=== PATIENT | male | born 1950 | race African-American/Black ===

== ENCOUNTER 2018-11-08 08:09 | Emergency (ER) | payer OTHER, SELFPAY ==
--- NOTE | 2018-11-08 09:03 | RAD REPORT ---
EXAM DESCRIPTION: CT - CTHCSPWOC - 11/08/2018 8:30 am CLINICAL HISTORY: Fall, head and neck injury COMPARISON: CT head November 2014 TECHNIQUE: Axial 5 mm thick images of the head were obtained. Axial 2 mm thick images of the cervic al spine were obtained with sagittal and coronal reconstruction images generated and reviewed. All CT scans are performed using dose optimization technique as appropriate and may include automated exposure control or mA/KV adjustment according to patient size. FINDINGS: No intracranial hemorrhage, mass, edema or acute intracranial finding. No suspicion for acute infarct ion. No extra-axial fluid collections. Mastoid air cells and paranasal sinuses are clear. No globe or orbit abnormality seen. No skull fracture is identified. Patient has a small scalp hematoma in the s uperolateral right frontal soft tissues. Underlying bone is intact. Relative density along the falx a nd tentorium is believed to be mineralization. Appearance matches the 2014 study. Atrophy changes are mild. Ventricles are in proportion to the volume loss. Cervical bodies are normal in height. No subluxation abnormality. There is reversal of the usual cerv ical lordosis that is probably a positioning artifact. Disc space narrowing is present throughout the cervical spine more pronounced at C5-6 and C7-T1. No fracture or acute bony abnormality. Bony forami nal encroachment present at C7-T1. No paraspinal mass or hematoma. Patient has prominent, symmetric sternocleidomastoid muscles. IMPRESSION: No hemorrhage, edema or acute intracranial finding. Intracranial findings are similar to the November 2014 study. Cervical spine degenerative changes are present as detailed. No fracture or acute cervical finding. Small scalp hematoma superolateral right frontal bone region. Underlying bone is intact.
--- NOTE | 2018-11-08 09:13 | ER ---
Nurse's Notes [facility] Name: Brendan Steinberg Age: 68 yrs Sex: Male : 1950 Arrival Date: 11/08/2018 Time: 08:12 Bed 20 Private MD: Diagnosis: Fall due to bumping against object;Headache;Sprain of ankle-left Presentation: 11/08 08:13 Presenting complaint: EMS states: Tripped while ambulating to the bathroom in the dark, hb hit head on radiator. + LOC. Now c/o pain in top of head and left ankle. Care prior to arrival: None. Mechanism of Injury: Fall from standing position. Trauma event details: Injury occurred in the [facility], Injury occurred: at home. Injury occurred: November 08, 2018 Injury occurred at: 07:30. 08:13 Acuity: ROSALIE 2 08:13 Method Of Arrival: EMS: [facility] 08:15 Transition of care: patient was not received from another setting of care. Onset of hb symptoms was November 08, 2018. Risk Assessment: Do you want to hurt yourself or someone else? Patient reports no desire to harm self or others. Initial Sepsis Screen: Does the patient meet any 2 criteria? No. Patient's initial sepsis screen is negative. Does the patient have a suspected source of infection? No. Patient's initial sepsis screen is negative. Trauma Activation: Alert Physician: ED Physician; Name: ; Notified At: ; Arrived At: Physician: General Surgeon; Name: ; Notified At: ; Arrived At: Physician: Radiology; Name: ; Notified At: ; Arrived At: Physician: Respiratory; Name: ; Notified At: ; Arrived At: Physician: Lab; Name: ; Notified At: ; Arrived At: Historical: - Allergies: 08:19 Codeine; hb - Home Meds: 08:19 Lisinopril Oral [Active]; hb - PMHx: 08:19 Hypertension; hb - PSHx: 08:19 hemorrhoidectomy; hb - Immunization history:: Adult Immunizations up to date. - Immunization history: Last tetanus immunization: unknown. - Social history:: Smoking status: Patient/guardian denies using tobacco. - Ebola Screening: : No symptoms or risks identified at this time. - Family history:: not pertinent. Screenin:15 Abuse screen: Denies threats or abuse. Denies injuries from another. Tuberculosis hb screening: No symptoms or risk factors identified. 08:19 Nutritional screening: No deficits noted. Fall Risk Total Mcnamara Fall Scale indicates hb Low Risk Score (25-44 pts). Fall prevention measures have been instituted. Side Rails Up X 2 Frequent Obs/Assesments occuring As available Patient and Family Educated on Fall Prevention Program and strategies. Primary Survey: 08:15 A: Airway: patent, No supplemental oxygen in use on arrival. Oral cavity: clear, hb Trachea midline. Breathing/Chest: Respiratory pattern: regular, Respiratory effort: spontaneous, unlabored, Breath sounds: clear, bilaterally. Chest inspection: symmetrical rise and fall of the chest. Circulation: Pulses: palpable . Skin color: pink, Skin temperature: warm, dry. Disability Alert. 09:00 Reassessment Airway Airway Patent Breathing/Chest Respiratory pattern Regular hb Respiratory effort Spontaneous Unlabored Chest inspection Symmetrical Circulation Temperature Warm Dry Disability Alert. Secondary Survey: 08:15 HEENT: Head Other mild swelling noted to top of head. Gastrointestinal: No deficits hb noted. : No deficits noted. No signs and/or symptoms were reported regarding the genitourinary system. Musculoskeletal: Reports pain in left ankle. Assessment: 08:17 General: Appears in no apparent distress. Behavior is calm, cooperative. Pain: Pain hb currently is 10 out of 10 on a pain scale. Neuro: Level of Consciousness is awake, alert, obeys commands, Oriented to person, place, time, situation, Pupils are PERRLA. Cardiovascular: Heart tones S1 S2 present Capillary refill < 3 seconds Patient's skin is warm and dry. Respiratory: Airway is patent Trachea midline Respiratory effort is even, unlabored, Respiratory pattern is regular, symmetrical, Breath sounds are clear bilaterally. GI: No signs and/or symptoms were reported involving the gastrointestinal system. : No signs and/or symptoms were reported regarding the genitourinary system. EENT: No signs and/or symptoms were reported regarding the EENT system. Derm: Skin is intact, is healthy with good turgor, Skin is pink, warm \T\ dry. Musculoskeletal: Reports pain in top of head and left ankle. Mild swelling noted to top of head. 09:00 Reassessment: Patient appears in no apparent distress at this time. Patient and/or hb family updated on plan of care and expected duration. Pain level reassessed. Patient is alert, oriented x 3, equal unlabored respirations, skin warm/dry/pink. 09:09 Reassessment: Pt c/o headache and left ankle pain 10/10, requesting pain medication. hb Dr. García notified, tramadol administered as ordered. VSS. NAD. Vital Signs: 08:15 BP 138 / 85; Pulse 62; Resp 16; Temp 98.1; Pulse Ox 97% on R/A; Pain 10/10; hb 09:00 BP 136 / 86; Pulse 66; Resp 15; Pulse Ox 100% on R/A; Pain 10/10; hb Rajesh Coma Score: 08:15 Eye Response: spontaneous(4). Verbal Response: oriented(5). Motor Response: obeys hb commands(6). Total: 15. Trauma Score (Adult): 08:15 Eye Response: spontaneous(1); Verbal Response: oriented(1); Motor Response: obeys hb commands(2); Systolic BP: > 89 mm Hg(4); Respiratory Rate: 10 to 29 per min(4); Rajesh Score: 15; Trauma Score: 12 09:00 Eye Response: spontaneous(1); Verbal Response: oriented(1); Motor Response: obeys hb commands(2); Systolic BP: > 89 mm Hg(4); Respiratory Rate: 10 to 29 per min(4); [place] Score: 15; Trauma Score: 12 ED Course: 08:12 Patient arrived in ED. hb 08:15 Triage completed. hb 08:16 Jhonny García MD is Attending Physician. miriam 08:17 Arm band placed on. hb 08:19 Patient has correct armband on for positive identification. Placed in gown. Bed in low hb position. Call light in reach. Side rails up X2. 08:20 Patient maintains SpO2 saturation greater than 95% on room air. Thermoregulation: warm hb blanket given to patient. 08:29 CT completed. Patient tolerated procedure well. Patient moved to CT via stretcher. sj Patient moved back from CT. 08:30 Head C Spine MPR Wo Con CT In Process Unspecified. EDMS 08:42 Sweta Veliz, RN is Primary Nurse. hb 09:00 X-ray completed. Portable x-ray completed in exam room. Patient tolerated procedure mh1 well. 09:10 Ankle Left 3 View XRAY In Process Unspecified. EDMS 09:12 Bar Lewis MD is Referral Physician. [facility] 09:28 No provider procedures requiring assistance completed. Patient did not have IV access ca1 during this emergency room visit. Administered Medications: 09:07 Drug: traMADol 100 mg Route: PO; ca1 09:30 Follow up: Response: Medication administered at discharge. hb Intake: 09:00 PO: 0ml; Total: 0ml. hb Output: 09:00 Urine: 0ml; Total: 0ml. hb Outcome: 09:12 Discharge ordered by . miriam 09:28 Discharged to home via wheelchair. ca1 09:28 Condition: stable 09:28 Discharge instructions given to patient, Instructed on discharge instructions, follow up and referral plans. medication usage, Demonstrated understanding of instructions, follow-up care, medications, Prescriptions given X 1. 09:38 Patient's length of stay was not longer than 2 hours. hb 09:39 Patient left the ED. hb Signatures: Dispatcher [employer] EDMS Jhonny García MD MD cha Harvey, Martha [facility] Iris Valentine Heather, JUANY RN hb Acob, Isabel, RN RN ca1 Corrections: (The following items were deleted from the chart) 09:10 09:00 BP 136 / 86; Pulse 66bpm; Resp 15bpm; Pulse Ox 100% RA; Pain 8/10; hb hb
--- NOTE | 2018-11-08 09:13 | EDPHYS ---
Physician Documentation [facility] Name: Brendan Steinberg Age: 68 yrs Sex: Male : 1950 Arrival Date: 11/08/2018 Time: 08:12 Bed 20 Private MD: ED Physician Jhonny García HPI: 11/08 08:44 This 68 yrs old Black Male presents to ER via EMS with complaints of Fall Injury. miriam 08:44 Details of fall: The patient fell from an upright position. Onset: The symptoms/episode miriam began/occurred last night. Associated injuries: The patient sustained injury to the head, neck injury, left lateral ankle, left medial ankle and anterior aspect of left ankle, decreased range of motion, painful injury, swelling. Severity of symptoms: At their worst the symptoms were mild, in the emergency department the symptoms are unchanged. The patient has not experienced similar symptoms in the past. Historical: - Allergies: 08:19 Codeine; hb - Home Meds: 08:19 Lisinopril Oral [Active]; hb - PMHx: 08:19 Hypertension; hb - PSHx: 08:19 hemorrhoidectomy; hb - Immunization history:: Adult Immunizations up to date. - Immunization history: Last tetanus immunization: unknown. - Social history:: Smoking status: Patient/guardian denies using tobacco. - Ebola Screening: : No symptoms or risks identified at this time. - Family history:: not pertinent. ROS: 08:44 Constitutional: Negative for fever, chills, and weight loss, Eyes: Negative for injury, miriam pain, redness, and discharge, ENT: Negative for injury, pain, and discharge, Neck: Negative for injury, pain, and swelling, Cardiovascular: Negative for chest pain, palpitations, and edema, Respiratory: Negative for shortness of breath, cough, wheezing, and pleuritic chest pain, Abdomen/GI: Negative for abdominal pain, nausea, vomiting, diarrhea, and constipation, Back: Negative for injury and pain, : Negative for injury, bleeding, discharge, and swelling, Skin: Negative for injury, rash, and discoloration, Neuro: Negative for headache, weakness, numbness, tingling, and seizure, Psych: Negative for depression, anxiety, suicide ideation, homicidal ideation, and hallucinations, Allergy/Immunology: Negative for hives, rash, and allergies, Endocrine: Negative for neck swelling, polydipsia, polyuria, polyphagia, and marked weight changes, Hematologic/Lymphatic: Negative for swollen nodes, abnormal bleeding, and unusual bruising. 08:44 MS/extremity: Positive for swelling, tenderness, of the left lateral ankle, left medial ankle and anterior aspect of left ankle. Exam: 08:44 Constitutional: This is a well developed, well nourished patient who is awake, alert, miriam and in no acute distress. Head/Face: Normocephalic, atraumatic. Eyes: Pupils equal round and reactive to light, extra-ocular motions intact. Lids and lashes normal. Conjunctiva and sclera are non-icteric and not injected. Cornea within normal limits. Periorbital areas with no swelling, redness, or edema. ENT: Nares patent. No nasal discharge, no septal abnormalities noted. Tympanic membranes are normal and external auditory canals are clear. Oropharynx with no redness, swelling, or masses, exudates, or evidence of obstruction, uvula midline. Mucous membranes moist. Neck: Trachea midline, no thyromegaly or masses palpated, and no cervical lymphadenopathy. Supple, full range of motion without nuchal rigidity, or vertebral point tenderness. No Meningismus. Chest/axilla: Normal chest wall appearance and motion. Nontender with no deformity. No lesions are appreciated. Cardiovascular: Regular rate and rhythm with a normal S1 and S2. No gallops, murmurs, or rubs. Normal PMI, no JVD. No pulse deficits. Respiratory: Lungs have equal breath sounds bilaterally, clear to auscultation and percussion. No rales, rhonchi or wheezes noted. No increased work of breathing, no retractions or nasal flaring. Abdomen/GI: Soft, non-tender, with normal bowel sounds. No distension or tympany. No guarding or rebound. No evidence of tenderness throughout. Back: No spinal tenderness. No costovertebral tenderness. Full range of motion. Male : Normal genitalia with no discharge or lesions. Skin: Warm, dry with normal turgor. Normal color with no rashes, no lesions, and no evidence of cellulitis. Neuro: Awake and alert, GCS 15, oriented to person, place, time, and situation. Cranial nerves II-XII grossly intact. Motor strength 5/5 in all extremities. Sensory grossly intact. Cerebellar exam normal. Normal gait. Psych: Awake, alert, with orientation to person, place and time. Behavior, mood, and affect are within normal limits. 08:44 Musculoskeletal/extremity: Circulation is intact in all extremities. Sensation intact. Compartment Syndrome exam of affected extremity: is normal. DVT Exam: negative Homans' sign noted on exam, no appreciated bluish discoloration, no erythema, no increased warmth, pain, swelling, tenderness. Vital Signs: 08:15 BP 138 / 85; Pulse 62; Resp 16; Temp 98.1; Pulse Ox 97% on R/A; Pain 10/10; hb 09:00 BP 136 / 86; Pulse 66; Resp 15; Pulse Ox 100% on R/A; Pain 10/10; hb Rajesh Coma Score: 08:15 Eye Response: spontaneous(4). Verbal Response: oriented(5). Motor Response: obeys hb commands(6). Total: 15. Trauma Score (Adult): 08:15 Eye Response: spontaneous(1); Verbal Response: oriented(1); Motor Response: obeys hb commands(2); Systolic BP: > 89 mm Hg(4); Respiratory Rate: 10 to 29 per min(4); Rajesh Score: 15; Trauma Score: 12 09:00 Eye Response: spontaneous(1); Verbal Response: oriented(1); Motor Response: obeys hb commands(2); Systolic BP: > 89 mm Hg(4); Respiratory Rate: 10 to 29 per min(4); [place] Score: 15; Trauma Score: 12 MDM: 08:16 Patient medically screened. [facility] 11/08 08:15 Order name: Head C Spine MPR Wo Con CT; Complete Time: 09:07 bd 11/08 08:40 Order name: Ankle Left 3 View XRAY hb Administered Medications: 09:07 Drug: traMADol 100 mg Route: PO; ca1 09:30 Follow up: Response: Medication administered at discharge. Disposition: 11/08/18 09:12 Discharged to Home. Impression: Fall due to bumping against object, Headache, Sprain of ankle - left. - Condition is Stable. - Discharge Instructions: Ankle Sprain, Head Injury, Adult, Fall Prevention in the Home, Ankle Sprain, [id number], Fall Prevention in the Home, Imrc-[id number]-Usnn, Head Injury, Adult, [id number]-xg-Ceok. - Prescriptions for Tramadol 50 mg Oral Tablet - take 1 tablet by ORAL route every 8 hours as needed; 24 tablet. - Medication Reconciliation Form, Thank You Letter, Antibiotic Education, Prescription Opioid Use form. - Follow up: Private Physician; When: 2 - 3 days; Reason: Recheck today's complaints, Continuance of care, Re-evaluation by your physician. Follow up: Dr. Bar Lewis; When: 2 - 3 days; Reason: Recheck today's complaints, Re-evaluation by your physician. - Problem is new. - Symptoms have improved. Signatures: Dispatcher [employer] EDMS Jhonny García MD MD cha Baxter, Heather, RN RN Isabel Bee RN RN [facility] Corrections: (The following items were deleted from the chart) 09:38 09:12 11/08/2018 09:12 Discharged to Home. Impression: Fall due to bumping against hb object; Headache; Sprain of ankle - left. Condition is Stable. Discharge Instructions: Ankle Sprain, Head Injury, Adult, Fall Prevention in the Home, Ankle Sprain, [id number], Fall Prevention in the Home, Ntuy-cm-Htuz, Head Injury, Adult, Ihnm-[id number]-[id number]. Prescriptions for Tramadol 50 mg Oral Tablet - take 1 tablet by ORAL route every 8 hours as needed; 24 tablet. and Forms are Medication Reconciliation Form, Thank You Letter, Antibiotic Education, Prescription Opioid Use. Follow up: Private Physician; When: 2 - 3 days; Reason: Recheck today's complaints, Continuance of care, Re-evaluation by your physician. Follow up: Dr. Bar Lewis; When: 2 - 3 days; Reason: Recheck today's complaints, Re-evaluation by your physician. Problem is new. Symptoms have improved. [facility] 09:39 09:38 11/08/2018 09:12 Discharged to Home. Impression: Fall due to bumping against hb object; Headache; Sprain of ankle - left. Condition is Stable. Discharge Instructions: Ankle Sprain, Head Injury, Adult, Fall Prevention in the Home, Ankle Sprain, Eyeb-[id number]-[id number], Fall Prevention in the Home, [id number]-[id number]-[id number], Head Injury, Adult, Pwiv-pu-Wlve. Prescriptions for Tramadol 50 mg Oral Tablet - take 1 tablet by ORAL route every 8 hours as needed; 24 tablet. and Forms are Medication Reconciliation Form, Thank You Letter, Antibiotic Education, Prescription Opioid Use. Follow up: Private Physician; When: 2 - 3 days; Reason: Recheck today's complaints, Continuance of care, Re-evaluation by your physician. Follow up: Dr. Bar Lewis; When: 2 - 3 days; Reason: Recheck today's complaints, Re-evaluation by your physician. Problem is new. Symptoms have improved. hb
[2018-11-08] MEDS ORDERED: TRAMADOL HCL 50 MG TAB ONE (09:16)
--- NOTE | 2018-11-08 09:32 | RAD REPORT ---
EXAM DESCRIPTION: RAD - Ankle Left 3 View - 11/08/2018 9:09 am CLINICAL HISTORY: Trip and fall, ankle pain COMPARISON: None. FINDINGS: No fracture, dislocation or periosteal reaction. No joint effusion seen. Mild joint space narrowing at the ankle joint. There is minimal marginal spurring. No erosive component. Arterial calc ifications are present. Patient has a small plantar spur. Lateral soft tissues are mildly prominent. IMPRESSION: Ankle joint degenerative changes are present along with a small plantar spur. No fracture or acute bone finding. Mild soft tissue swelling.
[2018-11-08 09:51] VITALS: TEMP 98.1
[2018-11-08 09:53] VITALS: BP 136/86; O2SAT 100
== END 2018-11-08 09:39 | disposition home or self-care (01) ==
LOC: ER 08:09
DX: S93.402A Sprain of unspecified ligament of left ankle, initial encounter (principal); R51 Headache; I10 Essential (primary) hypertension; W19.XXXA Unspecified fall, initial encounter; Y93.9 Activity, unspecified; Y92.9 Unspecified place or not applicable; Z88.5 Allergy status to narcotic agent
CPT/HCPCS: 70450; 72125; 99285

== ENCOUNTER 2021-02-20 18:44 | Inpatient (IN) | payer OTHER ==
[2021-02-20 20:34] VITALS: BMI 35.0
[2021-02-20] MEDS ORDERED: ACETAMINOPHEN 500 MG TAB PO PRN (21:27)
--- NOTE | 2021-02-20 21:31 | P.HP ---
Certification for Inpatient Patient admitted to: Inpatient With expected LOS: >2 Midnights Patient will require the following post-hospital care: None Practitioner: I am a practitioner with admitting privileges, knowledge of patient current condition, hospital course, and medical plan of care. Services: Services provided to patient in accordance with Admission requirements found in Title 42 Section 412.3 of the Code of Federal Regulations Patient History Date of Service: 02/20/21 Primary Care Provider: Dr. Tam Reason for admission: REBECCA, diarrhea History of Present Illness: Mr. Steinberg is a 70 yo male with HTN and h/o prostate cancer s/p radiation in April 2020 here today with nausea, vomiting, abdominal pain, and diarrhea since Sunday. He describes sharp 10/10 RLQ abdominal pain that feels like a knot. He reports poor appetite, night sweats, weakness, polyuria. He denies chills, chest pain, palpitations, edema, SOB, coughing, wheezing, hemoptysis, hematochezia, dysuria, hematuria. He says he just finished a 15 day course of ampicillin for tooth pain. At [place], CT scan and CXR were wnl. Alb 3.3. Amylase 257. TP 9. Glu 120. BUN 29. Cr 2.1. K 3.4. D dimer 1650. All other labs wnl. Allergies No Known Drug Allergies Allergy (Verified 02/20/21 21:43) Unknown Home medications list reviewed: Yes Home Medications: Unobtainable 02/20/21 - Past Medical/Surgical History Diabetic: No -: HTN -: prostate cancer s/p radiation 04/2020 Past Surgical History: Patient denies surgical history - Social History Smoking Status: Light Tobacco smoker (1-9 cigarettes/day) Counseled patient to stop smoking for: less than 10 minutes Smoking therapy provided: Yes Patient receptive to therapy: Yes Alcohol use: No CD- Drugs: No Caffeine use: Yes Place of Residence: Home Review of Systems General: Sweats, Malaise, As per HPI Eyes: Unremarkable ENT: Unremarkable Respiratory: Unremarkable Cardiovascular: Unremarkable Gastrointestinal: Nausea, Vomiting, Abdominal Pain, Diarrhea, No Distention, As per HPI Genitourinary: Frequency, As per HPI Musculoskeletal: Unremarkable Integumentary: Unremarkable Neurological: Unremarkable Lymphatics: Unremarkable Physical Examination - Vital Signs Temperature: 97.8 F Blood Pressure: 192/96 Pulse: 78 Respirations: 20 Pulse Ox (%): 93 - Physical Exam General: Alert, In no apparent distress, Oriented x3, Cooperative HEENT: Atraumatic, Normocephalic, PERRLA, Mucous membr. moist/pink, EOMI, Sclerae nonicteric Neck: Supple, 2+ carotid pulse no bruit, JVD not distended, No Thyromegaly, No LAD Respiratory: Clear to auscultation bilaterally, Normal air movement Cardiovascular: No edema, Normal pulses, Regular rate/rhythm, Normal S1 S2, No gallops, No rubs, No murmurs Capillary refill: <2 Seconds Gastrointestinal: Normal bowel sounds, Soft and benign, Non-distended, No ascites, No masses, No rebound, No guarding, Other (tenderness to palpation in RLQ), Tenderness Musculoskeletal: No clubbing, No swelling, No contractures, No erythema, No tenderness, No warmth Integumentary: No rashes, No breakdown, No significant lesion, No tenderness/swelling, No erythema, No warmth, No cyanosis Neurological: Normal speech, Normal strength at 5/5 x4 extr, Normal tone, S ensation intact, Cranial nerves 3-12 intact, Normal affect Lymphatics: No axilla or inguinal lymphadenopathy Assessment and Plan - Plan Assessment Hypertension History of prostate cancer s/p radiation in April N/V/D, abdominal pain REBECCA Assessment Hypertension - BP elevated on presentation, restart home BP medications, IV hydralazine 10mg Q6hr PRN - morphine 2mg IV q6hr for pain control History of prostate cancer s/p radiation in April - stable, continue to monitor - Ddimer elevated to 1650 at [place], patient reports some leg swelling, will obtain venous doppler U/S to rule out clots. heparin for DVT ppx. N/V/D, abdominal pain - CT scan shows no acute abnormalties in the abdomen or pelvis. Normal appendix. No obstructive ureteral calculi and no hydronephrosis seen. Pt reports recently completing course of ampicillin. Will obtain stool cultures, O&P, and c diff. Zofran for nausea and vomiting. advance diet as tolerated. REBECCA - Cr 2.1, BUN 29, K 3.4. Received fluids at [place]. will continue with hydration and potassium replacement. recheck BMP in the morning. on telemetry. Discharge Plan: Home Plan to discharge in: 48 Hours - Advance Directives Does patient have a Living Will: No Does patient have a Durable POA for Healthcare: No - Code Status/Comfort Care Code Status Assessed: Yes (full code) Critical Care: No Time Spent Managing Pts Care (In Minutes): 70
[2021-02-20] MEDS: ONDANSETRON 4 MG/2 ML VIAL IV PRN (21:54)
[2021-02-20] MEDS: MORPHINE 2 MG/ML SYR IV PRN (21:54)
[2021-02-20] MEDS ORDERED: NS KCL 20MEQ 20 MEQ/1,000 ML BAG IV SCH (22:00)
[2021-02-20] MEDS: NS KCL 20MEQ 20 MEQ/1,000 ML BAG IV SCH (22:00)
[2021-02-20 22:44] LABS: Thyroid Stimulating Hormone 1.82 uIU/mL (0.360-3.740)
[2021-02-21] MEDS: HEPARIN 5000 UNIT/ML 1 ML VIAL SQ SCH ×3 (00:59→17:30)
[2021-02-21 01:26] LABS: Urine Appearance CLEAR; Urine Bilirubin NEGATIVE (NEG); Urine Blood 2+ (Negative); Urine Color YELLOW; Urine Glucose NEGATIVE (Negative); Urine Protein 3+ (NEG); Urine Specific Gravity 1.025 (1.005-1.030); Urine Urobilinogen 0.2 mg/dL (0.2-1.0)
[2021-02-21 02:22] LABS: Urine Bacteria <20 /HPF (NONE SEEN); Urine RBC <5 /HPF (NONE SEEN)
[2021-02-21] MEDS ORDERED: MELATONIN 5 MG TABLET PO PRN (04:21)
[2021-02-21] MEDS: MORPHINE 2 MG/ML SYR IV PRN ×2 (04:44→09:48)
[2021-02-21] MEDS: ONDANSETRON 4 MG/2 ML VIAL IV PRN (04:44)
[2021-02-21] MEDS ORDERED: VANCOMYCIN ORAL SOLN 250 MG/5 ML OSYR PO SCH (06:00)
[2021-02-21 06:04] LABS: Absolute Lymphocytes (CBC) 2.2 K/uL (0.7-4.9); Basophils % 0.5 % (0-1.3); Hematocrit 33.2 % (39.6-49.0); Lymphocytes % 29.3 % (15.3-44.8); MPV 10.6 fL (7.6-11.3); RBC Red Blood Cell Count 3.35 M/uL (4.33-5.43)
[2021-02-21 06:39] LABS: Albumin 2.3 g/dL (3.4-5.0); Bilirubin Total 0.6 mg/dL (0.2-1.0); Magnesium 2.1 mg/dL (1.8-2.4); Phosphorus 3.6 mg/dL (2.5-4.9); Potassium 3.1 mmol/L (3.5-5.1); Protein, Total 7.8 g/dL (6.4-8.2)
--- NOTE | 2021-02-21 08:14 | RAD REPORT ---
EXAM DESCRIPTION: US - Extrem Venous W Compress Rojelio - 02/20/2021 10:28 pm CLINICAL HISTORY: leg swelling, both legs Preliminaries findings were provided at the time of the study COMPARISON: None. TECHNIQUE: Real-time sonographic evaluation of the bilateral lower extremity common femoral, superfi cial femoral, popliteal and posterior tibial veins was performed. FINDINGS: Normal compressibility, flow augmentation, phasic flow and spontaneous flow are identified in the left and right lower extremity common femoral, superficial femoral, popliteal and posterior t ibial veins. No intraluminal filling defects seen. IMPRESSION: No DVT in either lower extremity.
[2021-02-21] MEDS ORDERED: POTASSIUM 25 MEQ EFFERV TAB PO ONE (09:00)
[2021-02-21] MEDS: NS KCL 20MEQ 20 MEQ/1,000 ML BAG IV SCH ×2 (09:41→20:44)
[2021-02-21] MEDS ORDERED: SODIUM CHLORIDE 0.9% 10ML INJ IV PRN (11:51)
[2021-02-21] MEDS ORDERED: TRAMADOL HCL 50 MG TAB PO PRN (11:52)
--- NOTE | 2021-02-21 11:58 | P.PN ---
Subjective Date of Service: 02/21/21 Primary Care Provider: Dr. Tam Chief Complaint: REBECCA, diarrhea Subjective: Improving (Patient reports improvement. No diarrhea or bowel movement this morning. Some nausea. Patient admits to using THC. He smokes about 3 cigarettes/day.) Physical Examination - Vital Signs Temperature: 98.3 F Blood Pressure: 185/91 Pulse: 78 Respirations: 16 Pulse Ox (%): 92 - Studies Laboratory Data (last 24 hrs) 02/21/21 05:00: Sodium 139, Potassium 3.1 L, BUN 29 H, Creatinine 1.88 H, Glucose 80, Phosphorus 3.6, Magnesium 2.1, Total Bilirubin 0.6, AST 25, ALT 22, Alkaline Phosphatase 66, Triglycerides 144, Cholesterol 183, HDL Cholesterol 36 L, Cholesterol/HDL Ratio 5.08 02/21/21 05:00: WBC 7.40, Hgb 11.1 L, Hct 33.2 L, Plt Count 154 Assessment & Plan Discharge Plan: Home Plan to discharge in: 24 Hours Physician Review Additional Text: Physical exam: Patient alert, cooperative. No significant distress noted. Heart: Regular rate and rhythm Lungs: Clear to auscultation Abdomen: Soft nondistended hyperdynamic sounds noted. No significant tenderness noted. Minimal epigastric pain Extremities: Good range of motion to the upper lower extremities. No focal deficits noted. No edema. Impression: Nausea, vomiting, diarrhea and abdominal pain suspect colitis with recent antibiotic use Acute renal insufficiency likely dehydration with hypokalemia GERD Hypertension THC use Plan: Nausea, vomiting, diarrhea and abdominal pain suspect colitis with recent antibiotic use: Patient improved. No nausea or vomiting noted. Still some mild epigastric pain. No diarrhea noted. Reports no bowel movement since yesterday. CT scan unremarkable. Will check KUB. Patient with recent antibiotic use for dental pain. Suspect C. difficile colitis. Encourage ambulation. Encourage oral intake. He did not eat this morning. Continue IV fluids. We will continue to reassess. If improved will consider discharge later today if not tomorrow. Acute renal insufficiency likely dehydration with hypokalemia: Continue IV fluid hydration. Potassium supplementation in place. Protocol for replacement in place. GERD: We will start Protonix. Hypertension: Need to obtain and restart home medication. We will start carvedilol for now THC use: This may be contributing to his nausea and vomiting. Cessation education provided. Time Spent Managing Pts Care (In Minutes): 55
[2021-02-21] MEDS: LACTOBACILLUS/ACIDOPHILUS TAB PO SCH ×2 (14:04→20:42)
[2021-02-21] MEDS: METOPROLOL TAR 50 MG TAB PO SCH ×2 (14:05→20:42)
[2021-02-21] MEDS: HYDRALAZINE HCL 20 MG/ML VIAL IV PRN (14:05)
[2021-02-21] MEDS: PANTOPRAZOLE 40 MG INJ IVP SCH (14:05)
--- NOTE | 2021-02-21 14:39 | RAD REPORT ---
EXAM DESCRIPTION: RAD - Abdomen 1 View (KUB) - 02/21/2021 2:32 pm CLINICAL HISTORY: suspect Colitis Pain COMPARISON: ABDOMEN 1 VIEW KUB dated 08/11/2013; ABDOMEN 1 VIEW KUB dated 01/24/2013 FINDINGS: The bowel gas pattern is non-obstructive. No evidence of free air or pneumatosis. No suspi cious calcifications. No significant bony findings. IMPRESSION: Negative examination.
[2021-02-21] MEDS ORDERED: POTASSIUM CL SA 10 MEQ TAB PO ONE (16:12)
[2021-02-21] MEDS: HYDROCODONE/APAP 7.5/325 MG TAB PO PRN (17:27)
[2021-02-21] MEDS ORDERED: carvediloL 3.125 MG TAB PO SCH (18:00)
[2021-02-21] MEDS ORDERED: AMLODIPINE 5 MG TAB PO ONE (21:05)
--- NOTE | 2021-02-21 22:13 | CON ---
Date of Consultation: 02/21/2021 Chief Complaint: Acute on chronic kidney injury, prerenal azotemia, volume depletion. History Of Present Illness: The patient is a 70-year-old man with history of hypertension, history o f prostate cancer, status post radiation in April 2020. The patient was admitted to the hospital for hypovolemia, nausea, vomiting. He was complaining of abdominal pain, developed diarrhea on Sunday, a nd was complaining of progressively worse diarrhea and abdominal pain associated with nausea. The pa tient describes pain as sharp pain, 10/10, involving the right lower quadrant of the abdomen and was tight and steady without palpation. The patient had poor appetite, night sweat, weakness. He was co mplaining of polyuria. He denies chills, chest pain, palpitation, edema, wheezing, cough, or hemopty sis. He recently was treated with ampicillin for tooth pain and came to emergency room, had a CT sca n and chest x-ray done, which were within normal limits without any acute changes. Amylase was 257, albumin 3.3, creatinine 2.1, potassium 3.4. D-dimers were up to 1650. Review of Systems: Constitutional: He was complaining of generalized weakness. Eyes: Denies vision changes. Ears, Nose, Mouth, and Throat: Denies sore throat or earache. Respiratory: Denies wheezing, cough, or hemoptysis. Cardiovascular: Denies palpitation or syncope. GI: He was complaining of nausea and abdominal pain involving right lower quadrant, diarrhea, and de creased appetite. All other systems reviewed and all are negative. Past Medical History: Hypertension, prostate cancer, status post radiation in April 2020. Past Surgical History: The patient denies any previous surgery. Social History: Tobacco smoking, 1 to 9 cigarettes per day. Alcohol, denies. Denies IV drugs. Family History: No kidney disease in the family. Physical Examination: Vital Signs: Blood pressure is 180/96, heart rate is 70, respiratory rate 20, SpO2 93%, temperature 97.8. General: The patient is alert and oriented x3. Eyes: Anicteric sclerae. EOMI. Ears, Nose, Mouth, and Throat: Oral mucosa moist. No pallor. Neck: Supple. No bruits. Lungs: No wheezing. No rhonchi. Heart: S1, S2. No pericardial friction rub. Abdomen: Soft, benign, nontender. No rebound. No guarding. There is mild tenderness over right lo wer quadrant. Bowel sounds present. Neurologic: Moving extremities. Cranial nerves intact. Skin: Warm and dry. No skin rashes. Impression And Plan: 1.Acute on chronic kidney injury with prerenal azotemia. Continue IV fluids. The patient has histo ry of prostate cancer, although he denies lower urinary tract symptoms. Plan is to check renal ultra sound to screen for obstructive uropathy. 2.Hypertension. Blood pressure is uncontrolled. The patient was started on hydralazine IV. Advanc e p.o. medications. Continue low-sodium diet. 3.Prostate cancer, status post radiation. The patient was found to have elevated D-dimers. The pat ient will be ruled out for lower extremity deep vein thrombosis. 4.Nausea and vomiting. Continue antiemetics. The patient is on Zofran. 5.Chronic kidney disease. Plan is to screen for proteinuria and check urinalysis for any evidence o f active urinary sediment. EB/MODL Voice ID: [id number] Report ID: [id number]
[2021-02-22] MEDS: HEPARIN 5000 UNIT/ML 1 ML VIAL SQ SCH ×3 (00:31→16:26)
[2021-02-22] MEDS: HYDROCODONE/APAP 7.5/325 MG TAB PO PRN ×2 (00:31→08:41)
[2021-02-22] MEDS: HYDRALAZINE HCL 20 MG/ML VIAL IV PRN (00:32)
[2021-02-22 04:29] LABS: Magnesium 1.9 mg/dL (1.8-2.4); Potassium 4.1 mmol/L (3.5-5.1)
[2021-02-22] MEDS: NS KCL 20MEQ 20 MEQ/1,000 ML BAG IV SCH (07:22)
[2021-02-22] MEDS: PANTOPRAZOLE 40 MG INJ IVP SCH (08:39)
[2021-02-22] MEDS: LACTOBACILLUS/ACIDOPHILUS TAB PO SCH ×3 (08:40→20:10)
[2021-02-22] MEDS: METOPROLOL TAR 50 MG TAB PO SCH ×2 (08:40→20:10)
[2021-02-22] MEDS ORDERED: AMLODIPINE 2.5 MG TAB PO SCH (09:00)
[2021-02-22 09:24] VITALS: O2SAT 95
--- NOTE | 2021-02-22 09:51 | P.DS ---
Admission Date: 02/22/21 Discharge Date: 02/22/21 Primary Care Provider: Dr. Tam Disposition: ROUTINE DISCHARGE Discharge Condition: GOOD Reason for Admission: REBECCA, diarrhea Consultations: Nephrology-Dr. Mcnamara Procedures: COVID: Negative Renal US: Venous Doppler: COMPARISON: None. TECHNIQUE: Real-time sonographic evaluation of the bilateral lower extremity common femoral, superficial femoral, popliteal and posterior tibial veins was performed. FINDINGS: Normal compressibility, flow augmentation, phasic flow and spontaneous flow are identified in the left and right lower extremity common femoral, superficial femoral, popliteal and posterior tibial veins. No intraluminal filling defects seen. IMPRESSION: No DVT in either lower extremity. KUB: FINDINGS: The bowel gas pattern is non-obstructive. No evidence of free air or pneumatosis. No suspicious calcifications. No significant bony findings. IMPRESSION: Negative examination. Medical Problem List: Nausea, vomiting, diarrhea and abdominal pain suspect colitis with recent antibiotic use Acute renal insufficiency likely dehydration with hypokalemia GERD Hypertension THC use Brief History of Present Illness: 70-year-old -[place] male with history of hypertension, prostate cancer with prior radiation. Patient presented with nausea, vomiting and diarrhea. Patient also reported epigastric pain. Patient was seen at [place] [facility]. CT scan done was unremarkable. Patient was sent to our facility to continue further work-up. Patient recently finished course of 15-day ampicillin for tooth ache. Patient appeared dehydrated. Hospital Course: Patient was a direct transfer from [place] [facility] due to nausea, vomiting, diarrhea and abdominal pain. CT scan unremarkable. KUB unremarkable. Patient had mid epigastric abdominal pain. Colitis versus gastritis was suspected. Patient had been recently placed on antibiotic therapy for tooth ache. Plan: Nausea, vomiting, diarrhea and abdominal pain suspect colitis with recent antibiotic use: Patient improved. No nausea or vomiting noted. Still some mild epigastric pain. No diarrhea noted. Reports no bowel movement since yesterday. CT scan unremarkable. Will check KUB. Patient with recent antibiotic use for dental pain. Suspect C. difficile colitis. Encourage ambulation. Encourage oral intake. He did not eat this morning. Continue IV fluids. We will continue to reassess. If improved will consider discharge later today if not tomorrow. Acute renal insufficiency likely dehydration with hypokalemia: Continue IV fluid hydration. Potassium supplementation in place. Protocol for replacement in place. GERD: We will start Protonix. Hypertension: Need to obtain and restart home medication. We will start carvedilol for now THC use: This may be contributing to his nausea and vomiting. Cessation education provided. Time Spent Managing Pts Care (In Minutes): 55 Vital Signs/Physical Exam: Temp Pulse Resp BP Pulse Ox 98.6 F 71 17 181/101 H 95 02/22/21 08:00 02/22/21 08:40 02/22/21 08:00 02/22/21 08:40 02/22/21 08:00 Laboratory Data at Discharge: WBC 7.40 K/uL (4.3-10.9) 02/21/21 05:00 Hgb 11.1 g/dL (13.6-17.9) L 02/21/21 05:00 Hct 33.2 % (39.6-49.0) L 02/21/21 05:00 Plt Count 154 K/uL (152-406) 02/21/21 05:00 Sodium 140 mmol/L (136-145) 02/22/21 03:44 Potassium 4.1 mmol/L (3.5-5.1) 02/22/21 03:44 BUN 27 mg/dL (7-18) H 02/22/21 03:44 Creatinine 1.75 mg/dL (0.55-1.3) H 02/22/21 03:44 Glucose 86 mg/dL (74-106) 02/22/21 03:44 Phosphorus 3.6 mg/dL (2.5-4.9) 02/21/21 05:00 Magnesium 1.9 mg/dL (1.8-2.4) 02/22/21 03:44 Total Bilirubin 0.6 mg/dL (0.2-1.0) 02/21/21 05:00 AST 25 U/L (15-37) 02/21/21 05:00 ALT 22 U/L (12-78) 02/21/21 05:00 Alkaline Phosphatase 66 U/L (45-117) 02/21/21 05:00 Triglycerides 144 mg/dL (<150) 02/21/21 05:00 Cholesterol 183 mg/dL (<200) 02/21/21 05:00 HDL Cholesterol 36 mg/dL (40-60) L 02/21/21 05:00 Cholesterol/HDL Ratio 5.08 02/21/21 05:00 Home Medications: Acetaminophen with Codeine [Acetaminophen-Cod #4 Tablet] 1 tab PO BID PRN 02/21/21 Lisinopril/Hydrochlorothiazide [Lisinopril-Hctz 20-12.5 mg Tab] 2 each PO DAILY 02/21/21 Metoprolol Tartrate [Lopressor] 100 mg PO BID 02/21/21
--- NOTE | 2021-02-22 09:55 | RAD REPORT ---
EXAM DESCRIPTION: US - Renal Ultrasound-Complete - 02/22/2021 9:19 am CLINICAL HISTORY: glo Flank pain COMPARISON: ABDOMINAL EXAM LIMITED dated 10/25/2007 FINDINGS: Both kidneys are mildly echogenic. The right kidney measures 10.6 x 6.9 x 5.5 cm. No hydronephrosis, focal mass or perinephric fluid. The left kidney measures 11.1 x 6.3 x 4.5 cm. No hydronephrosis, focal mass or perinephric fluid. 12 mm cyst is present cortex left kidney, benign appearance. The urinary bladder is incompletely distended without gross abnormality seen. IMPRESSION: Bilateral echogenic kidneys are present compatible with underlying medical renal disease .
--- NOTE | 2021-02-22 10:35 | P.PN ---
Subjective Date of Service: 02/22/21 Primary Care Provider: Dr. Tam Chief Complaint: REBECCA, diarrhea Subjective: Other (Patient not able to tolerate diet this morning. Still with nausea and vomiting. Some epigastric pain noted.) Physical Examination - Vital Signs Temperature: 98.6 F Blood Pressure: 181/101 Pulse: 71 Respirations: 17 Pulse Ox (%): 95 - Studies Laboratory Data (last 24 hrs) 02/22/21 03:44: Sodium 140, Potassium 4.1, BUN 27 H, Creatinine 1.75 H, Glucose 86, Magnesium 1.9 02/21/21 15:17: Potassium 3.8 Microbiology Data (last 24 hrs): 02/21/21 16:35 Stool Occult Blood - Final Assessment & Plan Discharge Plan: Home Plan to discharge in: 24 Hours Physician Review Additional Text: Physical exam: Patient not able to tolerate diet. Nausea and vomiting noted. Patient alert, cooperative. No significant distress noted. Heart: Regular rate and rhythm Lungs: Clear to auscultation Abdomen: Soft nondistended some epigastric tenderness noted. Extremities: Good range of motion to the upper lower extremities. No focal deficits noted. No edema. Impression: Nausea, vomiting, diarrhea and epigastric abdominal pain suspect colitis with recent antibiotic use Acute renal insufficiency likely dehydration with hypokalemia with underlying chronic renal disease stage III GERD Hypertension THC use Plan: Nausea, vomiting, diarrhea and abdominal pain suspect colitis with recent antibiotic use: Patient with nausea and vomiting this morning. Not able to tolerate diet. Still with epigastric pain. CT scan reviewed from [place] [facility] unremarkable. KUB unremarkable. We will keep the patient n.p.o. Will consult GI. Anticipate need for possible EGD. Will discuss with GI. Continue IV fluids. Continue IV Protonix. Await recommendations from GI. Acute renal insufficiency likely dehydration with hypokalemia with underlying chronic renal disease stage III: Renal ultrasound shows chronic renal disease. Continue IV fluid hydration. Potassium supplementation in place. Protocol for replacement in place. Spoke with nephrology. Overall stable. GERD: Continue IV Protonix. Hypertension: Restart metoprolol. Norvasc added. Continue to hold HARI inhibitor. THC use: This may be contributing to his nausea and vomiting. Cessation education provided. Time Spent Managing Pts Care (In Minutes): 55
[2021-02-22] MEDS ORDERED: MAGNESIUM SULFATE 1 gm IVPB 1 GM/100 ML BAG IV ONE (11:38)
[2021-02-22] MEDS ORDERED: CLONIDINE 0.1 MG/PATCH TD SCH (12:00)
[2021-02-22 12:22] LABS: C.diff Antigen/Toxin Ag neg : Tox neg (NEG : NEG)
--- NOTE | 2021-02-22 13:40 | PN ---
Date of Progress Note: 02/22/2021 Subjective: The patient was admitted with gastroenteritis symptoms, found to have elevation in BUN and creatinine. The patient was started on hydration. Kidney function is slightly better. The patient still has nausea and occasional vomiting. No fever or chills. Physical Examination: Vital Signs: When I saw the patient; blood pressure 181/100, pulse of 77, afebrile. Chest: Clear to auscultation. Heart: S1, S2. Regular. Abdomen: Soft, tenderness on the right upper quadrant. No guarding or rebound. Extremity: Trace edema. Neuro: Alert. No focality. Laboratory Data: WBC 7.4, H and H 11.1/33.2, platelets 154. Sodium 140, potassium 4.1, bicarb 28, BUN 27, creatinine 1.7, GFR of 47 trending up, calcium 7.8, magnesium 1.9. Serum protein electrophoresis is still pending. TSH 1.8. Renal ultrasound, 10.6/11.6, echogenic. Reviewing the record for the patient, creatinine back in 2014 1.4 with GFR of 58. Assessment And Plan: 1. Acute kidney injury secondary to prerenal and chronic kidney disease stage 3, +3 protein. I am going to go ahead and send for PTH to confirm the chronicity of the disease with the presence of the proteinuria. We will check PC ratio to evaluate and we will follow up protein electrophoresis. 2. Hypertension, not controlled with the presence of acute kidney injury. I will keep holding HARI inhibitor and hydrochlorothiazide for the time being. I am going to go ahead and increase amlodipine to 10 mg. Agree with metoprolol. Given the patient's nausea and vomiting, I am going to place the patient on clonidine patch. 3. Dehydration. We will continue IV hydration. 4. Hypokalemia, status post supplement, resolved. 5. Hypomagnesemia. We will replace. 6. Gastroenteritis with right upper quadrant pain. Follow up with the primary. Plan for ultrasound. time spent discussing with the patient, examine the patient face to face placing order , discuss with the staff and other specialty including hospitalist 45 min. NARAYAN Voice ID: [id number] Report ID: [id number] JAQUELIN
--- NOTE | 2021-02-22 15:48 | RAD REPORT ---
EXAM DESCRIPTION: US - Liver Only - 02/22/2021 3:34 pm CLINICAL HISTORY: Right upper quadrant pain COMPARISON: None FINDINGS: The liver has a normal echotexture. Hepatopetal flow. A lesion is not visualized. The patient was not NPO which limits evaluation of gallbladder. A gallstone is not seen. Gallbladder wall is not thickened. The biliary tree is normal caliber. The spleen measures 9 centimeters. IMPRESSION: Grossly normal exam
--- NOTE | 2021-02-22 17:09 | P.DS ---
Admission Date: 02/22/21 Discharge Date: 02/22/21 Primary Care Provider: Dr. Tam Disposition: ROUTINE DISCHARGE Discharge Condition: GOOD Reason for Admission: REBECCA, diarrhea Consultations: Nephrology-Dr. Balderas GI-Dr. Gutiérrez Procedures: COVID: Negative Venous doppler: FINDINGS: Normal compressibility, flow augmentation, phasic flow and spontaneous flow are identified in the left and right lower extremity common femoral, superficial femoral, popliteal and posterior tibial veins. No intraluminal filling defects seen. IMPRESSION: No DVT in either lower extremity. KUB: FINDINGS: The bowel gas pattern is non-obstructive. No evidence of free air or pneumatosis. No suspicious calcifications. No significant bony findings. IMPRESSION: Negative examination. Renal US: COMPARISON: ABDOMINAL EXAM LIMITED dated 10/25/2007 FINDINGS: Both kidneys are mildly echogenic. The right kidney measures 10.6 x 6.9 x 5.5 cm. No hydronephrosis, focal mass or perinephric fluid. The left kidney measures 11.1 x 6.3 x 4.5 cm. No hydronephrosis, focal mass or perinephric fluid. 12 mm cyst is present cortex left kidney, benign appearance. The urinary bladder is incompletely distended without gross abnormality seen. IMPRESSION: Bilateral echogenic kidneys are present compatible with underlying medical renal disease. CT scan: No acute changes. ABUS: COMPARISON: None FINDINGS: The liver has a normal echotexture. Hepatopetal flow. A lesion is not visualized. The patient was not NPO which limits evaluation of gallbladder. A gallstone is not seen. Gallbladder wall is not thickened. The biliary tree is normal caliber. The spleen measures 9 centimeters. IMPRESSION: Grossly normal exam Impression: Nausea, vomiting, diarrhea and epigastric abdominal pain gastritis Acute renal insufficiency likely dehydration with hypokalemia with underlying chronic renal disease stage III GERD Hypertension THC use Brief History of Present Illness: 70-year-old -[place] male with history of hypertension, prostate cancer with prior radiation therapy. Patient presented as a direct admit from [facility] due to increased nausea, vomiting and abdominal pain. Patient also had reported some diarrhea. Patient had CT scan and chest x-ray at the facility. These were unremarkable. Patient found to have acute renal failure. Patient was transferred for further work-up. Hospital Course: Patient presented with nausea, vomiting, diarrhea and abdominal pain. Pain was mainly to the epigastric region. Patient had recent antibiotic use due to a tooth ache. Work-up included abdominal ultrasound which was unremarkable for cholecystitis. CT scan done at [facility] was unremarkable for any acute findings. Patient was started on IV Protonix. Gastritis was suspected. His condition improved. C. difficile culture negative. GI was consulted to further evaluate. GI had planned for EGD but due to scheduling problems this was not able to be done. Patient was advanced with his diet. He was able to tolerate a clear liquid diet without any problem. GI plans for patient to be discharged home on a clear to full liquid diet. GI plans for outpatient EGD on to further evaluate. GI suspects this may be gastritis related. His THC use may also be a component to this problem. Cessation education provided. At discharge patient will go home on Protonix 40 mg daily. Patient had acute renal insufficiency related to dehydration with hypokalemia noted. Patient was given IV fluids with potassium repletion. Patient has done well. Renal ultrasound shows chronic renal disease. Stage III noted. Nephrology was consulted. Nephrology has sent lab for further evaluation of the chronicity of his renal disease. Recommend no further use of nonsteroidal anti- inflammatories. Recommend follow-up with nephrology in 1 week to further monitor and follow-up on lab. Patient with hypertension. This was uncontrolled. Patient had been on lisinopril hydrochlorothiazide. Due to his renal disease this was discontinued. Medication was adjusted. Patient takes metoprolol. Norvasc and clonidine patch were added. At discharge patient will continue with metoprolol 100 mg 1 pill twice daily, Norvasc 10 mg daily and clonidine patch 0.1 mg to be changed every week. Recommend to maintain blood pressure less than 130/80. Further adjustment in medication may be required. This can be done with the help his PCP or nephrology. Vital Signs/Physical Exam: Temp Pulse Resp BP Pulse Ox 98.2 F 67 17 163/124 H 94 02/22/21 12:00 02/22/21 12:00 02/22/21 12:00 02/22/21 12:00 02/22/21 12:00 General: Alert, In no apparent distress, Oriented x3, Cooperative HEENT: Atraumatic Neck: Supple Respiratory: Clear to auscultation bilaterally, Normal air movement Cardiovascular: Normal pulses, Regular rate/rhythm Gastrointestinal: Normal bowel sounds, Soft and benign, Non-distended, No ascites, No tenderness, No masses, No rebound, No guarding Integumentary: No tenderness/swelling, No erythema, No warmth, No cyanosis Neurological: Normal speech, Normal strength at 5/5 x4 extr, Normal tone, Normal affect Laboratory Data at Discharge: WBC 7.40 K/uL (4.3-10.9) 02/21/21 05:00 Hgb 11.1 g/dL (13.6-17.9) L 02/21/21 05:00 Hct 33.2 % (39.6-49.0) L 02/21/21 05:00 Plt Count 154 K/uL (152-406) 02/21/21 05:00 Sodium 140 mmol/L (136-145) 02/22/21 03:44 Potassium 4.1 mmol/L (3.5-5.1) 02/22/21 03:44 BUN 27 mg/dL (7-18) H 02/22/21 03:44 Creatinine 1.75 mg/dL (0.55-1.3) H 02/22/21 03:44 Glucose 86 mg/dL (74-106) 02/22/21 03:44 Phosphorus 3.6 mg/dL (2.5-4.9) 02/21/21 05:00 Magnesium 1.9 mg/dL (1.8-2.4) 02/22/21 03:44 Total Bilirubin 0.6 mg/dL (0.2-1.0) 02/21/21 05:00 AST 25 U/L (15-37) 02/21/21 05:00 ALT 22 U/L (12-78) 02/21/21 05:00 Alkaline Phosphatase 66 U/L (45-117) 02/21/21 05:00 Triglycerides 144 mg/dL (<150) 02/21/21 05:00 Cholesterol 183 mg/dL (<200) 02/21/21 05:00 HDL Cholesterol 36 mg/dL (40-60) L 02/21/21 05:00 Cholesterol/HDL Ratio 5.08 02/21/21 05:00 Home Medications: Metoprolol Tartrate [Lopressor] 100 mg PO BID 02/21/21 Amlodipine [Norvasc*] 10 mg PO DAILY #30 tab 02/22/21 Clonidine Patch [Catapres-Tts 1*] 0.1 mg TD EVERY 7TH DAY #4 patch 02/22/21 Pantoprazole [Protonix Tab] 40 mg PO DAILY #30 tab 02/22/21 New Medications: Clonidine Patch [Catapres-Tts 1*] 0.1 mg TD EVERY 7TH DAY #4 patch Amlodipine [Norvasc*] 10 mg PO DAILY #30 tab Pantoprazole [Protonix Tab] 40 mg PO DAILY #30 tab Physician Discharge Instructions: Patient presented with nausea, vomiting, diarrhea and abdominal pain. Pain was mainly to the epigastric region. Patient had recent antibiotic use due to a tooth ache. Work-up included abdominal ultrasound which was unremarkable for cholecystitis. CT scan done at [facility] was unremarkable for any acute findings. Patient was started on IV Protonix. Gastritis was suspected. His condition improved. GI was consulted to further evaluate. GI had planned for EGD but due to scheduling problems this was not able to be done. Patient was advanced with his diet. He was able to tolerate a clear liquid diet without any problem. GI plans for patient to be discharged home on a clear to full liquid diet. GI plans for outpatient EGD on to further evaluate. GI suspects this may be gastritis related. His THC use may also be a component to this problem. Cessation education provided. At discharge patient will go home on Protonix 40 mg daily. Patient had acute renal insufficiency related to dehydration with hypokalemia noted. Patient was given IV fluids with potassium repletion. Patient has done well. Renal ultrasound shows chronic renal disease. Stage III noted. Nephrology was consulted. Nephrology has sent lab for further evaluation of the chronicity of his renal disease. Recommend no further use of nonsteroidal anti- inflammatories. Recommend follow-up with nephrology in 1 week to further monitor and follow-up on lab. Patient with hypertension. This was uncontrolled. Patient had been on lisinopril hydrochlorothiazide. Due to his renal disease this was discontinued. Medication was adjusted. Patient takes metoprolol. Norvasc and clonidine patch were added. At discharge patient will continue with metoprolol 100 mg 1 pill twice daily, Norvasc 10 mg daily and clonidine patch 0.1 mg to be changed every week. Recommend to maintain blood pressure less than 130/80. Further adjustment in medication may be required. This can be done with the help his PCP or nephrology. Diet: full Activity: Ad nicole Time spent managing pt's care (in minutes): 55
[2021-02-22 20:36] VITALS: BP 188/91; TEMP 98.6
[2021-02-23] MEDS ORDERED: AMLODIPINE 10 MG TAB PO SCH (09:00)
[2021-02-23] MEDS ORDERED: AMLODIPINE 2.5 MG TAB PO SCH (09:00)
[2021-02-25 06:23] LABS: Albumin, (SPE) 2.6 g/dL (3.8-4.8); Alpha-1-Globulins 0.3 g/dL (0.2-0.3); Alpha-2-Globulins 0.8 g/dL (0.5-0.9); Gamma Globulins 2.2 g/dL (0.8-1.7); INTERPRETATION REPORT
== END 2021-02-22 21:00 | disposition home or self-care (01) | DRG 392 ==
LOC: 2ND 18:44 → INTOOBSV 21:05 → OBSVTOIN 21:05
PROVIDERS: ADMIT Internal Medicine; ATTEND Family Medicine
DX: K29.70 Gastritis, unspecified, without bleeding (principal); N17.9 Acute kidney failure, unspecified; F17.210 Nicotine dependence, cigarettes, uncomplicated; E87.6 Hypokalemia; K21.9 Gastro-esophageal reflux disease without esophagitis; E86.0 Dehydration; I12.9 Hypertensive chronic kidney disease with stage 1 through stage 4 chronic kidney disease, or unspecified chronic kidney disease; N18.30 Chronic kidney disease, stage 3 unspecified; E83.42 Hypomagnesemia; Z79.899 Other long term (current) drug therapy; Z85.46 Personal history of malignant neoplasm of prostate; Z92.3 Personal history of irradiation
CPT/HCPCS: 36415; 74018; 76705; 76770; 80048; 80053; 80061; 81001; 82274; 82550; 83036; 83735; 84100; 84132; 84165; 84439; 84443; 85025; 87045; 87046; 87086; 87088; 87177; 87209; 87324; 87449; 93970; 94760; C9113; G0378; G0379; J0360; J1644; J2270; J2405; J3475; J3480

== ENCOUNTER 2021-04-20 23:28 | Inpatient (IN) | payer OTHER ==
[2021-04-21 00:57] VITALS: BMI 34.6
[2021-04-21] MEDS ORDERED: DICYCLOMINE HCL 10 MG CAP PO PRN (01:20)
[2021-04-21] MEDS ORDERED: SODIUM CHLORIDE 0.9% 10ML INJ IV PRN (01:20)
--- NOTE | 2021-04-21 01:32 | P.HP ---
Certification for Inpatient Patient admitted to: Observation With expected LOS: <2 Midnights Patient will require the following post-hospital care: None Practitioner: I am a practitioner with admitting privileges, knowledge of patient current condition, hospital course, and medical plan of care. Services: Services provided to patient in accordance with Admission requirements found in Title 42 Section 412.3 of the Code of Federal Regulations Patient History Date of Service: 04/21/21 Reason for admission: Acute kidney injury, abdominal pain, vomiting History of Present Illness: 70-year-old male with history of prostate cancer, CKD presented to the emergency department for abdominal pain, vomiting. Patient was evaluated at stand-alone emergency department, labs were significant for white blood cell count 7.1, hemoglobin 10.8 hematocrit 31.1 creatinine 2.5 BUN 27 potassium 4.[address] abdomen pelvis demonstrates no acute findings patient persisted with abdominal pain and vomiting throughout workup and therefore ED provider at stand-alone center wish to transfer patient for further evaluation and management. Allergies No Known Drug Allergies Allergy (Verified 04/21/21 00:26) Unknown Home Medications: Lisinopril/Hydrochlorothiazide [Lisinopril-Hctz 20-12.5 mg Tab] 2 tab PO DAILY 04/21/21 Metoprolol Tartrate 100 mg PO BID 04/21/21 Tadalafil [Cialis] 1 tab PO DAILY 04/21/21 - Past Medical/Surgical History Has patient received pneumonia vaccine in the past: Yes Diabetic: No -: HTN -: prostate cancer s/p radiation 04/2020 -: Hemorrhoids -: CKD -: Hemorrhoidectomy Psychosocial/ Personal History: Patient is retired, lives alone - Family History Sister -: Diabetes Mother -: Heart disease, Lung disease, Stroke - Social History Smoking Status: Former smoker Alcohol use: No CD- Drugs: No Caffeine use: No Place of Residence: Home Review of Systems 10-point ROS is otherwise unremarkable Gastrointestinal: Nausea, Vomiting, Abdominal Pain, Diarrhea, No Distention Genitourinary: Frequency Physical Examination - Vital Signs Temperature: 98.3 F Blood Pressure: 140/70 Pulse: 72 Respirations: 18 Pulse Ox (%): 99 - Physical Exam General: Alert, In no apparent distress, Oriented x3 HEENT: Atraumatic, PERRLA, Mucous membr. moist/pink, EOMI, Sclerae nonicteric Neck: Supple, 2+ carotid pulse no bruit, No LAD, Without JVD or thyroid abnormality Respiratory: Clear to auscultation bilaterally, Normal air movement Cardiovascular: Regular rate/rhythm, Normal S1 S2 Gastrointestinal: Normal bowel sounds, No tenderness Musculoskeletal: No tenderness Integumentary: No rashes Neurological: Normal gait, Normal speech, Normal strength at 5/5 x4 extr, Normal tone, Normal affect Lymphatics: No axilla or inguinal lymphadenopathy Assessment and Plan - Plan Assessment Abdominal pain, vomiting, diarrhea-suspect gastroenteritis REBECCA superimposed on CKD 3 Hypertension Plan Abdominal pain, vomiting, diarrhea-suspect gastroenteritis: NPO besides ice chips and sips of water, advanced as tolerated. Begin PPI therapy with Protonix. P.r.n. anti emetics and pain medications. Stool cultures, O&P, C. diff. Daily labs. DVT prophylaxis heparin 5000 units subcutaneous twice daily. Patient without any significant abdominal tenderness at this time. REBECCA superimposed on CKD 3: Continue with IV fluids, obtain CPK, uric acid. Nephrology consulted for additional assistance. Hypertension: Obtain and verify home medications, continue as appropriate. Discharge Plan: Home Plan to discharge in: 24 Hours - Advance Directives Does patient have a Living Will: No Does patient have a Durable POA for Healthcare: No - Code Status/Comfort Care Code Status Assessed: Yes (Full code) Critical Care: No Time Spent Managing Pts Care (In Minutes): 55
[2021-04-21] MEDS: ONDANSETRON 4 MG/2 ML VIAL IV PRN ×4 (01:51→20:07)
[2021-04-21] MEDS: FENTANYL CITR 100 MCG/2 ML IV PRN ×4 (01:53→20:08)
[2021-04-21] MEDS: NA CHLORIDE 0.9% 1,000 ML IV SCH ×3 (01:55→22:21)
[2021-04-21 03:12] LABS: Urine Appearance CLEAR (Clear); Urine Bilirubin NEGATIVE (Negative); Urine Blood 1+ (Negative); Urine Color YELLOW (Yellow); Urine Glucose NEGATIVE (Negative); Urine Protein 3+ (Negative); Urine Specific Gravity 1.015 (1.005-1.030); Urine Urobilinogen 0.2 mg/dL (0.2-1.0); Urine pH 5.5 (5.0-7.0)
[2021-04-21 03:16] LABS: Urine Microscopic Reflex ORDER UMIC
[2021-04-21 03:38] LABS: Urine Bacteria <20 /HPF (NONE SEEN); Urine RBC <5 /HPF (NONE SEEN); Urine Urothelial Cells <5 /HPF (NONE SEEN)
[2021-04-21 03:53] LABS: Absolute Lymphocytes (CBC) 1.8 K/uL (0.7-4.9); Basophils % 0.4 % (0-1.3); Hematocrit 27.2 % (39.6-49.0); Lymphocytes % 27.2 % (15.3-44.8); MPV 9.4 fL (7.6-11.3); RBC Red Blood Cell Count 2.81 M/uL (4.33-5.43)
[2021-04-21 04:10] LABS: Albumin 2.9 g/dL (3.4-5.0); Bilirubin Total 0.4 mg/dL (0.2-1.0); Magnesium 2.1 mg/dL (1.8-2.4); Potassium 3.9 mmol/L (3.5-5.1); Thyroid Stimulating Hormone 1.42 uIU/mL (0.360-3.740); Uric Acid 8.5 mg/dL (3.5-7.2)
[2021-04-21] MEDS: PANTOPRAZOLE 40 MG INJ IVP SCH (07:59)
[2021-04-21] MEDS: HEPARIN 5000 UNIT/ML 1 ML VIAL SQ SCH ×2 (07:59→20:07)
--- NOTE | 2021-04-21 15:26 | CON ---
Date of Consultation: 04/21/2021 Reason For Consultation: Elevated BUN and creatinine, electrolyte imbalance, dehydration. History Of Present Illness: This is a pleasant 70-year-old gentleman with significant past medical history of prostate cancer, chronic kidney disease, baseline creatinine 1.7, GFR of 47 as of January 2021, hyperlipidemia, overweight. The patient came to the hospital with abdominal pain, nausea, and vomiting. No diarrhea. No fever. No chills. Found to have elevation in creatinine of 2.5. For that reason, we have been consulted. The patient denied taking any nonsteroidal. No IV contrast. No fever or chills. Past Medical History: Includes; 1. Hypertension. 2. Hyperlipidemia. 3. Chronic kidney disease, stage 3 secondary to hypertension and nephrosclerosis. 4. 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 Recommended IPAP. Allergies: NO KNOWN DRUGS ALLERGY. Family History: Positive for hypertension. Home Medications: Include lisinopril, hydrochlorothiazide, metoprolol, Cialis. Social History: Ex-smoker. Denied alcohol. Denied drugs abuse. Review of Systems: Head and Neck: No red eye. No ear pain. GI: No nausea. No vomiting. : No polyuria. No dysuria. No hematuria. Wafer Fab Technician: Not applicable. Respiratory: No shortness of breath. Cardiovascular: No chest pain. Endocrine: No polydipsia. Skin: No rash. Neuro: Generalized weakness. Musculoskeletal: Low back pain. Physical Examination: General: When I saw the patient, the patient lying in bed, still weak. Vital Signs: Blood pressure 139/67, pulse of 72, afebrile. Chest: Clear to auscultation. Heart: S1, S2. Regular. Abdomen: Soft. Mild tenderness. No guarding or rebound. Extremities: No edema. Neuro: Alert. No focality. Laboratory Data: WBC 6.5, H and H 9.4/27.2. Sodium 143, potassium 3.9, bicarb 24, BUN 28, creatinine 2.2, GFR of 35, uric acid of 8.5, calcium 8.5. TSH 1.4. Urinalysis negative for infection, +3 protein. Assessment And Plan: 1. Acute kidney injury, mostly secondary to prerenal, dehydration, superimposed with hydrochlorothiazide and HARI inhibitor. Looked to me still on the dry side. I am going to go ahead and bolus the patient with 1 L of normal saline and continue on the hydration. We will send for PTH and vitamin D given the previous lab of nephrotic-range proteinuria. We will quantify the proteinuria and I am going to go ahead and send for IPAP to evaluate given the history of positive the SPEP before. 2. Hypertension with the presence of acute kidney injury. Hold any HARI inhibitor or hydrochlorothiazide for the time being and we will monitor the patient. 3. Nephrotic-range proteinuria. We will quantify it. We will send for IPAP. 4. Gastroenteritis as by primary. time spend discussing with patient exam the patient face to face , reviewing the data, placing order , discussing with other steam clean machine operator including nursing staff , discussing with hospitalist and other home energy consultant 65 min NARAYAN Voice ID: [id number] Report ID: [id number] MTDD
--- NOTE | 2021-04-21 15:55 | RAD REPORT ---
EXAM DESCRIPTION: US - Renal Ultrasound-Complete - 04/21/2021 3:16 pm CLINICAL HISTORY: REBECCA COMPARISON: Renal Ultrasound-Complete dated 02/22/2021 FINDINGS: The right kidney measures grossly 12 x 7 cm. The left kidney measures grossly 11 x 6 cm. No size change suspected when allowing for differences in image selection and measuring technique. Co rtical thickness is normal. Echogenicity is increased in both kidneys typical for medical renal disea se. No hydronephrosis or suspicious renal mass. Small 14 mm cyst is present lateral mid left kidney. This is not significantly different from comparison. Slight size differential is probably due to imag e selection and measuring technique. No bladder wall thickening or mass. No intraluminal stone or mass. IMPRESSION: Medical renal disease is present similar to the February 12 examination. No hydronephrosis, suspicious mass or other significant change from January imaging.
--- NOTE | 2021-04-21 16:11 | P.PN ---
Date of Service: 04/21/21 Patient reports no significant change in nausea and abdominal pain. The 2nd episode in last 6-8 weeks, was hospitalized for several days previously. Was supposed to follow up with GI, however loss to followup. Does report at least 1 day of black stool earlier this week. He does have some anemia Epigastric tenderness on exam as well as RUQ and RLQ CT negative concern for gastritis / gastric ulcer with upper GI bleed GI consulted NPO for now
[2021-04-21] MEDS: SUCRALFATE 1 GM TABLET PO SCH ×2 (17:30→20:07)
[2021-04-22] MEDS: FENTANYL CITR 100 MCG/2 ML IV PRN ×2 (01:12→06:56)
[2021-04-22 05:56] LABS: Absolute Lymphocytes (CBC) 2.1 K/uL (0.7-4.9); Basophils % 0.7 % (0-1.3); Hematocrit 29.8 % (39.6-49.0); Lymphocytes % 40.3 % (15.3-44.8); MPV 9.9 fL (7.6-11.3); RBC Red Blood Cell Count 3.05 M/uL (4.33-5.43)
--- NOTE | 2021-04-22 07:08 | P.PN ---
Subjective Date of Service: 04/22/21 Chief Complaint: Acute kidney injury, abdominal pain, vomiting Subjective: No new changes Physical Examination - Vital Signs Temperature: 98.2 F Blood Pressure: 167/73 Pulse: 77 Respirations: 18 Pulse Ox (%): 93 - Physical Exam General: In no apparent distress HEENT: Atraumatic, Normocephalic Neck: Supple Respiratory: Clear to auscultation bilaterally Cardiovascular: No rubs, No murmurs Gastrointestinal: Soft and benign Musculoskeletal: Swelling - Studies Laboratory Data (last 24 hrs) 04/22/21 05:14: WBC 5.30 D, Hgb 9.9 L, Hct 29.8 L, Plt Count 196 Assessment And Plan - Plan 1. Acute kidney injury, mostly secondary to prerenal, dehydration, superimposed with hydrochlorothiazide and HARI inhibitor. Improved to 1.8 today w/ IV fluids. Hx of prostate cancer, chronic kidney disease, baseline creatinine 1.7, GFR of 47 as of January 2021. +Proteinuria. +SPEP previously. F/u serum GRIFFIN, K:L SFLC, & random UPCR. 2. Hypertension. BP above goal. Resume lisinopril 20 mg po daily. Cont metoprolol 100 mg po bid. Switch lisinopril to lisinopril/HCTZ home dose upon hosp dc. Low Na diet residential. Do NOT to restrict po fluid intake as he is not hyponatremic. 3. Nephrotic-range proteinuria. F/u proteinuria workup as above 4. Abdominal pain. Concern for gastritis / gastric ulcer with upper GI bleed. For EGD today.
[2021-04-22 07:25] LABS: Albumin 2.7 g/dL (3.4-5.0); Bilirubin Total 0.5 mg/dL (0.2-1.0); Ferritin 30.1 ng/mL (26-388); Folic Acid, (Folate) 16.4 ng/mL (3.1-17.5); Phosphorus 3.3 mg/dL (2.5-4.9); Potassium 3.7 mmol/L (3.5-5.1); Protein, Total 8.5 g/dL (6.4-8.2)
[2021-04-22] MEDS: SUCRALFATE 1 GM TABLET PO SCH ×3 (07:30→17:51)
[2021-04-22] MEDS: NA CHLORIDE 0.9% 1,000 ML IV SCH (08:49)
[2021-04-22] MEDS: HEPARIN 5000 UNIT/ML 1 ML VIAL SQ SCH (08:50)
[2021-04-22] MEDS: PANTOPRAZOLE 40 MG INJ IVP SCH (08:52)
[2021-04-22] MEDS ORDERED: METOPROLOL TAR 50 MG TAB PO SCH (09:00)
[2021-04-22] MEDS ORDERED: lisinopriL 20 MG TAB PO SCH (09:00)
[2021-04-22] MEDS ORDERED: Ringers Lactate 1,000 ML IV ONE (13:30)
[2021-04-22] MEDS ORDERED: propofoL 200 MG/20 ML VIAL IV ONE (14:19)
[2021-04-22] MEDS ORDERED: LIDOCAINE 1% MPF 5 ML VIAL ONE (14:19)
[2021-04-22] MEDS ORDERED: SUCCINYLCHOLINE 20 MG/ML (10 ML) IV ONE (14:23)
[2021-04-22 14:49] VITALS: TEMP 97.5
[2021-04-22 14:53] VITALS: O2SAT 99
--- NOTE | 2021-04-22 14:53 | ENDO RPT ---
[address], [address] EGD PROCEDURE REPORT EXAM DATE: 04/22/2021 PATIENT NAME: Brendan Steinberg MR#: [id number] BIRTHDATE: 1950 ATTENDING: John Rehman Dr STATUS: inpatient - 7 GARBAGE STOKER: Lexi Martin RN and Joceline Reno CST INDICATIONS: The patient is a 70 yr old Male here for an EGD due to mid epigastric abdominal pain, right upper quadrant abdominal pain, nausea and vomiting, and chronic unexplained diarrhea PROCEDURE PERFORMED: EGD with biopsy MEDICATIONS: Per Anesthesia. TOPICAL ANESTHETIC: none CONSENT: The patient understands the risks and benefits of the procedure and understands that these risks include, but are not limited to: sedation, allergic reaction, infection, perforation and/or bleeding. Alternative means of evaluation and treatment include, among others: physical exam, x-rays, and/or surgical intervention. The patient elects to proceed with this endoscopic procedure. DESCRIPTION OF PROCEDURE: During intra-op preparation period all mechanical medical equipment was checked for proper function. Hand hygiene and appropriate measures for infection prevention was taken. Procedure, possible complications, and alternatives including but not limited to the possibility of bleeding, perforation, tear, infection, sepsis, need for surgery, need for blood transfusion, and anesthesia related complications were explained to the patient. After the risks, benefits and alternatives of the procedure were thoroughly explained, Informed consent was verified, confirmed and timeout was successfully executed by the treatment team. The patient was placed in the left lateral position. The patient was anesthetized with topical anesthesia. Through the anesthetized oropharyngeal area, the scope was passed without any difficulty. The [id number] ([id number]) endoscope was introduced through the mouth and advanced to the third portion of the duodenum. Retroflexed views revealed a small hiatal hernia. The gastroscope was then slowly withdrawn and removed. LA Class A esophagitis was found in the lower esophagus. A small hiatal hernia was found Mild gastritis was found in the antrum. Multiple biopsies were obtained and sent to pathology. Duodenitis was found in the bulb and descending duodenum. Small bowel biopsies obtained. ADVERSE EVENTS: There were no complications. IMPRESSIONS: 1. LA Class A esophagitis in the lower esophagus 2. Small hiatal hernia 3. Mild gastritis in the antrum, s/p biopsies 4. Duodenitis in the bulb and descending duodenum 5. Small bowel biopsies obtained RECOMMENDATIONS: 1. await biopsy results 2. acid suppression therapy REPEAT EXAM: John Rehman Dr eSigned: John Rehman Dr 04/22/2021 2:52 PM cc: CPT CODES: ICD9 CODES: PATIENT NAME: Brendan SteinbergStephanie MR#: [id number]
[2021-04-22] MEDS ORDERED: HYDRALAZINE HCL 20 MG/ML VIAL IV PRN (15:19)
[2021-04-22 18:22] VITALS: BP 162/82
--- NOTE | 2021-04-22 21:38 | P.DS ---
Admission Date: 04/21/21 Discharge Date: 04/22/21 Disposition: ROUTINE DISCHARGE Discharge Condition: GOOD Reason for Admission: Acute kidney injury, abdominal pain, vomiting Consultations: Nephrology - Dr. Balderas/Samy GI - Dr. Rehman Procedures: Renal U/S (04/21): The right kidney measures grossly 12 x 7 cm. The left kidney measures grossly 11 x 6 cm. No size change suspected when allowing for differ ences in image selection and measuring technique. Cortical thickness is normal. Echogenicity is increased in both kidneys typical for medical renal disease. No hydronephrosis or suspicious renal mass. Small 14 mm cyst is present lateral mid left kidney. This is not significantly different from comparison. Slight size differential is probably due to image selection and measuring technique. Medical renal disease is present similar to the February 12 examination. No hydronephrosis, suspicious mass or other significant change from January imaging. EGD (04/22): by Dr. Rehman [place] class A esophagitis in lower esophagus Small hiatal hernia mild gastritis in antrum, s/o biopsies Duodenitis in bulb and descending duodenum Problem List esophagitis, gastritis, duodenitis REBECCA superimposed on CKD 3 Hypertension Brief History of Present Illness: 70-year-old male with history of prostate cancer, CKD presented to the emergency department for abdominal pain, vomiting. Patient was evaluated at stand-alone emergency department, labs were significant for white blood cell count 7.1, hemoglobin 10.8 hematocrit 31.1 creatinine 2.5 BUN 27 potassium 4.[address] abdomen pelvis demonstrates no acute findings patient persisted with abdominal pain and vomiting throughout workup and therefore ED provider at stand-alone center wish to transfer patient for further evaluation and management. Hospital Course: Treated with bowel rest, IVF, and protonix. Had gradual improvement of symptoms. Given this was 2nd episode in last few months and moderate tenderness in epigastrium, GI was consulted. EGD revealed esophagitis, gastritis, duodenitis. Patient has resolution of his RLQ pain as well. He remained afebrile throughout his hospitalization. Discharged with antacid medication and carafate. Vital Signs/Physical Exam: Temp Pulse Resp BP Pulse Ox 97.5 F 64 18 162/82 H 96 04/22/21 16:00 04/22/21 16:00 04/22/21 16:00 04/22/21 16:00 04/22/21 16:00 General: Alert, In no apparent distress HEENT: Atraumatic, PERRLA, EOMI Neck: Supple Respiratory: Clear to auscultation bilaterally, Normal air movement Cardiovascular: No edema, Regular rate/rhythm, Normal S1 S2 Gastrointestinal: Normal bowel sounds, Non-distended, No ascites, Tenderness (mild, epigastrium) Musculoskeletal: No erythema Integumentary: No rashes Neurological: Normal speech, Normal tone, Normal affect Laboratory Data at Discharge: WBC 5.30 K/uL (4.3-10.9) D 04/22/21 05:14 Hgb 9.9 g/dL (13.6-17.9) L 04/22/21 05:14 Hct 29.8 % (39.6-49.0) L 04/22/21 05:14 Plt Count 196 K/uL (152-406) 04/22/21 05:14 Sodium 141 mmol/L (136-145) 04/22/21 05:14 Potassium 3.7 mmol/L (3.5-5.1) 04/22/21 05:14 BUN 18 mg/dL (7-18) 04/22/21 05:14 Creatinine 1.80 mg/dL (0.55-1.3) H 04/22/21 05:14 Glucose 84 mg/dL (74-106) 04/22/21 05:14 Uric Acid 8.5 mg/dL (3.5-7.2) H 04/21/21 02:54 Phosphorus 3.3 mg/dL (2.5-4.9) 04/22/21 05:14 Magnesium 2.0 mg/dL (1.8-2.4) 04/22/21 05:14 Total Bilirubin 0.5 mg/dL (0.2-1.0) 04/22/21 05:14 AST 15 U/L (15-37) 04/22/21 05:14 ALT 17 U/L (12-78) 04/22/21 05:14 Alkaline Phosphatase 64 U/L (45-117) 04/22/21 05:14 Triglycerides 133 mg/dL (<150) 04/22/21 05:14 Cholesterol 159 mg/dL (<200) 04/22/21 05:14 HDL Cholesterol 33 mg/dL (40-60) L 04/22/21 05:14 Cholesterol/HDL Ratio 4.82 04/22/21 05:14 Lipase 256 U/L (73-393) 04/22/21 05:14 Home Medications: Lisinopril/Hydrochlorothiazide [Lisinopril-Hctz 20-12.5 mg Tab] 2 tab PO DAILY 04/21/21 Metoprolol Tartrate 100 mg PO BID 04/21/21 Tadalafil [Cialis] 1 tab PO DAILY 04/21/21 Sucralfate [Carafate*] 1 gm PO ACHS PRN 30 Days #90 tab 04/22/21 New Medications: Sucralfate [Carafate*] 1 gm PO ACHS PRN 30 Days #90 tab PRN Reason: Abdominal Pain Physician Discharge Instructions: PROBLEM: Acute kidney injury, Abdominal pain GOAL: Clear understanding of disease process INSTRUCTIONS: Diet: GI soft Activity: As tolerated You were found to have esophagitis and gastritis. Please take OTC nexium or prilosec as advised by Dr. Remhan. You are also sent a prescription for carafate - pill for stomach pain that you can take prior to eating. Your CT scan was normal - no evidence of intestinal infection, no appendicitis. Your pain resolved without requiring antibiotics, and you remained afebrile. Follow up with your PCP in 3-5 days. Follow up with Dr. Rehman in ~1 month or as needed. Diet: GI soft Activity: Ad nicole Followup: John Rehman MD [ASSOCIATE-ACTIVE - CAN ADMIT] - Time spent managing pt's care (in minutes): 40
[2021-04-26 12:01] LABS: Vitamin D 1,25-Dihydroxy Total 33 pg/mL (18-72); Vitamin D,1,25-OH2, D2 <8 pg/mL
== END 2021-04-22 18:55 | disposition home or self-care (01) | DRG 392 ==
LOC: 2ND 04-21 00:13 → OBSVTOIN 04-21 13:36
PROVIDERS: ADMIT Hospitalist; ATTEND Hospitalist
PROC: 0DB78ZX Excision of Stomach, Pylorus, Via Natural or Artificial Opening Endoscopic, Diagnostic (ICD-10-PCS; principal; 2021-04-22 13:30)
DX: K20.90 Esophagitis, unspecified without bleeding (principal); N17.9 Acute kidney failure, unspecified; K29.80 Duodenitis without bleeding; K29.70 Gastritis, unspecified, without bleeding; I12.9 Hypertensive chronic kidney disease with stage 1 through stage 4 chronic kidney disease, or unspecified chronic kidney disease; N18.30 Chronic kidney disease, stage 3 unspecified; E78.5 Hyperlipidemia, unspecified; E86.0 Dehydration; K44.9 Diaphragmatic hernia without obstruction or gangrene; D64.9 Anemia, unspecified; Z85.46 Personal history of malignant neoplasm of prostate; Z79.899 Other long term (current) drug therapy; Z60.2 Problems related to living alone; Z20.822 Contact with and (suspected) exposure to COVID-19
CPT/HCPCS: 36415; 76770; 80053; 80061; 81003; 81015; 82550; 82607; 82652; 82728; 82746; 83540; 83690; 83735; 83970; 84100; 84439; 84443; 84466; 84550; 85025; 85044; 86334; 88305; 88312; C9113; J0330; J0360; J1644; J2405; J2704; J3010; J7030; J7120; U0003

== ENCOUNTER 2021-12-07 14:53 | Inpatient (IN) | payer OTHER ==
--- OUTSIDE RECORDS SUMMARY | 2021-12-07 14:56 | XMS REPORT | Continuity of Care Document ---
:1950 Author Organization [facility] t Address [address] [place] [address] Care Team Providers Name Role Phone Mary Kate CONTI Primary Care Physician Unavailable Marj JACKSON Attending Clinician Unavailable Marj JACKSON Attending Clinician Unavailable 1, Sleep Lab Bed Attending Clinician Unavailable Marj Jackson MD Attending Clinician Doctor Unassigned, Name Attending Clinician Unavailable Only, Test Attending Clinician Unavailable Kyleigh WICK Attending Clinician Payers Payer Name Policy Type Policy Number Effective Date Expiration Date S ira [facility] [id number] 2020 00:00:00 [facility] [id number] 2017 00:00:00 Problems Condition Condition Condition Status Onset Resolution Last Treating Co mments Source Name Details Category Date Date Treatment Clinician Date No known No known Disease Unive rs active active ity of problems problems [facility] Allergies, Adverse Reactions, Alerts Allergy Allergy Status Severity Reaction(s) Onset Inactive Treating Comm ents Source Name Type Date Date Clinician NO KNOWN Drug Active Univers ALLERGIE Class ity of S [facility] Social History Social Habit Start Date Stop Date Quantity Comments Source Exposure to Not sure [facility] SARS-CoV-2 (event) Medica l Branch Sex Assigned At [birth year] [facility] 00:00:00 00:00:00 [facility] Smoking Status Start Date Stop Date Source Unknown if ever smoked [facility] Medications Ordered Filled Start Stop Current Ordering Indication Dosage Frequency Signature Comments Components Source Medication Medication Date Date Medication? Clinician (SIG) Name Name lisinopriL- 2020- Yes 1{tbl} Take 1 Un ladarius hydrochloro 8-10 tablet by ity of thiazide 00:00: mouth [place] 20-12.5 mg 00 daily. Medical per tablet Branch metoprolol Yes TAKE 1/2 Uni vers tartrate 8-10 TABLET BY ity of 100 mg 00:00: MOUTH [place] tablet 00 TWICE A Medical DAY Branch lisinopriL- Yes 1{tbl} Take 1 Un ladarius hydrochloro 8-10 tablet by ity of thiazide 00:00: mouth [place] 20-12.5 mg 00 daily. Medical per tablet Branch metoprolol Yes TAKE 1/2 Uni vers tartrate 8-10 TABLET BY ity of 100 mg 00:00: MOUTH [place] tablet 00 TWICE A Medical DAY Branch lisinopriL- Yes 1{tbl} Take 1 Un ladarius hydrochloro 8-10 tablet by ity of thiazide 00:00: mouth [place] 20-12.5 mg 00 daily. Medical per tablet Branch metoprolol Yes TAKE 1/2 Uni vers tartrate 8-10 TABLET BY ity of 100 mg 00:00: MOUTH [place] tablet 00 TWICE A Medical DAY Branch lisinopriL- Yes 1{tbl} Take 1 Un ladarius hydrochloro 8-10 tablet by ity of thiazide 00:00: mouth [place] 20-12.5 mg 00 daily. Medical per tablet Branch metoprolol Yes TAKE 1/2 Uni vers tartrate 8-10 TABLET BY ity of 100 mg 00:00: MOUTH [place] tablet 00 TWICE A Medical DAY Branch lisinopriL- Yes 1{tbl} Take 1 Un ladarius hydrochloro 8-10 tablet by ity of thiazide 00:00: mouth [place] 20-12.5 mg 00 daily. Medical per tablet Branch metoprolol Yes TAKE 1/2 Uni vers tartrate 8-10 TABLET BY ity of 100 mg 00:00: MOUTH [place] tablet 00 TWICE A Medical DAY Branch gabapentin Yes TAKE 1 Unive rs 300 mg 7-26 CAPSULE BY ity of capsule 00:00: MOUTH 3 [place] 00 TIMES Medical DAILY Branch QUEtiapine Yes 200mg Take 200 Un ladarius 100 mg 7-26 mg by ity of tablet 00:00: mouth at [place] 00 bedtime. Medical Branch gabapentin 2021-0 Yes TAKE 1 Unive rs 300 mg 7-26 CAPSULE BY ity of capsule 00:00: MOUTH 3 [place] TIMES Medical DAILY Branch QUEtiapine 2020-0 Yes 200mg Take 200 Un ladarius 100 mg 7-26 mg by ity of tablet 00:00: mouth at [place] [address] bedtime. Medical Branch gabapentin 2020-0 Yes TAKE 1 Unive rs 300 mg 7-26 CAPSULE BY ity of capsule 00:00: MOUTH 3 [place] TIMES Medical DAILY Branch QUEtiapine 2020-0 Yes 200mg Take 200 Un ladarius 100 mg 7-26 mg by ity of tablet 00:00: mouth at [place] [address] bedtime. Medical Branch gabapentin 2020-0 Yes TAKE 1 Unive rs 300 mg 7-26 CAPSULE BY ity of capsule 00:00: MOUTH 3 [place] TIMES Medical DAILY Branch QUEtiapine 2020-0 Yes 200mg Take 200 Un ladarius 100 mg 7-26 mg by ity of tablet 00:00: mouth at [place] [address] bedtime. Medical Branch gabapentin 2020-0 Yes TAKE 1 Unive rs 300 mg 7-26 CAPSULE BY ity of capsule 00:00: MOUTH 3 [place] Medical DAILY Branch QUEtiapine 2020-0 Yes 200mg Take 200 Un ladarius 100 mg 7-26 mg by ity of tablet 00:00: mouth at [place] [address] bedtime. Medical Branch tadalafiL 5 2020-0 Yes 5mg Take 5 mg U nivers mg tablet 7-20 by mouth ity of 00:00: daily. Medical Branch tadalafiL 5 2020-0 Yes 5mg Take 5 mg U nivers mg tablet 7-20 by mouth ity of 00:00: daily. Medical Branch tadalafiL 5 2020-0 Yes 5mg Take 5 mg U nivers mg tablet 7-20 by mouth ity of 00:00: daily. Medical Branch tadalafiL 5 2020-0 Yes 5mg Take 5 mg U nivers mg tablet 7-20 by mouth ity of 00:00: daily. Medical Branch tadalafiL 5 2020-0 Yes 5mg Take 5 mg U nivers mg tablet 7-20 by mouth ity of 00:00: daily. Medical Branch acetaminoph 2020-0 Yes 1{tbl} Take 1 Un ladarius en-codeine 6-11 tablet by ity of 300-60 mg 00:00: mouth 2 [place] tablet 00 (two) Medical times Branch daily as needed. acetaminoph 2020-0 Yes 1{tbl} Take 1 Un ladarius en-codeine 6-11 tablet by ity of 300-60 mg 00:00: mouth 2 [place] tablet 00 (two) Medical times Branch daily as needed. acetaminoph 2020-0 Yes 1{tbl} Take 1 Un ladarius en-codeine 6-11 tablet by ity of 300-60 mg 00:00: mouth 2 [place] tablet 00 (two) Medical times Branch daily as needed. acetaminoph 2020-0 Yes 1{tbl} Take 1 Un ladarius en-codeine 6-11 tablet by ity of 300-60 mg 00:00: mouth 2 [place] tablet 00 (two) Medical times Branch daily as needed. acetaminoph 2020-0 Yes 1{tbl} Take 1 Un ladarius en-codeine 6-11 tablet by ity of 300-60 mg 00:00: mouth 2 [place] tablet 00 (two) Medical times Branch daily as needed. sucralfate Yes TAKE 1 Unive rs 1 gram 5-28 TABLET BY ity of tablet 00:00: MOUTH [place] 00 BEFORE Medical MEALS AND Branch AT BEDTIME NEEDED FOR ABDOMINAL PAIN sucralfate 0 Yes TAKE 1 Unive rs 1 gram 5-28 TABLET BY ity of tablet 00:00: MOUTH [place] 00 BEFORE Medical MEALS AND Branch AT BEDTIME NEEDED FOR ABDOMINAL PAIN sucralfate Yes TAKE 1 Unive rs 1 gram 5-28 TABLET BY ity of tablet 00:00: MOUTH [place] 00 BEFORE Medical MEALS AND Branch AT BEDTIME NEEDED FOR ABDOMINAL PAIN sucralfate Yes TAKE 1 Unive rs 1 gram 5-28 TABLET BY ity of tablet 00:00: MOUTH [place] 00 BEFORE Medical MEALS AND Branch AT BEDTIME NEEDED FOR ABDOMINAL PAIN sucralfate 0 Yes TAKE 1 Unive rs 1 gram 5-28 TABLET BY ity of tablet 00:00: MOUTH [place] 00 BEFORE Medical MEALS AND Branch AT BEDTIME NEEDED FOR ABDOMINAL PAIN Procedures Procedure Date / Time Performed Performing Clinician [facility] e SLEEP STUDY DATA 2021-09-05 05:01:00 Doctor Unassigned, No [facility] of [place] REPORT Name Medical Branch COVID-19 (ID NOW RAPID 2021-08-05 19:05:00 [facility] Medical Branch ASSIGNMENT OF BENEFITS 2021-08-05 18:57:19 Doctor Unassigned, No [facility] Name Medical Branch Encounters Start End Encounter Admission Attending Care Care Encounter Source Date/Time Date/Time Type Type Clinicians Facility Department ID 2021-11-30 2021-11-30 Outpatient R JAZZ JACKSON [facility] [id number] Univers 13:20:00 13:20:00 [id number] 2021-11-30 2021-11-30 Outpatient R JAZZ JACKSON [facility] [id number] Univers 13:20:00 13:20:00 [facility] 2021-10-12 2021-10-12 Outpatient R JAZZ JACKSON [facility] [id number] Univers 13:20:00 13:20:00 [id number] [facility] 2021-10-12 2021-10-12 Outpatient R JAZZ JACKSON [facility] [id number] Univers 13:20:00 13:20:00 JAZZ JACKSON [facility] 2021-09-05 2021-09-05 Outpatient R [facility] [id number] Univers 19:30:00 19:30:00 [id number] [facility] 2021-09-05 2021-09-05 Outpatient R JAZZ JACKSON [facility] [id number] Univers 19:30:00 19:30:00 JAZZ JACKSON [facility] 2021-09-05 2021-09-05 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 2.840.114 [id number] Univers 14:11:15 16:41:15 Visit Jazz Jackson [id number]. 10 [facility] [id number] [facility] [phone] [address] 2021-09-05 2021-09-05 Orders Doctor KEMAL 1.2.840.114 [id number] Univers 00:00:00 00:00:00 Only Unassigned, VIRA [id number] [facility] [id number] [place] [id number] [facility] 009 Branch 2021-09-02 2021-09-02 Laboratory Only, Adc Test [facility] 1.2.840. 114 [id number] Univers 10:46:06 11:01:06 Only Jayme Arizmendi [id number] ity of [place] [id number] [place] [phone] [facility] [address] [place] 2021-09-02 2021-09-02 Outpatient R [facility] [id number] Univers 11:00:00 11:00:00 [id number] ity [facility] 2021-09-02 2021-09-02 Outpatient R [facility] [id number] Univers 11:00:00 11:00:00 ity of [facility] 2021-08-08 2021-08-08 Outpatient R JAZZ JACKSON [facility] [id number] Univers 19:30:00 19:30:00 JAZZ JACKSON ity [facility] 2021-08-08 2021-08-08 Outpatient R [facility] [id number] Univers 19:30:00 19:30:00 [id number] ity of [facility] 2021-08-05 2021-08-05 Laboratory Only, Adc Test [facility] 1.2.840. 114 [id number] Univers 13:57:41 14:12:41 Only Jazz Jackson 350.1.13. 10 ity of [place] [id number] [facility] [id number] [address] 2021-08-05 2021-08-05 Outpatient R [facility] [id number] Univers 13:15:00 13:15:00 ity of [facility] 2021-08-05 2021-08-05 Outpatient R [facility] [id number] Univers 10:15:00 10:15:00 [facility] 2021-08-05 2021-08-05 Outpatient R [facility] [id number] Univers 10:15:00 10:15:00 [id number] [facility] 2021-08-05 2021-08-05 Orders Doctor KEMAL 1.2.840.114 [id number] Univers 00:00:00 00:00:00 Only Unassigned, VIRA [id number] it[address] [place] [facility] [id number] [place] [id number] [address] 2021-07-13 2021-07-13 Outpatient R JAZZ JACKSON [facility] [id number] Univers 11:40:00 11:40:00 [facility] Results Test Description Test Time Test Comments Results Result Comments Source COVID-19 (ID NOW RAPID TESTING) 2021-08-05 20:02:26 Test Item Value Reference Range Interpretation Comme nts SARS-CoV-2 Rapid ID NOW (test code Not Detected Not Detected = 98647-2) LULÚ (test code = LULÚ) ID NOW COVID-19 Assay is an isothermal nucleic acid amplification test intended for the qualitative detection of nucleic acid from SARS-CoV-2 viral RNA in nasopharyngeal (VIDEO MANAGER) specimens. It is used under Emergency Use Authorization (EUA) by FDA. The limit of detection (LOD) of the assay is 125 Genome Equivalents/mL. A positive result is indicative of the presence of SARS-CoV-2 RNA. ?Clinical correlation with patient history and other diagnostic information is necessary to determine patient infection status. A negative (Not Detected) result does not preclude SARS-CoV-2 infection. In patients with a high suspicion of SARS-CoV-2 infection, negative results should be treated as presumptive negative and a new specimen should be tested with alternative nucleic acid amplification molecular test. Invalid: Please collect a new specimen for repeat patient testing if clinically indicated. Lab Interpretation (test code = Normal 18464-9) [facility]
[2021-12-07] MEDS ORDERED: FENTANYL CITR 100 MCG/2 ML ONE (15:08)
[2021-12-07] MEDS ORDERED: ONDANSETRON 4 MG/2 ML VIAL ONE ×2 (15:09→19:23)
[2021-12-07] MEDS ORDERED: HYDRALAZINE HCL 20 MG/ML VIAL ONE (15:09)
[2021-12-07 15:31] LABS: Hematocrit 30.4 % (39.6-49.0); Lymphocytes % 14.7 % (15.3-44.8); MPV 9.5 fL (7.6-11.3)
[2021-12-07 15:32] LABS: Protime INR 1.12
--- NOTE | 2021-12-07 15:35 | RAD REPORT ---
EXAM DESCRIPTION: RAD - Chest Single View - 12/07/2021 3:24 pm CLINICAL HISTORY: CHEST PAIN COMPARISON: <Comparisons> FINDINGS: Lines: None. Lungs: No evidence of edema or pneumonia. Pleural: No significant pleural effusions or pneumothorax. Cardiac: Cardiomegaly. Bones: No acute fractures. Other: Atherosclerosis. IMPRESSION: No acute cardiopulmonary disease.
[2021-12-07 15:55] LABS: ALT/SGPT 18 U/L (12-78); AST/SGOT 17 U/L (15-37); Albumin 2.2 g/dL (3.4-5.0); Alkaline Phosphatase 85 U/L (45-117); BUN Blood Urea Nitrogen 30 mg/dL (7-18); Bicarbonate 24 mmol/L (21-32); Bilirubin Direct < 0.1 mg/dL (0-0.2); Bilirubin Total 0.2 mg/dL (0.2-1.0); Glucose Level 174 mg/dL (74-106); Lipase 192 U/L (73-393); Magnesium 1.9 mg/dL (1.8-2.4); NT PRO-BNP 1563 pg/mL (<125); Potassium 3.3 mmol/L (3.5-5.1); Protein, Total 8.6 g/dL (6.4-8.2); Sodium Level 142 mmol/L (136-145)
--- NOTE | 2021-12-07 16:36 | RAD REPORT ---
EXAM DESCRIPTION: CTChest Abd Pelvis Wo Con - 12/07/2021 4:26 pm CLINICAL HISTORY: Chest pain;Pain COMPARISON: No comparisons TECHNIQUE: CT of the chest, abdomen, and pelvis was performed. All CT scans are performed using dose optimization technique as appropriate and may include automated exposure control or mA/KV adjustment according to patient size. FINDINGS: Thorax: Chest Wall: No abnormal mass Lungs: No acute abnormality. Pleura: No effusions or pneumothorax. Morena/Mediastinum: No lymphadenopathy. Aorta/Pulmonary Arteries: Unremarkable Heart: Normal size. Abdomen/Pelvis: Liver: No acute abnormality or suspicious lesions. Biliary: No biliary ductal dilatation. Stomach: No significant focal abnormality. Duodenum: No significant focal abnormality. Pancreas: No significant abnormality. Spleen: No significant abnormality. Adrenal: No suspicious lesions. Kidney/ureter: No hydronephrosis. No renal calculi. Retroperitoneum: No retroperitoneal adenopathy. Vascular: No aneurysm. Atherosclerosis. Bowel: No significant focal abnormality. Peritoneum: No ascites or free air. Small fat containing left inguinal hernia. Bladder: Grossly unremarkable. Reproductive: No adnexal masses. High-riding right testicle. Bones: No acute fracture. Other: n/a IMPRESSION: No acute findings within the chest, abdomen, or pelvis.
[2021-12-07] MEDS ORDERED: MEPERIDINE HCL 25 MG/ML SYR ONE (17:14)
--- NOTE | 2021-12-07 17:40 | ER ---
Nurse's Notes [facility] Name: Brendan Steinberg Age: 71 yrs Sex: Male : 1950 Arrival Date: 12/07/2021 Time: 14:56 Bed 7 Private MD: Diagnosis: Chest pain, unspecified;Hypertensive urgency Presentation: 12/07 14:57 Chief complaint: Patient states: N/V with R sided CP and abd pain for 1 day. No known ll1 fever. Coronavirus screen: Vaccine status: Patient reports receiving the 2nd dose of the covid vaccine. Client denies travel out of the [place] in the last 14 days. At this time, the client does not indicate any symptoms associated with coronavirus-19. Ebola Screen: Patient denies travel to an Ebola-affected area in the 21 days before illness onset. Initial Sepsis Screen: Does the patient meet any 2 criteria? No. Patient's initial sepsis screen is negative. Risk Assessment: Do you want to hurt yourself or someone else? Patient reports no desire to harm self or others. Onset of symptoms was December 07, 2021. 14:57 Method Of Arrival: EMS ll1 14:57 Acuity: ROSALIE 3 ll1 14:57 Chief complaint: EMS states: nitro .4 SL en route, aspirin 324 mg PO en route. BP ll1 270/110 initially. 172/73 upon arrival to ED. 20:16 Initial Sepsis Screen: Does the patient have a suspected source of infection? No. sm5 Patient's initial sepsis screen is negative. Triage Assessment: 14:58 General: Appears uncomfortable, Behavior is calm, cooperative, appropriate for age. ll1 Pain: Complains of pain in R chest. Neuro: No deficits noted. Cardiovascular: Heart tones S1 S2 Capillary refill < 3 seconds Clubbing of nail beds is absent Patient's skin is warm and dry. Rhythm is regular. Respiratory: No deficits noted. GI: Abdomen is flat, Bowel sounds present X 4 quads. Abd is soft Abdomen is tender to palpation in right upper quadrant and right lower quadrant. Historical: - Allergies: 14:56 Codeine; ll1 - PMHx: 14:56 Hypertension; ll1 - Immunization history:: Client reports receiving the 2nd dose of the Covid vaccine. - Social history:: Smoking status: Patient reports the use of cigarette tobacco products, smokes one-half pack cigarettes per day. Screenin:28 Abuse screen: Denies threats or abuse. Nutritional screening: No deficits noted. ll1 Tuberculosis screening: No symptoms or risk factors identified. Fall Risk IV access (20 points). Total Mcnamara Fall Scale indicates No Risk (0-24 pts). Assessment: 15:44 Reassessment: No changes from previously documented assessment. Patient and/or family ll1 updated on plan of care and expected duration. Pain level reassessed. Patient is alert, oriented x 3, equal unlabored respirations, skin warm/dry/pink. Patient states symptoms have not improved. 16:45 Reassessment: No changes from previously documented assessment. Patient and/or family ll1 updated on plan of care and expected duration. Pain level reassessed. Patient is alert, oriented x 3, equal unlabored respirations, skin warm/dry/pink. 17:36 Reassessment: Patient appears in no apparent distress at this time. No changes from ll3 previously documented assessment. Patient and/or family updated on plan of care and expected duration. Pain level reassessed. Patient is alert, oriented x 3, equal unlabored respirations, skin warm/dry/pink. Vital Signs: 14:57 BP 202 / 86; Pulse 58; Resp 18; Temp 97.6; Pulse Ox 100% ; Weight 90.72 kg; Height 5 ll1 ft. 6 in. (167.64 cm); Pain 10/10; 15:26 BP 152 / 75; Pulse 66; Resp 17; Pulse Ox 100% on R/A; ll1 16:00 BP 166 / 81; Pulse 60; Resp 11; Pulse Ox 99% on R/A; ll3 17:02 BP 188 / 77; Pulse 66; Resp 15; Pulse Ox 100% ; ll1 20:07 BP 169 / 58; Pulse 80; Resp 18; Pulse Ox 96% ; st1 14:57 Body Mass Index 32.28 (90.72 kg, 167.64 cm) ll1 ED Course: 14:56 Patient arrived in ED. ll1 14:56 Arm band placed on. ll1 14:58 David Trinh PA is PHCP. jr8 14:58 Baudilio Matt MD is Attending Physician. jr8 14:58 Triage completed. ll1 15:24 XRAY Chest (1 view) In Process Unspecified. EDMS 15:28 Patient has correct armband on for positive identification. Bed in low position. Call ll1 light in reach. Side rails up X 1. 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 Pulse ox on. NIBP on. 15:29 Inserted saline lock: 20 gauge in left antecubital area, using aseptic technique. Blood ll1 collected. 15:54 Emmett Alexandre RN is Primary Nurse. ll3 16:25 CT Chest Abdomen Pelvis W/O Contrast In Process Unspecified. EDMS 17:38 US Abdomen Limited In Process Unspecified. EDMS 17:39 Anna Santana MD is Hospitalizing Provider. jr8 20:16 No provider procedures requiring assistance completed. Patient admitted, IV remains in [address] Administered Medications: 15:13 Drug: hydrALAZINE 10 mg Route: IVP; Site: left antecubital; jr8 15:50 Follow up: Response: No adverse reaction ll1 15:15 Drug: Zofran (Ondansetron) 4 mg Route: IVP; Site: left antecubital; jr8 15:50 Follow up: Response: No adverse reaction ll1 15:18 Drug: fentaNYL (PF) 50 mcg Route: IVP; Site: left antecubital; jr8 15:50 Follow up: Response: No adverse reaction; Pain is unchanged, physician notified ll1 15:50 Drug: fentaNYL (PF) 50 mcg Route: IVP; Site: left antecubital; ll1 17:20 Follow up: Response: No adverse reaction; No change in condition ll3 17:19 Drug: Demerol (meperidine) 25 mg Route: IVP; Site: left antecubital; ll3 18:03 Not Given (324 mg given in routee): Aspirin Chewable Tablet 324 mg PO once; 81 mg ll3 tablets x 4 18:07 Drug: Nitroglycerin 0.4 mg Route: Sublingual; ll3 19:22 Drug: Zofran (Ondansetron) 4 mg Route: IVP; Site: left antecubital; bp Outcome: 17:39 Decision to Hospitalize by Provider. jr8 20:09 Admitted to Med/surg accompanied by nurse, via stretcher, room 202, with chart, Report st1 called to JUANY Mcwilliams 20:09 Condition: stable 20:17 Patient left the ED. sm5 Signatures: Dispatcher [employer] EDMS David Trinh PA PA jrGreg Ortiz RN RN bp Bo Russell RN RN ll1 Emmett Alexandre RN RN ll3 Alethea Llanes RN RN 5 Marie Morales RN RN st1 Corrections: (The following items were deleted from the chart) 20:10 20:08 Admitted to Med/surg st1 st1
--- NOTE | 2021-12-07 17:40 | EDPHYS ---
Physician Documentation [facility] Name: Brendan Steinberg Age: 71 yrs Sex: Male : 1950 Arrival Date: 12/07/2021 Time: 14:56 Bed 7 Private MD: ED Physician Baudilio Matt HPI: 12/07 16:02 This 71 yrs old Black Male presents to ER via EMS with complaints of Abd Pain > 50 y/o, jr8 Nausea/Vomiting. 16:02 This is a 71-year-old male patient that presented to the emergency room via EMS after jr8 calling them for complaints of upper abdominal pain and right-sided chest pain with nausea and vomiting. Patient per EMS was hypertensive 270/120 on scene with being cool, pale, diaphoretic. Patient was given nitroglycerin for blood pressure but still continues to have pain upon arrival. Patient denies having the symptoms in the past. Patient stated that he has been compliant with his blood pressure medications. Denies fevers or other symptoms at this time.. Historical: - Allergies: 14:56 Codeine; ll1 - PMHx: 14:56 Hypertension; ll1 - Immunization history:: Client reports receiving the 2nd dose of the Covid vaccine. - Social history:: Smoking status: Patient reports the use of cigarette tobacco products, smokes one-half pack cigarettes per day. ROS: 16:02 Eyes: Negative for injury, pain, redness, and discharge, ENT: Negative for injury, jr8 pain, and discharge, Neck: Negative for injury, pain, and swelling, Respiratory: Negative for shortness of breath, cough, wheezing, and pleuritic chest pain, Back: Negative for injury and pain, MS/Extremity: Negative for injury and deformity, Skin: Negative for injury, rash, and discoloration, Neuro: Negative for headache, weakness, numbness, tingling, and seizure. 16:02 Cardiovascular: Positive for chest pain, Negative for edema, orthopnea, palpitations, paroxysmal nocturnal dyspnea. 16:02 Abdomen/GI: Positive for abdominal pain, nausea and vomiting, Negative for diarrhea. Exam: 16:02 ENT: Nares patent. No nasal discharge, no septal abnormalities noted. Tympanic jr8 membranes are normal and external auditory canals are clear. Oropharynx with no redness, swelling, or masses, exudates, or evidence of obstruction, uvula midline. Mucous membranes moist. Neck: Trachea midline, no thyromegaly or masses palpated, and no cervical lymphadenopathy. Supple, full range of motion without nuchal rigidity, or vertebral point tenderness. No Meningismus. 16:02 Respiratory: Lungs have equal breath sounds bilaterally, clear to auscultation and percussion. No rales, rhonchi or wheezes noted. No increased work of breathing, no retractions or nasal flaring. 16:02 Skin: Cool and moist with normal turgor. Normal color with no rashes, no lesions, and no evidence of cellulitis. MS/ Extremity: Pulses equal, no cyanosis. Neurovascular intact. Full, normal range of motion. Neuro: Awake and alert, GCS 15, oriented to person, place, time, and situation. Cranial nerves II-XII grossly intact. Motor strength 5/5 in all extremities. Sensory grossly intact. 16:02 Constitutional: The patient appears alert, awake, in obvious pain, uncomfortable. 16:02 Cardiovascular: Rate: bradycardic, Rhythm: regular, Pulses: Pulses are 1+ in right radial artery and left radial artery. Pulses are 2+ in right femoral artery and left femoral artery. Heart sounds: normal, normal S1and S2, no S3 or S4, no murmur, no rub, no gallop, Edema: is not appreciated, JVD: is not appreciated. 16:02 Abdomen/GI: Inspection: obese Bowel sounds: active, all quadrants, Palpation: soft, in all quadrants, moderate abdominal tenderness, in the right upper quadrant, mass, is not appreciated, rebound tenderness, is not appreciated, voluntary guarding, is not appreciated, involuntary guarding, is not appreciated, no appreciated organomegaly, Indicators: McBurney's point is not tender, Lopez's sign is negative, Liver: tenderness, is not appreciated. Vital Signs: 14:57 BP 202 / 86; Pulse 58; Resp 18; Temp 97.6; Pulse Ox 100% ; Weight 90.72 kg; Height 5 ll1 ft. 6 in. (167.64 cm); Pain 10/10; 15:26 BP 152 / 75; Pulse 66; Resp 17; Pulse Ox 100% on R/A; ll1 16:00 BP 166 / 81; Pulse 60; Resp 11; Pulse Ox 99% on R/A; ll3 17:02 BP 188 / 77; Pulse 66; Resp 15; Pulse Ox 100% ; ll1 20:07 BP 169 / 58; Pulse 80; Resp 18; Pulse Ox 96% ; st1 14:57 Body Mass Index 32.28 (90.72 kg, 167.64 cm) ll1 MDM: 14:58 Patient medically screened. [facility] 17:35 Data reviewed: vital signs, nurses notes, lab test result(s), EKG, radiologic studies, [facility] CT scan, plain films. Data interpreted: Pulse oximetry: on room air is 100 %. Interpretation: normal. Counseling: I had a detailed discussion with the patient and/or guardian regarding: the historical points, exam findings, and any diagnostic results supporting the discharge/admit diagnosis, lab results, radiology results, the need for further work-up and treatment in the hospital. Response to treatment: the patient's symptoms have mildly improved after treatment. 12/07 14:58 Order name: Basic Metabolic Panel; Complete Time: 15:57 [facility] 12/07 14:58 Order name: CBC with Diff; Complete Time: 15:35 [facility] 12/07 14:58 Order name: LFT's; Complete Time: 15:57 [facility] 12/07 14:58 Order name: Magnesium; Complete Time: 15:57 [facility] 12/07 14:58 Order name: NT PRO-BNP; Complete Time: 15:57 [facility] 12/07 14:58 Order name: PT-INR; Complete Time: 15:35 [facility] 12/07 14:58 Order name: Troponin HS; Complete Time: 15:57 [facility] 12/07 14:58 Order name: XRAY Chest (1 view); Complete Time: 15:36 [facility] 12/07 14:58 Order name: Lipase; Complete Time: 15:57 [facility] 12/07 17:01 Order name: COVID-19 SARS RT PCR (Document "Date of Onset" if Symptomatic) [facility] 12/07 17:35 Order name: ABO/RH no charge; Complete Time: 17:36 [facility] 12/07 18:32 Order name: Type and Screen Tube method [facility] 12/07 14:58 Order name: EKG; Complete Time: 14:59 [facility] 12/07 14:58 Order name: Cardiac monitoring; Complete Time: 15:00 [facility] 12/07 14:58 Order name: EKG - Nurse/Tech; Complete Time: 15:44 12/07 14:58 Order name: IV Saline Lock; Complete Time: 15:00 12/07 14:58 Order name: Labs collected and sent; Complete Time: 15:00 12/07 14:58 Order name: O2 Per Protocol; Complete Time: 15:00 12/07 16:00 Order name: CT Chest Abdomen Pelvis W/O Contrast; Complete Time: 16:59 12/07 17:00 Order name: US Abdomen Limited; Complete Time: 17:57 12/07 14:58 Order name: O2 Sat Monitoring; Complete Time: 15:00 12/07 17:28 Order name: Labs - recollect needed: recollect type and screen, samantha pt; Complete bd Time: 18:03 Administered Medications: 15:13 Drug: hydrALAZINE 10 mg Route: IVP; Site: left antecubital; [facility] 15:50 Follow up: Response: No adverse reaction ll1 15:15 Drug: Zofran (Ondansetron) 4 mg Route: IVP; Site: left antecubital; [facility] 15:50 Follow up: Response: No adverse reaction ll1 15:18 Drug: fentaNYL (PF) 50 mcg Route: IVP; Site: left antecubital; [facility] 15:50 Follow up: Response: No adverse reaction; Pain is unchanged, physician notified ll1 15:50 Drug: fentaNYL (PF) 50 mcg Route: IVP; Site: left antecubital; ll1 17:20 Follow up: Response: No adverse reaction; No change in condition ll3 17:19 Drug: Demerol (meperidine) 25 mg Route: IVP; Site: left antecubital; ll3 18:03 Not Given (324 mg given in routee): Aspirin Chewable Tablet 324 mg PO once; 81 mg ll3 tablets x 4 18:07 Drug: Nitroglycerin 0.4 mg Route: Sublingual; ll3 19:22 Drug: Zofran (Ondansetron) 4 mg Route: IVP; Site: left antecubital; bp Disposition Summary: 12/07/21 17:39 Hospitalization Ordered Hospitalization Status: Observation 8 Provider: Anna Santana jr Location: Telemetry/MedSurg (observation) jr8 Condition: Stable jr8 Problem: new jr8 Symptoms: have improved jr8 Bed/Room Type: Standard jr8 Room Assignment: 202(12/07/21 19:19) eb1 Diagnosis - Chest pain, unspecified jr8 - Hypertensive urgency jr8 Forms: - Medication Reconciliation Form jr8 - SBAR form jr8 Signatures: Dispatcher [employer] EDMS Raquel Fong Roman, MD MD rn David Trinh PA PA jr8 Greg Boudreaux, RN RN Merissa Santana RN RN eb1 Bo Russell RN RN ll1 Emmett Alexandre RN RN ll3 Alethea Llanes, RN RN sm5 Corrections: (The following items were deleted from the chart) 17:36 14:59 TYPE AND SCREEN+BB.LAB.BRZ ordered. EDMS EDMS 17:36 16:44 Antibody Identification ordered. EDMS EDMS 17:36 16:59 TYPE AND SCREEN+BB.LAB.BRZ reviewed. jr8 EDMS 19:19 17:39 jr8 eb1
--- NOTE | 2021-12-07 17:54 | RAD REPORT ---
EXAM DESCRIPTION: US - Abdomen Exam Limited - 12/07/2021 5:38 pm CLINICAL HISTORY: ro g/b;Abd pain COMPARISON: Renal Ultrasound-Complete dated 04/21/2021 FINDINGS: The gallbladder demonstrates no gallstones. No pericholecystic fluid or gallbladder wall t hickening. The common bile duct is normal measuring 5 mm. The liver demonstrates no findings of intrahepatic biliary dilatation. IMPRESSION: Negative for cholelithiasis or acute cholecystitis.
[2021-12-07] MEDS ORDERED: NITROGLYCERIN 0.4 MG/TAB SL ONE (18:07)
--- NOTE | 2021-12-07 20:02 | P.HP ---
Certification for Inpatient Patient admitted to: Observation With expected LOS: <2 Midnights Patient will require the following post-hospital care: None Practitioner: I am a practitioner with admitting privileges, knowledge of patient current condition, hospital course, and medical plan of care. Services: Services provided to patient in accordance with Admission requirements found in Title 42 Section 412.3 of the Code of Federal Regulations Patient History Date of Service: 12/07/21 Reason for admission: intractable nausea and vomiting History of Present Illness: Mr. Steinberg is a 71 yo M with HTN and CKD who presents with nausea, vomiting, and abdominal pain beginning this morning. He says he vomited 4-5x prior to arrival. Upon arrival, EMS says his BP was 270/120 and he was cool, pale, and diaphoretic. They have him aspirin and nitroglyceirn. He says he had no relief of pain. Upon arrival to the ED, he receive demorol and fentanyl. He says pain improved mildly, but he is still vomiting. He reports pain in his left chest and abdomen. He reports chills. K 3.3 BUN 30 Cr 2.73 GFR 28 Glu 174 BNP [address]. CXR and CT Chest Abdomen Pelvis are without acute findings. Abdominal US without acute findings. Allergies No Known Drug Allergies Allergy (Verified 04/21/21 00:26) Unknown Home Medications: Lisinopril/Hydrochlorothiazide [Lisinopril-Hctz 20-12.5 mg Tab] 2 tab PO DAILY 04/21/21 Metoprolol Tartrate 100 mg PO BID 04/21/21 Tadalafil [Cialis] 1 tab PO DAILY 04/21/21 Sucralfate [Carafate*] 1 gm PO ACHS PRN 30 Days #90 tab 04/22/21 - Past Medical/Surgical History Diabetic: No -: HTN -: prostate cancer s/p radiation 04/2020 -: Hemorrhoids -: CKD -: Hemorrhoidectomy Psychosocial/ Personal History: Patient is retired, lives alone - Family History Sister -: Diabetes Mother -: Heart disease, Lung disease, Stroke - Social History Smoking Status: Current every day smoker Alcohol use: No CD- Drugs: No Caffeine use: Yes Place of Residence: Home Review of Systems 10-point ROS is otherwise unremarkable General: Chills Gastrointestinal: Nausea, Vomiting, Abdominal Pain Physical Examination - Physical Exam General: Alert, In no apparent distress HEENT: Atraumatic, PERRLA, Mucous membr. moist/pink, EOMI, Sclerae nonicteric Neck: Supple, 2+ carotid pulse no bruit, No LAD, Without JVD or thyroid abnormality Respiratory: Clear to auscultation bilaterally, Normal air movement Cardiovascular: Regular rate/rhythm, Normal S1 S2 Gastrointestinal: Normal bowel sounds, Soft and benign, No ascites, No rebound, No guarding, Tenderness Musculoskeletal: No tenderness Integumentary: No rashes Neurological: Normal speech, Normal strength at 5/5 x4 extr, Normal tone, Normal affect Lymphatics: No axilla or inguinal lymphadenopathy - Studies Laboratory Data (last 24 hrs) 12/07/21 15:00: PT 12.9 H, INR 1.12 12/07/21 15:00: WBC 6.90, Hgb 10.3 L, Hct 30.4 L, Plt Count 177 12/07/21 15:00: Sodium 142, Potassium 3.3 L, BUN 30 H, Creatinine 2.73 H, Glucose 174 H, Magnesium 1.9, Total Bilirubin 0.2, AST 17, ALT 18, Alkaline Phosphatase 85, Lipase 192 Assessment and Plan - Problems (Diagnosis) (1) HTN (hypertension) Current Visit: Yes Status: Chronic Qualifiers: Hypertension type: primary hypertension Qualified Code(s): I10 - Essential (primary) hypertension (2) CKD (chronic kidney disease) Current Visit: Yes Status: Chronic Qualifiers: Chronic kidney disease stage: stage 4 (severe) Qualified Code(s): N18.4 - Chronic kidney disease, stage 4 (severe) (3) Abdominal pain Current Visit: Yes Status: Acute Qualifiers: Abdominal location: left lower quadrant Qualified Code(s): R10.32 - Left lower quadrant pain (4) Intractable nausea and vomiting Current Visit: Yes Status: Acute (5) Chest pain Current Visit: Yes Status: Acute Qualifiers: Chest pain type: unspecified Qualified Code(s): R07.9 - Chest pain, unspecified - Plan NPO, advance diet as tolerated IV protonix BID, antiemtics PRN, pain management as needed gentle IV fluid hydration, nephrology consulted, CPK, uric acid pending potassium replacement rtend troponins, repeat EKG hydralazine PRN for BP spikes, reconcile and continue home medications daily ASA, atorvastatin, PRN nitroglycerin lipid, thyroid levels pending; anemia workup A1c pending UA, UDS pending DVT ppx Discharge Plan: Home Plan to discharge in: 24 Hours - Advance Directives Does patient have a Living Will: No Does patient have a Durable POA for Healthcare: No - Code Status/Comfort Care Code Status Assessed: Yes (full code ) Critical Care: No Time Spent Managing Pts Care (In Minutes): 70
[2021-12-07] MEDS ORDERED: SODIUM CHLORIDE 0.9% 10ML INJ IV PRN (20:28)
[2021-12-07] MEDS ORDERED: ACETAMINOPHEN 500 MG TAB PO PRN (20:28)
[2021-12-07] MEDS ORDERED: NITROGLYCERIN 0.4 MG/TAB SL PRN (20:28)
[2021-12-07] MEDS ORDERED: MORPHINE 2 MG/ML SYR IV PRN (20:28)
[2021-12-07] MEDS ORDERED: INSULIN -REGULAR HUMAN 50 UNIT/0.5 ML ML SQ SCH (21:00)
[2021-12-07] MEDS: ONDANSETRON 4 MG/2 ML VIAL IV PRN (21:35)
[2021-12-07] MEDS: ATORVASTATIN 40 MG TAB PO SCH (21:40)
[2021-12-07] MEDS: METOPROLOL TAR 50 MG TAB PO SCH (21:40)
[2021-12-07] MEDS: PANTOPRAZOLE 40 MG INJ IVP SCH (21:40)
[2021-12-07] MEDS: SUCRALFATE 1 GM TABLET PO SCH (21:40)
[2021-12-07] MEDS: NA CHLORIDE 0.9% 1,000 ML IV SCH (22:00)
[2021-12-07 22:02] LABS: Troponin High Sensitivity 18.3 pg/mL (<58.9); Uric Acid 7.1 mg/dL (3.5-7.2)
[2021-12-07 22:16] VITALS: BMI 34.2
[2021-12-08] MEDS: HYDROMORPHONE HCL 0.5 MG/0.5 ML INJ IV PRN ×5 (00:14→20:35)
[2021-12-08 00:24] LABS: Urine Appearance CLEAR (Clear); Urine Bilirubin NEGATIVE (Negative); Urine Blood 1+ (Negative); Urine Color YELLOW (Yellow); Urine Glucose TRACE (Negative); Urine Protein 3+ (Negative); Urine Urobilinogen 0.2 mg/dL (0.2-1.0)
[2021-12-08 00:26] LABS: Barbiturates NEGATIVE (NEGATIVE); Benzodiazepines NEGATIVE (NEGATIVE); Cocaine NEGATIVE (NEGATIVE); METHAMPHETAM NEGATIVE (NEGATIVE); Methadone NEGATIVE (NEGATIVE); Opiates NEGATIVE (NEGATIVE); Phencyclidine NEGATIVE (NEGATIVE); THC Cannibis POSITIVE (NEGATIVE)
[2021-12-08 00:26] LABS: Urine Microscopic Reflex ORDER UMIC
[2021-12-08 01:09] LABS: Urine Bacteria <20 /HPF (NONE SEEN); Urine RBC <5 /HPF (NONE SEEN); Urine Urothelial Cells <5 /HPF (NONE SEEN)
[2021-12-08] MEDS: HYDRALAZINE HCL 20 MG/ML VIAL IV PRN ×2 (01:14→05:19)
[2021-12-08 07:53] LABS: Absolute Lymphocytes (CBC) 1.3 K/uL (0.7-4.9); Hematocrit 29.8 % (39.6-49.0); MPV 9.9 fL (7.6-11.3); RBC Red Blood Cell Count 2.96 M/uL (4.33-5.43)
[2021-12-08] MEDS: METOPROLOL TAR 50 MG TAB PO SCH ×2 (08:01→20:33)
[2021-12-08] MEDS: SUCRALFATE 1 GM TABLET PO SCH ×4 (08:01→20:34)
[2021-12-08] MEDS: ASPIRIN EC 81 MG TAB PO SCH (08:01)
[2021-12-08] MEDS: NA CHLORIDE 0.9% 1,000 ML IV SCH ×3 (08:01→23:08)
[2021-12-08] MEDS: PANTOPRAZOLE 40 MG INJ IVP SCH ×2 (08:02→20:33)
[2021-12-08] MEDS: ONDANSETRON 4 MG/2 ML VIAL IV PRN ×3 (08:09→20:33)
[2021-12-08 08:14] LABS: Uric Acid 7.4 mg/dL (3.5-7.2)
[2021-12-08 08:16] LABS: CKMB Creatine Kinase MB < 1.0 ng/mL (1.0-3.6)
[2021-12-08 08:21] LABS: Albumin 2.2 g/dL (3.4-5.0); Bilirubin Total 0.3 mg/dL (0.2-1.0); Magnesium 1.8 mg/dL (1.8-2.4); Phosphorus 3.4 mg/dL (2.5-4.9); Potassium 3.4 mmol/L (3.5-5.1); Protein, Total 8.4 g/dL (6.4-8.2); Thyroid Stimulating Hormone 0.965 uIU/mL (0.360-3.740)
[2021-12-08 09:54] LABS: UR PROTEIN 1494.6 mg/dL (<11.9); Urine Protein/Creatinine Ratio 10.45 ratio (<0.15)
[2021-12-08] MEDS ORDERED: POTASSIUM 25 MEQ EFFERV TAB PO ONE (13:03)
--- NOTE | 2021-12-08 13:26 | P.PN ---
Subjective Date of Service: 12/08/21 Chief Complaint: intractable nausea and vomiting Patient states he is feeling much better today. No more nausea or vomiting. He is tolerating liquid diet. He denies diarrhea today. Physical Examination - Vital Signs Temperature: 98.1 F Blood Pressure: 171/78 Pulse: 89 Respirations: 18 Pulse Ox (%): 96 - Physical Exam General: Alert, In no apparent distress, Oriented x3 HEENT: Mucous membr. moist/pink Neck: JVD not distended Respiratory: Clear to auscultation bilaterally, Normal air movement Cardiovascular: No edema, Regular rate/rhythm, Normal S1 S2 Gastrointestinal: Normal bowel sounds, Soft and benign, Non-distended, No tenderness Musculoskeletal: No swelling Integumentary: No rashes, No erythema, No cyanosis Neurological: Normal strength at 5/5 x4 extr - Studies Laboratory Data (last 24 hrs) 12/07/21 15:00: PT 12.9 H, INR 1.12 12/07/21 15:00: WBC 6.90, Hgb 10.3 L, Hct 30.4 L, Plt Count 177 12/07/21 15:00: Sodium 142, Potassium 3.3 L, BUN 30 H, Creatinine 2.73 H, Glucose 174 H, Magnesium 1.9, Total Bilirubin 0.2, AST 17, ALT 18, Alkaline Phosphatase 85, Lipase 192 Assessment And Plan - Current Problems (Diagnosis) (1) Abdominal pain Current Visit: Yes Status: Acute Qualifiers: Abdominal location: left lower quadrant Qualified Code(s): R10.32 - Left lower quadrant pain (2) Intractable nausea and vomiting Current Visit: Yes Status: Acute (3) Acute worsening of stage 3 chronic kidney disease Current Visit: Yes Status: Acute (4) HTN (hypertension) Current Visit: Yes Status: Chronic Qualifiers: Hypertension type: primary hypertension Qualified Code(s): I10 - Essential (primary) hypertension - Plan I suspect acute gastroenteritis versus peptic ulcer disease. Continue supportive measures with IV fluid, antiemetics and pain management as needed. Start antibiotics if patient's symptoms persist. Nephrology input appreciated. Noted patient had high total protein to albumin gradient. Patient may need screening for multiple myeloma. Nephrology is following Monitor renal function for improvement with IV hydration. Continue clear liquid diet. Continue metoprolol. Nephrology added amlodipine for better blood pressure control. Possible discharge in a.m. if patient continues to improve clinically.
--- NOTE | 2021-12-08 14:13 | CON ---
Date of Consultation: 12/08/2021 Additional Consulting Physician: Piotr Garcia. Reason For Consultation: Elevated BUN and creatinine, fluid management. 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 Dorothea mack was in his regular state of health. Patient came to the hospital complaining of nausea and vomi ting, found to have elevation in BUN and creatinine with elevation in blood pressure. For that reaso n, we have been consulted. Creatinine 2.7, GFR 28. Patient's baseline creatinine is 1.6 with GFR of 47 as of January 2021. Patient's CT abdomen did not show any obstruction. Patient denied taking any nonsteroidal or IV contrast. Patient apparently was on HARI inhibitor and hydrochlorothiazide. I perez bt patient did not receive any contrast for the CT. Patient was started on IV hydration, kidney func tion stayed the same. Past Medical History: Include: 1.Hypertension. 2.Hyperlipidemia. 3.Chronic kidney disease, normal-sized kidney. Nephrotic range of proteinuria with M-spike. Allergies: NO KNOWN DRUG ALLERGY. Home Medications: Include: 1.Lisinopril/hydrochlorothiazide. 2.Metoprolol. 3.Cialis. 4.Carafate. Past Surgical History: Includes hemorrhoidectomy. Family History: Positive for hypertension, CAD. Social History: Active smoker. Denied alcohol. Denied drug abuse. Review of Systems: Head and Neck: No red eye. No ear pain. GI: Has nausea, vomiting. Has abdominal pain and diarrhea. : No polyuria, no dysuria, no hematuria. MEDICAL CLAIMS ASSISTANT: Not applicable. Respiratory: No shortness of breath. Cardiovascular: No orthopnea. No leg swelling. Endocrine: No polydipsia. Skin: No rash. Neuro: Has headache. Musculoskeletal: Generalized fatigue. Physical Examination: General/Vital Signs: When I saw the patient, patient was lying in bed, comfortable. Blood pressure of 171/78, pulse of 89, afebrile. Chest: Clear to auscultation. Heart: S1, S2. Regular. Abdomen: Soft, nontender. Extremities: No edema. Neuro: Alert and oriented x3. No focal. Laboratory Data: Sodium 142, potassium 3.4, bicarb 24, BUN 29, creatinine 2.7. GFR 28. Calcium 8.4 . Uric acid 7.4. Albumin 2.2. WBC 9.3, H and H 10/29.8, platelet 167. Urinalysis, PC ratio of 10 g, negative for infection. Specific gravity 1.020. Reviewing the data for the patient back in March 27, creatinine 1.8. GFR of 48. Assessment And Plan: 1.Acute kidney injury, nephrotic range proteinuria, obstructive uropathy has been ruled out secondar y to prerenal, superimposed with hydrochlorothiazide and HARI inhibitor. Looks to me still on the dry side. I am going to go ahead and continue aggressive hydration for the patient, and we will monitor the patient closely. Continue normal statin currently. I am going to increase the IV fluid to 100 per hour, and we will continue to monitor. 2.Discontinue hydrochlorothiazide, discontinue lisinopril. 3.Nephrotic range of proteinuria with M-spike on the previous admission. I am going to go ahead and send for urine protein electrophoresis and iPEP and we will follow up. Hold any HARI inhibitor and h ydrochlorothiazide for the time being. Reviewing the record for the patient, patient had iPEP before with monoclonal on the IgG. Patient is going to need Hematology evaluation. 4.Hypokalemia. We will supplement. We will check for magnesium level and TSH. 5.Hypertension with the presence of acute kidney injury. Discontinue hydrochlorothiazide, discontin ue lisinopril. I am going to go ahead and start the patient on calcium channel evelyn, and we will follow up the patient. 6.Gastroenteritis as by Primary. LOULOU/PORTIA Voice ID: [id number] Report ID: [id number]
[2021-12-08] MEDS: ATORVASTATIN 40 MG TAB PO SCH (20:34)
[2021-12-09] MEDS: HYDRALAZINE HCL 20 MG/ML VIAL IV PRN (00:11)
[2021-12-09] MEDS: HYDROMORPHONE HCL 0.5 MG/0.5 ML INJ IV PRN ×2 (01:27→07:37)
--- NOTE | 2021-12-09 06:29 | P.PN ---
Subjective Date of Service: 12/09/21 Chief Complaint: intractable nausea and vomiting Subjective: Other (C/o mild nausea.) Physical Examination - Vital Signs Temperature: 97.7 F Blood Pressure: 159/73 Pulse: 85 Respirations: 18 Pulse Ox (%): 95 - Physical Exam General: In no apparent distress HEENT: Atraumatic, Normocephalic Neck: Supple Respiratory: Other (symmetric chest expansion) Cardiovascular: No rubs, No murmurs Gastrointestinal: Soft and benign Musculoskeletal: No clubbing Integumentary: No warmth Neurological: Normal speech, Normal tone Urinary: Other (no bladder distention) External genitalia: Deferred Rectal: Deferred - Studies Laboratory Data (last 24 hrs) 12/08/21 15:55: Phosphorus 2.9 12/08/21 07:21: Uric Acid 7.4 H 12/08/21 07:21: Sodium 142, Potassium 3.4 L, BUN 29 H, Creatinine 2.72 H, Glucose 98, Phosphorus 3.4, Magnesium 1.8, Total Bilirubin 0.3, AST 15, ALT 18, Alkaline Phosphatase 80, Triglycerides 90, Cholesterol 170, HDL Cholesterol 44, Cholesterol/HDL Ratio 3.86 12/08/21 07:21: WBC 9.30 D, Hgb 10.0 L, Hct 29.8 L, Plt Count 167 Assessment And Plan - Plan 1. Acute kidney injury, nephrotic range proteinuria, obstructive uropathy has been ruled out secondary to prerenal, superimposed with hydrochlorothiazide and HARI inhibitor. Improving. SCr improved to 2.6 today. Hold HCTZ. Hold Lisinopril. [place] po fluid intake. 2. Nephrotic range of proteinuria with M-spike on the previous admission. I am going to go ahead and send for urine protein electrophoresis and iPEP and we will follow up. Hold any HARI inhibitor and hydrochlorothiazide for the time being. Reviewing the record for the patient, patient had iPEP before with monoclonal on the IgG. Hematology evaluation as outpt. 3. Hypokalemia. Monitor/replete prn. 4. Hypertension. Cont Metoprolol and Amlodipine. 5. Gastroenteritis. Symptomatic therapy. Advised on adeq po hydration. 6. Dispo. F/u in renal clinic in 2-3 wks via the V.A.
[2021-12-09 07:17] LABS: Absolute Lymphocytes (CBC) 1.9 K/uL (0.7-4.9); Hematocrit 28.9 % (39.6-49.0); Lymphocytes % 25.8 % (15.3-44.8); MPV 9.8 fL (7.6-11.3); RBC Red Blood Cell Count 2.86 M/uL (4.33-5.43)
[2021-12-09 07:29] LABS: Albumin 1.8 g/dL (3.4-5.0); Magnesium 2.5 mg/dL (1.8-2.4); Potassium 3.3 mmol/L (3.5-5.1)
[2021-12-09] MEDS: SUCRALFATE 1 GM TABLET PO SCH ×2 (07:36→11:43)
[2021-12-09] MEDS: METOPROLOL TAR 50 MG TAB PO SCH (07:36)
[2021-12-09] MEDS: PANTOPRAZOLE 40 MG INJ IVP SCH (07:36)
[2021-12-09] MEDS: ASPIRIN EC 81 MG TAB PO SCH (07:36)
[2021-12-09] MEDS: NA CHLORIDE 0.9% 1,000 ML IV SCH (07:46)
[2021-12-09] MEDS ORDERED: AMLODIPINE 10 MG TAB PO SCH (09:00)
[2021-12-09] MEDS ORDERED: POTASSIUM CL SA 10 MEQ TAB PO ONE (09:48)
[2021-12-09] MEDS: ONDANSETRON 4 MG/2 ML VIAL IV PRN (10:04)
--- NOTE | 2021-12-09 10:43 | P.DS ---
Admission Date: 12/08/21 Discharge Date: 12/09/21 Disposition: ROUTINE DISCHARGE Discharge Condition: FAIR Reason for Admission: intractable nausea and vomiting - Problems (1) Abdominal pain Current Visit: Yes Status: Acute Qualifiers: Abdominal location: left lower quadrant Qualified Code(s): R10.32 - Left lower quadrant pain (2) Intractable nausea and vomiting Current Visit: Yes Status: Acute (3) Acute worsening of stage 3 chronic kidney disease Current Visit: Yes Status: Acute (4) HTN (hypertension) Current Visit: Yes Status: Chronic Qualifiers: Hypertension type: primary hypertension Qualified Code(s): I10 - Essential (primary) hypertension Brief History of Present Illness: Mr. Steinberg is a 71 yo M with HTN and CKD who presented with nausea, vomiting, and abdominal pain. He reported vomited 4-5x prior to arrival. Upon arrival, EMS says his BP was 270/120 and he was cool, pale, and diaphoretic. They gave him aspirin and nitroglyceirn. He says he had no relief of pain. Upon arrival to the ED, he receive demorol and fentanyl. He says pain improved mildly. K 3.3 BUN 30 Cr 2.73 GFR 28 Glu 174 BNP [address]. CXR and CT Chest Abdomen Pelvis are without acute findings. Abdominal US without acute findings. Patient hospitalized for further management. Hospital Course: Patient admitted to the medical floor and started on IV Protonix and sucralfate for possible gastritis. He was also hydrated with IV fluid. Nephrology saw patient for renal impairment. Serum creatinine improved only slightly with IV hydration. I believe patient's baseline creatinine is around 2.5. He is being screened for multiple myeloma. Patient's symptoms improved during the hospital stay. He has tolerated diet, no more vomiting and is deemed stable for discharge. Vital Signs/Physical Exam: Temp Pulse Resp BP Pulse Ox 98.2 F 110 H 18 169/81 H 98 12/09/21 08:00 12/09/21 08:00 12/09/21 08:00 12/09/21 08:00 12/09/21 08:00 General: Alert, In no apparent distress, Oriented x3 HEENT: Mucous membr. moist/pink Neck: JVD not distended Respiratory: Clear to auscultation bilaterally, Normal air movement Cardiovascular: No edema, Regular rate/rhythm, Normal S1 S2 Gastrointestinal: Normal bowel sounds, Soft and benign, Non-distended, No tenderness Musculoskeletal: No swelling Integumentary: No rashes Neurological: Normal strength at 5/5 x4 extr Laboratory Data at Discharge: WBC 7.50 K/uL (4.3-10.9) D 12/09/21 06:53 Hgb 9.4 g/dL (13.6-17.9) L 12/09/21 06:53 Hct 28.9 % (39.6-49.0) L 12/09/21 06:53 Plt Count 147 K/uL (152-406) L 12/09/21 06:53 PT 12.9 SECONDS (9.5-12.5) H 12/07/21 15:00 INR 1.12 12/07/21 15:00 Sodium 140 mmol/L (136-145) 12/09/21 06:53 Potassium 3.3 mmol/L (3.5-5.1) L 12/09/21 06:53 BUN 30 mg/dL (7-18) H 12/09/21 06:53 Creatinine 2.57 mg/dL (0.55-1.3) H 12/09/21 06:53 Glucose 87 mg/dL (74-106) 12/09/21 06:53 Uric Acid 7.4 mg/dL (3.5-7.2) H 12/08/21 07:21 Phosphorus 3.0 mg/dL (2.5-4.9) 12/09/21 06:53 Magnesium 2.5 mg/dL (1.8-2.4) H D 12/09/21 06:53 Total Bilirubin 0.3 mg/dL (0.2-1.0) 12/08/21 07:21 AST 15 U/L (15-37) 12/08/21 07:21 ALT 18 U/L (12-78) 12/08/21 07:21 Alkaline Phosphatase 80 U/L (45-117) 12/08/21 07:21 Triglycerides 90 mg/dL (<150) 12/08/21 07:21 Cholesterol 170 mg/dL (<200) 12/08/21 07:21 HDL Cholesterol 44 mg/dL (40-60) 12/08/21 07:21 Cholesterol/HDL Ratio 3.86 12/08/21 07:21 Lipase 192 U/L (73-393) 12/07/21 15:00 Home Medications: Amlodipine [Norvasc*] 10 mg PO DAILY #30 tab 12/09/21 Aspirin [Aspirin EC 81 MG] 81 mg PO DAILY #30 tablet. 12/09/21 Atorvastatin Calcium [Lipitor] 40 mg PO BEDTIME #30 tab 12/09/21 Hydrocodone 5/APAP 325 [Salol 5/325] 1 tab PO Q6H PRN #20 tab 12/09/21 Metoprolol Tartrate [Lopressor*] 100 mg PO BID #60 tab 12/09/21 Pantoprazole [Protonix Tab] 40 mg PO BID #60 tab 12/09/21 New Medications: Aspirin [Aspirin EC 81 MG] 81 mg PO DAILY #30 tablet. Atorvastatin Calcium [Lipitor] 40 mg PO BEDTIME #30 tab Metoprolol Tartrate [Lopressor*] 100 mg PO BID #60 tab Hydrocodone 5/APAP 325 [Salol 5/325] 1 tab PO Q6H PRN #20 tab PRN Reason: Pain Amlodipine [Norvasc*] 10 mg PO DAILY #30 tab Pantoprazole [Protonix Tab] 40 mg PO BID #60 tab Diet: AHA Activity: Ad nicole Followup: Hilda Tam DO, DO [ACTIVE - CAN ADMIT] - 1-2 Weeks (PCP- call to schedule an appointment ) Time spent managing pt's care (in minutes): 33
[2021-12-09] MEDS ORDERED: ONDANSETRON 4 MG (ODT) TAB PO STA (12:15)
[2021-12-09 13:28] VITALS: O2SAT 98
[2021-12-09 22:17] VITALS: BP 159/73; TEMP 97.7
== END 2021-12-09 14:00 | disposition home or self-care (01) | DRG 392 ==
LOC: ER 14:53 → ERHOLD 19:37 → 2ND 19:51 → OBSVTOIN 12-08 17:27
PROVIDERS: ADMIT Internal Medicine; ATTEND Internal Medicine
DX: K29.70 Gastritis, unspecified, without bleeding (principal); N17.9 Acute kidney failure, unspecified; I16.0 Hypertensive urgency; I12.9 Hypertensive chronic kidney disease with stage 1 through stage 4 chronic kidney disease, or unspecified chronic kidney disease; N18.30 Chronic kidney disease, stage 3 unspecified; E78.5 Hyperlipidemia, unspecified; E87.6 Hypokalemia; K52.9 Noninfective gastroenteritis and colitis, unspecified; F17.210 Nicotine dependence, cigarettes, uncomplicated; R07.9 Chest pain, unspecified; Z88.5 Allergy status to narcotic agent; Z85.46 Personal history of malignant neoplasm of prostate; Z79.899 Other long term (current) drug therapy; Z60.2 Problems related to living alone; Z20.822 Contact with and (suspected) exposure to COVID-19; Z79.82 Long term (current) use of aspirin
CPT/HCPCS: 36415; 71045; 71250; 74176; 76705; 80048; 80053; 80061; 80069; 80076; 80307; 81003; 81015; 82550; 82553; 82570; 82607; 82747; 82947; 83036; 83690; 83735; 83880; 83970; 84100; 84156; 84439; 84443; 84484; 84550; 85025; 85610; 86334; 86850; 86900; 86901; 93005; 96374; 96375; 99285; C9113; G0378; J0360; J1170; J2175; J2270; J2405; J3010; J7030; U0003

== ENCOUNTER 2022-04-18 04:26 | Inpatient (IN) | payer OTHER ==
--- OUTSIDE RECORDS SUMMARY | 2022-04-18 04:35 | XMS REPORT | Continuity of Care Document ---
:1950 Author Organization [facility] t Address [address] [place] [address] Care Team Providers Name Role Phone Mary Kate CONTI Primary Care Physician Unavailable Marj JACKSON Attending Clinician Unavailable Marj JACKSON Attending Clinician Unavailable 1, Sleep Lab Bed Attending Clinician Unavailable Marj Jackson MD Attending Clinician Doctor Unassigned, Name Attending Clinician Unavailable Only, Test Attending Clinician Unavailable Kyleigh WICK Attending Clinician Payers Payer Name Policy Type Policy Number Effective Date Expiration Date S ira [facility] [id number] 2020 00:00:00 [facility] [id number] 2017 00:00:00 Problems Condition Condition Condition Status Onset Resolution Last Treating Co mments Source Name Details Category Date Date Treatment Clinician Date No known No known Disease Unive rs active active ity of problems problems [facility] Allergies, Adverse Reactions, Alerts Allergy Allergy Status Severity Reaction(s) Onset Inactive Treating Comm ents Source Name Type Date Date Clinician NO KNOWN Drug Active Univers ALLERGIE Class ity of S [facility] Social History Social Habit Start Date Stop Date Quantity Comments Source Exposure to Not sure [facility] SARS-CoV-2 (event) Medica l Branch Sex Assigned At [birth year] [facility] 00:00:00 00:00:00 [facility] Smoking Status Start Date Stop Date Source Unknown if ever smoked [facility] Medications Ordered Filled Start Stop Current Ordering Indication Dosage Frequency Signature Comments Components Source Medication Medication Date Date Medication? Clinician (SIG) Name Name lisinopriL- Yes 1{tbl} Take 1 Un ladarius [...] at [place] 00 bedtime. Medical Branch gabapentin 2020-0 Yes TAKE 1 Unive rs 300 mg 7-26 CAPSULE BY ity of capsule 00:00: MOUTH 3 TIMES Medical DAILY Branch QUEtiapine 2020-0 Yes 200mg Take 200 Un ladarius 100 mg 7-26 mg by ity of tablet 00:00: mouth at [place] [address] bedtime. Medical Branch gabapentin 2020-0 Yes TAKE 1 Unive rs 300 mg 7-26 CAPSULE BY ity of capsule 00:00: MOUTH 3 [place] TIMES Medical DAILY Branch QUEtiapine 2020-0 Yes 200mg Take 200 Un ladarius 100 mg 7-26 mg by ity of tablet 00:00: mouth at [place] [address] bedtime. Medical Branch gabapentin 2020-0 Yes TAKE 1 Unive rs 300 mg 7-26 CAPSULE BY ity of capsule 00:00: MOUTH 3 [place] TIMES Medical DAILY Branch QUEtiapine 2020-0 Yes 200mg Take 200 Un ladarius 100 mg 7-26 mg by ity of tablet 00:00: mouth at [place] [address] bedtime. Medical Branch gabapentin 2020-0 Yes TAKE 1 Unive rs 300 mg 7-26 CAPSULE BY ity of capsule 00:00: MOUTH 3 [place] Medical DAILY Branch QUEtiapine 2020-0 Yes 200mg Take 200 Un ladarius 100 mg 7-26 mg by ity of tablet 00:00: mouth at [place] [address] bedtime. Medical Branch tadalafiL 5 2020-0 Yes [...] Procedure Date / Time Performed Performing Clinician [facility] e SLEEP STUDY DATA 2021-09-05 05:01:00 Doctor Unassigned, No [facility] [place] REPORT Name Medical Branch COVID-19 (ID NOW RAPID 2021-08-05 19:05:00 [facility] Branch ASSIGNMENT OF BENEFITS 2021-08-05 18:57:19 Doctor Unassigned, No [facility] Name Medical Branch Encounters Start End Encounter Admission Attending Care Care Encounter Source Date/Time Date/Time Type Type Clinicians Facility Department ID 2021-11-30 2021-11-30 Outpatient R JAZZ JACKSON [facility] [id number] Univers 13:20:00 13:20:00 [id number] 2021-11-30 2021-11-30 Outpatient R JAZZ JACKSON [facility] [id number] Univers 13:20:00 13:20:[facility] 2021-10-12 2021-10-12 Outpatient R JAZZ JACKSON [facility] [id number] Univers 13:20:00 13:20:00 [id number] 2021-10-12 2021-10-12 Outpatient R JAZZ JACKSON [facility] [id number] Univers 13:20:00 13:20:00 [facility] 2021-09-05 2021-09-05 Outpatient R [facility] [id number] Univers 19:30:00 19:30:00 [id number] [facility] 2021-09-05 2021-09-05 Outpatient R JAZZ JACKSON [facility] [id number] Univers 19:30:00 19:30:00 JAZZ JACKSON [facility] 2021-09-05 2021-09-05 System Specialist 1, [employer] Sleep Lab Bed [facility] 1. [id number] [id number] Univers 14:11:15 16:41:15 Visit [facility]. [facility] [id number] [facility] [phone] [facility] 193 Branch 2021-09-05 2021-09-05 Orders Doctor KEMAL 1.2.840.114 [id number] Univers 00:00:00 00:00:00 Only UnassignedVIRA [id number] ity of [facility] [id number] [place] [phone] [facility] 009 Branch 2021-09-02 2021-09-02 Laboratory Only, Adc Test [facility] 1.2.840. 114 [id number] Univers 10:46:06 11:01:06 Only Jayme Arizmendi [id number] ity of [place] [id number] [facility] [id number] [facility] [address] [place] 2021-09-02 2021-09-02 Outpatient R [facility] [id number] Univers 11:00:00 11:00:00 [id number] ity [facility] 2021-09-02 2021-09-02 Outpatient R [facility] [id number] Univers 11:00:00 11:00:00 ity of [facility] 2021-08-08 2021-08-08 Outpatient R JAZZ JACKSON [facility] [id number] Univers 19:30:00 19:30:00 JAZZ JACKSON ity [facility] 2021-08-08 2021-08-08 Outpatient R [facility] [id number] Univers 19:30:00 19:30:00 [id number] ity [facility] 2021-08-05 2021-08-05 Laboratory Only, Adc Test [facility] 1.2.840. 114 [id number] Univers 13:57:41 14:12:41 Only Jazz Jackson 350.1.13. 10 ity of [place] 4.2.7.2.686 [facility] [phone] [facility] [address] [place] 2021-08-05 2021-08-05 Outpatient R [facility] [id number] Univers 13:15:00 13:15:00 ity [facility] 2021-08-05 2021-08-05 Outpatient R [facility] [id number] Univers 10:15:00 [facility]:15:[facility] 2021-08-05 2021-08-05 Outpatient R [facility] [id number] Univers 10:15:00 10:15:00 [id number] [facility] 2021-08-05 2021-08-05 Orders Doctor KEMAL 1.2.840.114 [id number] Univers 00:00:00 00:00:00 Only Unassigned, VIRA [id number] ity of [place] [facility] [id number] [place] as [id number] [address] 2021-07-13 2021-07-13 Outpatient R JAZZ JACKSON [facility] [id number] [facility] 11:40:00 11:40:00 SHANE [facility]Bl[facility] Results Test Description Test Time Test Comments Results Result Comments Source COVID-19 (ID NOW RAPID TESTING) 2021-08-05 20:02:26 Test Item Value Reference Range Interpretation Comme nts SARS-CoV-2 Rapid ID NOW (test code Not Detected Not Detected = 25989-9) LULÚ (test code = LULÚ) ID NOW COVID-19 Assay is an isothermal nucleic acid amplification test intended for the qualitative detection of nucleic acid from SARS-CoV-2 viral RNA in nasopharyngeal (DIESEL LOCOMOTIVE ENGINEER) specimens. It is used under Emergency Use [...] indicated. Lab Interpretation (test code = Normal 69313-3) [facility]
[2022-04-18] MEDS ORDERED: ONDANSETRON 4 MG/2 ML VIAL ONE ×3 (05:25→07:49)
[2022-04-18] MEDS ORDERED: ONDANSETRON 4 MG (ODT) TAB ONE (05:27)
[2022-04-18 05:55] LABS: Absolute Lymphocytes (CBC) 0.9 K/uL (0.7-4.9); Hematocrit 34.3 % (39.6-49.0); Lymphocytes % 5.8 % (15.3-44.8); MPV 10.1 fL (7.6-11.3); RBC Red Blood Cell Count 3.53 M/uL (4.33-5.43)
[2022-04-18 06:10] LABS: Albumin 2.6 g/dL (3.4-5.0); Bilirubin Total 0.6 mg/dL (0.2-1.0); Potassium 3.7 mmol/L (3.5-5.1); Protein, Total 8.9 g/dL (6.4-8.2)
[2022-04-18 06:11] LABS: Troponin High Sensitivity 70.8 pg/mL (<58.9)
[2022-04-18] MEDS ORDERED: MORPHINE 4 MG/ML SYR ONE ×2 (06:34→07:48)
[2022-04-18] MEDS ORDERED: ASPIRIN 81 MG CHEWABLE TABLET ONE (06:45)
[2022-04-18 06:59] LABS: Blood Morphology Comment NOT SEEN (NOT SEEN); Platelet Estimate ADEQ
--- NOTE | 2022-04-18 07:45 | EDPHYS ---
Physician Documentation [facility] Name: Brendan Steinberg Age: 71 yrs Sex: Male : 1950 Arrival Date: 04/18/2022 Time: 04:27 Bed 17 Private MD: ED Physician Shahab Ortega HPI: 04/19 07:40 This 71 yrs old Black Male presents to ER via EMS with complaints of Shortness Of kdr Breath. 07:40 The patient has shortness of breath at rest, with light activity. Onset: The kdr symptoms/episode began/occurred gradually, 2 day(s) ago. Duration: The symptoms are continuous, and are steadily getting worse. The patient's shortness of breath is aggravated by coughing, exertion. Associated signs and symptoms: The patient has no apparent associated signs or symptoms. Severity of symptoms: At their worst the symptoms were mild in the emergency department the symptoms are unchanged. The patient has experienced a previous episode. The patient has not recently seen a physician. EMS was called for the patient due to worsening shortness of breath over the last 2 days. Patient also complains of sore throat but denies fever also complains of tremors. Historical: - Allergies: 04/18 04:31 Codeine; lp1 - Home Meds: 04:31 Metoprolol Tartrate Oral [Active]; Lisinopril Oral [Active]; Zolpidem Tartrate Oral lp1 [Active]; - PMHx: 04:31 Hypertension; lp1 - PSHx: 04:31 None; lp1 - Immunization history:: Adult Immunizations up to date, Client reports receiving the 2nd dose of the Covid vaccine. - Social history:: Smoking status: Patient reports the use of cigarette tobacco products, denies chronic smoking, but will smoke occasionally. ROS: 04/19 07:41 Constitutional: Negative for fever, chills, and weight loss, Eyes: Negative for injury, kdr pain, redness, and discharge, ENT: Negative for injury, pain, and discharge, Neck: Negative for injury, pain, and swelling, Cardiovascular: Negative for chest pain, palpitations, and edema, Abdomen/GI: Negative for abdominal pain, nausea, vomiting, diarrhea, and constipation, Back: Negative for injury and pain, : Negative for injury, bleeding, discharge, and swelling, MS/Extremity: Negative for injury and deformity, Skin: Negative for injury, rash, and discoloration, Neuro: Negative for headache, weakness, numbness, tingling, and seizure activity. Psych: Negative for depression, anxiety, suicide ideation, homicidal ideation, and hallucinations, Allergy/Immunology: Negative for hives, rash, and allergies, Endocrine: Negative for neck swelling, polydipsia, polyuria, polyphagia, and marked weight changes, Hematologic/Lymphatic: Negative for swollen nodes, abnormal bleeding, and unusual bruising. Respiratory: Positive for cough, with no reported sputum, shortness of breath, at rest. Vital Signs: 04/18 04:33 BP 166 / 98; Pulse 78; Resp 20; Temp 99.5(O); Pulse Ox 95% on R/A; Weight 95.25 kg; lp1 Height 5 ft. 7 in. (170.18 cm); Pain 10/10; 07:12 BP 154 / 92; Pulse 76; Pulse Ox 97% on R/A; ap3 04:33 Body Mass Index 32.89 (95.25 kg, 170.18 cm) lp1 MDM: 07:44 Patient medically screened. [facility] 04/18 04:47 Order name: Basic Metabolic Panel [facility] 04/18 04:47 Order name: CBC with Diff; Complete Time: 07:09 [facility] 04/18 04:47 Order name: Troponin HS; Complete Time: 06:36 [facility] 04/18 04:47 Order name: CMP; Complete Time: 06:36 [facility] 04/18 04:47 Order name: Lactate; Complete Time: 06:36 [facility] 04/18 05:54 Order name: Glucose, Ancillary Testing; Complete Time: 06:36 [facility] 04/18 06:33 Order name: COVID-19 SARS RT PCR (Document "Date of Onset" if Symptomatic); Complete [facility] Time: 20:04/18 06:33 Order name: Flu; Complete Time: 20:03 [facility] 04/18 06:33 Order name: Strep; Complete Time: 20:03 [facility] 04/18 06:59 Order name: Manual Differential; Complete Time: 07:09 [facility] 04/18 08:01 Order name: Throat Culture [facility] 04/18 09:46 Order name: Magnesium; Complete Time: 20:03 [facility] 04/18 09:46 Order name: Thyroid Stimulating Hormone; Complete Time: 20:03 [facility] 04/18 09:46 Order name: UR CREAT [facility] 04/18 04:47 Order name: XRAY Chest (1 view) [facility] 04/18 09:46 Order name: UR SODIUM [facility] 04/18 09:46 Order name: CBC with Automated Diff [facility] 04/18 09:46 Order name: CBC with Automated Diff [facility] 04/18 09:46 Order name: Comprehensive Metabolic Panel [facility] 04/18 09:46 Order name: Comprehensive Metabolic Panel [facility] 04/18 09:46 Order name: Lipid Profile [facility] 04/18 09:46 Order name: Lipid Profile [facility] 04/18 09:48 Order name: Thorax Wo Con; Complete Time: 20:03 [facility] 04/18 14:28 Order name: Troponin High Sensitivity; Complete Time: 20:03 [facility] 04/18 14:45 Order name: CT; Complete Time: 20:03 [facility] 04/18 04:47 Order name: EKG; Complete Time: 04:48 kdr 04/18 04:47 Order name: Cardiac monitoring; Complete Time: 05:15 kdr 04/18 04:47 Order name: EKG - Nurse/Tech; Complete Time: 05:16 kdr 04/18 04:47 Order name: IV Saline Lock; Complete Time: 05:37 kdr 04/18 04:47 Order name: Labs collected and sent; Complete Time: 05:38 kdr 04/18 04:47 Order name: O2 Per Protocol; Complete Time: 05:16 kdr 04/18 04:47 Order name: O2 Sat Monitoring; Complete Time: 05:16 kdr 04/18 04:47 Order name: Accucheck; Complete Time: 05:50 kdr 04/18 04:47 Order name: IV Saline Lock - Large Bore; Complete Time: 05:38 kdr 04/18 09:46 Order name: CONS Physician Consult [facility] 04/18 09:46 Order name: 60g Consistent Carbohydrate (ADA 1800/2000) EDMS Administered Medications: 05:22 Drug: Ondansetron 4 mg Route: PO; sm5 05:24 CANCELLED (Duplicate Order): Zofran (Ondansetron) 4 mg PO once lg3 06:52 Drug: Aspirin Chewable Tablet 324 mg Route: PO; sm5 07:53 Drug: morphine 4 mg Route: IVP; Site: right wrist; ap3 07:54 Drug: Zofran (Ondansetron) 4 mg Route: IVP; Site: right wrist; ap3 Disposition Summary: 04/18/22 07:44 Hospitalization Ordered Hospitalization Status: Observation kdr Provider: Elpidio Miller Location: Telemetry/MedSurg (observation) kdr Condition: Fair kdr Problem: new kdr Symptoms: have improved kdr Bed/Room Type: Standard kdr Room Assignment: 220(04/18/22 15:55) dw Diagnosis - Chest pain, unspecified kdr - Shortness of breath kdr - Weakness kdr - Acute bronchitis, unspecified kdr Forms: - Medication Reconciliation Form kdr - SBAR form kdr Signatures: Dispatcher [employer] EDIqra Glass RN RN dw Shahab Ortega MD MD kdr Teresa Buckley RN RN lp1 Martina Persaud RN RN ap3 Alethea Llanes RN RN sm5 Cassandra Chavarria RN lg3 Corrections: (The following items were deleted from the chart) 05:24 05:23 Zofran (Ondansetron) 4 mg PO once ordered. kdr lg3 15:55 07:44 kdr dw
--- NOTE | 2022-04-18 07:45 | ER ---
Nurse's Notes [facility] Name: Brendan Steinberg Age: 71 yrs Sex: Male : 1950 Arrival Date: 04/18/2022 Time: 04:27 Bed 17 Private MD: Diagnosis: Chest pain, unspecified;Shortness of breath;Weakness;Acute bronchitis, unspecified Presentation: 04/18 04:28 Chief complaint: EMS states: Called for patient with shortness of breath and chest lp1 pain, productive cough since 2 days ago, worsening with severe sore throat; Denies fever; Patient reports "I'm having tremors that I don't normally have". Coronavirus screen: cough unrelated to allergies, shortness of breath. Ebola Screen: No symptoms or risks identified at this time. Risk Assessment: Do you want to hurt yourself or someone else? Patient reports no desire to harm self or others. Onset of symptoms was April 18, 2022. 04:28 Method Of Arrival: EMS: [facility] lp1 04:33 Initial Sepsis Screen: Does the patient meet any 2 criteria? No. Patient's initial lp1 sepsis screen is negative. Does the patient have a suspected source of infection? No. Patient's initial sepsis screen is negative. 04:33 Acuity: ROSALIE 3 lp1 Triage Assessment: 04:36 General: Appears uncomfortable, Behavior is calm, cooperative. Respiratory: Sputum is lp1 thin, clear. 12:25 Pain: Complains of pain in throat Pain does not radiate. ap3 Historical: - Allergies: 04:31 Codeine; lp1 - Home Meds: 04:31 Metoprolol Tartrate Oral [Active]; Lisinopril Oral [Active]; Zolpidem Tartrate Oral lp1 [Active]; - PMHx: 04:31 Hypertension; lp1 - PSHx: 04:31 None; lp1 - Immunization history:: Adult Immunizations up to date, Client reports receiving the 2nd dose of the Covid vaccine. - Social history:: Smoking status: Patient reports the use of cigarette tobacco products, denies chronic smoking, but will smoke occasionally. Screenin:16 Abuse screen: Denies threats or abuse. Denies injuries from another. Nutritional sm5 screening: No deficits noted. Tuberculosis screening: No symptoms or risk factors identified. Fall Risk None identified. Vital Signs: 04:33 BP 166 / 98; Pulse 78; Resp 20; Temp 99.5(O); Pulse Ox 95% on R/A; Weight 95.25 kg; lp1 Height 5 ft. 7 in. (170.18 cm); Pain 10/10; 07:12 BP 154 / 92; Pulse 76; Pulse Ox 97% on R/A; ap3 04:33 Body Mass Index 32.89 (95.25 kg, 170.18 cm) lp1 ED Course: 04:27 Patient arrived in ED. bp1 04:28 Arm band placed on right wrist. lp1 04:36 Triage completed. lp1 04:44 Alethea Llanes, JUANY is Primary Nurse. sm5 04:46 Shahab Ortega MD is Attending Physician. kdr 05:16 Patient has correct armband on for positive identification. Placed in gown. Bed in low sm5 position. Call light in reach. Side rails up X2. Client placed on continuous cardiac and pulse oximetry monitoring. NIBP monitoring applied. 05:20 XRAY Chest (1 view) In Process Unspecified. EDMS 05:37 CMP Sent. lg3 05:37 Lactate Sent. lg3 05:37 Basic Metabolic Panel Sent. lg3 05:38 CBC with Diff Sent. lg3 05:38 Troponin HS Sent. lg3 05:50 CMP Sent. sm5 05:50 Lactate Sent. sm5 05:50 CBC with Diff Sent. sm5 06:11 Notified ED physician of a critical lab result(s). troponin of 70.8 Dr Ortega notified.bb 06:52 COVID-19 SARS RT PCR (Document "Date of Onset" if Symptomatic) Sent. sm5 06:52 Strep Sent. sm5 06:52 Flu Sent. sm5 07:13 Report received from JUANY Claire and JUANY Trujillo. ap3 07:43 Elpidio Miller MD is Hospitalizing Provider. kdr 07:53 Inserted saline lock: 22 gauge in right wrist, using aseptic technique. ap3 07:57 Primary Nurse role handed off by Alethea Llanes, JUANY bd 10:05 Thorax Wo Con In Process Unspecified. EDMS 12:25 No provider procedures requiring assistance completed. Patient admitted, IV remains in ap3 place. Administered Medications: 05:22 Drug: Ondansetron 4 mg Route: PO; sm5 05:24 CANCELLED (Duplicate Order): Zofran (Ondansetron) 4 mg PO once lg3 06:52 Drug: Aspirin Chewable Tablet 324 mg Route: PO; sm5 07:53 Drug: morphine 4 mg Route: IVP; Site: right wrist; ap3 07:54 Drug: Zofran (Ondansetron) 4 mg Route: IVP; Site: right wrist; ap3 Medication: 12:25 VIS not applicable for this client. ap3 Outcome: 07:44 Decision to Hospitalize by Provider. kdr 12:25 Admitted to ER Hold. Please see [facility] for further documentation. ap3 12:25 Condition: good 12:25 Discharge instructions given to patient, Instructed on the need for admit. 16:54 Patient left the ED. ap3 Signatures: Dispatcher [employer] EDMS Raquel Fong Kevin, MD MD kdr Ballard, Brenda, RN RN bb Teresa Buckley RN RN lp1 Martina Persaud RN RN ap3 Cassandra Chavarria RN RN lg3 Rebeka Robb Sarah RN RN sm5 Corrections: (The following items were deleted from the chart) 04:36 04:28 Chief complaint: EMS states: Called for patient with shortness of breath and lp1 chest pain, productive cough since 2 days ago, worsening; Denies fever lp1 04:37 04:28 Chief complaint: EMS states: Called for patient with shortness of breath and lp1 chest pain, productive cough since 2 days ago, worsening with severe sore throat; Denies fever lp1
--- NOTE | 2022-04-18 09:08 | EKG ---
Test Date: 2022-04-18 Test Time: 05:08:51 Harness Worker: [place] MEASUREMENT RESULTS: Intervals: Rate: 70 UT: 176 QRSD: 78 QT: 418 QTc: 451 [place]: P: 38 UT: 176 QRS: -9 T: 5 INTERPRETIVE STATEMENTS: Normal sinus rhythm Voltage criteria for left ventricular hypertrophy Abnormal ECG Compared to ECG 12/08/2021 13:53:15 Left ventricular hypertrophy now present First degree AV block no longer present T-wave abnormality no longer present Electronically Signed On 04-18-22 09:07:56 CDT by Ruben Mathew
[2022-04-18] MEDS ORDERED: ALBUTEROL 2.5 MG/3 ML NEB SOL NEB PRN (09:39)
[2022-04-18] MEDS ORDERED: MORPHINE 2 MG/ML SYR IV PRN (09:39)
[2022-04-18] MEDS ORDERED: ACETAMINOPHEN 500 MG TAB PO PRN (09:39)
[2022-04-18] MEDS ORDERED: LORazepam 2 MG/ML VIAL IV PRN (09:44)
[2022-04-18] MEDS: NA CHLORIDE 0.9% 1,000 ML IV SCH ×2 (10:00→19:55)
--- NOTE | 2022-04-18 10:36 | RAD REPORT ---
EXAM DESCRIPTION: CT - Thorax Wo Con - 04/18/2022 10:03 am CLINICAL HISTORY: COUGH R/P PNA COMPARISON: Chest Abd Pelvis Wo Con dated 12/07/2021; Pelvis Wo Cont dated 02/10/2020; Head C Spine Mp r Wo Con dated 11/08/2018 FINDINGS: Chest Wall: No suspicious thyroid nodules or pathologic lymphadenopathy. Gynecomastia. Lungs: No acute abnormality. Pleura: No significant effusions or pneumothorax. Prominent extrapleural flat at the lung bases. Mediastinum/johnna: No pathologic lymphadenopathy. Small hiatal hernia. Pulmonary arteries/Aorta: Limited evaluation without contrast. No aortic aneurysm. Heart: No significant pericardial effusion. Cardiomegaly. Upper abdomen: No acute abnormality. Bones: No acute abnormality. Sclerotic focus in the left clavicle is unchanged since 11/08/2018. All CT scans are performed using dose optimization technique as appropriate and may include automated exposure control or mA/KV adjustment according to patient size. IMPRESSION: No acute findings within the chest. No evidence of pneumonia.
[2022-04-18] MEDS: INSULIN -REGULAR HUMAN 50 UNIT/0.5 ML ML SQ SCH ×3 (10:38→21:00)
--- NOTE | 2022-04-18 12:31 | P.HP ---
Certification for Inpatient Patient admitted to: Inpatient With expected LOS: >2 Midnights Patient will require the following post-hospital care: None Practitioner: I am a practitioner with admitting privileges, knowledge of patient current condition, hospital course, and medical plan of care. Services: Services provided to patient in accordance with Admission requirements found in Title 42 Section 412.3 of the Code of Federal Regulations Patient History Date of Service: 04/18/22 Reason for admission: Right-sided chest pain, weakness History of Present Illness: 71-year-old male with past medical history of hypertension chronic tobacco use presented because of right-sided chest pain radiating to the right shoulder and back associated with mild exertional dyspnea since the last 2 days. Onset of symptoms was preceding upper respiratory tract infection with sore throat. Patient still feels a sore throat is still intermittent. He developed new onset shakiness but denies any chills or fever. He feels the shakiness is affecting his throat. He admits to cough but states he is unable to bring phlegm as he feels it is stuck in his throat. He denies any headache or dizziness. On presentation in the ED chest x-ray was clear with no acute infiltrate or pleural effusion. There was mild elevation of troponin at 71. He denies any past histo ry of coronary artery disease or left-sided chest pain. He was noted with marked elevated creatinine of 4.7. EKG shows no significant ST segment changes. Patient expressed anxiety over his recurrent tremors and shakiness. He denies any prior history of CVA. He has been admitted for generalized symptoms and acute kidney failure Allergies No Known Drug Allergies Allergy (Verified 04/21/21 00:26) Unknown Home Medications: Amlodipine [Norvasc*] 10 mg PO DAILY #30 tab 12/09/21 Aspirin [Aspirin EC 81 MG] 81 mg PO DAILY #30 tablet. 12/09/21 Atorvastatin Calcium [Lipitor] 40 mg PO BEDTIME #30 tab 12/09/21 Hydrocodone 5/APAP 325 [[place] 5/325] 1 tab PO Q6H PRN #20 tab 12/09/21 Metoprolol Tartrate [Lopressor*] 100 mg PO BID #60 tab 12/09/21 Pantoprazole [Protonix Tab] 40 mg PO BID #60 tab 12/09/21 - Past Medical/Surgical History Has patient received pneumonia vaccine in the past: No Diabetic: No -: HTN -: prostate cancer s/p radiation 04/2020 -: Hemorrhoids -: CKD -: Hemorrhoidectomy Psychosocial/ Personal History: Patient is retired, lives alone - Family History Sister -: Diabetes Mother -: Heart disease, Lung disease, Stroke - Social History Smoking Status: Light Tobacco smoker (1-9 cigarettes/day) Counseled patient to stop smoking for: more than 10 minutes Smoking therapy provided: Yes Patient receptive to therapy: Yes Alcohol use: No CD- Drugs: No Caffeine use: Yes Place of Residence: Home Review of Systems 10-point ROS is otherwise unremarkable Physical Examination - Vital Signs Temperature: 98.7 F Blood Pressure: 118/57 Pulse: 83 Respirations: 17 Pulse Ox (%): 99 - Physical Exam General: Alert, In no apparent distress, Oriented x3 HEENT: Atraumatic, Normocephalic, PERRLA Neck: Supple, 2+ carotid pulse no bruit, JVD not distended Respiratory: Clear to auscultation bilaterally, Normal air movement Cardiovascular: No edema, Normal pulses, Regular rate/rhythm, Normal S1 S2 Gastrointestinal: Normal bowel sounds, Soft and benign, Non-distended, W/out splenomegaly, No tenderness Musculoskeletal: No clubbing, No swelling Neurological: Normal gait, Normal speech, Normal strength at 5/5 x4 extr, Normal tone, Normal reflexes 2+, Other (Irregular tremors and jerks ) - Studies Laboratory Data (last 24 hrs) 04/18/22 05:32: WBC 14.9 H, Hgb 11.6 L, Hct 34.3 L, Plt Count 188 04/18/22 05:32: Sodium 139, Potassium 3.7, BUN 37 H, Creatinine 4.72 H, Glucose 107 H, Total Bilirubin 0.6, AST 22, ALT 21, Alkaline Phosphatase 84 Microbiology Data (last 24 hrs): 04/18/22 06:48 Nasopharnyx Influenza Type A Antigen Screen - Final 04/18/22 06:48 Nasopharnyx Influenza Type B Antigen Screen - Final 04/18/22 06:48 Throat Group A Streptococcus Rapid Screen - Final Assessment and Plan - Advance Directives Does patient have a Living Will: No Does patient have a Durable POA for Healthcare: No Physician Review: Patient Assessed, Agree with Above Assessment and Plan Physician Review Additional Text: Chest x-ray shows no acute infiltrate CT chest shows no acute pneumonia Impression Acute kidney injuryunclear etiology may be due to toxic nephritis Hypertensioncontrolled Right-sided chest pain Mild troponin elevation History of tobacco use Recurrent tremorsnew onset History of borderline DMdiet controlled Plan Will obtain urine studies for fractional excretion of sodium Start gentle IV fluid normal saline Daily creatinine level Nephrology consult Strict glycemic control with Accu-Cheks given history of borderline DM Avoid hypoglycemia Trend troponin, if rising, will consult cardiology for cardiac cath Unclear reason for recurrent checks since no evidence of infection, will obtain head CT to rule out CVA Might need neurology consult if persistent although elevation in creatinine/azotemia may also be contributing to symptoms Subcutaneous Lovenox for DVT prophylaxis Advance directivefull code Smoking cessation advised, start nicotine patch
[2022-04-18] MEDS ORDERED: HYDROCODONE/APAP 5/325 MG TAB ONE (12:33)
[2022-04-18] MEDS ORDERED: BENZONATATE 100 MG CAP PO PRN (12:34)
[2022-04-18] MEDS ORDERED: ACETAMINOPHEN 500 MG TAB ONE (12:51)
[2022-04-18] MEDS ORDERED: LORazepam 2 MG/ML VIAL ONE (14:34)
[2022-04-18] MEDS ORDERED: LORAZEPAM 0.5 MG TABLET ONE (14:38)
[2022-04-18] MEDS ORDERED: MORPHINE 2 MG/ML SYR ONE (14:39)
[2022-04-18] MEDS: LORAZEPAM 0.5 MG TABLET PO PRN (14:43)
--- NOTE | 2022-04-18 14:45 | RAD REPORT ---
EXAM DESCRIPTION: CT - Head Brain Wo Cont - 04/18/2022 1:57 pm CLINICAL HISTORY: NEW ONSET TREMORS COMPARISON: HEAD BRAIN W O CONTRAST dated 12/07/2014 TECHNIQUE: Axial 5 mm thick images of the head were obtained without IV contrast. All CT scans are performed using dose optimization technique as appropriate and may include automated exposure control or mA/KV adjustment according to patient size. FINDINGS: No intracranial hemorrhage, mass, edema or shift of mid-line structures. No acute infarcti on changes seen. No cortical edema or sulcal effacement. Atrophy changes are minimal. Moderate chroni c ischemic changes are present. Ventricles are normal. Mastoid air cells and visualized portions of the paranasal sinuses are clear. No acute bony findings. IMPRESSION: No hemorrhage, mass or acute intracranial finding identifiable. Patient has only minimal atrophy with moderate chronic ischemic change.
--- NOTE | 2022-04-18 15:35 | P.CNS ---
Date of Consult: 04/18/22 Reason for Consult: REBECCA on CKD stage 3. Requesting Physician: Elpidio Miller Chief Complaint: Right-sided chest pain, weakness History of Present Illness: 71-year-old male with past medical history of hypertension chronic tobacco use presented because of right-sided chest pain radiating to the right shoulder and back associated with mild exertional dyspnea since the last 2 days. Onset of symptoms was preceding upper respiratory tract infection with sore throat. Patient still feels a sore throat is still intermittent. He developed new onset shakiness but denies any chills or fever. He feels the shakiness is affecting his throat. He admits to cough but states he is unable to bring phlegm as he feels it is stuck in his throat. He denies any headache or dizziness. On presentation in the ED chest x-ray was clear with no acute infiltrate or pleural effusion. There was mild elevation of troponin at 71. He denies any past history of coronary artery disease or left-sided chest pain. He was noted with marked elevated creatinine of 4.7. EKG shows no significant ST segment changes. Patient expressed anxiety over his recurrent tremors and shakiness. He denies any prior history of CVA. He has been admitted for generalized symptoms and acute kidney failure. His serum cr is elevated at 4.27 today. His prior latest cr was 2.7 in Nov 2021. No issues with n/v or diarrhea reported. Allergies codeine Allergy (Mild, Verified 04/18/22 12:42) Nausea/Vomiting Home Medications: Amlodipine [Norvasc*] 10 mg PO DAILY #30 tab 12/09/21 Aspirin [Aspirin EC 81 MG] 81 mg PO DAILY #30 tablet. 12/09/21 Atorvastatin Calcium [Lipitor] 40 mg PO BEDTIME #30 tab 12/09/21 Hydrocodone 5/APAP 325 [[place] 5/325] 1 tab PO Q6H PRN #20 tab 12/09/21 Metoprolol Tartrate [Lopressor*] 100 mg PO BID #60 tab 12/09/21 Pantoprazole [Protonix Tab] 40 mg PO BID #60 tab 12/09/21 - Past Medical/Surgical History Diabetic: No -: HTN -: prostate cancer s/p radiation 04/2020 -: Hemorrhoids -: CKD -: Hemorrhoidectomy Psychosocial/ Personal History: Patient is retired, lives alone - Family History Sister Medical History: Diabetes Mother Medical History: Heart disease, Lung disease, Stroke - Social History Smoking Status: Current every day smoker Alcohol use: No CD- Drugs: No Caffeine use: Yes Place of Residence: Home Review of Systems General: Unremarkable Eyes: Unremarkable ENT: Unremarkable Respiratory: Unremarkable Cardiovascular: Chest Pain Gastrointestinal: Unremarkable Genitourinary: Unremarkable Musculoskeletal: Unremarkable Integumentary: Unremarkable Neurological: Unremarkable Physical Examination Temp Pulse Resp BP Pulse Ox 98.7 F 83 17 118/57 L 98 04/18/22 12:34 04/18/22 12:34 04/18/22 12:34 04/18/22 12:34 04/18/22 14:43 General: Alert, Oriented x3 HEENT: Atraumatic, Normocephalic Neck: Supple Respiratory: Normal air movement Cardiovascular: Regular rate/rhythm, Normal S1 S2 Gastrointestinal: Soft and benign Musculoskeletal: No swelling Neurological: Normal speech, Normal strength at 5/5 x4 extr Laboratory Data (last 24 hrs) 04/18/22 05:32: WBC 14.9 H, Hgb 11.6 L, Hct 34.3 L, Plt Count 188 04/18/22 05:32: Sodium 139, Potassium 3.7, BUN 37 H, Creatinine 4.72 H, Glucose 107 H, Total Bilirubin 0.6, AST 22, ALT 21, Alkaline Phosphatase 84 Conclusions/Impression: REBECCA on CKD stage 3 Chest pain. HTN HLD CKD stage 3. Plan: He is presently having episode with acute kidney injury and severe clinically disease stage III deemed secondary to suspected volume related issue. Levels creatinine is 4.24 and is prior creatinine prior to this admission in November 2021 was 2.47. He has been started on IV hydration with isotonic fluid. Will monitor levels closely. Because of concerns for ACS is on telemetry. Aspirin and statin therapy started. Work-up will be completed as per primary team. For now we will have him on renal diet and dose medication for estimated glomerular filtration. Will review imaging and repeat renal ultrasound to evaluate for echogenicity and size of kidney as there may be significant concern for progression of chronic kidney disease at this point. His electrolytes are within acceptable limits and his acid-base status is also within acceptable limit. No urgent indication for renal replacement therapy discussion at this point.
--- NOTE | 2022-04-18 15:48 | RAD REPORT ---
EXAM DESCRIPTION: RAD - Chest Single View - 04/18/2022 5:19 am CLINICAL HISTORY: CHEST PAIN COMPARISON: None. TECHNIQUE: XR CHEST 1 VIEW 04/18/2022 4:47 AM CDT FINDINGS: Cardiac silhouette is normal in size. Lungs are clear without consolidation, atelectasis, mass or edema. There is no pleural effusion. There is no pneumothorax. There are no acute osseous fin dings. IMPRESSION: Clear lungs. Electronically signed by: Arnaldo Cuello MD 04/18/2022 6:43 AM CDT Due to temporary technical issues with the PACS/Fluency reporting system, reports are being signed by the in house radiologists without review as a courtesy to insure prompt reporting. The interpreting radiologist is fully responsible for the content of the report.
[2022-04-18] MEDS: HYDROMORPHONE HCL 0.5 MG/0.5 ML INJ IV PRN ×2 (17:03→21:53)
[2022-04-18] MEDS: HEPARIN 5000 UNIT/ML 1 ML VIAL SQ SCH (20:06)
[2022-04-18] MEDS: PANTOPRAZOLE 40MG TABLET PO SCH (20:11)
[2022-04-18] MEDS: METOPROLOL TAR 50 MG TAB PO SCH (20:11)
[2022-04-18] MEDS: ATORVASTATIN 40 MG TAB PO SCH (20:11)
[2022-04-18] MEDS: HYDROCODONE/APAP 5/325 MG TAB PO PRN (20:12)
[2022-04-18 22:37] LABS: Urine Appearance Clear (Clear); Urine Bilirubin Negative (Negative); Urine Blood 2+ (Negative); Urine Color Yellow (Yellow); Urine Glucose Negative (Negative); Urine Protein 3+ (Negative); Urine Urobilinogen 0.2 mg/dL (0.2-1.0)
[2022-04-18 22:40] LABS: Urine Microscopic Reflex ORDER UMIC
[2022-04-19 00:08] LABS: Urine Waxy Casts 0-5 /LPF (NONE SEEN)
[2022-04-19 00:09] LABS: Urine Urothelial Cells <5 /HPF (NONE SEEN)
[2022-04-19 00:10] LABS: Urine Bacteria 20-50 /HPF (NONE SEEN)
[2022-04-19] MEDS: HYDRALAZINE HCL 20 MG/ML VIAL IV PRN (01:21)
[2022-04-19] MEDS: HYDROMORPHONE HCL 0.5 MG/0.5 ML INJ IV PRN ×5 (01:26→21:22)
[2022-04-19] MEDS: NA CHLORIDE 0.9% 1,000 ML IV SCH (05:10)
[2022-04-19 05:46] LABS: Absolute Lymphocytes (CBC) 1.9 K/uL (0.7-4.9); Hematocrit 30.1 % (39.6-49.0); Lymphocytes % 17.4 % (15.3-44.8); MPV 10.3 fL (7.6-11.3); RBC Red Blood Cell Count 3.01 M/uL (4.33-5.43)
[2022-04-19 06:14] LABS: Albumin 1.9 g/dL (3.4-5.0); Bilirubin Total 0.4 mg/dL (0.2-1.0); Potassium 3.5 mmol/L (3.5-5.1); Protein, Total 7.3 g/dL (6.4-8.2)
[2022-04-19] MEDS: INSULIN -REGULAR HUMAN 50 UNIT/0.5 ML ML SQ SCH ×4 (07:30→21:00)
--- NOTE | 2022-04-19 07:54 | RAD REPORT ---
EXAM DESCRIPTION: RAD - Neck Soft Tissue - 04/18/2022 10:44 pm CLINICAL HISTORY: dysphagia COMPARISON: Head C Spine Mpr Wo Con dated 11/08/2018; Head Brain Wo Cont dated 04/18/2022 FINDINGS/IMPRESSION: No radiopaque foreign body. No prevertebral edema. Cervical spondylosis is note d.
[2022-04-19] MEDS: HEPARIN 5000 UNIT/ML 1 ML VIAL SQ SCH ×2 (09:16→21:23)
[2022-04-19] MEDS: ASPIRIN EC 81 MG TAB PO SCH (09:16)
[2022-04-19] MEDS: AMLODIPINE 10 MG TAB PO SCH (09:16)
[2022-04-19] MEDS: METOPROLOL TAR 50 MG TAB PO SCH ×2 (09:17→21:23)
[2022-04-19] MEDS: NICOTINE 21 MG/PAT TD SCH (09:17)
[2022-04-19] MEDS: PANTOPRAZOLE 40MG TABLET PO SCH ×2 (09:17→22:21)
--- NOTE | 2022-04-19 10:01 | P.PN ---
Subjective Date of Service: 04/19/22 Chief Complaint: Right-sided chest pain, weakness Subjective: No new changes Physical Examination - Vital Signs Temperature: 99.1 F Blood Pressure: 185/69 Pulse: 87 Respirations: 18 Pulse Ox (%): 94 - Physical Exam General: Alert, Oriented x3 HEENT: Atraumatic, Normocephalic Neck: Supple Respiratory: Normal air movement Cardiovascular: Normal pulses, Regular rate/rhythm Gastrointestinal: Soft and benign Musculoskeletal: No swelling Neurological: Normal speech, Normal strength at 5/5 x4 extr - Studies Microbiology Data (last 24 hrs): 04/18/22 06:48 Nasopharnyx Influenza Type A Antigen Screen - Final 04/18/22 06:48 Nasopharnyx Influenza Type B Antigen Screen - Final 04/18/22 06:48 Throat Group A Streptococcus Rapid Screen - Final Assessment And Plan - Plan REBECCA on CKD stage 3 Chest pain. HTN HLD CKD stage 3. Plan: His creatinine had worsened to 5.2 from 4.27 on admission yesterday to BUN is slightly increased from 37 to 50. Electrolytes are within acceptable range. Will consider renal replacement therapy discussion at this point. Will follow trend of kidney function. Will continue hydration for management of suspected REBECCA, top of CKD stage III. Physician Review: Patient Assessed, Agree with Above Assessment and Plan
--- NOTE | 2022-04-19 10:26 | P.PN ---
Subjective Date of Service: 04/19/22 Chief Complaint: Right-sided chest pain, weakness Subjective: No new changes, Worsening ( still worried about controlled contraction Denies worsening shortness of breath States he is voiding well) Physical Examination - Vital Signs Temperature: 99.1 F Blood Pressure: 185/69 Pulse: 87 Respirations: 18 Pulse Ox (%): 94 - Studies Microbiology Data (last 24 hrs): 04/18/22 06:48 Nasopharnyx Influenza Type A Antigen Screen - Final 04/18/22 06:48 Nasopharnyx Influenza Type B Antigen Screen - Final 04/18/22 06:48 Throat Group A Streptococcus Rapid Screen - Final Assessment And Plan Physician Review: Patient Assessed, Agree with Above Assessment and Plan Physician Review Additional Text: - Physical Exam General: Alert, In no apparent distress, Oriented x3 HEENT: Atraumatic, Normocephalic, PERRLA Neck: Supple, 2+ carotid pulse no bruit, JVD not distended Respiratory: Clear to auscultation bilaterally, Normal air movement Cardiovascular: No edema, Normal pulses, Regular rate/rhythm, Normal S1 S2 Gastrointestinal: Normal bowel sounds, Soft and benign, Non-distended, W/out splenomegaly, No tenderness Musculoskeletal: No clubbing, No swelling Neurological: Normal gait, Normal speech, Normal strength at 5/5 x4 extr, Normal tone, Normal reflexes 2+, , no elicited tremors or checks now Significant imaging studies Chest x-ray shows no acute infiltrate CT chest shows no acute pneumonia Impression Acute kidney injuryunclear etiology may be due to toxic nephritis Hypertensioncontrolled Right-sided chest pain Mild troponin elevation History of tobacco use Recurrent tremorsnew onset History of borderline DMdiet controlled Plan Fractional excretion of sodium less than 1% but still worsening creatinine despite IVF Follow pending serology Follow echo to rule out cardiorenal syndrome Troponin trending down nicely, no new EKG changes May need renal replacement therapy Obtain urine drug screen although unlikely going to give any additional information Head CT as well as CT of the chest shows no abnormality Blood cultureno growth to date Subcutaneous Lovenox for DVT prophylaxis Advance directivefull code Continue nicotine patch 04/19/22 10:24
[2022-04-19] MEDS ORDERED: POTASSIUM 25 MEQ EFFERV TAB PO ONE (13:34)
[2022-04-19] MEDS: FUROSEMIDE 40 MG/4 ML VIAL IV SCH ×2 (14:25→17:50)
--- NOTE | 2022-04-19 15:13 | RAD REPORT ---
EXAM DESCRIPTION: US - Renal Ultrasound-Complete - 04/19/2022 2:54 pm CLINICAL HISTORY: eval o progressive ckd. Flank pain COMPARISON: Abdomen Exam Limited dated 12/07/2021 FINDINGS: Both kidneys are highly echogenic compatible with underlying medical renal disease. The right kidney measures 10.8 x 6.8 x 5.6 cm. No hydronephrosis, focal mass or perinephric fluid. The left kidney measures 10.4 x 6.1 x 4.6 cm. No hydronephrosis, focal mass or perinephric fluid. 19 x 16 mm cortical cyst. The urinary bladder is incompletely distended without gross abnormality seen. IMPRESSION: Highly echogenic kidneys bilaterally compatible with medical renal disease.
[2022-04-19] MEDS: HYDROCODONE/APAP 5/325 MG TAB PO PRN (15:43)
[2022-04-19 18:58] LABS: Barbiturates NEGATIVE (NEGATIVE); Benzodiazepines NEGATIVE (NEGATIVE); Cocaine NEGATIVE (NEGATIVE); METHAMPHETAM NEGATIVE (NEGATIVE); Methadone NEGATIVE (NEGATIVE); Opiates NEGATIVE (NEGATIVE); Phencyclidine NEGATIVE (NEGATIVE); THC Cannibis POSITIVE (NEGATIVE)
[2022-04-19] MEDS ORDERED: ZOLPIDEM TARTRATE 5 MG TABLET PO PRN (19:24)
[2022-04-19] MEDS: ATORVASTATIN 40 MG TAB PO SCH (22:22)
[2022-04-19] MEDS: TRAZODONE 50 MG TABLET PO PRN (22:27)
[2022-04-20] MEDS: HYDRALAZINE HCL 20 MG/ML VIAL IV PRN (01:49)
[2022-04-20] MEDS: HYDROMORPHONE HCL 0.5 MG/0.5 ML INJ IV PRN ×4 (01:52→22:50)
--- NOTE | 2022-04-20 05:52 | CON ---
Date of Consultation: 04/19/2022 Reason For Consultation: Elevated troponin, renal failure. History Of Present Illness: Mr. Steinberg is a 71-year-old white male without any past cardiac history. He has a history of dyslipidemia, hypertension, gastroesophageal reflux disease, came in with renal failure, creatinine of 5.2, which is a new onset, but found to have a troponin of 70 that has already been decreasing to 61. He denied any cardiac symptoms. Denies any chest pain, shortness of breath, nausea, vomiting, diaphoresis, PND, orthopnea, palpitation, or syncope. Has had some pedal edema. The creatinine of 5.2, hemoglobin 9.9, he was a bit hypertensive at 161/77, with a 92% room air satur ation. Past Medical History: As stated above. Allergies: INCLUDE CODEINE. Review of Systems: Negative. Social History: Negative. Family History: Noncontributory. Medications: At home include aspirin, Lipitor, Norvasc, Protonix, and metoprolol. Physical Examination: Vital Signs: Blood pressure is 161/77. Vital signs are otherwise stable. He is afebrile, sinus rhy thm General: He is in no acute distress. HEENT: Negative. Neck: Supple. There is no bruit. Chest: Clear. Cardiac: Exam revealed a regular rhythm and rate with an S4 gallops. Abdomen: Benign. Extremities: Revealed trace edema. Diagnostic Data: As stated earlier EKG showed LVH. Impression And Plan: 1.New onset renal failure. 2.Elevated troponin secondary to renal failure and demand ischemia. 3.Hypertension poorly controlled. 4.Gastroesophageal reflux disease. 5.Dyslipidemia. 6.The patient is to have an echocardiogram done today. He needs to have Nephrology consultation. I will continue the following. echocardiogram showed continue present regimen. Otherwise, he will eventually need an outpatient stress test. KASIA/MODL Voice ID: [id number] Report ID: [id number]
[2022-04-20] MEDS: INSULIN -REGULAR HUMAN 50 UNIT/0.5 ML ML SQ SCH ×4 (07:30→21:00)
--- NOTE | 2022-04-20 08:37 | ECHO ---
HEIGHT: 5 ft 7 in WEIGHT: 209 lb 15.845 oz DATE OF STUDY: 04/19/[address]: Ruben Mathew MD 2-DIMENSIONAL: YES M.MODE: YES DOPPLER: YES COLOR FLOW: YES TDS: PORTABLE: YES DEFINITY: BUBBLE STUDY: DIAGNOSIS: TROPININ ELEVATED CARDIAC HISTORY: CATHERIZATION: NO SURGERY: NO PROSTHETIC VALVE: NO PACEMAKER: NO MEASUREMENTS (cm) DIASTOLIC (NORMALS) SYSTOLIC (NORMALS) IVSd 1.3 (0.6-1.2) LA Diam 3.6 (1.9-4.0) LVEF 61% LVIDd 4.8 (3.5-5.7) LVIDs 3.2 (2.0-3.5) %FS 33% LVPWd 1.3 (0.6-1.2) Ao Diam 3.6 (2.0-3.7) 2 DIMENSIONAL ASSESSMENT: RIGHT ATRIUM: NORMAL LEFT ATRIUM: NORMAL RIGHT VENTRICLE: NORMAL LEFT VENTRICLE: NORMAL TRICUSPID VALVE: NORMAL MITRAL VALVE: NORMAL PULMONIC VALVE: NORMAL AORTIC VALVE: NORMAL PERICARDIAL EFFUSION: NONE AORTIC ROOT: NORMAL LEFT VENTRICULAR WALL MOTION: NORMAL DOPPLER/COLOR FLOW: MILD TRICUSPID REGURGITATION COMMENTS: MILD TRICUSPID REGURGITATION. NORMAL RIGHT VENTRICULAR SYSTOLIC PRESSURE. NORMAL LEFT VENTRICULAR SIZE AND FUNCTION. NO WALL MOTION ABNORMALITY. NO EFFUSION. TECHNOLOGIST: ASHLEY FLORES
[2022-04-20] MEDS ORDERED: ALBUTEROL 2.5 MG/3 ML NEB SOL NEB PRN (09:00)
[2022-04-20] MEDS ORDERED: PNEUMOCOCCAL VACCINE 0.5 ML IMVAC ONE (09:00)
[2022-04-20] MEDS: FUROSEMIDE 40 MG/4 ML VIAL IV SCH (09:00)
[2022-04-20] MEDS: NICOTINE 21 MG/PAT TD SCH (09:21)
[2022-04-20] MEDS: ASPIRIN EC 81 MG TAB PO SCH (09:22)
[2022-04-20] MEDS: METOPROLOL TAR 50 MG TAB PO SCH ×2 (09:22→21:32)
[2022-04-20] MEDS: AMLODIPINE 10 MG TAB PO SCH (09:22)
[2022-04-20] MEDS: PANTOPRAZOLE 40MG TABLET PO SCH ×2 (09:23→21:33)
[2022-04-20] MEDS: HEPARIN 5000 UNIT/ML 1 ML VIAL SQ SCH ×2 (09:23→21:32)
[2022-04-20] MEDS: ONDANSETRON 4 MG/2 ML VIAL IV PRN ×2 (09:38→17:21)
[2022-04-20 10:00] LABS: Potassium 3.1 mmol/L (3.5-5.1)
[2022-04-20] MEDS ORDERED: NA CHLORIDE 0.9% 1,000 ML IV SCH (10:00)
--- NOTE | 2022-04-20 11:07 | P.PN ---
Subjective Date of Service: 04/20/22 Chief Complaint: Right-sided chest pain, weakness Subjective: No new changes Physical Examination - Vital Signs Temperature: 99.0 F Blood Pressure: 154/60 Pulse: 89 Respirations: 18 Pulse Ox (%): 97 - Physical Exam General: Alert, Oriented x3 HEENT: Atraumatic, Normocephalic Neck: Supple Respiratory: Normal air movement Cardiovascular: Regular rate/rhythm, Normal S1 S2 Gastrointestinal: Soft and benign Musculoskeletal: No swelling Neurological: Normal speech - Studies Microbiology Data (last 24 hrs): 04/18/22 06:48 Throat Culture & Sensitivity - Final NORMAL UPPER RESPIRATORY JOE GROWN. Assessment And Plan - Plan REBECCA on CKD stage 3 Chest pain. HTN HLD CKD stage 3. Plan: His creatinine is still elevated at 5.15 today. Urine output is adequate at 2.3 liters. BUN is still elevated at 50. Hypokalemia noted with potassium of 3.1. Will continue consider renal replacement therapy discussion at this point. Will follow trend of kidney function. Will continue hydration for management of suspected REBECCA, top of CKD stage III. Physician Review: Patient Assessed, Agree with Above Assessment and Plan
--- NOTE | 2022-04-20 14:01 | RAD REPORT ---
EXAM DESCRIPTION: RAD - Barium Swallow Modified - 04/20/2022 1:53 pm CLINICAL HISTORY: odynophagia FINDINGS: Laryngeal penetration cleared with thin barium, pill with thin by straw: not cleared with thin. Aspiration without cough with barium pill with thin by straw. Pharyngeal residue vallecular mild thin ,thin by straw, moderate with puree And with barium pill: pyriform mild with thin,moderate with barium pill with thin by straw. Pain at c5-c6 upon opening of UES,anterior pharyngeal wall protrusion at c6,modearate epiglottic defl ection,moderate dysmotility and retropuslsion superior to stomach after barium pill with thin by stra w cleared. fluoro time: 2:51 Twelve fluoroscopic spot series obtained
--- NOTE | 2022-04-20 14:19 | P.PN ---
Subjective Date of Service: 04/20/22 Chief Complaint: Right-sided chest pain, weakness Subjective: No new changes (Still complaining of odynophagia Also complaining of insomnia as well as generalized body pains Admits to nausea but states is more of spitting because of) Physical Examination - Vital Signs Temperature: 98.5 F Blood Pressure: 120/63 Pulse: 70 Respirations: 18 Pulse Ox (%): 96 - Studies Microbiology Data (last 24 hrs): 04/18/22 06:48 Throat Culture & Sensitivity - Final NORMAL UPPER RESPIRATORY JOE GROWN. Assessment And Plan Physician Review: Patient Assessed, Agree with Above Assessment and Plan Physician Review Additional Text: - Physical Exam General: Alert, In no apparent distress, Oriented x3 HEENT: Atraumatic, Normocephalic, PERRLA Neck: Supple, 2+ carotid pulse no bruit, JVD not distended Respiratory: Clear to auscultation bilaterally, Normal air movement Cardiovascular: No edema, Normal pulses, Regular rate/rhythm, Normal S1 S2 Gastrointestinal: Normal bowel sounds, Soft and benign, Non-distended, W/out splenomegaly, No tenderness Musculoskeletal: No clubbing, No swelling Neurological: Normal gait, Normal speech, Normal strength at 5/5 x4 extr, Normal tone, Normal reflexes 2+, , no elicited tremors or checks now Significant imaging studies Chest x-ray shows no acute infiltrate CT chest shows no acute pneumonia Echo shows normal EF with no valvular abnormality Impression Acute kidney injuryunclear etiology may be due to toxic nephritis Hypertensioncontrolled Right-sided chest pain Mild troponin elevation History of tobacco use Recurrent tremorsnew onset History of borderline DMdiet controlled Polysubstance abuse-tobacco use/urine drug screen positive for THC Plan Obtain barium swallow today giving reported difficulty with swallowing CT of the neck and chest negative for any intrathoracic mass May need GI evaluation for EGD Worsening creatinine to 5.2, will replace potassium today May need renal replacement therapy now Discussed with patient he is hesitant to initiate dialysis therapy Fractional excretion of sodium less than 1% Follow pending serology Mild troponin elevation resolved Head CT as well as CT of the chest shows no abnormality Blood cultureno growth to date Subcutaneous Lovenox for DVT prophylaxis Advance directivefull code Continue nicotine patch Addendumbarium swallow with moderate dysmotility. We will consult GI Time Spent Managing PTS Care (In Minutes): 35
[2022-04-20] MEDS: NS KCL 20MEQ 20 MEQ/1,000 ML BAG IV SCH (16:06)
[2022-04-20] MEDS: ATORVASTATIN 40 MG TAB PO SCH (21:32)
[2022-04-20] MEDS: LORAZEPAM 0.5 MG TABLET PO PRN (22:50)
[2022-04-20] MEDS: TRAZODONE 50 MG TABLET PO PRN (22:50)
[2022-04-21 05:57] VITALS: O2SAT 96
[2022-04-21] MEDS: HYDROMORPHONE HCL 0.5 MG/0.5 ML INJ IV PRN ×2 (06:12→15:39)
[2022-04-21 06:46] LABS: Bilirubin Total 0.3 mg/dL (0.2-1.0); Potassium 3.5 mmol/L (3.5-5.1); Protein, Total 6.9 g/dL (6.4-8.2)
[2022-04-21] MEDS: INSULIN -REGULAR HUMAN 50 UNIT/0.5 ML ML SQ SCH ×4 (07:30→21:00)
[2022-04-21] MEDS: PANTOPRAZOLE 40MG TABLET PO SCH ×2 (09:57→21:04)
[2022-04-21] MEDS: ASPIRIN EC 81 MG TAB PO SCH (09:57)
[2022-04-21] MEDS: HEPARIN 5000 UNIT/ML 1 ML VIAL SQ SCH ×2 (09:57→21:10)
[2022-04-21] MEDS: NICOTINE 21 MG/PAT TD SCH (09:57)
[2022-04-21] MEDS: METOPROLOL TAR 50 MG TAB PO SCH ×2 (09:57→21:03)
[2022-04-21] MEDS: ONDANSETRON 4 MG/2 ML VIAL IV PRN ×3 (09:57→23:53)
[2022-04-21] MEDS: AMLODIPINE 10 MG TAB PO SCH (09:57)
[2022-04-21] MEDS: HYDROCODONE/APAP 5/325 MG TAB PO PRN ×2 (09:58→21:03)
[2022-04-21 10:46] LABS: UR PROTEIN 796.9 mg/dL (<11.9); Urine Protein/Creatinine Ratio 5.86 ratio (<0.15)
[2022-04-21] MEDS: NS KCL 20MEQ 20 MEQ/1,000 ML BAG IV SCH (11:00)
[2022-04-21 13:33] VITALS: BMI 30.9
--- NOTE | 2022-04-21 14:36 | P.PN ---
Subjective Date of Service: 04/21/22 Chief Complaint: Right-sided chest pain, weakness Subjective: No new changes Seen today, complaining of vomiting with p.o. intake since yesterday Denies any shortness of breath States still odynophagia Physical Examination - Vital Signs Temperature: 98.4 F Blood Pressure: 138/63 Pulse: 72 Respirations: 20 Pulse Ox (%): 72 - Physical Exam General: Alert, In no apparent distress, Oriented x3 HEENT: Atraumatic, Normocephalic Neck: Supple, 2+ carotid pulse no bruit, JVD not distended Respiratory: Clear to auscultation bilaterally, Normal air movement Cardiovascular: Normal pulses, Regular rate/rhythm Gastrointestinal: Normal bowel sounds, Soft and benign, Non-distended Musculoskeletal: No clubbing, Swelling Neurological: Normal speech, Normal strength at 5/5 x4 extr, Normal tone - Studies Microbiology Data (last 24 hrs): 04/18/22 06:48 Throat Culture & Sensitivity - Final NORMAL UPPER RESPIRATORY JOE GROWN. Assessment And Plan Physician Review: Patient Assessed, Agree with Above Assessment and Plan Physician Review Additional Text: - Physical Exam General: Alert, In no apparent distress, Oriented x3 HEENT: Atraumatic, Normocephalic, PERRLA Neck: Supple, 2+ carotid pulse no bruit, JVD not distended Respiratory: Clear to auscultation bilaterally, Normal air movement Cardiovascular: No edema, Normal pulses, Regular rate/rhythm, Normal S1 S2 Gastrointestinal: Normal bowel sounds, Soft and benign, Non-distended, W/out splenomegaly, No tenderness Musculoskeletal: No clubbing, trace b/l pedal swelling Neurological: Normal gait, Normal speech, Normal strength at 5/5 x4 extr, Normal tone, Normal reflexes 2+, , no elicited tremors or checks now Significant imaging studies Chest x-ray shows no acute infiltrate CT chest shows no acute pneumonia Echo shows normal EF with no valvular abnormality Renal sonogram shows significant corticomedullary differentiation consistent with CKD Impression Acute kidney injuryunclear etiology may be due to toxic nephritis on 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 Patient resistant to dialysis Patient needs discussed with with patientat patient request. Needs encourage patient to initiate dialysis.Patient later agreeable General surgery consult for dialysis line placed Patient evaluated by general surgery but refusing dialysis catheter placement We will continue to await patient decision DC IV fluids since increasing fluid retention Follow-up pending proteinuria/serology Obtain hepatitis panel Esophageal dysmotility noted, no GI services available, may consider transfer Given baseline CKD although borderline progressive, may be beneficial to obtain renal biopsy on this patient prior to discharge Head CT as well as CT of the chest shows no abnormality Blood cultureno growth to date Subcutaneous Lovenox for DVT prophylaxis Advance directivefull code Continue nicotine patch
[2022-04-21] MEDS: TRAZODONE 50 MG TABLET PO PRN (21:03)
[2022-04-21] MEDS: LORAZEPAM 0.5 MG TABLET PO PRN (21:03)
[2022-04-21] MEDS: ATORVASTATIN 40 MG TAB PO SCH (21:10)
[2022-04-22 06:27] LABS: Absolute Lymphocytes (CBC) 1.5 K/uL (0.7-4.9); Hematocrit 28.3 % (39.6-49.0); Lymphocytes % 27.4 % (15.3-44.8); MPV 10.6 fL (7.6-11.3); RBC Red Blood Cell Count 2.82 M/uL (4.33-5.43)
[2022-04-22] MEDS: INSULIN -REGULAR HUMAN 50 UNIT/0.5 ML ML SQ SCH ×4 (07:30→20:01)
[2022-04-22 07:33] LABS: Albumin 1.9 g/dL (3.4-5.0); Bilirubin Total 0.2 mg/dL (0.2-1.0); Potassium 3.9 mmol/L (3.5-5.1); Protein, Total 6.7 g/dL (6.4-8.2)
[2022-04-22 08:54] VITALS: TEMP 98.8
[2022-04-22] MEDS: PANTOPRAZOLE 40MG TABLET PO SCH ×2 (09:22→20:02)
[2022-04-22] MEDS: AMLODIPINE 10 MG TAB PO SCH (09:22)
[2022-04-22] MEDS: ASPIRIN EC 81 MG TAB PO SCH (09:22)
[2022-04-22] MEDS: HEPARIN 5000 UNIT/ML 1 ML VIAL SQ SCH ×2 (09:22→20:02)
[2022-04-22] MEDS: METOPROLOL TAR 50 MG TAB PO SCH ×2 (09:22→20:02)
[2022-04-22] MEDS: NICOTINE 21 MG/PAT TD SCH (09:22)
[2022-04-22] MEDS: HYDROCODONE/APAP 5/325 MG TAB PO PRN ×2 (09:48→20:10)
[2022-04-22] MEDS: ONDANSETRON 4 MG/2 ML VIAL IV PRN (09:48)
--- NOTE | 2022-04-22 10:50 | P.OP ---
Preoperative diagnosis: Acute on Chronic Renal Failure - Dialysis Postoperative diagnosis: Acute on Chronic Renal Failure - Dialysis Primary procedure: Placement of LEFT femoral Hemodialysis catheter Secondary procedure: ultrasound and microintroducer used Anesthesia: 1% lidocaine Estimated blood loss: <5cc Specimen: none Findings: dark nonpulsatile blood returned Complications: None Implants: Mahauker straight HD catheter Transferred to: Other (bed) Condition: Good
--- NOTE | 2022-04-22 11:25 | OP ---
Date of Procedure: 04/22/2022 Surgeon: Ray Swartz MD, Preoperative Diagnosis: Acute on chronic renal failure/initiation of hemodialysis. Postoperative Diagnosis: Acute on chronic renal failure/initiation of hemodialysis. Procedure Performed: Placement of left femoral hemodialysis catheter using ultrasound guidance and m icrointroducer set. Anesthesia: 1% lidocaine utilized. Estimated Blood Loss: Less than 5 mL. Specimen: None. Findings: Dark nonpulsatile blood return. Complications: None. Implants: Victoriano straight hemodialysis catheter. Condition: The patient remained in bed in good condition throughout the procedure. Procedure In Detail: After informed consent was obtained, the patient was brought to the operating r oom, prepped and draped in the usual sterile fashion after adequate anesthesia achieved. An area of the left inguinal area was anesthetized with 1% lidocaine. I then used a microintroducer under ultra sound guidance to cannulate the left femoral vein on the first attempt without evidence of complicati on. Dark red nonpulsatile blood was returned. Microwire was advanced at this point. A small arnold i ncision was made overlying the introducer wire area. The introducer sheath was then placed. Microwi re was removed. Standard wire was then advanced easily. I then removed the introducer sheath comple tely using Seldinger technique and performed sequential dilatation, then advancing the straight Sumi real hemodialysis catheter to the left femoral vein without evidence of complication. Dark red non-pu lsatile blood returned. The wire was removed at this point, therefore all wires were removed at this point. I then flushed and withdrew dark red non-pulsatile blood quite easily and flushed the cathet er with sterile saline to be packed with heparinized super flush at the completion of the procedure. I then secured the catheter to the patient's skin using the attached 2-0 nylon suture and a sterile dressing placed over top. The patient tolerated the procedure without evidence of complication, bandar ined in the room in good condition throughout the procedure. All counts were correct at the end of t he case. TK/MODL Voice ID: [id number] Report ID: [id number]
--- NOTE | 2022-04-22 12:26 | P.PN ---
Subjective Date of Service: 04/22/22 Chief Complaint: Right-sided chest pain, weakness Seen today, -still vomiting Physical Examination - Vital Signs Temperature: 98.8 F Blood Pressure: 114/69 Pulse: 80 Respirations: 16 Pulse Ox (%): 98 Assessment And Plan Physician Review: Patient Assessed, Agree with Above Assessment and Plan Physician Review Additional Text: Physical Exam General: Alert, In no apparent distress, Oriented x3 HEENT: Atraumatic, Normocephalic, PERRLA Neck: Supple, 2+ carotid pulse no bruit, JVD not distended Respiratory: Clear to auscultation bilaterally, Normal air movement Cardiovascular: No edema, Normal pulses, Regular rate/rhythm, Normal S1 S2 Gastrointestinal: Normal bowel sounds, Soft and benign, Non-distended, no splenomegaly, No tenderness Musculoskeletal: No clubbing, no b/l pedal swelling Neurological: Normal gait, Normal speech, Normal strength at 5/5 x4 extr, Normal tone, Normal reflexes 2+, , no elicited tremors or checks now Significant imaging studies Chest x-ray shows no acute infiltrate CT chest shows no acute pneumonia Echo shows normal EF with no valvular abnormality Renal sonogram -no significant cortico-medullary differentiation consistent with CKD Random protein creatinine ratio5.8 g/g Fractional excretion of sodiumless than 1% Impression Acute kidney injurystill possible toxic nephropathy HTNcontrolled Right-sided chest painresolved Troponin elevationstable History of tobacco use Recurrent tremorsnew onset History of borderline DMdiet controlled Polysubstance abuse-tobacco use/urine drug screen positive for THC Odynophagias/p barium swallow with moderate dysmotility Plan Vomiting but tolerating p.o. Reluctant to initiate dialysis Need for dialysis again discussed in detail, agreeable to dialysis line place ment today A1c normal, alcohol Reason for proteinuria, will need renal biopsy Start albumin with diuresis today and follow Esophageal dysmotility noted, no GI services available, may consider transfer Head CT as well as CT of the chest shows no abnormality Blood cultureno growth to date Subcutaneous Lovenox for DVT prophylaxis Advance directivefull code Continue nicotine patch 04/22/22 12:09 Time Spent Managing PTS Care (In Minutes): 35
[2022-04-22] MEDS ORDERED: ALBUMIN HUMAN 25% 100 ML IV SCH (13:00)
[2022-04-22] MEDS: HYDROMORPHONE HCL 0.5 MG/0.5 ML INJ IV PRN (14:00)
[2022-04-22] MEDS ORDERED: FUROSEMIDE 20 MG/ 2ML VIAL IV SCH (17:00)
--- NOTE | 2022-04-22 17:41 | P.DS ---
Admission Date: 04/18/22 Discharge Date: 04/22/22 Disposition: TRANSFER TO [facility] Reason for Admission: Right-sided chest pain, weakness Brief History of Present Illness: 71-year-old male with past medical history of hypertension chronic tobacco use presented because of right-sided chest pain radiating to the right shoulder and back associated with mild exertional dyspnea since the last 2 days. Onset of symptoms was preceding upper respiratory tract infection with sore throat. Patient still feels a sore throat is still intermittent. He developed new onset shakiness but denies any chills or fever. He feels the shakiness is affecting his throat. He admits to cough but states he is unable to bring phlegm as he feels it is stuck in his throat. He denies any headache or dizziness. On presentation in the ED chest x-ray was clear with no acute infiltrate or pleural effusion. There was mild elevation of troponin at 71. He denies any past history of coronary artery disease or left-sided chest pain. He was noted with marked elevated creatinine of 4.7. EKG shows no significant ST segment changes. Patient expressed anxiety over his recurrent tremors and shakiness. He denies any prior history of CVA. He has been admitted for generalized symptoms and acute kidney failure Hospital Course: Patient admitted for nonspecific symptoms noted with worsening azotemia. Evaluated by nephrology. Creatinine continues to worsen as well as associated proteinuria. He was had dialysis catheter placed and initiated on dialysis schedule today. Patient also had complaint of odynophagia which continue to worsen. Bowel sounds are sluggish esophageal dysmotility. Given nonavailability of GI, he is being transferred to [facility] for GI evaluation for presumed esophageal spasm. Patient will definitely need renal biopsy as well as work-up of acute is on chronic azotemia Vital Signs/Physical Exam: Temp Pulse Resp BP Pulse Ox 98.8 F 80 16 114/69 98 04/22/22 12:26 04/22/22 12:26 04/22/22 14:30 04/22/22 12:26 04/22/22 14:30 General: In no apparent distress, Oriented x3 HEENT: Atraumatic, Normocephalic Neck: 2+ carotid pulse no bruit, JVD not distended Respiratory: Clear to auscultation bilaterally, Normal air movement Laboratory Data at Discharge: WBC 5.3 K/uL (4.3-10.9) D 04/22/22 05:47 Hgb 9.2 g/dL (13.6-17.9) L 04/22/22 05:47 Hct 28.3 % (39.6-49.0) L 04/22/22 05:47 Plt Count 144 K/uL (152-406) L 04/22/22 05:47 Sodium 140 mmol/L (136-145) 04/22/22 05:47 Potassium 3.9 mmol/L (3.5-5.1) 04/22/22 05:47 BUN 45 mg/dL (7-18) H 04/22/22 05:47 Creatinine 5.33 mg/dL (0.55-1.3) H* 04/22/22 05:47 Glucose 96 mg/dL (74-106) 04/22/22 05:47 Magnesium 1.9 mg/dL (1.8-2.4) D 04/18/22 12:48 Total Bilirubin 0.2 mg/dL (0.2-1.0) 04/22/22 05:47 AST 11 U/L (15-37) L 04/22/22 05:47 ALT 13 U/L (12-78) 04/22/22 05:47 Alkaline Phosphatase 56 U/L (45-117) 04/22/22 05:47 Triglycerides 127 mg/dL (<150) 04/19/22 05:18 Cholesterol 137 mg/dL (<200) 04/19/22 05:18 HDL Cholesterol 44 mg/dL (40-60) 04/19/22 05:18 Cholesterol/HDL Ratio 3.11 04/19/22 05:18 Home Medications: Amlodipine [Norvasc*] 10 mg PO DAILY #30 tab 12/09/21 Aspirin [Aspirin EC 81 MG] 81 mg PO DAILY #30 tablet. 12/09/21 Atorvastatin Calcium [Lipitor] 40 mg PO BEDTIME #30 tab 12/09/21 Hydrocodone 5/APAP 325 [[place] 5/325] 1 tab PO Q6H PRN #20 tab 12/09/21 Metoprolol Tartrate [Lopressor*] 100 mg PO BID #60 tab 12/09/21 Pantoprazole [Protonix Tab] 40 mg PO BID #60 tab 12/09/21 Followup: NONE,NONE [Primary Care Provider] -
[2022-04-22] MEDS: ATORVASTATIN 40 MG TAB PO SCH (20:02)
[2022-04-22 20:04] VITALS: BP 162/73
[2022-04-22] MEDS ORDERED: ONDANSETRON 4 MG (ODT) TAB ONE (20:54)
--- NOTE | 2022-04-23 14:29 | PN ---
Date of Progress Note: 04/20/2022 Mr. Steinberg came in with renal failure, new onset, elevated troponin. He remains hypertensive, blood p ressure is 184/86, room air saturation 98%. His creatinine is 5.2, hemoglobin 9.9. His BNP is 4415. Troponin was 52.7. His PTH was 500. He is presently on Norvasc, aspirin, Lipitor, Lasix, hydralaz ine, and metoprolol. Echocardiogram is normal without any wall motion abnormalities. Nephrology is following. His PTH needs to be addressed. He may have hypoparathyroidism. He needs to be hydrated. Renal ultrasound showed medical renal disease. No cardiac issues going on at this point, but I thi nk he needs to have an outpatient MPI appointment down the road. For now, we will follow the renal f unction. KASIA/PORTIA Voice ID: [id number] Report ID: [id number]
--- NOTE | 2022-04-24 22:26 | CON ---
Date of Consultation: 04/21/2022 Reason For Consultation: Need for hemodialysis access. Brief History Of Present Illness: The patient is a 71-year-old gentleman who presents with shortness of breath, to the ER, which began gradually 2 days prior to the admission. He came into the [facility], was treated, and noted to have longstanding history of acute renal injury. As such, Nephrology milo armando seen the patient and decided that he would be a good candidate for initiation of hemodialysis to he lp with his current acute on chronic kidney injury. Past Medical History: Significant for hypertension; CKD; hemorrhoids; prostate cancer, status post r adiation. Past Surgical History: Includes hemorrhoidectomy and prostate cancer radiation. No surgery for his prostate was performed. Allergies: TO CODEINE. Home Medications: Include Norvasc, aspirin, Lipitor, [place], Lopressor, Protonix. Family History: Significant for diabetes in his sister. His brother had heart disease, lung disease , and stroke. Social History: He is a current everyday smoker. Denies alcohol or recreational drug use. Review of Systems: 10-point review of systems other than HPI was benign. Physical Examination: Vital Signs: At the time of my examination, blood pressure 134/76, pulse 78, respiratory rate 18, t emperature 98.7, and SpO2 of 99% on room air. General: He is awake, alert, and oriented. Psychiatric: He is appropriate. Conversive. HEENT: Normocephalic. Sclerae anicteric. Mucous membranes moist. Oropharynx clear. Neck: Supple without JVD. Chest: Normal to expansion and excursion. Cardiovascular: Regular rate and rhythm. Pulmonary: Clear to auscultation bilaterally. Abdomen: Soft. Extremities: No obvious leg edema or cyanosis. Laboratory Data: Revealed a white blood count of 5.3, hemoglobin 9.2, hematocrit 28.3, and platelet count was 144. Sodium 140, potassium 3.9, chloride 108, carbon dioxide 27, BUN is was 0.2 . Assessment/plan: This is a 71-year-old male who comes in with signs and symptoms of acute on chronic renal insufficiency. I have explained the risks, benefits, and alternatives of placement of a tempo rary hemodialysis catheter. As the patient did not want to consider hemodialysis at this time, he __ discussion of a temporary hemodialysis catheter and would consider placement of a permanent hemodialysis catheter depending on how he responds to his treatment as he his happy family before proceeding with placement of any dialysis access. At this point, I have explained the risks, benefits, and alternatives of placement of a temporary and permanent hemodialysis catheter including , but not limited to, bleeding, infection, damage to surrounding tissue, need for further operations and procedures. The patient agreed to proceed as indicated. TEJ/PORTIA Voice ID: [id number] Report ID: [id number]
[2022-04-26 15:35] LABS: Albumin, (SPE) 2.4 g/dL (3.8-4.8); Alpha-1-Globulins 0.3 g/dL (0.2-0.3); Alpha-2-Globulins 0.9 g/dL (0.5-0.9); INTERPRETATION REPORT
== END 2022-04-22 20:57 | disposition short-term general hospital (02) | DRG 682 ==
LOC: ER 04:26 → ERHOLD 09:40 → 2ND 16:21
PROVIDERS: ADMIT Internal Medicine; ATTEND Internal Medicine
PROC: 06HY33Z Insertion of Infusion Device into Lower Vein, Percutaneous Approach (ICD-10-PCS; principal; 2022-04-22)
DX: I12.0 Hypertensive chronic kidney disease with stage 5 chronic kidney disease or end stage renal disease (principal); N18.6 End stage renal disease; N17.0 Acute kidney failure with tubular necrosis; K22.4 Dyskinesia of esophagus; R13.10 Dysphagia, unspecified; R07.9 Chest pain, unspecified; R77.8 Other specified abnormalities of plasma proteins; R25.1 Tremor, unspecified; R79.89 Other specified abnormal findings of blood chemistry; F19.10 Other psychoactive substance abuse, uncomplicated; R11.10 Vomiting, unspecified; E78.5 Hyperlipidemia, unspecified; E87.6 Hypokalemia; F17.210 Nicotine dependence, cigarettes, uncomplicated; Z85.46 Personal history of malignant neoplasm of prostate; Z20.822 Contact with and (suspected) exposure to COVID-19
CPT/HCPCS: 36415; 70360; 70450; 71045; 71250; 74230; 76770; 80048; 80053; 80061; 80307; 81003; 81015; 82570; 82947; 83036; 83605; 83735; 83880; 83970; 84156; 84165; 84300; 84443; 84484; 85025; 86160; 86704; 86706; 86803; 87040; 87070; 87081; 87086; 87088; 87340; 87804; 92610; 92611; 93005; 93306; 96374; 96375; 99285; J0360; J1170; J1644; J1940; J2270; J2405; J3480; J7030; P9047; U0003

== ENCOUNTER 2022-06-26 06:59 | Day surgery (SDC) | payer OTHER ==
[2022-06-26 07:29] LABS: Hematocrit 15.8 % (39.6-49.0)
[2022-06-26] MEDS ORDERED: NA CHLORIDE 0.9% 250 ML ONE ×2 (09:13→10:56)
[2022-06-26 09:48] VITALS: BMI 33.0
[2022-06-26 10:26] VITALS: O2SAT 100
[2022-06-26 15:13] VITALS: BP 184/78; TEMP 98.8
[2022-06-26 15:45] LABS: Hematocrit 21.7 % (39.6-49.0)
== END 2022-06-26 15:10 | disposition home or self-care (01) ==
LOC: DS 06:59
PROVIDERS: ATTEND Internal Medicine
DX: N18.9 Chronic kidney disease, unspecified (principal); D63.1 Anemia in chronic kidney disease
CPT/HCPCS: 36415; 86900; 86850; 86901; 85018 ×2; 85014 ×2; 36430; 96372; P9016 ×2; J7050 ×2

== ENCOUNTER 2022-06-30 16:39 | Emergency (ER) | payer OTHER ==
--- OUTSIDE RECORDS SUMMARY | 2022-06-30 16:45 | XMS REPORT | Continuity of Care Document ---
:1950 Author Organization [facility] t Address [address] [place] [address] Care Team Providers Name Role Phone ASTER FARMER Primary Care Physician Unavailable SHIREEN CURRY Attending Clinician Unavailable Shireen Curry MD Attending Clinician Zenaida Moreno RN Attending Clinician Unavailable CARLEEN THOMAS Attending Clinician Unavailable Wendy Evans DO Attending Clinician Carleen Thomas MD Attending Clinician FEDERICO CARBAJAL Attending Clinician Unavailable VINCENT YOU Attending Clinician Unavailable JYOTI JACKSON Attending Clinician Unavailable JYOTI JACKSON Attending Clinician Unavailable 1, [facility] Sleep Lab Bed Attending Clinician Unavailable Jyoti Jackson MD Attending Clinician Doctor Unassigned, [place] Attending Clinician Unavailable Only, [facility] Test Attending Clinician Unavailable Vincent Arizmendi MD Attending Clinician CARLEEN THOMAS Admitting Clinician Unavailable Carleen Thomas MD Admitting Clinician JH GUALLPA Admitting Clinician Unavailable Payers Payer Name Policy Type Policy Number Effective Date Expiration Date S [facility] [id number] 2017 00:00:00 [facility] [id number] 2014 00:00:00 [facility] CHOICE [id number] 2022 CARD AND PC3 00:00:[address] [facility] CCN [id number] 2017 00:00:00 Problems Condition Condition Condition Status Onset Resolution Last Treating Co mments Source Name Details Category Date Date Treatment Clinician Date Non-intrac Non-intrac Disease Active U nivers table table 6-23 ity of vomiting vomiting 00:00: [place] with with 00 Medical nausea, nausea, Branch unspecifie unspecifie d vomiting d vomiting type type Elevated Elevated Disease Active Unive rs troponin I troponin I 6-23 it y of level level 00:00: [place] [facility] Elevated Elevated Disease Active Unive rs brain brain 6-23 ity of natriureti natriureti [place] c peptide c peptide 00 Medi amber (BNP) (BNP) Branch level level Essential Essential Disease Active Uni vers hypertensi hypertensi 6-23 it y of on on 00:00: [place] [facility] Acute Acute Disease Active Univers renal renal 6- ity of failure failure 00:00: [place] superimpos superimpos 00 Me dical ed on ed on Branch 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 Dyslipidem Dyslipidem Disease Active U nivers ia ia 6- ity of 00:00: [place] [address] Medical Branch No known No known Disease Unive rs active active ity of problems problems [facility] Allergies, Adverse Reactions, Alerts Allergy Allergy Status Severity Reaction(s) Onset Inactive Treating Comm ents Source Name Type Date Date Clinician CODEINE Allergy Active Low N\\T\\V [facility] NO KNOWN Drug Active Univers ALLERGIE Class ity of S [facility] NO KNOWN Allergy Active [facility]SL ALLERGIE S Social History Social Habit Start Date Stop Date Quantity Comments Source History SDOH University o f Alcohol Frequency [place] M ed[facility] History SDOH University o f Alcohol Std [place] [facility] Drinks Branch History SDIL University o f Alcohol Binge [place] Medic al Branch History of Smokes tobacco University of tobacco use daily [facility] Exposure to 2022-05-16 2022-05-26 Not sure University of SARS-CoV-2 00:00:00 15:59:00 [facility] (event) Branch Tobacco use and 2022-05-18 2022-05-18 Smokeless tobacco Un iversity of exposure 00:00:00 00:00:00 non-user [facility] Alcohol intake 2022-05-18 2022-05-18 Current drinker Unive rsity of 00:00:00 00:00:00 of alcohol [facility] (finding) [place] Alcohol Comment 2022-05-18 2022-05-18 socially Universit y of 00:00:00 00:00:00 [facility] Branch Education 2022-05-18 2022-05-18 21 University of 00:00:00 00:00:00 [facility] Sex Ass[birth year] At [birth year] Universit y of 00:00:00 00:00:00 [facility] Smoking Status Start Date Stop Date Source Unknown [facility] Smokes tobacco daily 2022-05-18 00:00:00 Univers ity of [place] [facility] [place] Medications Ordered Filled Start Stop Current Ordering Indication Dosage Frequency Signature Comments Components Source Medication Medication Date Date Medication? Clinician (SIG) Name Name calcitrioL Yes .25ug Take 0.25 U nivers 0.25 mcg 6-25 mcg by ity of capsule 14:45: mouth [place] 18 daily. Medical Branch aspirin 81 Yes Take by Univ ers mg Cap 6-25 mouth. ity of 14:45: [place] 18 Medical Branch atorvastati Yes 40mg Take 40 mg Univers n 40 mg 6-25 by mouth ity of tablet 14:45: at [place] 18 bedtime. Medical Branch HYDROcodone Yes 1{tbl} Take 1 Un ladarius -acetaminop 6-25 tablet by ity of hen 5-325 14:45: mouth [place] mg tablet 18 every 6 Medical (six) Branch hours as needed. Pantoprazol Yes 40mg Take 40 mg Univers e 40 mg 6-25 by mouth ity of delayed-rel 14:45: daily. [place] ease 18 Medical suspension Branch calcitrioL Yes .25ug Take 0.25 U nivers 0.25 mcg 6-25 mcg by ity of capsule 14:45: mouth [place] 18 daily. Medical Branch aspirin 81 2022-0 Yes Take by Univ ers mg Cap 6-25 mouth. ity of 14:45: [place] [address] Medical Branch atorvastati Yes 40mg Take 40 mg Univers n 40 mg 6-25 by mouth ity of tablet 14:45: at [place] 18 bedtime. Medical Branch HYDROcodone Yes 1{tbl} Take 1 Un ladarius -acetaminop 6-25 tablet by ity of hen 5-325 14:45: mouth [place] mg tablet 18 every 6 Medical (six) Branch hours as needed. Pantoprazol Yes 40mg Take 40 mg Univers e 40 mg 6-25 by mouth ity of delayed-rel 14:45: daily. [place] ease 18 Medical suspension Branch calcitrioL Yes .25ug Take 0.25 U nivers 0.25 mcg 6-25 mcg by ity of capsule 14:45: mouth [place] 18 daily. Medical Branch aspirin 81 Yes Take by Univ ers mg Cap 6-25 mouth. ity of 14:45: [place] [address] Medical Branch atorvastati Yes 40mg Take 40 mg Univers n 40 mg 6-25 by mouth ity of tablet 14:45: at [place] [address] bedtime. Medical Branch HYDROcodone Yes 1{tbl} Take 1 Un ladarius -acetaminop 6-25 tablet by ity of hen 5-325 14:45: mouth [place] mg tablet 18 every 6 Medical (six) Branch hours as needed. Pantoprazol Yes 40mg Take 40 mg Univers e 40 mg 6-25 by mouth ity of delayed-rel 14:45: daily. [place] t[place] ease 18 Medical suspension Branch amLODIPine 2021- No 10mg Take 10 mg Univers 10 mg 6-25 06-25 by mouth ity of tablet 09:08: 00:00 daily. [place] 01 :00 Medical Branch gabapentin 2021- Yes [id number] 100mg Take 1 Univers 100 mg 6-25 07-26 capsule by ity of capsule 00:00: 04:59 mouth 3 [place] 00 :00 (three) Medical times Branch daily for 30 days. metoprolol 2021- Yes [id number] 50mg Take 1 Univers tartrate 50 6-25 07-26 tablet by it y of mg tablet 00:00: 04:59 mouth 2 [place] t[place] 00 :00 (two) Medical times Branch daily for 30 days. doxazosin 2 2021- Yes [id number] 2mg Take 1 Univers mg tablet 6-25 07-26 tablet by ity of 00:00: 04:59 mouth 2 00 :00 (two) Medical times Branch daily for 30 days. sucralfate 2021- Yes [id number] 1000mg Take 10 mL Univers 100 mg/mL 6- 07-26 by mouth ity o f suspension 00:00: 04:59 before [place] 00 :00 meals and Medical at bedtime Branch for 30 days. gabapentin 2021- Yes [id number] 100mg Take 1 Univers 100 mg 6-25 07-26 capsule by ity of capsule 00:00: 04:59 mouth 3 00 :00 (three) Medical times Branch daily for 30 days. metoprolol 2021- Yes [id number] 50mg Take 1 Univers tartrate 50 6-25 07-26 tablet by it y of mg tablet 00:00: 04:59 mouth 2 [place] 00 :[place] (two) Medical times Branch daily for 30 days. doxazosin 2 2021- Yes [id number] 2mg Take 1 Univers mg tablet 6-25 07-26 tablet by ity of 00:00: 04:59 mouth 2 00 :00 (two) Medical times Branch daily for 30 days. sucralfate 2021- Yes [id number] 1000mg Take 10 mL Univers 100 mg/mL 6- 07-26 by mouth ity o f suspension 00:00: 04:59 before [place] 00 :00 meals and Medical at bedtime Branch for 30 days. gabapentin 2021- Yes [id number] 100mg Take 1 Univers 100 mg 6-25 07-26 capsule by ity of capsule 00:00: 04:59 mouth 3 [place] :00 (three) Medical times Branch daily for 30 days. metoprolol 2021- Yes [id number] 50mg Take 1 Univers tartrate 50 6-25 07-26 tablet by it y of mg tablet 00:00: 04:59 mouth 2 [place] 00 :00 (two) Medical times Branch daily for 30 days. doxazosin 2 2021- Yes [id number] 2mg Take 1 Univers mg tablet 05-20 tablet by ity of 00:00: 04:59 mouth 2 [place] 00 :00 (two) Medical times [place] daily for 30 days. sucralfate 2021- Yes [id number] 1000mg Take 10 mL Univers 100 mg/mL 05-20 by mouth ity o f suspension 00:00: 04:59 before [place] 00 :00 meals and Medical at bedtime Branch for 30 days. lactulose 2021- No 30mL 30 mL, Unive rs (CEPHULAC) 05-19- Oral, ity of solution 30 16:15: 15:32 ONCE, 1 [place] mL 00 :00 dose, On [facility] 05/19/22 at 1115, Routine atorvastati Yes 40mg 40 mg, Univ ers n (LIPITOR) 05-19 Oral, QHS, it y of tablet 40 02:00: First dose [place] mg 00 on [facility] 05/18/22 at Branch 2100, Until Discontinu ed, Routine metoprolol Yes 50mg 50 mg, Unive rs tartrate 05-19 Oral, BID, ity o f (LOPRESSOR) 01:00: First dose [place] tablet 50 00 (after Medical mg last Branch modificati on) on [facility] 05/18/22 at 2000, Until Discontinu ed, Routine doxazosin Yes 2mg 2 mg, Univers (CARDURA) 05-18 Oral, BID, ity of tablet 2 mg 15:45: First dose [place] 00 on [facility] 05/18/22 at Branch 1045, Until Discontinu ed, Routine KCL 2021- No 40meq 40 mEq, Univers (KLOR-CON 05-18 Oral, ity of M20) tablet 14:15: 13:33 ONCE, 1 [place] 40 mEq 00 :00 dose, On [facility] 05/18/22 at 0915, Routine calcitrioL Yes .25ug 0.25 mcg, U nivers (ROCALTROL) 05-18 Oral, ity of capsule 14:00: DAILY, [place] 0.25 mcg 00 First dose Medic al on [facility] 05/18/22 at 0900, Until Discontinu ed, Routine gabapentin Yes 100mg 100 mg, Uni vers (NEURONTIN) 05-18 Oral, TID, it y of capsule 100 13:00: First dose [place] mg 00 on [facility] Medical 05/18/22 at Branch 0800, Until Discontinu ed, Routine magnesium 0 2021- No 400mg 400 mg, Uni vers oxide 05-18 Oral, BID, ity of (MAG-OX 13:00: 15:41 First dose [place] 400) tablet 00 :34 on [facility] Medica l 400 mg 05/18/22 at Branch 0800, Until Discontinu ed, Routine metoprolol 2021- No 50mg 50 mg, Univ ers tartrate 05-18 Oral, BID, ity of (LOPRESSOR) 13:00: 15:39 First dose [place] tablet 50 00 :27 on [facility] Medical mg 05/18/22 at Branch 0800, Until Discontinu ed, Routine metoclopram 2021- No 5mg 5 mg, Slow Univers bessy HCl 05-18 IV Push, ity of (REGLAN) 11:00: 02:03 Q8H, 3 [place] injection 5 00 :00 doses, Medica l mg First dose Branch (after last reorder) on [facility] 05/18/22 at 0600, Last dose on [facility] 05/18/22 at 2200, JOSE pantoprazol Yes 40mg 40 mg, Univ ers e 05-18 Slow IV ity of (PROTONIX) 10:00: Push, [place] injection 00 Q12HA3, Medical 40 mg First dose Branch (after last modificati on) on [facility] 05/18/22 at 0500, Until Discontinu ed sucralfate 0 Yes 1g 1,000 mg Uni vers (CARAFATE) 05-18 (1 g), ity of 100 mg/mL 09:30: Oral, [place] suspension 00 AC+HS, Medical 1,000 mg First dose Branc h on [facility] 05/18/22 at 0430, Until Discontinu ed, Routine HYDROcodone 0 Yes 1{tbl} 1 tablet, Univers -acetaminop 05-18 Oral, ity of hen (NORCO 09:23: Q8HPRN, [place] 5) 5-325 mg 02 Starting Medi amber tablet 1 on [place] Branch tablet 05/18/22 at 0423, Until Discontinu ed, Routine, Pain (scale 4-6) morpHINE (2 Yes 2mg 2 mg, Slow Univers mg/mL) 05-18 IV Push, ity of injection 2 09:22: Q4HPRN, [place] mg 49 Starting Medical on [place] Branch 05/18/22 at 0422, Until Discontinu ed, Routine, Pain (scale 7-10) aspirin 2021- No 81mg 81 mg, Univers chewable 05-18 Oral, QAM ity o f tablet 81 08:30: 14:54 WITH [place] mg 00 :09 BREAKFAST, Medical First dose Branch on [place] 05/18/22 at 0330, Until Discontinu ed, Routine metoclopram 2021- No 10mg 10 mg, Uni vers bessy HCl 05-18 Slow IV ity of (REGLAN) 06:45: 05:47 Push, [place] injection 00 :00 ONCE, 1 Medical 10 mg dose, On Branch [place] 05/18/22 at 0145, JOSE aspirin 2021- No 324mg 324 mg, Unive rs chewable 05-18 Oral, ity of tablet 324 06:30: 05:34 ONCE, 1 [place] mg 00 :00 dose, On Medical [facility] Branch 05/18/22 at 0130, Routine magnesium No 2g 2 g, IV Univ ers sulfate in 05-18 Piggyback, it y of water 2 05:30: 05:39 Administer [place] gram/50 mL 00 :00 over 60 Medica l (4 %) Minutes, Branch infusion 2 ONCE, 1 g dose, On [place] 05/18/22 at 0030, Routine dicyclomine 2021- No 20mg 20 mg, Uni vers (BENTYL) 05-18 Oral, ity of tablet 20 05:00: 04:50 ONCE, 1 [place] mg 00 :00 dose, On Medical [facility] Branch 05/18/22 at 0000, Routine ondansetron 2021- No 4mg 4 mg, Slow Univers (ZOFRAN 05-18 IV Push, ity of (PF)) 04:15: 03:21 ONCE, 1 [place] injection 4 00 :00 dose, On Medi amber mg Wed Branch 05/17/22 at 2315, JOSE NaCl 0.9% 2021- No 1000mL at 999 Uni vers (NS) bolus 05-18 mL/hr, ity of infusion 04:15: 05:39 1,000 mL, [place] 1,000 mL 00 :00 IV Medical Infusion, Branch ONCE, 1 dose, On 05/17/22 at 2315, JOSE lisinopriL- Yes 1{tbl} Take 1 Un ladarius [...] tablet 00 TWICE A Medical DAY Branch metoprolol 2021- No 100mg 100 mg 2 U nivers tartrate 8-10 -25 (two) ity of 100 mg 00:00: 00:00 times [place] tablet 00 :00 daily. Medical Branch lisinopriL- 2021- No 1{tbl} Take 1 U nivers hydrochloro 8-10 - tablet by it y of thiazide 00:00: 00:00 mouth [place] 20-12.5 mg 00 :00 daily. Medical per tablet Branch QUEtiapine Yes 200mg Take 200 Un ladarius 100 mg 7-26 mg by ity of tablet 00:00: mouth at [place] [address] bedtime. Medical Branch gabapentin Yes TAKE 1 Unive rs 300 mg 7-26 CAPSULE BY ity of capsule 00:00: MOUTH 3 [place] 00 TIMES Medical DAILY Branch QUEtiapine 0 Yes 200mg Take 200 Un ladarius 100 mg 7-26 mg by ity of tablet 00:00: mouth at [place] [address] bedtime. Medical Branch QUEtiapine Yes 200mg Take 200 Un [place] 100 mg 7-26 mg by ity of tablet 00:00: mouth at [place] [address] bedtime. Medical Branch QUEtiapine 0 Yes 200mg Take 200 Un lad[place] 100 mg 7-26 mg by ity of tablet 00:00: mouth at [place] [address] bedtime. Medical Branch gabapentin Yes TAKE 1 Unive rs 300 mg 7-26 CAPSULE BY ity of capsule 00:00: MOUTH 3 [place] 00 TIMES Medical DAILY Branch QUEtiapine 0 Yes 200mg Take 200 Un ladarius 100 mg 7-26 mg by ity of tablet 00:00: mouth at [place] [address] bedtime. Medical Branch gabapentin Yes TAKE 1 Unive rs 300 mg 7-26 CAPSULE BY ity of capsule 00:00: MOUTH 3 [place] 00 TIMES Medical DAILY Branch QUEtiapine 2021-0 Yes 200mg Take 200 Un ladarius 100 mg 7-26 mg by ity of tablet 00:00: mouth at [place] [address] bedtime. Medical Branch gabapentin 2020-0 Yes TAKE 1 Unive rs 300 mg 7-26 CAPSULE BY ity of capsule 00:00: MOUTH 3 [place] Medical DAILY Branch QUEtiapine 2020-0 Yes 200mg Take 200 Un ladarius 100 mg 7-26 mg by ity of tablet 00:00: mouth at [place] [address] bedtime. Medical Branch gabapentin 2020-0 Yes TAKE 1 Unive rs 300 mg 7-26 CAPSULE BY ity of capsule 00:00: MOUTH 3 [place] TIMES Medical DAILY Branch QUEtiapine 2020-0 Yes 200mg Take 200 Un ladarius 100 mg 7-26 mg by ity of tablet 00:00: mouth at [place] [address] bedtime. Medical Branch gabapentin 2020-0 2- No TAKE 1 Univ ers 300 mg 7-26 06-25 CAPSULE BY ity of capsule 00:00: 00:00 MOUTH 3 [place] 00 : Medical DAILY Branch tadalafiL 5 2020-0 Yes 5mg Take [...] 7-20 by mouth ity of 00:00: daily. [place] 00 Medical Branch acetaminoph 2020-0 Yes 1{tbl} Take [...] AT BEDTIME NEEDED FOR ABDOMINAL PAIN sucralfate 2021-0 Yes TAKE 1 Unive rs 1 gram [...] Branch AT BEDTIME NEEDED FOR ABDOMINAL PAIN Immunizations Ordered Filled Immunization Date Status Comments [facility] e Immunization Name Name SARS-COV-2 COVID-19 2022-02-13 Completed Unive rsity of PFIZER VACCINE 00:00:00 [facility] SARS-COV-2 COVID-19 2022-02-13 Completed Unive rsity of PFIZER VACCINE 00:00:00 [facility] SARS-COV-2 COVID-19 2022-02-13 Completed Unive rsity of PFIZER VACCINE 00:00:00 [facility] Influenza Virus 2021-10-16 Completed Universit y of Vaccine 00:00:00 [facility] Pneumococcal 2021-10-16 Completed University o f Polysaccharide, 00:00:00 [facility] PPSV23 (PNEUMOVAX) [place] Influenza Virus 2021-10-16 Completed Universit y of Vaccine 00:00:00 [facility] Pneumococcal 2021-10-16 Completed University o f Polysaccharide, 00:00:00 [facility] [place] [facility] ical PPSV23 (PNEUMOVAX) Branch Influenza Virus 2021-10-16 Completed Universit y of Vaccine 00:00:00 [facility] Pneumococcal 2021-10-16 Completed [place] o f Polysaccharide, 00:00:00 [facility] [place] [facility] ical PPSV23 (PNEUMOVAX) Branch SARS-COV-2 COVID-19 2021-05-01 Completed Unive rsity of PFIZER VACCINE 00:00:00 [facility] SARS-COV-2 COVID-19 2021-05-01 Completed Unive rsity of PFIZER VACCINE 00:00:00 [facility] SARS-COV-2 COVID-19 2021-05-01 Completed Unive rsity of PFIZER VACCINE 00:00:00 [facility] SARS-COV-2 COVID-19 2021-03-31 Completed Unive rsity of PFIZER VACCINE 00:00:00 [facility] SARS-COV-2 COVID-19 2021-03-31 Completed Unive rsity of PFIZER VACCINE 00:00:00 [facility] SARS-COV-2 COVID-19 2021-03-31 Completed Unive rsity of PFIZER VACCINE 00:00:00 [facility] Vital Signs Vital Name Observation Time Observation Value Comments Source Systolic blood 2022-05-20 16:25:00 108 mm[Hg] Univer sity of pressure [facility] Diastolic blood 2022-05-20 16:25:00 60 mm[Hg] Unive rsity of pressure [facility] Heart rate 2022-05-20 16:25:00 83 /min [facility] Body temperature 2022-05-20 16:25:00 36.5 [facility]oc [facility] Respiratory rate 2022-05-20 16:25:00 16 /min [facility] Oxygen saturation in 2022-05-20 16:25:00 93 /min [facility] Arterial blood by [facility] Pulse oximetry [place] Body weight 2022-05-20 09:42:00 90.493 kg [facility] BMI 2022-05-20 09:42:00 31.25 kg/m2 [facility] Body height 2022-05-18 07:56:00 170.2 cm [facility] HEIGHT 2022-04-22 22:22:00 170.2 cm WEIGHT 2022-04-22 22:22:00 87.363 kg HEIGHT 2022-04-22 22:22:00 170.2 cm WEIGHT 2022-04-22 22:22:00 87.363 kg Procedures Procedure Date / Time Performing Clinician Source Performed BASIC METABOLIC PANEL (NA, 2022-05-20 08:52:00 Felipa Saenz [facility] K, CL, CO2, GLUCOSE, BUN, Medica l Branch CREATININE, CA) US RETROPERITONEAL 2022-05-20 00:21:51 Dustin Camacho [facility] COMPLETE [facility] OCCULT (GUAIAC) BLOOD 2022-05-19 19:46:00 Carleen Thomas [facility] URINALYSIS 2022-05-19 09:15:00 Dustin Camacho [facility] PROTEIN CREAT RATIO URINE 2022-05-19 09:15:00 [facility]OS[facility] 2022-05-19 09:12:00 Dustin Camacho [facility] URIC ACID 2022-05-19 09:12:00 Dustin Camacho [facility] MAGNESIUM 2022-05-19 09:12:00 William [facility] TROPONIN I 2022-05-19 09:12:00 William [facility] COMP. METABOLIC PANEL 2022-05-19 09:12:00 Carleen Thomas [facility] ([id number]) [facility] N-TERMINAL PRO-BNP 2022-05-19 09:12:00 Carleen Thomas [facility] C4 COMPLEMENT 2022-05-19 09:11:00 Dustin Camacho [facility] CBC WITH DIFF 2022-05-19 09:11:00 William [facility] HEPATITIS B SURFACE 2022-05-19 09:11:00 Dustin Camacho [facility] ANTIBODY [facility] HEPATITIS B SURFACE 2022-05-19 09:11:00 Dustin Camacho [facility] ANTIGEN [facility] HCV ANTIBODY 2022-05-19 09:11:00 Dustin Camacho [facility] HBC ANTIBODY (IGM & IGG) 2022-05-19 09:11:00 Dustin Camacho [facility] TROPONIN I 2022-05-18 20:19:00 Carleen Thomas [facility] CT ABDOMEN PELVIS WO 2022-05-18 19:24:35 Felipa Saenz [facility] TRANSTHORACIC ECHO (TTE) 2022-05-18 19:15:00 Carleen Thomas [facility] UREA NITROGEN, URINE 2022-05-18 18:16:00 Carleen Thomas [facility] SODIUM, URINE RANDOM 2022-05-18 18:16:00 Carleen Thomas [facility] PROTEIN CREAT RATIO URINE 2022-05-18 18:16:00 Carleen Thomas [facility] CREATINE KINASE 2022-05-18 09:24:00 Carleen Thomas [facility] MAGNESIUM 2022-05-18 09:24:00 Cooper [facility] VITAMIN B12, LEVEL 2022-05-18 09:24:00 Carleen Thomas [facility] TROPONIN I 2022-05-18 09:24:00 Carleen Thomas [facility] BASIC METABOLIC PANEL (NA, 2022-05-18 09:24:00 Carleen Thomas [facility] K, CL, CO2, GLUCOSE, BUN, Medica l Branch CREATININE, CA) SEDIMENTATION RATE 2022-05-18 09:24:00 Carleen hTomas [facility] PROTHROMBIN TIME / INR 2022-05-18 09:24:00 Carleen Thomas [facility] VITAMIN D, 25-OH 2022-05-18 09:24:00 Carleen Thomas [facility] PROCALCITONIN 2022-05-18 09:24:00 Carleen Thomas [facility] AC VBG + LACTIC ACID 2022-05-18 09:23:00 Carleen Thomas [facility] XR CHEST 1 VW 2022-05-18 05:43:13 Wendy Evans [facility] URINALYSIS 2022-05-18 04:44:00 Wendy Evans [facility] HB ECG ROUTINE & RHYTHM 2022-05-18 04:26:55 Wendy Evans [facility] STRIP [facility] URIC ACID 2022-05-18 03:11:00 [facility] LIPASE 2022-05-18 03:11:00 Wendy Evans [facility] MAGNESIUM 2022-05-18 03:11:00 Wendy Evans [facility] FERRITIN SERUM 2022-05-18 03:11:00 [facility] TROPONIN I 2022-05-18 03:11:00 Wendy Evans [facility] FREE T4 2022-05-18 03:11:00 [facility] THYROID STIMULATING 2022-05-18 03:11:00 Carleen Thomas [facility] HORMONE [facility] Branch COMP. METABOLIC PANEL 2022-05-18 03:11:00 Wendy Evans [facility] ([id number]) [facility] LIPID PANEL ([id number])(TOTAL 2022-05-18 03:11:00 Carleen Thomas [facility] CHOLESTEROL, [facility] Branch TRIGLYCERIDES, HDL) IRON PANEL 2022-05-18 03:11:00 Carleen Thomas [facility] CBC WITH DIFF 2022-05-18 03:11:00 Wendy Evans [facility] GLYCOSYLATED HEMOGLOBIN 2022-05-18 03:11:00 Carleen Thomas [facility] (A1C) [facility] N-TERMINAL PRO-BNP 2022-05-18 03:11:00 [facility] FREE T3 2022-05-18 03:11:00 William Adnan [facility] NOTICE OF PRIVACY 2022-05-18 02:34:09 Doctor Unassigned, [facility] PRACTICES [place] [facility] CONSENT/REFUSAL FOR 2022-05-18 02:33:31 Doctor Sameerassdot, [facility] DIAGNOSIS AND TREATMENT [place] [facility] [place] SLEEP STUDY DATA REPORT 2021-09-05 05:01:00 Doctor Cici, [facility] [facility] COVID-19 (ID NOW RAPID 2021-08-05 19:05:00 Jyoti Jackson [facility] [facility] ASSIGNMENT OF BENEFITS 2021-08-05 18:57:19 [facility] [place] [facility] En[facility] Start End Encounter Admission Attending Care Care Encounter Source Date/Time Date/Time Type Type Clinicians Facility Department ID 2022-06-27 2022-06-27 Outpatient Jacki [facility]RY [facility] [id number] Univers 00:00:00 00:00:00 SENDMIGUEL [facility] 2022-06-08 2022-06-08 Outpatient Jacki CURRY [facility] [id number] Univers 00:00:00 00:00:00 SENDIL [facility] 2022-06-08 2022-06-08 Thomas Curry [facility] 1.2.840.114 [id number] Univers 00:00:00 00:00:00 Management Shireen SANCHEZ 350.1.13.10 [place] [id number] Mi dical NAL 059 Branch BUILDING 2022-05-22 2022-05-22 Transition CORBY Moreno 1.2.840.114 [id number] Univers 00:00:00 00:00:00 of Care Zenaida CHIN 350.1.13.10 [place] [id number] [facility] 403 Branch 2022-05-17 2022-05-20 Outpatient Luis [facility]OMAS [facility] [id number] Univers 21:41:00 14:00:00 CARLEEN [facility] 2022-05-17 2022-05-20 Emergency Wendy Evans [facility] 1.2.8 40.114 [id number] Univers 21:41:00 14:00:00 [facility] 4.2.7[facility]2.[facility] [id number] [place] [address] Branch 2022-04-22 2022-04-24 Inpatient UR CARBAJAL, SLSL [facility] [id number] SLSL 21:58:00 16:27:00 FEDERICO 2021-11-30 2021-11-30 Outpatient R JYOTI JACKSON [facility] [id number] Univers 13:20:00 13:20:00 [facility] [id number] [facility]-11-30 2021-11-30 Outpatient R JYOTI JACKSON [facility] [id number] Univers 13:20:00 13:20:00 JYOTI JACKSON [facility] 2021-10-12 2021-10-12 Outpatient R JYOTI JACKSON [facility] [id number] Univers 13:20:00 13:20:00 [facility]I [facility] [id number] [facility] 2021-10-12 2021-10-12 Outpatient R JYOTI JACKSON [facility] [id number] Univers 13:20:00 13:20:00 [facility] 2021-09-05 2021-09-05 Outpatient R [facility] [id number] Univers 19:30:00 19:30:00 [id number] [facility] 2021-09-05 2021-09-05 Outpatient R SHANE JACKSONFLBlake [facility] [id number] Univers 19:30:00 19:30:00 JYTOI JACKSON [facility] 2021-09-05 2021-09-05 Oven Worker 1, [facility] Sleep Lab Bed [facility] 1. 2.840.114 [id number] Univers 14:11:15 16:41:15 Visit Jyoti Jackson 350.1.13. 10 ity of [place] 4.2.7.2.686 [id number] [facility] 193 Branch 2021-09-05 2021-09-05 Orders Doctor KEMAL 1.2.840.114 [id number] Univers 00:00:00 00:00:00 Only Unassigned, VIRA 350.1.13.10 [facility] [place] 4.2.7.2.686 [place] [phone] [facility] 009 Branch 2021-09-02 2021-09-02 Laboratory Only, Adc Test [facility] 1.2.840. 114 [id number] Univers 10:46:06 11:01:06 Only Vincent Arizmendi 350.1.13.10 ity of [place] 4.2.7.2.[address] [facility] [id number] [facility] 353 Branch 2021-09-02 2021-09-02 Outpatient R [facility] [id number] Univers 11:00:00 11:00:00 [id number] ity of [facility] 2021-09-02 2021-09-02 Outpatient R [facility] [id number] Univers 11:00:00 11:00:00 ity of [facility] 2021-08-08 2021-08-08 Outpatient R JYOTI JACKSON [facility] [id number] Univers 19:30:00 19:30:00 JYOTI JACKSON ity of [facility] 2021-08-08 2021-08-08 Outpatient R [facility] [id number] Univers 19:30:00 19:30:00 [id number] ity of [facility] 2021-08-05 2021-08-05 Laboratory Only, Adc Test [facility] 1.2.840. 114 [id number] Univers 13:57:41 14:12:41 Only Jyoti Jackson 350.1.13. 10 ity of [place] 4.2.7.2.[address] [facility] [id number] [facility] 353 Branch 2021-08-05 2021-08-05 Outpatient R [facility] [id number] Univers 13:15:00 13:15:00 ity of [facility] 2021-08-05 2021-08-05 Outpatient R [facility] [id number] Univers 10:15:00 10:15:00 ity [facility] 2021-08-05 2021-08-05 Outpatient R [facility] [id number] Univers 10:15:00 10:15:00 [id number] ity [facility] 2021-08-05 2021-08-05 Orders Doctor KEMAL 1.2.840.114 [id number] Univers 00:00:00 00:00:00 Only Unassigned, VIRA 350.1.13.10 ity of [place] [facility] 4.2.7.2.686 [place] [id number] [address] 2021-07-13 2021-07-13 Outpatient R JYOTI JACKSON [facility] [id number] Univers 11:40:00 11:40:00 SHANE JACKSONFLBlake [facility] Results Test Description Test Time Test Comments Results Result Comments Source BASIC METABOLIC PANEL (NA, K, CL, CO2, GLUCOSE, BUN, 2022-04 10:47:39 CREATININE, CA) Test Item Value Reference Range Interpretation Comme nts NA (test code = 1958612462) 136 mmol/L 135-145 K (test code = 7940863621) 3.6 mmol/L 3.5-5.0 CL (test code = 7905108244) 103 mmol/L 98-108 CO2 TOTAL (test code = 1514415945) 28 mmol/L 23-31 AGAP (test code = 0297521808) 2-16 BUN (test code = 3264732933) 43 mg/dL 7-23 H GLUCOSE (test code = 4654921670) 99 mg/dL 70-110 CREATININE (test code = 4.28 mg/dL 0.60-1.25 H 4075268847) CALCIUM (test code = 5795725769) 7.2 mg/dL 8.6-10.6 L eGFR (test code = 3691756940) mL/min/1.73m2 LULÚ (test code = LULÚ) Association of Glomerular Filtration Rate (GFR) and Staging of Kidney Disease* + +-------- + ------+| GFR (mL/min/1.73 m2) ?| With Kidney Damage ?| ?Without Kidney Damage+ +-- + +| ?>90 ?| ?Stage one ?| ? Normal ?+ +------- + -------+| ?60-89 ?| ?Stage two ?| ? Decreased GFR ? + +-------- + ------+| ?30-59 ?| ?Stage three ?| ? Stage three ? + +-------- + ------+| ?15-29 ?| ?Stage four ? | ? Stage four ?+ +------- + -------+| ?<15 (or dialysis) ? ?| ?Stage five ? | ? Stage five ?+ +------- + -------+ *Each stage assumes the associated GFR level has been in effect for at least three months. ?Stages 1 to 5, with or without kidney disease, indicate chronic kidney disease. Notes: Determination of stages one and two (with eGFR >59mL/min/1.73 m2) requires estimation of kidney damage for at least three months as defined by structural or functional abnormalities of the kidney, manifested by either:Pathological abnormalities or Markers of kidney damage (including abnormalities in the composition of the blood or urine or abnormalities in imaging tests). Lab Interpretation (test code = Abnormal 92606-6) [facility] [id number] 19:49:00 Test Item Value Reference Range Interpretation Comments HCV Ab (test code = Positive 21224-0) HCV Semi-Quantitative (test code = 97414-9) APRI (test code = 6370612110) LULÚ (test code = Positive for HCV antibody. LULÚ) This specimen has been reflexed to qualitative PCR test and submitted to [facility] Laboratory. ?A report will be issued by that laboratory. ?If any questions, contact the Clinical Chemistry Director office administration at [phone].APRI score < 0.5: Suggestive of little to no fibrosisAPRI score > 1.5: Suggestive of moderate to severe fibrosisAPRI score > 2.0: Highly suggestive of cirrhosis. [facility] ANTIBODY (IGM & IGG)2022-05-19 18:22:56 Test Item Value Reference Range Interpretation Comments HBC (test code = 9013213473) Reactive HBC Semi-Quantitative (test code = 6780878707) [facility] [id number] 17:08:52 Test Item Value Reference Range Interpretation Comments C3 (test code = 9962411909) 102 mg/dL 86-184 Lab Interpretation (test code = Normal 60075-4) [facility] [id number] 17:08:52 Test Item Value Reference Range Interpretation Comments C4 (test code = 9306661436) 17 mg/dL 20-59 L Lab Interpretation (test code = Abnormal 34539-0) [facility] SURFACE [id number] 16:27:33 Test Item Value Reference Range Interpretation Comments HBsAB (test code = Negative 2009173119) HBsAb mIU/mL Semi-Quantitative (test code = 2081903548) LULÚ (test code = Interpretation: LULÚ) ?Hepatitis B Surface Antibody ? Negative - Patient is considered to be not immune to infection with HBV. ? ? Positive - Anti-HBs detected at greater than or equal to 12 mIU/mL. ?Patient is considered to be immune to infection with HBV. ? [facility] SUR[facility] [id number] 16:08:51 Test Item Value Reference Range Interpretation Comments HBsAg Semi-Quantitative (test code = Negative Negative 5195-3) [facility] DallasTROPONIN [id number] 12:12:33 Test Item Value Reference Interpretation Comments Range TROPONIN I (test 0.044 ng/mL See_Comment H [Automated code = 0429325916) message] The system which generated this result transmitted reference range : <=0.034. The reference range was not used to interpret this result as normal/abnormal . LULÚ (test code = Reference (Normal) LULÚ) Range (defined by the 99th percentile reference limit): <= 0.034 ng/mL Note: Cardiac troponin begins to rise 3-4 hours after the onset of ischemia. Repeat in 4-6 hours if the sample was drawn within 3-4 hours of the onset of the symptom and found normal. Diagnosis of myocardial injury is made with acute changes in cTn concentrations with at least one serial sample above the 99th percentile upper reference limit (URL), taken together with the patient's clinical presentation. Biotin has been reported to cause a negative bias, interpret results relative to patient's use of biotin. Lab Interpretation Abnormal (test code = 46273-8) [facility] DallasCOMP. METABOLIC PANEL (63379)2022-05-19 12:09:12 Test Item Value Reference Range Interpretation Comments NA (test code = 135 mmol/L 135-145 5179754650) K (test code = 3.8 mmol/L 3.5-5.0 6288748655) CL (test code = 101 mmol/L 98-108 4051033193) CO2 TOTAL (test code = 28 mmol/L 23-31 5949914280) AGAP (test code = 2-16 1884043752) BUN (test code = 41 mg/dL 7-23 H 4987686086) GLUCOSE (test code = 97 mg/dL 70-110 3115951076) CREATININE (test code = 4.30 mg/dL 0.60-1.25 H 6633109095) TOTAL BILI (test code = 0.6 mg/dL 0.1-1.9 8579434625) CALCIUM (test code = 7.6 mg/dL 8.6-10.6 L 0471119343) T PROTEIN (test code = 6.5 g/dL 6.3-8.2 2427280582) ALBUMIN (test code = 2.6 g/dL 3.5-5.0 L 3756681894) ALK PHOS (test code = 68 U/L 34-122 5428538651) ALTv (test code = 16 U/L 5-50 1742-6) AST(SGOT) (test code = 32 U/L 13-40 2202955243) eGFR (test code = mL/min/1.73m2 7876864473) LULÚ (test code = LULÚ) Association of Glomerular Filtration Rate (GFR) and Staging of Kidney Disease* + --+ --+ ------+| GFR (mL/min/1.73 m2) ?| With Kidney Damage ?| ?Without Kidney Damage+ --------+ --------+ +| ?>90 ?| ?Stage one ?| ? Normal ?+ ---+ ---+ -------+| ?60-89 ?| ?Stage two ?| ? Decreased GFR ? + --+ --+ ------+| ?30-59 ?| ?Stage three ?| ? Stage three ? + --+ --+ ------+| ?15-29 ?| ?Stage four ? | ? Stage four ?+ ---+ ---+ -------+| ?<15 (or dialysis) ? ?| ?Stage five ? | ? Stage five ?+ ---+ ---+ -------+ *Each stage assumes the associated GFR level has been in effect for at least three months. ?Stages 1 to 5, with or without kidney disease, indicate chronic kidney disease. Notes: Determination of stages one and two (with eGFR >59mL/min/1.73 m2) requires estimation of kidney damage for at least three months as defined by structural or functional abnormalities of the kidney, manifested by either:Pathological abnormalities or Markers of kidney damage (including abnormalities in the composition of the blood or urine or abnormalities in imaging tests). Lab Interpretation Abnormal (test code = 84136-9) [facility] DallasN-TERMINAL [id number] 12:09:12 Test Item Value Reference Range Interpretation Comments NT-proBNP (test code 6750 pg/mL See_Comment H [Autom ated = 2953861294) message] The system which generated this result transmitted reference range : <=125. The reference range was not used to interpret this result as normal/abnormal . LULÚ (test code = LULÚ) Biotin has been reported to cause a negative bias, interpret results relative to patient's use of biotin. Lab Interpretation Abnormal (test code = 06522-2) [facility]2022-06-24 12:09:12 Test Item Value Reference Range Interpretation Comments MAGNESIUM (test code = 6038208647) 2.1 mg/dL 1.7-2.4 Lab Interpretation (test code = Normal 31107-8) [facility]OS[facility]US2022-06-24 12:08:52 Test Item Value Reference Range Interpretation Comments PHOSPHORUS (test code = 6468170329) 3.9 mg/dL 2.5-5.0 Lab Interpretation (test code = Normal 24434-3) [facility] DallasURIC [id number] 12:08:51 Test Item Value Reference Range Interpretation Comments URIC ACID (test code = 8645598308) 7.4 mg/dL 3.6-8.0 Lab Interpretation (test code = Normal 07327-9) [facility] WITH [id number] 10:13:06 Test Item Value Reference Range Interpretation Comments WBC (test code = See_Comment [Automated 6690-2) message] The sy stem which generated this result transmitted reference range : 4.20 - 10.70 10*3/?L. The reference range was not used to interpret this result as normal/abnormal . RBC (test code = See_Comment L [Automated 789-8) message] The sy stem which generated this result transmitted reference range : 4.26 - 5.52 10*6/?L. The reference range was not used to interpret this result as normal/abnormal . HGB (test code = 8.9 g/dL 12.2-16.4 L 718-7) HCT (test code = 27.3 % 38.4-49.3 L 4544-3) MCV (test code = 99.3 fL 81.7-95.6 H 787-2) MCH (test code = 32.4 pg 26.1-32.7 785-6) MCHC (test code = 32.6 g/dL 31.2-35.0 786-4) RDW-SD (test code = 49.9 fL 38.5-51.6 09554-4) RDW-CV (test code = 13.8 % 12.1-15.4 788-0) PLT (test code = See_Comment [Automated 777-3) message] The sy stem which generated this result transmitted reference range : 150 - 328 10*3/ ?L. The reference r jose f was not used to interpret this result as normal/abnormal . MPV (test code = 12.3 fL 9.8-13.0 30532-1) NRBC/100 WBC (test See_Comment [Automat ed code = 2146973936) message] The system which generated this result transmitted reference range : 0.0 - 10.0 /100 WBCs. The refer ence range was not u sed to interpret th is result as normal/abnormal . NRBC x10^3 (test code <0.01 See_Comment [Auto mated = 4830650223) message] The s ystem which generated this result transmitted reference range : 10*3/?L. The reference range was not used to interpret this result as normal/abnormal . GRAN MAT (NEUT) % 47.4 % (test code = 770-8) IMM GRAN % (test code 0.20 % = 9485622419) LYMPH % (test code = 41.6 % 736-9) MONO % (test code = 10.0 % 5905-5) EOS % (test code = 0.3 % 713-8) BASO % (test code = 0.5 % 706-2) GRAN MAT x10^3(ANC) 2.94 10*3/uL 1.99-6.95 (test code = 9708286611) IMM GRAN x10^3 (test <0.03 0.00-0.06 code = 4332843172) LYMPH x10^3 (test code 2.58 10*3/uL 1.09-3.23 = 731-0) MONO x10^3 (test code 0.62 10*3/uL 0.36-1.02 = 742-7) EOS x10^3 (test code = <0.03 0.06-0.53 L 711-2) BASO x10^3 (test code 0.03 10*3/uL 0.01-0.09 = 704-7) Lab Interpretation Abnormal (test code = 95704-3) [facility] DallasVIT[facility] B12, [id number] 22:37:51 Test Item Value Reference Range Interpretation Comments VIT B12 (test code = 828 pg/mL 240-930 9299894870) LULÚ (test code = LULÚ) Biotin has been reported to cause a positive bias, interpret results relative to patient's use of biotin. Lab Interpretation (test Normal code = 94010-5) [facility] DallasTransthoracic echo (TTE)2022-05-18 22:07:44 Test Item Value Reference Range Interpretation Comments Height (test code = in 1238623813) Weight (test code = lbs 2886649889) Systolic BP (test code = mmHg 6043827885) Diastolic BP (test code = mmHg 8291707146) Heart Rate (test code = bpm 9502642830) BSA (test code = 2.00 m2 4018408624) LVIDD (test code = 4.90 cm 8560464738) IVS (test code = 1.46 cm 9983736049) Interventricular Septum 1.46 cm Diastolic Thickness by 2D (test code = 5649747) LVPWD (test code = 1.48 cm 3867405234) PW (test code = 1.48 cm 0.6-1.8 2323127865) EF(Teich) (test code = 51.00 % 0966503251) LVIDS (test code = 3.60 cm 1302583115) FS (test code = 26 % 0157483781) EF - 2D (test code = 51.00 % 96277156) LVOT diameter (test code 2.11 cm = 3362295920) ACS (test code = 2.11 cm 7854383194) Ao root annulus (test 4.0 cm code = 9906039012) Ao root diam (test code = 4.00 cm 5993370022) Aortic root (test code = 4.0 cm 8128105750) LA size (test code = 3.8 cm 2073508446) TR Peak Andrey (test code = 262.2 cm/s 9136496156) Triscuspid Valve mmHg Regurgitation Peak Gradient (test code = 5676649418) E wave decelartion time 0.23 s (test code = 2602858372) MV Peak E Andrey (test code 54.7 cm/s = 1707843167) MV Peak A Andrey (test code 80.8 cm/s = 7978128316) E/A ratio (test code = ratio 5015971908) MV Prop V (test code = 36.00 cm/s 5666084500) Tapse (test code = 2.00 cm 2832383456) LVOT stroke volume (test 84.00 cm3 code = 7447120224) LVOT peak andrey (test code 100.6 cm/s = 3652423347) LVOT mn grad (test code = mmHg 4062968843) AV LVOT peak gradient mmHg (test code = 4861808223) LVOT peak VTI (test code 24.0 cm = 8630375178) LV V1 mean (test code = 57.60 cm/s 1293818242) Aortic valve mean 90.5 cm/s velocity (test code = 7129679203) Ao peak andrey (test code = 151.5 cm/s 2757491519) Ao VTI (test code = 31.4 cm 0632324819) AV area by cont VTI (test 2.7 cm2 code = 2268483758) AV area peak andrey (test 2.3 cm2 code = 2510247225) Ao max PG (test code = 9.20 mm[Hg] 2742709874) AV peak gradient (test mmHg code = 6675363310) AV valve area (test code 2.70 cm2 = 8592434624) AV mean gradient (test mmHg code = 8491423923) Radiology Study observation (narrative) (test code = 96407-0) LULÚ (test code = LULÚ) ?Left?Ventricle: Left ventricle size is normal. Mildly increased wall thickness. Normal wall motion. Low normal systolic function with a visually estimated EF of 50 - 55%. There is impaired relaxation. ?Tricuspid?Valve: Insufficient regurgant jet to estimate RVSP. ?RA pressure is 0-5 mmHg. ?Left?Atrium: Left atrium is moderately dilated. [facility] DallasTROP[facility] [id number] 21:25:17 Test Item Value Reference Interpretation Comments Range TROPONIN I (test 0.049 ng/mL See_Comment H [Automated code = 8994634553) message] The system which generated this result transmitted reference range : <=0.034. The reference range was not used to interpret this result as normal/abnormal . LULÚ (test code = Reference (Normal) LULÚ) Range (defined by the 99th percentile reference limit): <= 0.034 ng/mL Note: Cardiac troponin begins to rise 3-4 hours after the onset of ischemia. Repeat in 4-6 hours if the sample was drawn within 3-4 hours of the onset of the symptom and found normal. Diagnosis of myocardial injury is made with acute changes in cTn concentrations with at least one serial sample above the 99th percentile upper reference limit (URL), taken together with the patient's clinical presentation. Biotin has been reported to cause a negative bias, interpret results relative to patient's use of biotin. Lab Interpretation Abnormal (test code = 85304-4) [facility], [id number] 18:08:45 Test Item Value Reference Range Interpretation Comments VIT D 25OH (test code = <13 25-80 L 59235-7) LULÚ (test code = LULÚ) Deficiency: <20 ng/mLInsufficiency: 20-24 ng/mLOptimal: 25-80 ng/mL Lab Interpretation (test Abnormal code = 29328-3) [facility] DallasPROCALCITONIN2022-06-23 16:34:18 Test Item Value Reference Range Interpretation Comments Procalcitonin (test 0.19 ng/mL <0.07 H code = 3790292658) LULÚ (test code = LULÚ) INTERPRETATION OF PROCALCITONIN RESULTS IN ADULTS >= 18 YEARS OF AGE Initiation and discontinuation of antibiotics on patients with suspected or confirmed Lower Respiratory Tract Infection in Adults >= 18 years of age. + +-------- --------+ + -----+|Procalcitonin |Interpretation ?|Antibiotic ? ? |Considerations ? |ng/mL ? | ?|recommendation | ? + +-------- --------+ + -----+| <0.1 ? | Bacterial ? ? ?| Strongly ? ? ?| ? | ?| infection very | discouraged ? | Overruling: ? | ?| unlikely ? ? ? | ? | ? Clinically unstable ? ? ? + +-------- --------+ + ? High risk for adverse ? ? | <0.25 ?| Bacterial ? ? ?| Discouraged ? | ? outcome ? | ?| infection ? ? ?| ? | ? SEE IMPORTANT NOTE ?| ?| unlikely ? ? ? | ? | ? + +-------- --------+ + -----+| >=0.25 ? ? ? | Bacterial ? ? ?| Encouraged ? ?| ? | ?| infection ? ? ?| ? | ? | ?| likely ? | ? | Consider treatment failure ?+ +------- ---------+ -+ if levels does not decrease | >0.5 ? | Bacterial ? ? ?| Strongly ? ? ?| appropriately ? | ?| infection very | encouraged ? ?| ? | ?| likely ? | ? | ? + +-------- --------+ + -----+ Discontinuation of antibiotics in high-acuity patients with suspected or confirmed sepsis in Adults >= 18 years of age. + +-------- --------+ + -----+|Procalcitonin |Interpretation ?|Antibiotic ? ? |Considerations ? |ng/mL ? | ?|recommendation | ? + +-------- --------+ + -----+| <0.25 ?| Bacterial ? ? ?| Strongly ? ? ?| ? | ?| infection very | discouraged ? | Overruling: ? | ?| unlikely ? ? ? | ? | ? Clinically unstable ? ? ? + +-------- --------+ + ? High risk for adverse ? ? | <0.5 or drop | Bacterial ? ? ?| Discouraged ? | ? outcome ? | >80% from ? ?| infection ? ? ?| ? | ? SEE IMPORTANT NOTE ?| highest PCT ?| unlikely ? ? ? | ? | ? | level ?| ?| ? | ? + +-------- --------+ + -----+| >=0.5 ?| Bacterial ? ? ?| Encouraged ? ?| ? | ?| infection ? ? ?| ? | ? | ?| likely ? | ? | Consider treatment failure ?+ +------- ---------+ -+ if levels does not decrease | >1.0 ? | Bacterial ? ? ?| Strongly ? ? ?| appropriately ? | ?| infection very | encouraged ? ?| ? | ?| likely ? | ? | ? + +-------- --------+ + -----+ Percentage of drop of Procalcitonin calculation for Discontinuation of antibiotics in high-acuity patients with suspected or confirmed sepsis in Adults >= 18 years of age. ? Procalcitonin highest{}-Procalcitonin current{}Delta Procalcitonin = x100% ? Procalcitonin current {} IMPORTANT NOTE: Procalcitonin may be elevated without bacterial infection by physiologic stress related to trauma, nielsen, chronic dialysis, metastatic cancer, surgery in the past seven days, malaria, some fungal infections, and some forms of vasculitis. The interpretation algorithm may not apply to patients with immunosuppression (equivalent of >10 mg of prednisone daily), HIV with CD4 cell count < 350 cells/mm3, active malignancy on systemic chemotherapy, solid organ transplant or hematopoietic stem cell transplantation, or hospital acquired pneumonia. Additionally, some clinical trials of procalcitonin have excluded patients with shock requiring vasopressor use, acute respiratory failure requiring mechanical ventilation, or those with known lung abscess/empyema. For further information please refer to:[email or web address] Lab Interpretation Abnormal (test code = 15421-4) [facility]2022-[facility]-23 14:28:03 Test Item Value Reference Range Interpretation Comments MAGNESIUM (test code = 0144034083) 2.1 mg/dL 1.7-2.4 Lab Interpretation (test code = Normal 85175-2) [facility] DallasTHYROID STIMULATING [id number] 11:24:55 Test Item Value Reference Range Interpretation Comments TSH (test code = See_Comment Biotin has been 8396332571) reported to cau se a negative bias, interpret resul ts relative to pat ient's use of biotin. [Automated mess age] The system ISpeak generated this result transmitted ref erence range: 0.45 - 4 .70 mIU/L. The refe rence range was not u sed to interpret this result as normal/abnor mal. Lab Interpretation (test Normal code = 79917-1) [facility] DallasFERRITIN [id number] 11:24:45 Test Item Value Reference Range Interpretation Comments FERRITIN (test code = 47.6 ng/mL 18.0-464.0 2856932587) LULÚ (test code = LULÚ) Biotin has been reported to cause a negative bias, interpret results relative to patient's use of biotin. Lab Interpretation (test Normal code = 41855-2) [facility] [id number] 11:24:35 Test Item Value Reference Range Interpretation Comments IRON (test code = 0831598494) 95 ug/dL 50-160 TIBC (test code = 1181023969) 182 ug/dL 250-410 L % FE SAT (test code = 5651151586) 52 % 20-50 H Lab Interpretation (test code = Abnormal 88611-4) [facility] DallasN-TERMINAL [id number] 11:24:25 Test Item Value Reference Range Interpretation Comments NT-proBNP (test code 94910 pg/mL See_Comment H [Autom ated = 6924024488) message] The system which generated this result transmitted reference range : <=125. The reference range was not used to interpret this result as normal/abnormal . LULÚ (test code = LULÚ) Biotin has been reported to cause a negative bias, interpret results relative to patient's use of biotin. Lab Interpretation Abnormal (test code = 14899-8) [facility] DallasURIC [id number] 11:24:10 Test Item Value Reference Range Interpretation Comments URIC ACID (test code = 5026992281) 6.7 mg/dL 3.6-8.0 Lab Interpretation (test code = Normal 98992-3) [facility] DallasTROPONIN [id number] 11:08:27 Test Item Value Reference Interpretation Comments Range TROPONIN I (test 0.071 ng/mL See_Comment H [Automated code = 9464858201) message] The system which generated this result transmitted reference range : <=0.034. The reference range was not used to interpret this result as normal/abnormal . LULÚ (test code = Reference (Normal) LULÚ) Range (defined by the 99th percentile reference limit): <= 0.034 ng/mL Note: Cardiac troponin begins to rise 3-4 hours after the onset of ischemia. Repeat in 4-6 hours if the sample was drawn within 3-4 hours of the onset of the symptom and found normal. Diagnosis of myocardial injury is made with acute changes in cTn concentrations with at least one serial sample above the 99th percentile upper reference limit (URL), taken together with the patient's clinical presentation. Biotin has been reported to cause a negative bias, interpret results relative to patient's use of biotin. Lab Interpretation Abnormal (test code = 77741-8) [facility] DallasFREE [id number] 11:05:11 Test Item Value Reference Range Interpretation Comments FREE T3 (test code = 0594900396) 2.48 pg/mL 2.77-5.27 L Lab Interpretation (test code = Abnormal 10445-2) [facility] [id number] 11:05:11 Test Item Value Reference Range Interpretation Comments FREE T4 (test code = See_Comment [Autom ated message] 9243855552) The system ISpeak generated this result transmitted ref erence range: 0.78 - 2 .20 ng/dL:. The ref erence range was not u sed to interpret this result as normal/abnor mal. Lab Interpretation (test Normal code = 61847-7) [facility] METABOLIC PANEL (NA, K, CL, CO2, GLUCOSE, BUN, CREATININE, CA)2022-05-18 10:47:04 Test Item Value Reference Range Interpretation Comments NA (test code = 136 mmol/L 135-145 4288294343) K (test code = 3.3 mmol/L 3.5-5.0 L 2480294422) CL (test code = 101 mmol/L 98-108 0610314256) CO2 TOTAL (test code = 28 mmol/L 23-31 0953975564) AGAP (test code = 2-16 7882632610) BUN (test code = 43 mg/dL 7-23 H 7670393879) GLUCOSE (test code = 101 mg/dL 70-110 1907860276) CREATININE (test code = 4.12 mg/dL 0.60-1.25 H 3768768808) CALCIUM (test code = 7.5 mg/dL 8.6-10.6 L 0890462435) eGFR (test code = mL/min/1.73m2 4005598001) LULÚ (test code = LULÚ) Association of Glomerular Filtration Rate (GFR) and Staging of Kidney Disease* + --+ --+ ------+| GFR (mL/min/1.73 m2) ?| With Kidney Damage ?| ?Without Kidney Damage+ --------+ --------+ +| ?>90 ?| ?Stage one ?| ? Normal ?+ ---+ ---+ -------+| ?60-89 ?| ?Stage two ?| ? Decreased GFR ? + --+ --+ ------+| ?30-59 ?| ?Stage three ?| ? Stage three ? + --+ --+ ------+| ?15-29 ?| ?Stage four ? | ? Stage four ?+ ---+ ---+ -------+| ?<15 (or dialysis) ? ?| ?Stage five ? | ? Stage five ?+ ---+ ---+ -------+ *Each stage assumes the associated GFR level has been in effect for at least three months. ?Stages 1 to 5, with or without kidney disease, indicate chronic kidney disease. Notes: Determination of stages one and two (with eGFR >59mL/min/1.73 m2) requires estimation of kidney damage for at least three months as defined by structural or functional abnormalities of the kidney, manifested by either:Pathological abnormalities or Markers of kidney damage (including abnormalities in the composition of the blood or urine or abnormalities in imaging tests). Lab Interpretation Abnormal (test code = 55230-1) [facility] DallasCREATINE [id number] 10:46:48 Test Item Value Reference Range Interpretation Comments CK (test code = 7992749851) 72 U/L 33-194 Lab Interpretation (test code = Normal 79976-4) [facility] DallasLIPID PANEL (47211)(TOTAL CHOLESTEROL, TRIGLYCERIDES, HDL)2022-05-18 10:43:26 Test Item Value Reference Range Interpretation Comments CHOL (test code = 189 mg/dL 120-200 6254436171) HDL (test code = 36 mg/dL >40 L 3336067569) HDLC RATIO (test code = See_Comment H [Au tomated message] 7637522363) The system ISpeak generated this result transmit nakul reference range : <=5.0. The refe rence range was not u sed to interpret th is result as normal/abnormal . TRIG (test code = 125 mg/dL 30-170 6070623939) LDL CHOL (test code = 128 mg/dL See_Comment [Auto mated message] 64765-6) The system ISpeak generated this result transmit nakul reference range : <=160. The refe rence range was not u sed to interpret th is result as normal/abnormal . VLDL (test code = 25 mg/dL 5-60 5874672340) Lab Interpretation (test Abnormal code = 85155-2) [facility] DallasSEDIMENTATION [id number] 10:21:37 Test Item Value Reference Range Interpretation Comments ESR (test code = See_Comment H [Automated message] 4776486255) The system whic h generated this result transmitted ref erence range: 0 - 10 m m/HR. The reference r jose f was not used to interpret this result as normal/abnor mal. Lab Interpretation (test Abnormal code = 19670-1) [facility] DallasProthrombin Time / [id number] 10:06:41 Test Item Value Reference Range Interpretation Comments PROTIME PATIENT (test See_Comment [Auto mated message] code = 5964-2) The system wh ich generated this result transmitted ref erence range: 12.0 - 1 4.7 Seconds. The re ference range was not u sed to interpret this result as normal/abnor mal. INR (test code = 6301-6) Nor mal INR <1.1; Warfarin Therap eutic range 2.0 to 3. 0 or 2.5 to 3.5, dep ending upon the indica tions. Lab Interpretation (test Normal code = 12451-9) [facility] DallasAC VBG + LACTIC [id number] 09:44:12 Test Item Value Reference Range Interpretation Comments PH (test code = 7.32-7.42 H 8085180166) PCO2 BROOKE (test code = See_Comment L [Auto mated 1469278904) message] The sy stem which generated this result transmitted reference range : 41 - 51 mmHg. The reference range was not used to interpret this result as normal/abnormal . PO2 BROOKE (test code = See_Comment HH [Autom ated 6817290177) message] The sy stem which generated this result transmitted reference range : 25 - 40 mmHg. The reference range was not used to interpret this result as normal/abnormal . HCO3 BROOKE (test code = See_Comment [Auto mated 3165624348) message] The sy stem which generated this result transmitted reference range : 24 - 28 mEq/L. The reference range was not used to interpret this result as normal/abnormal . AC VBE(BEAKER) (test mEq/L code = 7083368080) LACTIC ACID (test code 1.00 mmol/L 0.50-2.20 = 2064345074) Lab Interpretation Abnormal (test code = 71108-1) [facility] DallasGLYCOSYLATED HEMOGLOBIN (A1C)2022-05-18 09:25:50 Test Item Value Reference Range Interpretation Comments HGB A1C (test code = 5.2 % 4.0-5.7 4548-4) LULÚ (test code = LULÚ) Reference RangesNormal: <5.7%Prediabetes: 5.7 - 6.4%Diabetes: > 6.5% Lab Interpretation (test Normal code = 03382-4) [facility] DallasTROPONIN [id number] 04:08:02 Test Item Value Reference Interpretation Comments Range TROPONIN I (test 0.070 ng/mL See_Comment H [Automated code = 7707757144) message] The system which generated this result transmitted reference range : <=0.034. The reference range was not used to interpret this result as normal/abnormal . LULÚ (test code = Reference (Normal) LULÚ) Range (defined by the 99th percentile reference limit): <= 0.034 ng/mL Note: Cardiac troponin begins to rise 3-4 hours after the onset of ischemia. Repeat in 4-6 hours if the sample was drawn within 3-4 hours of the onset of the symptom and found normal. Diagnosis of myocardial injury is made with acute changes in cTn concentrations with at least one serial sample above the 99th percentile upper reference limit (URL), taken together with the patient's clinical presentation. Biotin has been reported to cause a negative bias, interpret results relative to patient's use of biotin. Lab Interpretation Abnormal (test code = 64807-6) [facility] DallasCOMP. METABOLIC PANEL (91386)2022-05-18 03:57:02 Test Item Value Reference Range Interpretation Comments NA (test code = 136 mmol/L 135-145 5843361673) K (test code = 3.8 mmol/L 3.5-5.0 5114017902) CL (test code = 99 mmol/L 98-108 6142840675) CO2 TOTAL (test code = 28 mmol/L 23-31 4953303452) AGAP (test code = 2-16 0933742285) BUN (test code = 47 mg/dL 7-23 H 6998182584) GLUCOSE (test code = 113 mg/dL 70-110 H 9658857963) CREATININE (test code = 4.12 mg/dL 0.60-1.25 H 3033693272) TOTAL BILI (test code = 0.8 mg/dL 0.1-1.4 9564548387) CALCIUM (test code = 7.8 mg/dL 8.6-10.6 L 8692541191) T PROTEIN (test code = 7.6 g/dL 6.3-8.2 0417179539) ALBUMIN (test code = 3.1 g/dL 3.5-5.0 L 7845587646) ALK PHOS (test code = 76 U/L 34-122 3582694571) ALTv (test code = 18 U/L 5-50 1742-6) AST(SGOT) (test code = 28 U/L 13-40 3611527458) eGFR (test code = mL/min/1.73m2 0234251430) LULÚ (test code = LULÚ) Association of Glomerular Filtration Rate (GFR) and Staging of Kidney Disease* + --+ --+ ------+| GFR (mL/min/1.73 m2) ?| With Kidney Damage ?| ?Without Kidney Damage+ --------+ --------+ +| ?>90 ?| ?Stage one ?| ? Normal ?+ ---+ ---+ -------+| ?60-89 ?| ?Stage two ?| ? Decreased GFR ? + --+ --+ ------+| ?30-59 ?| ?Stage three ?| ? Stage three ? + --+ --+ ------+| ?15-29 ?| ?Stage four ? | ? Stage four ?+ ---+ ---+ -------+| ?<15 (or dialysis) ? ?| ?Stage five ? | ? Stage five ?+ ---+ ---+ -------+ *Each stage assumes the associated GFR level has been in effect for at least three months. ?Stages 1 to 5, with or without kidney disease, indicate chronic kidney disease. Notes: Determination of stages one and two (with eGFR >59mL/min/1.73 m2) requires estimation of kidney damage for at least three months as defined by structural or functional abnormalities of the kidney, manifested by either:Pathological abnormalities or Markers of kidney damage (including abnormalities in the composition of the blood or urine or abnormalities in imaging tests). Lab Interpretation Abnormal (test code = 29225-2) [facility] DallasMAGNESIUM2022-06-23 03:57:02 Test Item Value Reference Range Interpretation Comments MAGNESIUM (test code = 9457113406) 1.6 mg/dL 1.7-2.4 L Lab Interpretation (test code = Abnormal 11296-0) [facility] DallasLIPASE2022-06-23 03:56:42 Test Item Value Reference Range Interpretation Comments LIPASE (test code = 0162039413) 139 U/L 0-220 Lab Interpretation (test code = Normal 83132-6) [facility] DallasCB WITH [id number] 03:38:37 Test Item Value Reference Range Interpretation Comments WBC (test code = See_Comment [Automated 6690-2) message] The sy stem which generated this result transmitted reference range : 4.20 - 10.70 10*3/?L. The reference range was not used to interpret this result as normal/abnormal . RBC (test code = See_Comment L [Automated 789-8) message] The sy stem which generated this result transmitted reference range : 4.26 - 5.52 10*6/?L. The reference range was not used to interpret this result as normal/abnormal . HGB (test code = 10.2 g/dL 12.2-16.4 L 718-7) HCT (test code = 30.2 % 38.4-49.3 L 4544-3) MCV (test code = 97.1 fL 81.7-95.6 H 787-2) MCH (test code = 32.8 pg 26.1-32.7 H 785-6) MCHC (test code = 33.8 g/dL 31.2-35.0 786-4) RDW-SD (test code = 50.5 fL 38.5-51.6 47871-0) RDW-CV (test code = 14.3 % 12.1-15.4 788-0) PLT (test code = See_Comment [Automated 777-3) message] The sy stem which generated this result transmitted reference range : 150 - 328 10*3/ ?L. The reference r jose f was not used to interpret this result as normal/abnormal . MPV (test code = 12.2 fL 9.8-13.0 98266-7) NRBC/100 WBC (test See_Comment [Automat ed code = 9167827017) message] The system which generated this result transmitted reference range : 0.0 - 10.0 /100 WBCs. The refer ence range was not u sed to interpret th is result as normal/abnormal . NRBC x10^3 (test code <0.01 See_Comment [Auto mated = 9916126959) message] The s ystem which generated this result transmitted reference range : 10*3/?L. The reference range was not used to interpret this result as normal/abnormal . GRAN MAT (NEUT) % 73.7 % (test code = 770-8) IMM GRAN % (test code 0.40 % = 7679684813) LYMPH % (test code = 16.0 % 736-9) MONO % (test code = 9.8 % 5905-5) EOS % (test code = 0.0 % 713-8) BASO % (test code = 0.1 % 706-2) GRAN MAT x10^3(ANC) 7.85 10*3/uL 1.99-6.95 H (test code = 1879987182) IMM GRAN x10^3 (test 0.04 10*3/uL 0.00-0.06 code = 9031039743) LYMPH x10^3 (test code 1.71 10*3/uL 1.09-3.23 = 731-0) MONO x10^3 (test code 1.05 10*3/uL 0.36-1.02 H = 742-7) EOS x10^3 (test code = <0.03 0.06-0.53 L 711-2) BASO x10^3 (test code <0.03 0.01-0.09 = 704-7) Lab Interpretation Abnormal (test code = 80907-9) [facility] [id number] 14:36:42Surgical Pathology Report Case: [id number] Authorizing Provider: Kiara Sterling MD Collected: 04/23/2022 08:33 AM Ordering Location: [address] Med/Surg Received: 04/25/2022 08:19 AM Pathologist: Eli Maria MD Specimens: A) - Stomach, Antrum, biopsy B) - Stomach, Body, biopsy C) - Distal Esophagus, biopsy This addendum is issued to report the result of immunohistochemical study for Helicobacter pylori on specimen A- NEGATIVE The interpretation of this case included the use of immunohistochemistry or special stains. HELICOBACTER PYLORIImmunohistochemistry technical testing was performed at [facility], Pathology Laboratory where it was developed and its performance characteristics were determined. It has not been cleared or approved by the U.S. Food and Drug Administration. The FDA has determined that such clearance or approval is not necessary. The test is used for clinical purposes. It should not be regarded as investigational or for research. This laboratory is certified under the Clinical Laboratory Improvement Amendments of 1988 (CLIA-88) as qualified to perform high complexity clinical laboratory testing. CPT CODE: 38196 Addendum electronically signed by Eli Maria MD on 04/28/2022 at 2:36 PMA. STOMACH, ANTRUM, ENDOSCOPIC BIOPSY: - MILD CHRONIC GASTRITIS WITH ACTIVITY - NO INTESTINAL METAPLASIA, DYSPLASIA OR MALIGNANCY NOTED - IMMUNO HISTOCHEMICAL STAIN FOR HELICOBACTER IS BEING DONE; RESULT WILL BE ISSUED IN ADDENDUM REPORTB. STOMACH, BODY, ENDOSCOPIC BIOPSY: - OXYNTIC MUCOSA WITH NO PATHOLOGIC ALTERATION - NO INTESTINAL METAPLASIA, DYSPLASIA OR MALIGNANCY NOTED C. DISTAL ESOPHAGUS, ENDOSCOPIC BIOPSY - NECRO-INFLAMMATORY DEBRIS WITH BACTERIAL COLONIES, CONSISTENT WITH ULCERATION - SQUAMOUS MUCOSA WITH REACTIVE CHANGES - VERY SMALL FRAGMENT OF SUPERFICIAL COLUMNAR MUCOSA SEEN - GMS STAIN IS NEGATIVE FOR FUNGAL ELEMENTS - NEGATIVE FOR DYSPLASIA OR MALIGNANCY Signing Pathologist Direct Phone Line: [phone] signed by Eli Maria MD on 04/28/2022 at 10:25 [id number] X 3; [id number] A. Stomach, Antrum.Received in formalin labeled with the patient's information and labeled "stomach, antrum" are two prescott-white pieces of tissue measuring 0.2 and 0.4 cm in maximum dimension, submitted entirely in cassette labeled A. B. Stomach, Body.Received in formalin labeled with the patient's information and labeled "stomach, body" are two prescott-white pieces of tissue each measuring 0.2 cm in maximum dimension, submitted entirely in cassette B. C. Distal Esophagus.Received in formalin labeled with the patient's information and labeled "distal esophagus" are multiple prescott-white fragments of tissue each measuring 0.1 cm, submitted entirely in cassette C1. BH/plPERFORMEDThe interpretation of this case included the use of immunohistochemistry or special stains.GMSControl Slides Examined: In-house known positive controls were evaluated along with the test tissue. These control slides run alongside of the patients sample show appropriate staining. Internal positive and negative controls when available are evaluated Immunohistochemistry technical testing was performed at [facility], Pathology Laboratory where it was developed and its performance characteristics were determined. It has not been cleared or approved by the U.S. Food and Drug Administration. The FDA has determined that such clearance or approval is not necessary. The test is used for clinical purposes. It should not be regarded as investigational or for research. This laboratory is certified under the Clinical Laboratory Improvement Amendments of 1988 (CLIA-88) as qualified to perform high complexity clinical laboratory testing.VITAMIN D, [id number] 14:26:40 Test Item Value Reference Range Interpretation Comments VITAMIN D 25-OH (BEAKER) (test 14.1 ng/mL 6.6-49.9 code = 2764) Effective 09/05/2017: Reference Range ChangeNew: 6.6-49.9 ng/mL Previous: 13.0- 47.8 ng/mLRecommendedVitamin D Target Range: 30.0-40.0 ng/mLOperator ID - RM [id number] 07:17:45 Test Item Value Reference Range Interpretation Comments FERRITIN (BEAKER) (test code = 54.20 ng/mL 22.00-322.00 361) Navigation Officer ID - LITOPTH, [id number] 07:02:32 Test Item Value Reference Range Interpretation Comments PARATHYROID HORMONE INTACT 298.3 pg/mL 15.0-90.0 H (BEAKER) (test code = 577) Navigation Officer ID - LITOHEPATIC FUNCTION [id number] 07:00:33 Test Item Value Reference Range Interpretation Comments TOTAL PROTEIN (BEAKER) (test code = 6.8 gm/dL 6.0-8.5 770) ALBUMIN (BEAKER) (test code = 1145) 2.6 g/dL 3.5-5.0 L BILIRUBIN TOTAL (BEAKER) (test code 0.4 mg/dL 0.1-1.2 = 377) BILIRUBIN DIRECT (BEAKER) (test 0.2 mg/dL 0.0-0.4 code = 706) ALKALINE PHOSPHATASE (BEAKER) (test 52 U/L 30-115 code = 346) AST (SGOT) (BEAKER) (test code = 11 U/L 5-40 353) ALT (SGPT) (BEAKER) (test code = 12 U/L 5-50 347) Navigation Officer ID - LITOOperator ID - LITOOperator ID - LITOOperator ID - LITOOperator ID - LITOOperator ID - LITOOperator ID - LITOBASIC METABOLIC [id number] 06:59:39 Test Item Value Reference Range Interpretation Comments SODIUM (BEAKER) 138 meq/L 135-148 (test code = 381) POTASSIUM (BEAKER) 4.0 meq/L 3.6-5.5 (test code = 379) CHLORIDE (BEAKER) 106 meq/L 98-106 (test code = 382) CO2 (BEAKER) (test 24 meq/L 20-29 code = 355) BLOOD UREA NITROGEN 36 mg/dL 10-26 H (BEAKER) (test code = 354) CREATININE (BEAKER) 4.93 mg/dL 0.50-1.20 H (test code = 358) GLUCOSE RANDOM 91 mg/dL 70-110 (BEAKER) (test code = 652) CALCIUM (BEAKER) 8.2 mg/dL 8.5-10.5 L (test code = 697) EGFR (BEAKER) (test 14 mL/min/1.73 ESTIMA NAKUL GFR IS code = 1092) sq m NOT ACCURATE CREATININE CLEARANCE IN PREDICTING GLOMERULAR FILTRATION RATE . ESTIMATED GFR I S NOT APPLICABLE FOR DIALYSIS PATIEN TS. Navigation Officer ID - LITOOperator ID - LITOOperator ID - LITOOperator ID - LITOOperator ID - LITOOperator ID - LITOOperator ID - LITOOperator ID - LITOOperator ID - LITOOperator ID - LITOIRON, TIBC, % SAT. (WITHOUT FERRITIN)2022-04-24 06:59:22 Test Item Value Reference Range Interpretation Comments IRON (BEAKER) (test code = 547) 58.0 ug/dL 45.0-170.0 TOTAL IRON BINDING CAPACITY 160 ug/dL 250-550 L (BEAKER) (test code = 769) IRON % SATURATION (2) (BEAKER) 36 % 20-55 (test code = 2590) Navigation Officer ID - LITOOperator ID - [id number] 06:56:14 Test Item Value Reference Range Interpretation Comments PHOSPHORUS (BEAKER) (test code = 3.3 mg/dL 2.5-4.5 604) Navigation Officer ID - LITOOperator ID - LITOOperator ID - LITOOperator ID - LITOCBC W/PLT COUNT & AUTO [id number] 06:46:06 Test Item Value Reference Range Interpretation Comments WHITE BLOOD CELL COUNT (BEAKER) 6.9 K/ L 4.0-10.0 (test code = 775) RED BLOOD CELL COUNT (BEAKER) 2.72 M/ L 4.20-5.80 L (test code = 761) HEMOGLOBIN (BEAKER) (test code = 9.0 GM/DL 13.0-16.8 L 410) HEMATOCRIT (BEAKER) (test code = 27.3 % 36.0-50.0 L 411) MEAN CORPUSCULAR VOLUME (BEAKER) 100.4 fL 82.0-99.0 H (test code = 753) MEAN CORPUSCULAR HEMOGLOBIN 33.1 pg 27.0-33.0 H (BEAKER) (test code = 751) MEAN CORPUSCULAR HEMOGLOBIN CONC 33.0 GM/DL 32.0-36.0 (BEAKER) (test code = 752) RED CELL DISTRIBUTION WIDTH 14.5 % 12.0-15.0 (BEAKER) (test code = 412) PLATELET COUNT (BEAKER) (test 160 K/CU MM 150-430 code = 756) MEAN PLATELET VOLUME (BEAKER) 12.5 fL 6.0-11.5 H (test code = 754) NUCLEATED RED BLOOD CELLS 0 /100 WBC 0-0 (BEAKER) (test code = 413) NEUTROPHILS RELATIVE PERCENT 67 % (BEAKER) (test code = 429) LYMPHOCYTES RELATIVE PERCENT 23 % (BEAKER) (test code = 430) MONOCYTES RELATIVE PERCENT 8 % (BEAKER) (test code = 431) EOSINOPHILS RELATIVE PERCENT 1 % (BEAKER) (test code = 432) BASOPHILS RELATIVE PERCENT 0 % (BEAKER) (test code = 437) NEUTROPHILS ABSOLUTE COUNT 4.57 K/ L 1.80-8.00 (BEAKER) (test code = 670) LYMPHOCYTES ABSOLUTE COUNT 1.60 K/ L 1.48-4.50 (BEAKER) (test code = 414) MONOCYTES ABSOLUTE COUNT (BEAKER) 0.57 K/ L 0.00-1.30 (test code = 415) EOSINOPHILS ABSOLUTE COUNT 0.07 K/ L 0.00-0.50 (BEAKER) (test code = 416) BASOPHILS ABSOLUTE COUNT (BEAKER) 0.03 K/ L 0.00-0.20 (test code = 417) IMMATURE GRANULOCYTES-RELATIVE 0 % 0-0 PERCENT (BEAKER) (test code = 2801) URINALYSIS [id number] 13:47:25 Test Item Value Reference Range Interpretation Comments RBC UA-MANUAL (BEAKER) (test <5 /HPF code = 1659) WBC UA-MANUAL (BEAKER) (test None Seen /HPF code = 1661) BACTERIA (BEAKER) (test code = None Seen 517) SQUAMOUS EPITHELIAL MANUAL <5 /HPF (BEAKER) (test code = 1663) URINALYSIS WITH MICROSCOPIC IF [id number] 13:43:44 Test Item Value Reference Range Interpretation Comments COLOR (BEAKER) (test code = 470) Yellow CLARITY (BEAKER) (test code = Clear 469) SPECIFIC GRAVITY UA (BEAKER) 1.020 1.001-1.035 (test code = 468) PH UA (BEAKER) (test code = 467) 7.5 5.0-8.0 PROTEIN UA (BEAKER) (test code = >=300 mg/dL Negative A 464) GLUCOSE UA (BEAKER) (test code = Negative Negative 365) KETONES UA (BEAKER) (test code = Negative Negative 371) BILIRUBIN UA (BEAKER) (test code Negative Negative = 462) BLOOD UA (BEAKER) (test code = Trace Negative A 461) NITRITE UA (BEAKER) (test code = Negative Negative 465) LEUKOCYTE ESTERASE UA (BEAKER) Negative Negative (test code = 466) UROBILINOGEN UA (BEAKER) (test 0.2 mg/dL 0.2-1.0 code = 463) SOURCE(BEAKER) (test code = 2795) CBC W/PLT COUNT & AUTO [id number] 02:41:13 Test Item Value Reference Range Interpretation Comments WHITE BLOOD CELL COUNT (BEAKER) 7.7 K/ L 4.0-10.0 (test code = 775) RED BLOOD CELL COUNT (BEAKER) 2.78 M/ L 4.20-5.80 L (test code = 761) HEMOGLOBIN (BEAKER) (test code = 9.3 GM/DL 13.0-16.8 L 410) HEMATOCRIT (BEAKER) (test code = 27.8 % 36.0-50.0 L 411) MEAN CORPUSCULAR VOLUME (BEAKER) 100.0 fL 82.0-99.0 H (test code = 753) MEAN CORPUSCULAR HEMOGLOBIN 33.5 pg 27.0-33.0 H (BEAKER) (test code = 751) MEAN CORPUSCULAR HEMOGLOBIN CONC 33.5 GM/DL 32.0-36.0 (BEAKER) (test code = 752) RED CELL DISTRIBUTION WIDTH 14.3 % 12.0-15.0 (BEAKER) (test code = 412) PLATELET COUNT (BEAKER) (test 163 K/CU MM 150-430 code = 756) MEAN PLATELET VOLUME (BEAKER) 13.0 fL 6.0-11.5 H (test code = 754) NUCLEATED RED BLOOD CELLS 0 /100 WBC 0-0 (BEAKER) (test code = 413) NEUTROPHILS RELATIVE PERCENT 66 % (BEAKER) (test code = 429) LYMPHOCYTES RELATIVE PERCENT 25 % (BEAKER) (test code = 430) MONOCYTES RELATIVE PERCENT 8 % (BEAKER) (test code = 431) EOSINOPHILS RELATIVE PERCENT 1 % (BEAKER) (test code = 432) BASOPHILS RELATIVE PERCENT 0 % (BEAKER) (test code = 437) NEUTROPHILS ABSOLUTE COUNT 5.06 K/ L 1.80-8.00 (BEAKER) (test code = 670) LYMPHOCYTES ABSOLUTE COUNT 1.92 K/ L 1.48-4.50 (BEAKER) (test code = 414) MONOCYTES ABSOLUTE COUNT (BEAKER) 0.60 K/ L 0.00-1.30 (test code = 415) EOSINOPHILS ABSOLUTE COUNT 0.08 K/ L 0.00-0.50 (BEAKER) (test code = 416) BASOPHILS ABSOLUTE COUNT (BEAKER) 0.03 K/ L 0.00-0.20 (test code = 417) IMMATURE GRANULOCYTES-RELATIVE 0 % 0-0 PERCENT (BEAKER) (test code = 2801) PROTHROMBIN TIME/[id number] 02:29:02 Test Item Value Reference Range Interpretation Comments PROTIME (BEAKER) 11.4 seconds 9.3-12.0 Final Infor mation (test code = 759) (Auto Outp ut) INR (BEAKER) (test 1.04 See_Comment Final Inf ormation code = 370) (Auto Output) [Automated mess age] The system ISpeak generated this result transmitted ref erence range: <=5.90. The reference range was not used to int erpret this result as normal/abnormal . RECOMMENDED COUMADIN/WARFARIN INR THERAPY RANGESSTANDARD DOSE: 2.0 - 3.0 Includes: PROPHYLAXIS for venous thrombosis, systemic embolization; TREATMENT for venous thrombosis and/or pulmonary embolus.HIGH RISK: Target INR is 2.5-3.5 for patients with mechanical heart valves.[id number] 02:05:45 Test Item Value Reference Range Interpretation Comments MAGNESIUM (BEAKER) (test code = 1.7 mg/dL 1.5-3.0 627) Navigation Officer ID - [id number] ID - [id number] ID - [id number] ID - [id number] FUNCTION [id number] 02:05:39 Test Item Value Reference Range Interpretation Comments TOTAL PROTEIN (BEAKER) (test code = 7.5 gm/dL 6.0-8.5 770) ALBUMIN (BEAKER) (test code = 1145) 2.9 g/dL 3.5-5.0 L BILIRUBIN TOTAL (BEAKER) (test code 0.4 mg/dL 0.1-1.2 = 377) BILIRUBIN DIRECT (BEAKER) (test 0.2 mg/dL 0.0-0.4 code = 706) ALKALINE PHOSPHATASE (BEAKER) (test 57 U/L 30-115 code = 346) AST (SGOT) (BEAKER) (test code = 16 U/L 5-40 353) ALT (SGPT) (BEAKER) (test code = 14 U/L 5-50 347) Navigation Officer ID - [id number] ID - [id number] ID - [id number] ID - [id number] ID - [id number] ID - [id number] ID - [id number] METABOLIC [id number] 02:05:19 Test Item Value Reference Range Interpretation Comments SODIUM (BEAKER) 139 meq/L 135-148 (test code = 381) POTASSIUM (BEAKER) 4.0 meq/L 3.6-5.5 (test code = 379) CHLORIDE (BEAKER) 105 meq/L 98-106 (test code = 382) CO2 (BEAKER) (test 23 meq/L - code = 355) BLOOD UREA NITROGEN 41 mg/dL 10-26 H (BEAKER) (test code = 354) CREATININE (BEAKER) 5.10 mg/dL 0.50-1.20 H (test code = 358) GLUCOSE RANDOM 106 mg/dL 70-110 (BEAKER) (test code = 652) CALCIUM (BEAKER) 8.3 mg/dL 8.5-10.5 L (test code = 697) EGFR (BEAKER) (test 14 mL/min/1.73 ESTIMA NAKUL GFR IS code = 1092) sq m NOT ACCURATE CREATININE CLEARANCE IN PREDICTING GLOMERULAR FILTRATION RATE . ESTIMATED GFR I S NOT APPLICABLE FOR DIALYSIS PATIEN TS. Navigation Officer ID - [id number] ID - [id number] ID - [id number] ID - [id number] ID - [id number] ID - [id number] ID - [id number] ID - [id number] ID - [id number] ID - [id number] 02:01:59 Test Item Value Reference Range Interpretation Comments PHOSPHORUS (BEAKER) (test code = 3.0 mg/dL 2.5-4.5 604) Navigation Officer ID - [id number] (ID NOW RAPID TESTING)2021-08-05 20:02:26 Test Item Value Reference Range Interpretation Comments SARS-CoV-2 Rapid ID NOW Not Detected Not Detected (test code = 45277-6) LULÚ (test code = LULÚ) ID NOW COVID-19 Assay is an isothermal nucleic acid amplification test intended for the qualitative detection of nucleic acid from SARS-CoV-2 viral RNA in nasopharyngeal (SUPERVISORY HISTORIAN) specimens. It is used under Emergency Use [...] patient testing if clinically indicated. Lab Interpretation Normal (test code = 59296-0) [facility]
[2022-06-30] MEDS ORDERED: ONDANSETRON 4 MG/2 ML VIAL ONE ×2 (18:32→22:25)
[2022-06-30] MEDS ORDERED: NA CHLORIDE 0.9% 1,000 ML ONE (18:32)
[2022-06-30] MEDS ORDERED: MORPHINE 4 MG/ML SYR ONE ×2 (18:32→22:25)
[2022-06-30 18:51] LABS: Lymphocytes % 10.1 % (15.3-44.8); MCV 91.4 fL (80-100); MPV 7.4 fL (7.6-11.3); RBC Red Blood Cell Count 3.06 M/uL (4.33-5.43)
[2022-06-30 19:40] LABS: Albumin 2.2 g/dL (3.4-5.0); Bilirubin Total 0.5 mg/dL (0.2-1.0); Potassium 3.9 mmol/L (3.5-5.1); Protein, Total 8.5 g/dL (6.4-8.2)
--- NOTE | 2022-06-30 20:37 | RAD REPORT ---
EXAM DESCRIPTION: CT - Abdomen Pelvis Wo Contrast - 06/30/2022 8:12 pm CLINICAL HISTORY: Abdominal pain COMPARISON: 2012 TECHNIQUE: Computed axial tomography of the abdomen and pelvis was obtained. IV and oral contrast we re not requested. All CT scans are performed using dose optimization technique as appropriate and may include automated exposure control or mA/KV adjustment according to patient size. FINDINGS: The evaluation of solid organs, vessels and bowel is limited secondary to the lack of con trast administration. The liver, spleen, pancreas, adrenals and right kidney appear grossly normal. Small left renal cyst i s suspected There is no evidence of diverticulitis. Small amount of ascites within the abdomen. Atherosclerotic disease. Small to moderate bilateral inguinal hernias contain fat IMPRESSION: Small amount of ascites Small to moderate bilateral inguinal hernias.
[2022-06-30] MEDS ORDERED: DICYCLOMINE HCL 20 MG/2 ML AMP IM ONE (21:38)
[2022-06-30 22:22] LABS: Urine Blood 2+ (Negative); Urine Glucose Trace (Negative); Urine Protein 3+ (Negative)
--- NOTE | 2022-06-30 23:08 | ER ---
Nurse's Notes [facility] Name: Brendan Steinberg Age: 71 yrs Sex: Male : 1950 Arrival Date: 06/30/2022 Time: 16:40 Bed 4 Private MD: Hilda Tam H Diagnosis: Abdominal pain, unspecified;Nausea with vomiting, unspecified Presentation: 06/30 16:57 Chief complaint: Patient states: he has been having abdominal pain and loss of appetite ap3 with nausea for approx 3 days now. patient states his blood pressure has also been high while he has been experiencing these symptoms. Coronavirus screen: At this time, the client does not indicate any symptoms associated with coronavirus-19. Ebola Screen: No symptoms or risks identified at this time. Initial Sepsis Screen: Does the patient meet any 2 criteria? No. Patient's initial sepsis screen is negative. Does the patient have a suspected source of infection? No. Patient's initial sepsis screen is negative. Risk Assessment: Do you want to hurt yourself or someone else? Patient reports no desire to harm self or others. Onset of symptoms was June 27, 2022. 16:57 Method Of Arrival: EMS: [facility] ap3 16:57 Acuity: ROSALIE 3 ap3 Triage Assessment: 17:02 General: Appears in no apparent distress. Behavior is calm, cooperative. Pain: ap3 Complains of pain in abdomen Pain began gradually, 2-3 days ago. Also complains of decreased appetite, nausea. Neuro: Level of Consciousness is awake, alert, obeys commands, Oriented to person, place, time, situation, Gait is steady, Speech is normal. Cardiovascular: Patient's skin is warm and dry. Respiratory: Airway is patent Respiratory effort is even, unlabored, Respiratory pattern is regular, symmetrical. GI: Reports lower abdominal pain, upper abdominal pain, anorexia, intolerance of fluids, intolerance of food, nausea, vomiting. Historical: - Allergies: 16:59 Codeine; ap3 - Home Meds: 16:59 Metoprolol Tartrate Oral [Active]; Zolpidem Tartrate Oral [Active]; amlodipine oral ap3 [Active]; calcitriol oral [Active]; Furosemide Oral [Active]; gabapentin oral [Active]; - PMHx: 16:59 Hypertension; insomnia; ap3 - Immunization history:: Client reports receiving the 2nd dose of the Covid vaccine. - Social history:: Smoking status: Patient reports the use of cigarette tobacco products, denies chronic smoking, but will smoke occasionally. Screenin:02 Abuse screen: Denies threats or abuse. Nutritional screening: Has had N/V for 3 or more ap3 days. 17:03 Tuberculosis screening: No symptoms or risk factors identified. ap3 18:17 Fall Risk No fall in past 12 months (0 pts). No secondary diagnosis (0 pts). IV access vg1 (20 points). Ambulatory Aid- None/Bed Rest/Nurse Assist (0 pts). Gait- Normal/Bed Rest/Wheelchair (0 pts) Mental Status- Oriented to own ability (0 pts). Total Mcnamara Fall Scale indicates No Risk (0-24 pts). Assessment: 18:17 General: Appears in no apparent distress. uncomfortable, Behavior is calm, cooperative. vg1 Pain: Complains of pain in right upper quadrant, left upper quadrant, right lower quadrant and left lower quadrant Pain currently is 10 out of 10 on a pain scale. Pain began 2-3 days ago. Neuro: Level of Consciousness is awake, alert, obeys commands, Oriented to person, place, time, situation. Cardiovascular: Patient's skin is warm and dry. Respiratory: Airway is patent Respiratory effort is even, unlabored. GI: Abdomen is round non-distended, Bowel sounds hypoactive in left upper quadrant and left lower quadrant Abdomen is tender to palpation X 4 quads. Reports intolerance of fluids, intolerance of food, nausea, vomiting. : No signs and/or symptoms were reported regarding the genitourinary system. EENT: No signs and/or symptoms were reported regarding the EENT system. Derm: Skin is pink, warm \\T\\ dry. Musculoskeletal: Circulation, motion, and sensation intact. 19:41 Reassessment: Patient appears in no apparent distress at this time. Pt states " The jb4 pain is still there but is not as bad. It is tolerable." Pt was resting in bed with eyes closed. Pt noted to desat to 86% on RA while laying flat. Pt sat up in bed and repositioned and O2 returned to 97% on RA. Provider notified. 19:49 Reassessment: Patient and/or family updated on plan of care and expected duration. Pain vc1 level reassessed. Patient is alert, oriented x 3, equal unlabored respirations, skin warm/dry/pink. 20:27 Reassessment: Patient and/or family updated on plan of care and expected duration. Pain vc1 level reassessed. Patient is alert, oriented x 3, equal unlabored respirations, skin warm/dry/pink. Pt asked for ice chips, instructed him the provider wants him to wait until after CT results to eat anything. Gave patient Lemon Swabsticks to wet his mouth. 21:15 Reassessment: Patient appears in no apparent distress at this time. Patient and/or jb4 family updated on plan of care and expected duration. Pain level reassessed. Patient is alert, oriented x 3, equal unlabored respirations, skin warm/dry/pink. Pt given ice water for po challenge. Pt reports pain has returned. Does not want to eat. Pt continues to desat when sleeping. Provider notified. 22:34 Reassessment: Patient appears in no apparent distress at this time. Patient and/or jb4 family updated on plan of care and expected duration. Pain level reassessed. Patient is alert, oriented x 3, equal unlabored respirations, skin warm/dry/pink. Pt heart rate back to Sinus rhythm per bedside monitor. ED provider notified. 23:34 Reassessment: Patient appears in no apparent distress at this time. Patient and/or jb4 family updated on plan of care and expected duration. Pain level reassessed. Patient is alert, oriented x 3, equal unlabored respirations, skin warm/dry/pink. Provider spoke with patient about results and disposition. Okayed pt to be discharged home. Vital Signs: 16:57 BP 159 / 87; Pulse 74; Resp 18; Temp 98.6; Pulse Ox 99% ; Weight 86.18 kg; Height 5 ft. ap3 7 in. (170.18 cm); 18:17 BP 192 / 95; Pulse 73; Resp 15; Pulse Ox 97% on R/A; vg1 19:50 BP 176 / 96; Pulse 78; Resp 12; Pulse Ox 96% on R/A; vc1 21:23 BP 189 / 87; Pulse 80; Resp 15; Pulse Ox 96% on R/A; jb4 22:14 BP 196 / 97; Pulse 130; Resp 18; Pulse Ox 96% on R/A; jb4 22:34 BP 190 / 92; Pulse 75; Resp 13 S; Pulse Ox 93% on R/A; jb4 23:34 BP 181 / 91; Pulse 74; Resp 14; Pulse Ox 96% on R/A; jb4 16:57 Body Mass Index 29.76 (86.18 kg, 170.18 cm) ap3 23:34 Provider aware of vitals jb4 ED Course: 16:40 Patient arrived in ED. am2 16:40 Hilda Tam DO is Private Physician. am2 16:59 Triage completed. ap3 17:02 Arm band placed on right wrist. ap3 17:07 Woody Green, CHASE is PHCP. pm1 17:07 Shahab Ortega MD is Attending Physician. pm1 18:17 Cielo Connell, JUANY is Primary Nurse. vg1 18:17 Patient has correct armband on for positive identification. Bed in low position. Call vg1 light in reach. Side rails up X2. Client placed on continuous cardiac and pulse oximetry monitoring. NIBP monitoring applied. 18:23 Inserted saline lock: 22 gauge in right antecubital area, using aseptic technique. tp1 Blood collected. 20:14 Abdomen In Process Unspecified. EDMS 20:31 No provider procedures requiring assistance completed. vc1 22:14 Notified Nurse Practitioner and/or Physician M1A1 Tank Crewman of vital signs. jb4 Administered Medications: 18:25 Drug: NS 0.9% 1000 ml Route: IV; Rate: 1 bolus; Site: right antecubital; vg1 18:26 Drug: Zofran (Ondansetron) 4 mg Route: IVP; Site: right antecubital; vg1 19:00 Follow up: Response: No adverse reaction; Marked relief of symptoms jb4 18:28 Drug: morphine 4 mg Route: IVP; Infused Over: 4 mins; Site: right antecubital; vg1 19:30 Follow up: Response: No adverse reaction; Marked relief of symptoms jb4 21:39 Drug: Bentyl (dicyclomine) 20 mg Route: IM; Site: left deltoid; jb4 22:15 Follow up: Response: No adverse reaction jb4 22:18 Drug: Zofran (Ondansetron) 4 mg Route: IVP; Site: right antecubital; jb4 23:36 Follow up: Response: No adverse reaction; No change in condition jb4 22:20 Drug: morphine 4 mg Route: IVP; Infused Over: 4 mins; Site: right antecubital; jb4 23:36 Follow up: Response: No adverse reaction; Marked relief of symptoms jb4 23:24 Drug: Pepcid (famotidine) 20 mg Route: IVP; Site: right antecubital; vc1 23:37 Follow up: Response: No adverse reaction jb4 Outcome: 23:08 Discharge ordered by MD. pm1 23:37 Patient left the ED. jb4 Signatures: Dispatcher [employer] EDMS Woody Green, WEIGHT CONTROL ENGINEER WEIGHT CONTROL ENGINEER pm1 Robert Mcdonald, RN RN jb4 Martina Donovan amMartina Munoz RN RN ap3 Cielo Connell RN RN vg1 Antonieta Farfan RN RN tp1 Kristen Butler RN RN vc1 Corrections: (The following items were deleted from the chart) 21:23 19:41 Reassessment: Patient appears in no apparent distress at this time. Pt states " jb4 The pain is still there but is not as bad. It is tolerable." Pt was resting in bed with eyes closed. Pt noted to desat to 86% on RA while laying flat. Pt sat up in bed and repositioned and O2 returned to 97% on RA jb4 23:36 23:34 BP 180 / 191; Pulse 74bpm; Resp 14bpm; Pulse Ox 96% RA; Provider aware of vitals; jb4 jb4
--- NOTE | 2022-06-30 23:08 | EDPHYS ---
Physician Documentation [facility] Name: Brendan Steinberg Age: 71 yrs Sex: Male : 1950 Arrival Date: 06/30/2022 Time: 16:40 Bed 4 Private MD: Hilda Tam H ED Physician Shahab Ortega HPI: 06/30 18:18 This 71 yrs old Black Male presents to ER via EMS with complaints of Abdominal Pain. pm1 18:18 The patient presents with abdominal pain that is diffuse. Onset: The symptoms/episode pm1 began/occurred 3 day(s) ago. The symptoms do not radiate. Associated signs and symptoms: Pertinent positives: nausea and vomiting, Pertinent negatives: chest pain, constipation, diarrhea, shortness of breath. The symptoms are described as crampy. Modifying factors: The symptoms are alleviated by nothing, the symptoms are aggravated by nothing. Severity of pain: in the emergency department the pain is actually worse. The patient has not experienced similar symptoms in the past. The patient has not recently seen a physician. Historical: - Allergies: 16:59 Codeine; ap3 - Home Meds: 16:59 Metoprolol Tartrate Oral [Active]; Zolpidem Tartrate Oral [Active]; amlodipine oral ap3 [Active]; calcitriol oral [Active]; Furosemide Oral [Active]; gabapentin oral [Active]; - PMHx: 16:59 Hypertension; insomnia; ap3 - Immunization history:: Client reports receiving the 2nd dose of the Covid vaccine. - Social history:: Smoking status: Patient reports the use of cigarette tobacco products, denies chronic smoking, but will smoke occasionally. ROS: 18:18 Constitutional: Negative for fever, chills, and weight loss, Cardiovascular: Negative pm1 for chest pain, palpitations, and edema, Respiratory: Negative for shortness of breath, cough, wheezing, and pleuritic chest pain. 18:18 Back: Negative for injury and pain, MS/Extremity: Negative for injury and deformity, Skin: Negative for injury, rash, and discoloration, Neuro: Negative for headache, weakness, numbness, tingling, and seizure. 18:18 Abdomen/GI: Positive for abdominal pain, nausea and vomiting, of the abdomen diffusely, Negative for diarrhea, constipation. 18:18 All other systems are negative. Exam: 18:18 Constitutional: This is a well developed, well nourished patient who is awake, alert, pm1 and in no acute distress. Head/Face: Normocephalic, atraumatic. 18:18 Back: No spinal tenderness. No costovertebral tenderness. Full range of motion. Skin: Warm, dry with normal turgor. Normal color with no rashes, no lesions, and no evidence of cellulitis. MS/ Extremity: Pulses equal, no cyanosis. Neurovascular intact. Full, normal range of motion. 18:18 Cardiovascular: Exam negative for acute changes, Rate: normal, Rhythm: regular, Pulses: no pulse deficits are appreciated. 18:18 Respiratory: Exam negative for acute changes, respiratory distress, shortness of breath. 18:18 Abdomen/GI: Inspection: obese Palpation: abdomen is soft and non-tender, in all quadrants. 18:18 Neuro: Exam negative for acute changes, Orientation: is normal, Motor: moves all fours. Vital Signs: 16:57 BP 159 / 87; Pulse 74; Resp 18; Temp 98.6; Pulse Ox 99% ; Weight 86.18 kg; Height 5 ft. ap3 7 in. (170.18 cm); 18:17 BP 192 / 95; Pulse 73; Resp 15; Pulse Ox 97% on R/A; vg1 19:50 BP 176 / 96; Pulse 78; Resp 12; Pulse Ox 96% on R/A; vc1 21:23 BP 189 / 87; Pulse 80; Resp 15; Pulse Ox 96% on R/A; jb4 22:14 BP 196 / 97; Pulse 130; Resp 18; Pulse Ox 96% on R/A; jb4 22:34 BP 190 / 92; Pulse 75; Resp 13 S; Pulse Ox 93% on R/A; jb4 23:34 BP 181 / 91; Pulse 74; Resp 14; Pulse Ox 96% on R/A; jb4 16:57 Body Mass Index 29.76 (86.18 kg, 170.18 cm) ap3 23:34 Provider aware of vitals jb4 MDM: 18:13 Patient medically screened. pm1 18:18 Data reviewed: vital signs. Data interpreted: Pulse oximetry: on room air is 99 %. pm1 Interpretation: normal. 23:07 Counseling: I had a detailed discussion with the patient and/or guardian regarding: the pm1 historical points, exam findings, and any diagnostic results supporting the discharge/admit diagnosis, lab results, radiology results, the need for outpatient follow up, to return to the emergency department if symptoms worsen or persist or if there are any questions or concerns that arise at home. 06/30 18:18 Order name: CBC with Diff; Complete Time: 19:03 pm1 06/30 18:18 Order name: CMP; Complete Time: 19:55 pm1 06/30 18:18 Order name: Lipase; Complete Time: 19:55 pm1 06/30 18:18 Order name: COVID-19 SARS RT PCR (Document "Date of Onset" if Symptomatic); Complete pm1 Time: 19:55 06/30 18:18 Order name: Flu; Complete Time: 19:55 pm1 06/30 22:23 Order name: Urine Dipstick-Ancillary; Complete Time: 22:31 EDMS 06/30 19:58 Order name: Abdomen ; Complete Time: 20:50 EDMS 06/30 18:18 Order name: IV Saline Lock; Complete Time: 18:42 pm1 06/30 18:18 Order name: Labs collected and sent; Complete Time: 18:42 pm1 06/30 18:18 Order name: Urine Dipstick-Ancillary (obtain specimen); Complete Time: 22:18 pm1 06/30 20:51 Order name: PO challenge; Complete Time: 21:12 pm1 Administered Medications: 18:25 Drug: NS 0.9% 1000 ml Route: IV; Rate: 1 bolus; Site: right antecubital; vg1 18:26 Drug: Zofran (Ondansetron) 4 mg Route: IVP; Site: right antecubital; vg1 19:00 Follow up: Response: No adverse reaction; Marked relief of symptoms jb4 18:28 Drug: morphine 4 mg Route: IVP; Infused Over: 4 mins; Site: right antecubital; vg1 19:30 Follow up: Response: No adverse reaction; Marked relief of symptoms jb4 21:39 Drug: Bentyl (dicyclomine) 20 mg Route: IM; Site: left deltoid; jb4 22:15 Follow up: Response: No adverse reaction jb4 22:18 Drug: Zofran (Ondansetron) 4 mg Route: IVP; Site: right antecubital; jb4 23:36 Follow up: Response: No adverse reaction; No change in condition jb4 22:20 Drug: morphine 4 mg Route: IVP; Infused Over: 4 mins; Site: right antecubital; jb4 23:36 Follow up: Response: No adverse reaction; Marked relief of symptoms jb4 23:24 Drug: Pepcid (famotidine) 20 mg Route: IVP; Site: right antecubital; vc1 23:37 Follow up: Response: No adverse reaction jb4 Disposition Summary: 06/30/22 23:08 Discharge Ordered Location: Home pm1 Problem: new pm1 Symptoms: have improved pm1 Condition: Stable pm1 Diagnosis - Abdominal pain, unspecified pm1 - Nausea with vomiting, unspecified pm1 Followup: pm1 - With: Emergency Department - When: As needed - Reason: Worsening of condition Followup: pm1 - With: Private Physician - When: 2 - 3 days - Reason: Recheck today's complaints, Continuance of care, Re-evaluation by your physician Discharge Instructions: - Discharge Summary Sheet pm1 - Abdominal Pain, Adult pm1 - Nausea and Vomiting, Adult pm1 Forms: - Medication Reconciliation Form pm1 - Thank You Letter pm1 - Antibiotic Education pm1 - Prescription Opioid Use pm1 Prescriptions: - ondansetron 4 mg Oral tablet,disintegrating - place 1 tablet by TRANSLINGUAL route every 8 hours As needed; 12 tablet; pm1 Refills: 0, Product Selection Permitted - dicyclomine 20 mg Oral Tablet - take 1 tablet by ORAL route every 6 hours As needed; 20 tablet; Refills: 0, pm1 Product Selection Permitted Signatures: Dispatcher [employer] EDMS Woody Green, CHASE FACTORY EXPERT pm1 Robert Mcdonald, RN RN jb4 Martina Persaud RN RN bart3 Cielo Connell, RN RN vg1 Kristen Butler RN RN vc1 Corrections: (The following items were deleted from the chart) 19:58 18:19 Abdomen Pelvis W Con+CT.RAD.BRZ ordered. [facility]CO EDMS
[2022-06-30] MEDS ORDERED: FAMOTIDINE 20 MG/2 ML VIAL IV ONE (23:29)
[2022-07-01 02:08] VITALS: TEMP 98.6
[2022-07-01 02:21] VITALS: BP 181/91; O2SAT 96
== END 2022-06-30 23:37 | disposition home or self-care (01) ==
LOC: ER 16:39
DX: R10.9 Unspecified abdominal pain (principal); R11.2 Nausea with vomiting, unspecified; I10 Essential (primary) hypertension; Z20.822 Contact with and (suspected) exposure to COVID-19; Z88.5 Allergy status to narcotic agent
CPT/HCPCS: 85025; 36415; 81003; 83690; 80053; 87804 ×2; 74176; 96375; 96372; 96374; 99284; U0003; J0500; J7030; J2405 ×2

== ENCOUNTER 2022-07-27 15:52 | Inpatient (IN) | payer OTHER ==
--- OUTSIDE RECORDS SUMMARY | 2022-07-27 15:59 | XMS REPORT | Continuity of Care Document ---
:1950 Author Organization [facility] t Address [address] [place] [address] Care Team Providers Name Role Phone ASTER FARMER Primary Care Physician Unavailable SHIREEN CURRY Attending Clinician Unavailable Shireen Curry MD Attending Clinician Zenaida Moreno RN Attending Clinician Unavailable CARLEEN THOMAS Attending Clinician Unavailable Wendy Evans DO Attending Clinician Carleen Thomas MD Attending Clinician VINCENT YOU Attending Clinician Unavailable Vincent You MD Attending Clinician [phone] Jh Garcia MD Attending Clinician Federico Echevarria MD Attending Clinician FEDERICO ECHEVARRIA Attending Clinician Unavailable Eliezer Mortensen MD Attending Clinician Eliezer Cuevas CRNA Attending Clinician [phone] Kiara Sterling MD Attending Clinician JYOTI JACKSON Attending Clinician Unavailable JYOTI JACKSON Attending Clinician Unavailable , [facility] Attending Clinician Unavailable Jyoti Jackson MD Attending Clinician Doctor Unassigned, [place] Attending Clinician Unavailable Only, Adc Test Attending Clinician Unavailable Vincent Arizmendi MD Attending Clinician CARLEEN THOMAS Admitting Clinician Unavailable Carleen Thomas MD Admitting Clinician JH GARCIA Admitting Clinician Unavailable Payers Payer Name Policy Type Policy Number Effective Date Expiration Date S ira BCBS TRADITIONAL [id number] 2017 00:00:00 [facility] [id number] 2014 00:00:00 [facility] [id number] 2022 CARD AND PC3 00:00:00 [facility] [id number] 2017 00:00:00 Problems Condition Condition Condition Status Onset Resolution Last Treating Co mments Source Name Details Category Date Date Treatment Clinician Date Non-intrac Non-intrac Disease Active U nivers table table 05-18 ity of vomiting vomiting 00:00: [place] with with 00 Medical nausea, nausea, Branch unspecifie unspecifie d vomiting d vomiting type type Elevated Elevated Disease Active Unive rs troponin I troponin I - it y of level level 00:00: [place] [facility] Elevated Elevated Disease Active Unive rs brain brain 6- ity of natriureti natriureti [place] c peptide c peptide 00 Medi amber (BNP) (BNP) Branch level level Essential Essential Disease Active Uni vers hypertensi hypertensi -23 it y of on on 00:00: [place] [facility] Branch Acute Acute Disease Active Univers renal renal 6-23 ity of failure failure 00:00: [place] superimpos superimpos 00 Me dical ed on ed on Branch 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 Dyslipidem Dyslipidem Disease Active U nivers ia ia - ity of 00:00: [place] [facility] Esophageal Esophageal Disease Active [facility] dysmotilit dysmotilit 04-22 Nerissa kes y y 00:00: [facility] 00 Center No known No known Disease Unive rs active active ity of problems problems [facility] Allergies, Adverse Reactions, Alerts Allergy Allergy Status Severity Reaction(s) Onset Inactive Treating Comm ents Source Name Type Date Date Clinician CODEINE Allergy Active Low N\\T\\V [facility] Codeine Drug Active Nausea And [facility] NO KNOWN Allergy Active [facility] ALLERGIE S NO KNOWN Drug Active Univers ALLERGIE Class ity of S [facility] Family History Family Member Diagnosis Comments Start Date Stop Date Source Natural brother Diabetes [facility] Nerissa kes [facility] Natural father Parkinsonism [facility] Natural mother [facility] Natural sister Diabetes [facility] Social History Social Habit Start Date Stop Date Quantity Comments Source History SDOH [facility] Alcohol Std Drinks Medica l Center History SDOH [facility] Alcohol Binge Medical Jorge ter History SDOH [facility] Alcohol Comment Medical C enter History of tobacco Smokes tobacco Un iversity of use daily [facility] Exposure to 2022-05-16 2022-05-26 Not sure University of SARS-CoV-2 (event) 00:00:00 15:59:00 [facility] Education 2022-05-18 2022-05-18 21 University of 00:00:00 00:00:00 [facility] Alcohol intake 2022-04-25 2022-04-[address] [facility] 00:00:00 00:00:00 non-drinker Medical Cente r (finding) History SDOH 2022-04-22 2022-04-[address] [facility] Alcohol Frequency 00:00:00 00:00:00 [facility] Tobacco Comment 2022-04-22 2022-04-[address] [facility] 00:00:00 00:00:00 patch on [facility] Cigarettes smoked 2022-04-22 2022-04-[address] [facility] current (pack per 00:00:00 00:00:00 Medical Center day) - Reported Cigarette 2022-04-22 2022-04-[address] [facility] pack-years 00:00:00 00:00:00 [facility] Tobacco use and 2022-04-22 2022-04-[address] [facility] exposure 00:00:00 00:00:00 [facility] Center Sex Ass[birth year] At [birth year] BRENT Freeman 00:00:00 00:00:00 Medical Center Smoking Status Start Date Stop Date Source Unknown if ever smoked Universit y [facility] [place] Smokes tobacco daily 2022-05-18 00:00:00 Univers ity [facility] Branch Medications Ordered Filled Start Stop Current Ordering Indication Dosage Frequency Signature Comments Components Source Medication Medication Date Date Medication? Clinician (SIG) Name Name calcitrioL Yes .25ug Take 0.25 U nivers 0.25 mcg 6-25 mcg by ity of capsule 14:45: mouth [place] 18 daily. Medical Branch aspirin 81 Yes Take by Univ ers mg Cap 6-25 mouth. ity of 14:45: [place] [address] Medical Branch atorvastati Yes 40mg Take 40 mg Univers n 40 mg 6-25 by mouth ity of tablet 14:45: at [place] 18 bedtime. Medical Branch HYDROcodone Yes 1{tbl} Take 1 Un ladarius -acetaminop 6-25 tablet by ity of hen 5-325 14:45: mouth [place] mg tablet 18 every 6 Medical (six) Branch hours as needed. Pantoprazol Yes 40mg Take 40 mg Univers e 40 mg 6-25 by mouth ity of delayed-rel 14:45: daily. [place] ease Medical suspension Branch calcitrioL Yes .25ug Take 0.25 U nivers 0.25 mcg 6-25 mcg by ity of capsule 14:45: mouth [place] 18 daily. Medical Branch aspirin 81 Yes Take by Univ ers mg Cap 6-25 mouth. ity of 14:45: [place] [address] Medical Branch atorvastati Yes 40mg Take 40 mg Univers n 40 mg 6-25 by mouth ity of tablet 14:45: at [place] 18 bedtime. Medical Branch HYDROcodone Yes 1{tbl} Take 1 Un ladarius -acetaminop 6-25 tablet by ity of hen 5-325 14:45: mouth [place] mg tablet 18 every 6 Medical (six) Branch hours as needed. Pantoprazol Yes 40mg Take 40 mg Univers e 40 mg 6-25 by mouth ity of delayed-rel 14:45: daily. [place] ease Medical suspension Branch calcitrioL Yes .25ug Take 0.25 U nivers 0.25 mcg 6-25 mcg by ity of capsule 14:45: mouth [place] 18 daily. Medical Branch aspirin 81 Yes Take by Univ ers mg Cap 6-25 mouth. ity of 14:45: [place] 18 Medical Branch atorvastati Yes 40mg Take 40 mg Univers n 40 mg 6-25 by mouth ity of tablet 14:45: at [place] 18 bedtime. Medical Branch HYDROcodone Yes 1{tbl} Take 1 Un ladarius -acetaminop 6-25 tablet by ity of hen 5-325 14:45: mouth [place] mg tablet 18 every 6 Medical (six) Branch hours as needed. Pantoprazol Yes 40mg Take 40 mg Univers e 40 mg 6-25 by mouth ity of delayed-rel 14:45: daily. [place] ease 18 Medical suspension Branch amLODIPine 2021- No 10mg Take 10 mg Univers 10 mg 6-25 06-25 by mouth ity of tablet 09:08: 00:00 daily. [place] 01 :00 Medical Branch gabapentin 2021- Yes [id number] 100mg Take 1 Univers 100 mg -19 06- capsule by ity of capsule 00:00: 04:59 mouth 3 [place] 00 :00 (three) Medical times Branch daily for 30 days. metoprolol 2021- Yes [id number] 50mg Take 1 Univers tartrate 50 6-19 06-26 tablet by it y of mg tablet 00:00: 04:59 [place] 00 :[place] (two) Medical times Branch daily for 30 days. doxazosin 2 2021- Yes [id number] 2mg Take 1 Univers mg tablet 6-19 06-26 tablet by ity of 00:00: 04:59 mouth 2 [place] 00 :00 (two) Medical times Branch daily for 30 days. sucralfate 2021- Yes [id number] 1000mg Take 10 mL Univers 100 mg/mL -19 06-26 by mouth ity o f suspension 00:00: 04:59 [place] 00 :00 meals and Medical at bedtime Branch for 30 days. gabapentin 2021- Yes [id number] 100mg Take 1 Univers 100 mg 6-25 07-26 capsule by ity of capsule 00:00: 04:59 mouth 3 [place] 00 :00 (three) Medical times Branch daily for 30 days. metoprolol 2021- Yes [id number] 50mg Take 1 Univers tartrate 50 6-25 07-26 tablet by it y of mg tablet 00:00: 04:59 mouth [place] 00 :[place] (two) Medical times Branch daily for 30 days. doxazosin 2 2021- Yes [id number] 2mg Take 1 Univers mg tablet 6-25 07-26 tablet by ity of 00:00: 04:59 mouth 2 [place] 00 :00 (two) Medical times Branch daily for 30 days. sucralfate 2021- Yes [id number] 1000mg Take 10 mL Univers 100 mg/mL 6-25 07-26 by mouth ity o f suspension 00:00: 04:59 [place] 00 :00 meals and Medical at bedtime Branch for 30 days. gabapentin 2021- Yes [id number] 100mg Take 1 Univers 100 mg 6-25 07-26 capsule by ity of capsule 00:00: 04:59 mouth 3 [place] 00 :00 (three) Medical times Branch daily for 30 days. metoprolol 2021- Yes [id number] 50mg Take 1 Univers tartrate 50 6-25 07-26 tablet by it y of mg tablet 00:00: 04:59 mouth 2 [place] 00 :00 (two) Medical times Branch daily for 30 days. doxazosin 2 2021- Yes [id number] 2mg Take 1 Univers mg tablet 6-25 07-26 tablet by ity of 00:00: 04:59 mouth 2 [place] 00 :00 (two) Medical times Branch daily for 30 days. sucralfate 2021- Yes [id number] 1000mg Take 10 mL Univers 100 mg/mL 6-25 07-26 by mouth ity o f suspension 00:00: 04:59 before [place] 00 :00 meals and Medical at bedtime Branch for 30 days. lactulose 2021- No 30mL 30 mL, Unive rs (CEPHULAC) 6-24 06-24 Oral, ity of solution 30 16:15: 15:32 ONCE, 1 [place] mL 00 :00 dose, On [facility] Branch 05/19/22 at 1115, Routine atorvastati 2021-0 Yes 40mg 40 mg, Univ ers n (LIPITOR) 624 Oral, QHS, it y of tablet 40 02:00: First dose [place] mg 00 on [facility] 05/18/22 at Branch 2100, Until Discontinu ed, Routine metoprolol 2021-0 Yes 50mg 50 mg, Unive rs tartrate 24 Oral, BID, ity o f (LOPRESSOR) 01:00: First dose [place] tablet 50 00 (after Medical mg last Branch modificati on) on [facility] 05/18/22 at 2000, Until Discontinu ed, Routine doxazosin 0 Yes 2mg 2 mg, Univers (CARDURA) 05-18 Oral, BID, ity of tablet 2 mg 15:45: First dose [place] 00 on [facility] 05/18/22 at Branch 1045, Until Discontinu ed, Routine KCL 2021-0 2021- No 40meq 40 mEq, Univers (KLOR-CON 05-18 Oral, ity of M20) tablet 14:15: 13:33 ONCE, 1 [place] 40 mEq 00 :00 dose, On [facility] 05/18/22 at 0915, Routine calcitrioL 0 Yes .25ug 0.25 mcg, U nivers (ROCALTROL) 05-18 Oral, ity of capsule 14:00: DAILY, [place] 0.25 mcg 00 First dose Medic al on [facility] 05/18/22 at 0900, Until Discontinu ed, Routine gabapentin 0 Yes 100mg 100 mg, Uni vers (NEURONTIN) 05-18 Oral, TID, it y of capsule 100 13:00: First dose [place] mg 00 on [facility] 05/18/22 at Branch 0800, Until Discontinu ed, Routine magnesium 2021-0 2021- No 400mg 400 mg, Uni vers oxide 05-18 Oral, BID, ity of (MAG-OX 13:00: 15:41 First dose [place] 400) tablet 00 :34 on [facility] Medica l 400 mg 05/18/22 at Branch 0800, Until Discontinu ed, Routine metoprolol 2021- No 50mg 50 mg, [facility] ers tartrate 05-18 Oral, BID, ity of (LOPRESSOR) 13:00: 15:39 First dose [place] tablet 50 00 :27 on [facility] mg 05/18/22 at Branch 0800, Until Discontinu ed, Routine metoclopram 2021- No 5mg 5 mg, Slow Univers bessy HCl 05-18 IV Push, ity of (REGLAN) 11:00: 02:03 Q8H, 3 [place] injection 5 00 :00 doses, Medica l mg First dose Branch (after last reorder) on [facility] 05/18/22 at 0600, Last dose on [facility] 05/18/22 at 2200, JOSE pantoprazol Yes 40mg 40 mg, [facility] ers e 05-18 Slow IV ity of (PROTONIX) 10:00: Push, [place] injection 00 Q12HA3, Medical 40 mg First dose Branch (after last modificati on) on [facility] 05/18/22 at 0500, Until Discontinu ed sucralfate Yes 1g 1,000 mg Uni vers (CARAFATE) 05-18 (1 g), ity of 100 mg/mL 09:30: Oral, [place] suspension 00 AC+HS, Medical 1,000 mg First dose Branc h on [facility] 05/18/22 at 0430, Until Discontinu ed, Routine HYDROcodone Yes 1{tbl} 1 tablet, Univers -acetaminop 05-18 Oral, ity of hen (NORCO 09:23: Q8HPRN, [place] 5) 5-325 mg 02 Starting Medi amber tablet 1 on [facility] Branch tablet 05/18/22 at 0423, Until Discontinu ed, Routine, Pain (scale 4-6) morpHINE (2 Yes 2mg 2 mg, Slow Univers mg/mL) 05-18 IV Push, ity of injection 2 09:22: Q4HPRN, [place] mg 49 Starting Medical on [facility] Branch 05/18/22 at 0422, Until Discontinu ed, [...] as mg 00 :00 dose, On Medical [place] Branch 05/18/22 at 0130, Routine magnesium 2021- No 2g 2 g, IV Univ ers [...] s mg 00 :00 dose, On Medical [place] Branch 05/18/22 at 0000, Routine ondansetron 2021- [...] Medical Infusion, Branch ONCE, 1 dose, On [facility] 05/17/22 at 2315, JOSE calcitrioL 2022- No .25ug QD Take [address] (ROCALTROL) 5-31 05-31 capsule Luke s 0.25 MCG 00:00: 23:59 (0.25 mcg Med ical capsule 00 :00 total) by Center mouth daily. amLODIPine Yes 10mg QD Take [address] (NORVASC) 5-30 by mouth [facility] 10 MG 16:56: daily. Medical tablet 32 Center aspirin 81 Yes 81mg QD Take [address] MG EC 5-30 by mouth [facility]ukes tablet 16:56: daily. Medical 32 Center atorvastati Yes 40mg QD Take [address] n (LIPITOR) 5-30 by mouth Luke s 40 MG 16:56: nightly. Medical tablet 32 Center HYDROcodone Yes 1{tbl} Take [address] -acetaminop 5-30 tablet by Margaret es hen (NORCO 16:56: mouth Medica l 5-325) 32 every 6 Center 5-325 mg (six) per tablet hours as needed for Pain. pantoprazol 2021- No 40mg Q.5D Take [address] e 5-30 05-30 by mouth 2 [facility] (PROTONIX) 14:06: 00:00 (two) Medic al 40 MG 26 :00 times Center tablet daily. lisinopriL 2021- No 20mg QD Take [address] (PRINIVIL,Z 5-30 05-30 by mouth Margaret es ESTRIL) 20 14:06: 00:00 daily. Medi amber MG tablet 26 :00 Center pantoprazol Yes 40mg Q.5D Take [address] e 5-30 tablet (40 [facility]ukes (PROTONIX) 00:00: mg total) Me dical 40 MG 00 by mouth 2 Center tablet (two) times daily. sucralfate 2021- No 1g Take [address] (CARAFATE) 5-30 06-29 mLs (1 g Luke s 100 mg/mL 00:00: 23:59 total) by Me dical suspension 00 :00 mouth Center every 6 (six) hours for 30 days. lisinopriL- Yes 1{tbl} Take 1 Un ladarius [...] 100 mg 2 U nivers tartrate 8-10 05-20 (two) ity of 100 mg 00:00: 00:00 times [place] tablet 00 :00 daily. Medical Branch lisinopriL- 2021- No 1{tbl} Take 1 U nivers hydrochloro 8-10 06-22 tablet by it y of thiazide 00:00: 00:00 mouth [place] 20-12.5 mg 00 :00 daily. Medical per tablet Branch QUEtiapine 2020-0 Yes 200mg Take 200 Un ladarius 100 mg 7-26 mg by ity of tablet 00:00: mouth at [place] [address] bedtime. Medical Branch gabapentin 2020-0 Yes TAKE 1 Unive rs 300 mg 7-26 CAPSULE BY ity of capsule 00:00: MOUTH 3 [place] 00 TIMES Medical DAILY Branch QUEtiapine 2020-0 Yes 200mg Take 200 Un ladarius 100 mg 7-26 mg by ity of tablet 00:00: mouth at [place] [address] bedtime. Medical Branch QUEtiapine 2020-0 Yes 200mg Take 200 Un ladaruis 100 mg 7-26 mg by ity of tablet 00:00: mouth at [place] [address] bedtime. Medical Branch QUEtiapine 2020-0 Yes 200mg Take 200 Un ladarius 100 mg 7-26 mg by ity of tablet 00:00: mouth at [place] [address] bedtime. Medical Branch gabapentin 2020-0 Yes TAKE 1 Unive rs 300 mg 7-26 CAPSULE BY ity of capsule 00:00: MOUTH 3 [place] TIMES Medical DAILY Branch QUEtiapine 2020-0 Yes 200mg Take 200 Un ladarius 100 mg 7-26 mg by ity of tablet 00:00: mouth at [place] [address] bedtime. Medical Branch gabapentin 2020-0 Yes TAKE 1 Unive rs 300 mg 7-26 CAPSULE BY ity of capsule 00:00: MOUTH 3 [place] TIMES Medical DAILY Branch QUEtiapine 2020-0 Yes 200mg Take 200 Un ladarius 100 mg 7-26 mg by ity of tablet 00:00: mouth at [place] [address] bedtime. Medical Branch gabapentin 1-0 Yes TAKE 1 Unive rs 300 mg 7-26 CAPSULE BY ity of capsule 00:00: MOUTH 3 [place] TIMES Medical DAILY Branch QUEtiapine 1-0 Yes 200mg Take 200 Un ladarius 100 mg 7-26 mg by ity of tablet 00:00: mouth at [place] [address] bedtime. Medical Branch gabapentin 2020-0 Yes TAKE 1 Unive rs 300 mg 7-26 CAPSULE BY ity of capsule 00:00: MOUTH 3 [place] 00 TIMES Medical DAILY Branch QUEtiapine 2021-0 Yes 200mg Take 200 Un ladarius 100 mg 7-26 mg by ity of tablet 00:00: mouth at [place] [address] bedtime. Medical Branch gabapentin 1-0 2022- No TAKE 1 Univ ers 300 mg 06-20 06-25 CAPSULE BY ity of capsule 00:00: 00:00 MOUTH 3 [place] 00 :00 TIMES Medical DAILY Branch tadalafiL 5 2020-0 Yes 5mg Take 5 mg U nivers mg tablet 7-20 by mouth ity of 00:00: daily. [place] Medical Branch tadalafiL 5 2020-0 Yes 5mg Take 5 mg U nivers mg tablet 7-20 by mouth ity of 00:00: daily. [place] Medical Branch tadalafiL 5 2020-0 Yes 5mg Take 5 mg U nivers mg tablet 7-20 by mouth ity of 00:00: daily. [place] Medical Branch tadalafiL 5 2020-0 Yes 5mg Take 5 mg U nivers mg tablet 7-20 by mouth ity of 00:00: daily. [place] Medical Branch tadalafiL 5 2020-0 Yes 5mg Take 5 mg U nivers mg tablet 7-20 by mouth ity of 00:00: daily. [place] Medical Branch tadalafiL 5 2020-0 Yes 5mg Take 5 mg U nivers mg tablet 7-20 by mouth ity of 00:00: daily. [place] Medical Branch tadalafiL 5 2020-0 Yes 5mg Take 5 mg U nivers mg tablet 7-20 by mouth ity of 00:00: daily. [place] Medical Branch tadalafiL 5 2020-0 Yes 5mg Take 5 mg U nivers mg tablet 7-20 by mouth ity of 00:00: daily. [place] Medical Branch acetaminoph 2020-0 Yes 1{tbl} Take [...] Medical times Branch daily as needed. acetaminoph 2021-0 Yes 1{tbl} Take 1 Un ladarius en-codeine 6-11 tablet by ity of 300-60 mg 00:00: mouth 2 [place] tablet 00 (two) Medical times Branch daily as needed. acetaminoph 2021-0 Yes 1{tbl} Take 1 Un ladarius en-codeine 6-11 tablet by ity of 300-60 mg 00:00: mouth 2 [place] tablet 00 (two) Medical times Branch daily as needed. acetaminoph 2021-0 Yes 1{tbl} Take 1 Un ladarius en-codeine 6-11 tablet by ity of 300-60 mg 00:00: mouth 2 [place] tablet 00 (two) Medical times Branch daily as needed. acetaminoph 2021-0 Yes 1{tbl} Take 1 Un ladarius en-codeine 6-11 tablet by ity of 300-60 mg 00:00: mouth 2 [place] tablet 00 (two) Medical times Branch daily as needed. acetaminoph 2021-0 Yes 1{tbl} Take 1 Un ladarius en-codeine 6-11 tablet by ity of 300-60 mg 00:00: mouth 2 [place] tablet 00 (two) Medical times Branch daily as needed. sucralfate 2020-0 Yes TAKE 1 Unive rs 1 gram 5-28 TABLET BY ity of tablet 00:00: MOUTH [place] 00 BEFORE Medical MEALS AND Branch AT BEDTIME NEEDED FOR ABDOMINAL PAIN sucralfate 2020-0 Yes TAKE 1 Unive rs 1 gram 5-28 TABLET BY ity of tablet 00:00: MOUTH [place] 00 BEFORE Medical MEALS AND Branch AT BEDTIME NEEDED FOR ABDOMINAL PAIN sucralfate 2020-0 Yes TAKE 1 Unive rs 1 gram 5-28 TABLET BY ity of tablet 00:00: MOUTH [place] 00 BEFORE Medical MEALS AND Branch AT BEDTIME NEEDED FOR ABDOMINAL PAIN sucralfate 2020-0 Yes TAKE 1 Unive rs 1 gram 5-28 TABLET BY ity of tablet 00:00: MOUTH [place] 00 BEFORE Medical MEALS AND Branch AT BEDTIME NEEDED FOR ABDOMINAL PAIN sucralfate 2020-0 Yes TAKE 1 Unive rs 1 gram [...] Branch AT BEDTIME NEEDED FOR ABDOMINAL PAIN metoprolol Yes .5{tbl} Q.5D Take 0.[address] tartrate 5-27 tablets by Archie (LOPRESSOR) 00:00: mouth 2 Med ical 100 MG 00 (two) Center tablet times daily. lisinopril- 2021- No 1{tbl} QD Take [address] hydroCHLORO 5-27 05-28 tablet by Nerissa caceres thiazide 00:00: 00:00 mouth Medical (PRINZIDE,Z 00 :00 daily. Center ESTORETIC) 20-12.5 mg per tablet Immunizations Ordered Filled Immunization Date Status Comments [facility] e Immunization Name Name SARS-COV-2 COVID-19 2022-02-13 Completed Unive rsity of PFIZER VACCINE 00:00:00 [facility] SARS-COV-2 COVID-19 2022-02-13 Completed Unive rsity of PFIZER VACCINE 00:00:00 [facility] SARS-COV-2 COVID-19 2022-02-13 Completed Unive rsity of PFIZER VACCINE 00:00:00 [facility] Influenza Virus 2021-10-16 Completed Universit y of Vaccine 00:00:00 [facility] Pneumococcal 2021-10-16 Completed University o f Polysaccharide, 00:00:00 [place] Med ical PPSV23 (PNEUMOVAX) [place] Influenza Virus 2021-10-16 Completed Universit y of Vaccine 00:00:00 [facility] Pneumococcal 2021-10-16 Completed University o f Polysaccharide, 00:00:00 [place] Med ical PPSV23 (PNEUMOVAX) [place] Influenza Virus 2021-10-16 Completed Universit y of Vaccine 00:00:00 [facility] Pneumococcal 2021-10-16 Completed University o f Polysaccharide, 00:00:00 [facility] ical PPSV23 (PNEUMOVAX) Branch SARS-COV-2 COVID-19 2021-05-01 Completed Unive rsity of PFIZER VACCINE 00:00:00 [facility] SARS-COV-2 COVID-19 2021-05-01 Completed Unive rsity of PFIZER VACCINE 00:00:00 [facility] SARS-COV-2 COVID-19 2021-05-01 Completed Unive rsity of PFIZER VACCINE 00:00:00 [facility] SARS-COV-2 COVID-19 2021-03-31 Completed Unive rsity of PFIZER VACCINE 00:00:00 [facility] SARS-COV-2 COVID-19 2021-03-31 Completed Unive rsity of PFIZER VACCINE 00:00:00 [facility] SARS-COV-2 COVID-19 2021-03-31 Completed Unive rsity of PFIZER VACCINE 00:00:00 [facility] Vital Signs Vital Name Observation Time Observation Value Comments Source Systolic blood 2022-05-20 16:25:00 108 mm[Hg] Univer sity of pressure [facility] Diastolic blood 2022-05-20 16:25:00 60 mm[Hg] Unive rsity of pressure [facility] Heart rate 2022-05-20 16:25:00 83 /min [facility] Body temperature 2022-05-20 16:25:00 36.5 [facility]oc [facility] 2022-05-20 16:25:00 16 /min [facility] Oxygen saturation in 2022-05-20 16:25:00 93 /min [facility] Arterial blood by [facility] Pulse oximetry [place] Body weight 2022-05-20 09:42:00 90.493 kg [facility] BMI 2022-05-20 09:42:00 31.25 kg/m2 [facility] Body height 2022-05-18 07:56:00 170.2 cm [facility] HEIGHT 2022-04-22 22:22:00 170.2 cm WEIGHT 2022-04-22 22:22:00 87.363 kg HEIGHT 2022-04-22 22:22:00 170.2 cm WEIGHT 2022-04-22 22:22:00 87.363 kg HEIGHT 2022-04-22 22:22:00 170.2 cm WEIGHT 2022-04-22 22:22:00 87.363 kg Systolic blood 2022-04-24 15:00:00 142 mm[Hg] [facility] Diastolic blood 2022-04-24 15:00:00 71 mm[Hg] [facility] Heart rate 2022-04-24 15:00:00 72 /min [facility] Respiratory rate 2022-04-24 15:00:00 18 /min [facility] Body temperature 2022-04-24 13:00:00 36.44 Ngoc [facility] Oxygen saturation in 2022-04-24 13:00:00 99 /min [facility] Arterial blood by Medical Ce nter Pulse oximetry Body height 2022-04-22 22:22:00 170.2 cm [facility] Body weight 2022-04-22 22:22:00 87.363 kg [facility] BMI 2022-04-22 22:22:00 30.17 kg/m2 [facility] Procedures Procedure Date / Time Performing Source Performed Clinician BASIC METABOLIC PANEL (NA, K, CL, 2022-05-20 [facility] CO2, GLUCOSE, BUN, CREATININE, CA) 08:52:00 [facility] US RETROPERITONEAL COMPLETE 2022-05-20 Dustin Camacho Uni versity of 00:21:51 [facility] OCCULT (GUAIAC) BLOOD 2022-05-19 Carleen Thomas [facility] 19:46:00 [facility] [facility] URINALYSIS 2022-05-19 Dustin Camacho [facility] 09:15:00 [facility] PROTEIN CREAT RATIO URINE RANDOM 2022-05-19 Dustin Camacho [facility] 09:15:00 [facility] PHOSPHORUS 2022-05-19 Dustin Camacho [facility] 09:12:00 [facility] URIC ACID 2022-05-19 Dustin Camacho [facility] 09:12:00 [facility] MAGNESIUM 2022-05-19 Carleen Thomas of 09:12:00 [facility] TROPONIN I 2022-05-19 Carleen Thomas of 09:12:00 [facility] COMP. METABOLIC PANEL (24421) 2022-05-19 Carleen Thomas Un iversity of 09:12:00 [facility] N-TERMINAL PRO-BNP 2022-05-19 Carleen Thomas of 09:12:00 [facility] C4 COMPLEMENT 2022-05-19 Dustin Camacho [facility] of 09:11:00 [facility] CBC WITH DIFF 2022-05-19 Carleen Thomas [place] of 09:11:00 [facility] HEPATITIS B SURFACE ANTIBODY 2022-05-19 Dustin Camacho Un iversity of 09:11:00 [facility] HEPATITIS B SURFACE ANTIGEN 2022-05-19 Dustin Camacho Uni versity of 09:11:00 [facility] HCV ANTIBODY 2022-05-19 Dustin Camacho [facility] of 09:11:00 [facility] HBC ANTIBODY (IGM & IGG) 2022-05-19 Dustin Camacho Univer sity of 09:11:00 [facility] TROPONIN I 2022-05-18 Carleen Thomas of 20:19:[address] [facility] [address] ABDOMEN PELVIS WO CONTRAST 2022-05-18 Felipa Saenz Un iversity of 19:24:35 Serena [facility] TRANSTHORACIC ECHO (TTE) COMPLETE 2022-05-18 Carleen Thomas of 19:15:00 [facility] UREA NITROGEN, URINE RANDOM 2022-05-18 Carleen Thomas [facility] ersity of 18:16:00 [facility] SODIUM, URINE RANDOM 2022-05-18 Carleen Thomas of 18:16:00 [facility] PROTEIN CREAT RATIO URINE RANDOM 2022-05-18 Carleen Thomas of 18:16:00 [facility] CREATINE KINASE 2022-05-18 Carleen Thomas [place] of 09:24:00 [facility] MAGNESIUM 2022-05-18 Cooper Montejo [place] of 09:24:00 [facility] VITAMIN B12, LEVEL 2022-05-18 [facility] [address] of 09:24:00 [facility] TROPONIN I 2022-05-18 [facility] [address] of 09:24:00 [facility] BASIC METABOLIC PANEL (NA, K, CL, 2022-05-18 [facility] [address] of CO2, GLUCOSE, BUN, CREATININE, CA) 09:24:00 [facility] SEDIMENTATION RATE 2022-05-18 [facility] of 09:24:00 [facility] PROTHROMBIN TIME / INR 2022-05-18 [facility]:24[facility]00 [facility] VITAMIN D, 25-OH 2022-05-18 [facility] [address] of 09:24:00 [facility] PROCALCITONIN 2022-05-18 [facility] of 09:24:00 [facility] AC VBG + LACTIC ACID 2022-05-18 [facility] [address] of 09:23:00 [facility] XR CHEST 1 VW 2022-05-18 Wedny Evans [place] of 05:43:13 J [facility] URINALYSIS 2022-05-18 [facility] [place] of 04:44:00 J [facility] HB ECG ROUTINE & RHYTHM STRIP 2022-05-18 Wendy Evans [facility]iversity of 04:26:55 J [facility] URIC ACID 2022-05-18 [facility] [address] of 03:11:00 [facility] LIPASE 2022-05-18 Wendy Evans [place] of 03:11:00 J [facility] MAGNESIUM 2022-05-18 [facility] [place] of 03:11:00 J [facility] FERRITIN SERUM 2022-05-18 [facility] [address] of 03:11:00 [facility] TROPONIN I 2022-05-18 [facility] [place] of 03:11:00 J [facility] FREE T4 2022-05-18 [facility] of 03:11:00 [facility] THYROID STIMULATING HORMONE 2022-05-18 [facility] ersity of 03:11:00 [facility] COMP. METABOLIC PANEL (92508) 2022-05-18 Wendy Eavns niversity of 03:11:00 J [facility] LIPID PANEL (18947)(TOTAL 2022-05-18 Carleen Thomas [facility]ity of CHOLESTEROL, TRIGLYCERIDES, HDL) 03:11:00 [facility] IRON PANEL 2022-05-18 [facility] 03:11:00 [facility] CBC WITH DIFF 2022-05-18 Wendy Evans [place] of 03:11:00 J [facility] GLYCOSYLATED HEMOGLOBIN (A1C) 2022-05-18 Carleen Thomas iversity of 03:11:00 [facility] N-TERMINAL PRO-BNP 2022-05-18 William [facility] of 03:11:00 [facility] FREE T3 2022-05-18 William [facility] of 03:11:00 [facility] NOTICE OF PRIVACY PRACTICES 2022-05-18 [facility] ersity of 02:34:09 Unassigned, No [facility] CONSENT/REFUSAL FOR DIAGNOSIS AND 2022-05-18 [facility] of TREATMENT 02:33:31 Unassigned, No [facility] BASIC METABOLIC PANEL (7) 2022-04-24 Asher Kiara [facility] 05:39:00 [facility] HEPATIC FUNCTION PANEL 2022-04-[address] [facility] 05:39:00 [facility] CBC W/PLT COUNT & AUTO 2022-04-[address] [facility] DIFFERENTIAL 05:39:00 [facility] PTH, INTACT 2022-04-24 Liseth, Ahmed [facility] 05:39:00 [facility] PHOSPHORUS 2022-04-24 Liseth, Ahmed [facility] 05:39:00 [facility] VITAMIN D, 25-HYDROXY 2022-04-24 Liseth[facility] 05:39:00 [facility] IRON, TIBC, % SAT. (WITHOUT 2022-04-24 Liseth, Ahmed [facility] FERRITIN) 05:39:00 [facility] FERRITIN 2022-04-24 Liseth, Ahmed [facility] 05:39:00 [facility] CBC W/PLT COUNT & AUTO 2022-04-[address] [facility] DIFFERENTIAL 05:39:00 [facility] URINALYSIS WITH MICROSCOPIC IF 2022-04-[address] [facility] INDICATED 13:23:00 [facility] URINALYSIS MICROSCOPIC 2022-04-[address] [facility] [facility] 13:23:00 [facility] TISSUE EXAM 2022-04-[address] [facility] 08:33:00 [facility] ESOPHAGOGASTRODUODENOSCOPY 2022-04-[address] [facility] 08:21:00 [facility] BASIC METABOLIC PANEL (7) 2022-04-23 [facility]ara Sterling [facility] 01:34:00 [facility] HEPATIC FUNCTION PANEL 2022-04-[address] [facility] 01:34:00 [facility] MAGNESIUM 2022-04-23 Jose, Jh [facility] 01:34:00 [facility] PHOSPHORUS 2022-04-23 Jose, Jh [facility] 01:34:00 [facility] PROTHROMBIN TIME/INR 2022-04-23 Jsoe[facility] Jh [facility] 01:34:00 [facility] CBC W/PLT COUNT & AUTO 2022-04-[address] [facility] DIFFERENTIAL 01:34:00 [facility] CBC W/PLT COUNT & AUTO 2022-04-23 Jose, Jh [facility] DIFFERENTIAL 01:34:00 [facility] SLEEP STUDY DATA REPORT 2021-[facility]-05 [facility]00 Unassigned, No [facility] COVID-19 (ID NOW RAPID TESTING) 2021-08-05 Violetta Jackson [place] of 19:05:00 T [facility] ASSIGNMENT OF BENEFITS 2021-08-05 Doctor [facility] y of 18:57:19 Unassigned, No [facility] Plan of Care Planned Activity Planned Date Details Comments Source Future Scheduled 2022-07-27 INFLUENZA VACCINE (#1) [facility] 00:00:00 [code = INFLUENZA Medical Ce nter VACCINE (#1)] Future Scheduled [address] [facility] 00:00:00 aneurysm screening Medical C enter (procedure) [code = 689089959] Future Scheduled 2000 SHINGLES VACCINES ([address] [facility] 00:00:00 2) [code = SHINGLES Medical Center VACCINES (1 of 2)] Future Scheduled 1969 DTAP/TDAP/TD VACCINES [facility] 00:00:00 (1 - Tdap) [code = Medical C enter DTAP/TDAP/TD VACCINES (1 - Tdap)] Future Scheduled 1968 HEPATITIS C SCREENING [facility] 00:00:00 [code = HEPATITIS C Medical Center SCREENING] Future Scheduled 1956 PNEUMOCOCCAL 65+ YRS ([address] [facility] 00:00:00 - PCV) [code = Medical Cente r PNEUMOCOCCAL 65+ YRS (1 - PCV)] Future Scheduled 1951-02-16 COVID-19 VACCINE (#1) [facility] 00:00:00 [code = COVID-[address] VACCINE (#1)] Future Scheduled 1950 CT Colonography (combo) [facility] 00:00:00 [code = CT Colonography [facility] (combo)] Future Scheduled 1950 Screening for malignant [facility] Test 00:00:00 neoplasm of colon Medical Ce nter (procedure) [code = 215010424] Future Scheduled 1950 Screening for malignant [facility] 00:00:00 neoplasm of colon Medical Ce nter (procedure) [code = 584302540] Future Scheduled 1950 Screening for malignant [facility] Test 00:00:00 neoplasm of colon Medical Ce nter (procedure) [code = 954610668] Future Scheduled 1950 Screening for malignant [facility] Test 00:00:00 neoplasm of colon Medical Ce nter (procedure) [code = 118934980] Future Scheduled 1950 Sigmoidoscopy [code = [facility] S[facility]oscopy] Medical Cente r Encounters Start End Encounter Admission Attending Care Care Encounter Source Date/Time Date/Time Type Type Clinicians Facility Department ID 2022-06-27 2022-06-27 Outpatient R ANTOINETTE [facility] [id number] Univers 00:00:00 00:00:[address] [facility] 2022-06-08 2022-06-08 Outpatient R CURRY [facility] [id number] Univers 00:00:00 00:00:[address] [facility] 2022-06-08 2022-06-08 Case Antoinette [facility] 1.2.840.114 [id number] Univers 00:00:00 00:00:00 Management Shireen SANCHEZ 350.1.13.10 ity of [facility] 4.2.7.2.[address] [facility] [id number] [facility] 059 [facility] 2022-05-22 2022-05-22 Transition CORBY Moreno 1.2.840.114 [id number] Univers 00:00:00 00:00:00 of Kuldeep CHIN 350.1.13.10 it y [place] [id number] [facility] [address] 2022-05-17 2022-05-20 Outpatient [facility] KANWAL [id number] Univers 21:41:00 14:00:00 [facility] 2022-05-17 2022-05-20 Emergency Wendy Evans [facility] 1.2.8 40.114 [id number] Univers 21:41:00 14:00:00 William Carleen SANCHEZ 350.1.13.10 ity of [place] [id number] [facility] 081 [address] 2022-04-22 2022-04-24 Hospital Vincent You [facility] [id number] 21:58:00 16:27:00 Encounter Jh Garcia Sophia Ky dical Borden 2022-04-22 2022-04-24 Inpatient UR ANYI ECHEVARRIA [facility] [id number] 21:58:00 16:27:00 FEDERICO 2022-04-23 2022-04-23 Anesthesia Eliezer Mortensen [facility] [id number] 08:21:00 08:40:00 [facility]-23 2022-04-23 Surgery Asher, [facility] [id number] [facility] [address] 08:00:00 08:30:00 [facility] 2021-11-30 2021-11-30 Outpatient R JYOTI JACKSON [facility] [id number] Univers 13:20:00 13:20:00 JYOTI JACKSON [id number] [id number] [facility] 2021-11-30 2021-11-30 Outpatient R SHANE JACKSONILBlaek [facility] [id number] Univers 13:20:00 13:20:00 JYOTI JACKSON [facility] 2021-10-12 2021-10-12 Outpatient R JYOTI JACKSON [facility] [id number] Univers 13:20:00 13:20:00 JYOTI JACKSON 211 [id number] [facility] 2021-10-12 2021-10-12 Outpatient R JYOTI JACKSON [facility] [id number] Univers 13:20:00 13:20:00 JYOTI JACKSON [facility] 2021-09-05 2021-09-05 Outpatient R [facility] [id number] Univers 19:30:00 19:30:00 [id number] [facility] 2021-09-05 2021-09-05 Outpatient R SHANE JACKSONILBlake [facility] [id number] Univers 19:30:00 19:30:00 JYOTI JACKSON [facility] 2021-09-05 2021-09-05 Photographic Equipment Inspector 1, [facility] 1. 2.840.114 [id number] Univers 14:11:15 16:41:15 Visit Jyoti Jackson 350.1.13. 10 [facility] 4.2.7.2.686 [facility] [id number] [address] 2021-09-05 2021-09-05 Orders Doctor KEMAL 1.2.840.114 [id number] Univers 00:00:00 00:00:00 Only Unassigned, VIRA 350.1.13.10 ity [facility] 4.2.7.2.686 [place] [id number] [facility] [address] 2021-09-02 2021-09-02 Laboratory Only, Adc Test [place] 1.2.840. 114 [id number] Univers 10:46:06 11:01:06 Only Vincent Arizmendi 350.1.13.10 ity [facility] 4.2.7.2.[place] [id number] [facility] [address] [place] 2021-09-02 2021-09-02 Outpatient R [facility] [id number] Univers 11:00:00 11:00:[id number] [facility] 2021-09-02 2021-09-02 Outpatient R [facility] [id number] Univers 11:00:00 11:00:[address] [facility] 2021-08-08 2021-08-08 Outpatient R JYOTI JACKSON [facility] [id number] Univers 19:30:00 19:30:[address] [facility] 2021-08-08 2021-08-08 Outpatient R [facility] [id number] Univers 19:30:00 19:30:[id number] [facility] 2021-08-05 2021-08-05 Laboratory Only, Adc Test [facility] 1.2.840. 114 [id number] Univers 13:57:41 14:12:41 Only Jyoti Jackson 350.1.13. 10 ity [facility] 4.2.7.2.686 [id number] [address] 2021-08-05 2021-08-05 Outpatient R [facility] [id number] Univers 13:15:00 13:15:00 ity of [facility] 2021-08-05 2021-08-05 Outpatient R [facility] [id number] Univers 10:15:00 10:15:00 ity of [facility] 2021-08-05 2021-08-05 Outpatient R [facility] [id number] Univers 10:15:00 10:15:00 [id number] ity of [facility] 2021-08-05 2021-08-05 Orders Doctor KEMAL 1.2.840.114 [id number] Univers 00:00:00 00:00:00 Only Unassigned, VIRA 350.1.13.10 ity of [place] [facility] 4.2.7.2.686 [place] as [id number] [address] 2021-07-13 2021-07-13 Outpatient R JYOTI JACKSON [facility] [id number] Univers 11:40:00 11:40:00 JYOTI JACKSON [facility] Results Test Description Test Time Test Comments Results Result Comments Source BASIC METABOLIC PANEL (NA, K, CL, CO2, GLUCOSE, BUN, 2022-04 10:47:39 CREATININE, CA) Test Item Value Reference Range Interpretation Comme nts NA (test code = 8548406545) 136 mmol/L 135-145 K (test code = 6187433672) 3.6 mmol/L 3.5-5.0 CL (test code = 3451235064) 103 mmol/L 98-108 CO2 TOTAL (test code = 2743160155) 28 mmol/L 23-31 AGAP (test code = 7512215786) 2-16 BUN (test code = 1008874349) 43 mg/dL 7-23 H GLUCOSE (test code = 2830637610) 99 mg/dL 70-110 CREATININE (test code = 4.28 mg/dL 0.60-1.25 H 7576592945) CALCIUM (test code = 0909838254) 7.2 mg/dL 8.6-10.6 L eGFR (test code = 2465556070) mL/min/1.73m2 LULÚ (test code = LULÚ) Association [...] tests). Lab Interpretation (test code = Abnormal 16435-0) [facility] [id number] 19:49:00 Test Item Value Reference Range Interpretation Comments HCV Ab (test code = Positive 19744-7) HCV Semi-Quantitative (test code = 38271-2) APRI (test code = 9264410766) LULÚ (test code = Positive for HCV antibody. LULÚ) This specimen has been reflexed to qualitative PCR test and submitted to [facility]. ?A report will be issued by that laboratory. ?If any questions, contact the Clinical Chemistry Director postal service sectional center manager at [phone].APRI score < 0.5: Suggestive of little to no fibrosisAPRI score > 1.5: Suggestive of moderate to severe fibrosisAPRI score > 2.0: Highly suggestive of cirrhosis. [facility] ANTIBODY (IGM & IGG)2022-05-19 18:22:56 Test Item Value Reference Range Interpretation Comments HBC (test code = 4189515086) Reactive HBC Semi-Quantitative (test code = 5608017401) [facility] [id number] 17:08:52 Test Item Value Reference Range Interpretation Comments C3 (test code = 3023284947) 102 mg/dL 86-184 Lab Interpretation (test code = Normal 08458-4) [facility] [id number] 17:08:52 Test Item Value Reference Range Interpretation Comments C4 (test code = 9008186984) 17 mg/dL 20-59 L Lab Interpretation (test code = Abnormal 04915-9) [facility]AT[facility] B SURFACE [id number] 16:27:33 Test Item Value Reference Range Interpretation Comments HBsAB (test code = Negative 5188884254) HBsAb mIU/mL Semi-Quantitative (test code = 5800994230) LULÚ (test code = Interpretation: LULÚ) ?Hepatitis B Surface Antibody ? Negative - Patient is considered to be not immune to infection with HBV. ? ? Positive - Anti-HBs detected at greater than or equal to 12 mIU/mL. ?Patient is considered to be immune to infection with HBV. ? [facility] SURFACE [id number] 16:08:51 Test Item Value Reference Range Interpretation Comments HBsAg Semi-Quantitative (test code = Negative Negative 5195-3) [facility]TROP[facility]IN [id number] 12:12:33 Test Item Value Reference Interpretation Comments Range TROPONIN I (test 0.044 ng/mL See_Comment H [Automated code = 8865866811) message] The system which generated this result transmitted reference range : <=0.034. The reference range was not used to interpret this result as normal/abnormal . LUÚL (test code = Reference (Normal) LULÚ) Range [...] biotin. Lab Interpretation Abnormal (test code = 90458-6) [facility] METABOLIC PANEL (09543)2022-05-19 12:09:12 Test Item Value Reference Range Interpretation Comments NA (test code = 135 mmol/L 135-145 8358291643) K (test code = 3.8 mmol/L 3.5-5.0 4894423822) CL (test code = 101 mmol/L 98-108 5250296987) CO2 TOTAL (test code = 28 mmol/L 23-31 3512876491) AGAP (test code = 2-16 0864506661) BUN (test code = 41 mg/dL 7-23 H 6746853987) GLUCOSE (test code = 97 mg/dL 70-110 4193288525) CREATININE (test code = 4.30 mg/dL 0.60-1.25 H 7889334293) TOTAL BILI (test code = 0.6 mg/dL 0.1-1.2 2448402010) CALCIUM (test code = 7.6 mg/dL 8.6-10.6 L 2756327658) T PROTEIN (test code = 6.5 g/dL 6.3-8.2 8160762127) ALBUMIN (test code = 2.6 g/dL 3.5-5.0 L 1795487845) ALK PHOS (test code = 68 U/L 34-122 3805453240) ALTv (test code = 16 U/L 5-50 1742-6) AST(SGOT) (test code = 32 U/L 13-40 7671333964) eGFR (test code = mL/min/1.73m2 1900270504) LULÚ (test code = LULÚ) Association of [...] tests). Lab Interpretation Abnormal (test code = 02049-6) [facility]N-TERMINAL [id number] 12:09:12 Test Item Value Reference Range Interpretation Comments NT-proBNP (test code 6750 pg/mL See_Comment H [Autom ated = 5303619794) message] The system which generated this result transmitted reference range : <=125. The reference range was not used to interpret this result as normal/abnormal . LULÚ (test code = LULÚ) Biotin has been reported to cause a negative bias, interpret results relative to patient's use of biotin. Lab Interpretation Abnormal (test code = 75681-9) [facility]2022-06-24 12:09:12 Test Item Value Reference Range Interpretation Comments MAGNESIUM (test code = 2905425794) 2.1 mg/dL 1.7-2.4 Lab Interpretation (test code = Normal 57172-2) [facility]PHOSPHORUS2022-06-24 12:08:52 Test Item Value Reference Range Interpretation Comments PHOSPHORUS (test code = 8367365030) 3.9 mg/dL 2.5-5.0 Lab Interpretation (test code = Normal 73901-3) [facility] CampusURIC [id number] 12:08:51 Test Item Value Reference Range Interpretation Comments URIC ACID (test code = 2173620770) 7.4 mg/dL 3.6-8.0 Lab Interpretation (test code = Normal 15069-6) [facility]CBC WITH [id number] 10:13:06 Test Item Value Reference Range Interpretation [...] RDW-SD (test code = 49.9 fL 38.5-51.6 16619-6) RDW-CV (test code = 13.8 % 12.1-15.4 788-0) PLT (test code = See_Comment [Automated 777-3) message] The sy stem which generated this result transmitted reference range : 150 - 328 10*3/ ?L. The reference r jose f was not used to interpret this result as normal/abnormal . MPV (test code = 12.3 fL 9.8-13.0 06310-4) NRBC/100 WBC (test See_Comment [Automat ed code = 9849161607) message] The system which generated this result transmitted reference range : 0.0 - 10.0 /100 WBCs. The refer ence range was not u sed to interpret th is result as normal/abnormal . NRBC x10^3 (test code <0.01 See_Comment [Auto mated = 9150127238) message] The s ystem which generated this result transmitted reference range : 10*3/?L. The reference range was not used to interpret this result as normal/abnormal . GRAN MAT (NEUT) % 47.4 % (test code = 770-8) IMM GRAN % (test code 0.20 % = 3142808284) LYMPH % (test code = 41.6 % 736-9) MONO % (test code = 10.0 % 5905-5) EOS % (test code = 0.3 % 713-8) BASO % (test code = 0.5 % 706-2) GRAN MAT x10^3(ANC) 2.94 10*3/uL 1.99-6.95 (test code = 4046999567) IMM GRAN x10^3 (test <0.03 0.00-0.06 code = 9969681228) LYMPH x10^3 (test code 2.58 10*3/uL 1.09-3.23 = 731-0) MONO x10^3 (test code 0.62 10*3/uL 0.36-1.02 = 742-7) EOS x10^3 (test code = <0.03 0.06-0.53 L 711-2) BASO x10^3 (test code 0.03 10*3/uL 0.01-0.09 = 704-7) Lab Interpretation Abnormal (test code = 31499-0) [facility] CampusVITAMIN B12, [id number] 22:37:51 Test Item Value Reference Range Interpretation Comments VIT B12 (test code = 828 pg/mL 240-930 7458964025) LULÚ (test code = LULÚ) Biotin has been reported to cause a positive bias, interpret results relative to patient's use of biotin. Lab Interpretation (test Normal code = 35124-0) [facility] CampusTransthoracic echo (TTE)2022-05-18 22:07:44 Test Item Value Reference Range Interpretation Comments Height (test code = in 5645097918) Weight (test code = lbs 1659504945) Systolic BP (test code = mmHg 0497493143) Diastolic BP (test code = mmHg 4743402096) Heart Rate (test code = bpm 8313276734) BSA (test code = 2.00 m2 5320436011) LVIDD (test code = 4.90 cm 4577025047) IVS (test code = 1.46 cm 4257932122) Interventricular Septum 1.46 cm Diastolic Thickness by 2D (test code = 8118286) LVPWD (test code = 1.48 cm 2990185275) PW (test code = 1.48 cm 0.6-1.5 4804055171) EF(Teich) (test code = 51.00 % 9761789493) LVIDS (test code = 3.60 cm 5124958119) FS (test code = 26 % 7070502791) EF - 2D (test code = 51.00 % 69952607) LVOT diameter (test code 2.11 cm = 6031091625) ACS (test code = 2.11 cm 2413253799) Ao root annulus (test 4.0 cm code = 4564564313) Ao root diam (test code = 4.00 cm 7573081423) Aortic root (test code = 4.0 cm 3860401969) LA size (test code = 3.8 cm 2439281324) TR Peak Andrey (test code = 262.2 cm/s 5962683575) Triscuspid Valve mmHg Regurgitation Peak Gradient (test code = [id number]) E wave decelartion time 0.23 s (test code = 1743462995) MV Peak E Andrey (test code 54.7 cm/s = 4840558635) MV Peak A Andrey (test code 80.8 cm/s = 7761776760) E/A ratio (test code = ratio 2706248523) MV Prop V (test code = 36.00 cm/s 3573673843) Tapse (test code = 2.00 cm 0779372299) LVOT stroke volume (test 84.00 cm3 code = 5542944511) LVOT peak andrey (test code 100.6 cm/s = 7770981266) LVOT mn grad (test code = mmHg 9016170121) AV LVOT peak gradient mmHg (test code = 1765542062) LVOT peak VTI (test code 24.0 cm = 0437808628) LV V1 mean (test code = 57.60 cm/s 1701702655) Aortic valve mean 90.5 cm/s velocity (test code = 8236727772) Ao peak andrey (test code = 151.5 cm/s 1691472816) Ao VTI (test code = 31.4 cm 5589994911) AV area by cont VTI (test 2.7 cm2 code = 8907060432) AV area peak andrey (test 2.3 cm2 code = 8420347470) Ao max PG (test code = 9.20 mm[Hg] 2284592475) AV peak gradient (test mmHg code = 5622793194) AV valve area (test code 2.70 cm2 = 1401881266) AV mean gradient (test mmHg code = 2717395849) Radiology Study observation (narrative) (test code = 86809-1) LULÚ (test code = LULÚ) ?Left?Ventricle: Left ventricle size is normal. Mildly increased wall thickness. Normal wall motion. Low normal systolic function with a visually estimated EF of 50 - 55%. There is impaired relaxation. ?Tricuspid?Valve: Insufficient regurgant jet to estimate RVSP. ?RA pressure is 0-5 mmHg. ?Left?Atrium: Left atrium is moderately dilated. [facility] [id number] 21:25:17 Test Item Value Reference Interpretation Comments Range TROPONIN I (test 0.049 ng/mL See_Comment H [Automated code = 8620540376) message] The system which generated this result [...] biotin. Lab Interpretation Abnormal (test code = 96323-8) [facility]IT[facility] D, [id number] 18:08:45 Test Item Value Reference Range Interpretation Comments VIT D 25OH (test code = <13 25-80 L 20696-3) LULÚ (test code = LULÚ) Deficiency: <20 ng/mLInsufficiency: 20-24 ng/mLOptimal: 25-80 ng/mL Lab Interpretation (test Abnormal code = 16298-1) [facility]PROCALCITONIN2022-06-23 16:34:18 Test Item Value Reference Range Interpretation Comments Procalcitonin (test 0.19 ng/mL <0.07 H code = 1911655980) LULÚ (test code = LULÚ) INTERPRETATION OF [...] lung abscess/empyema. For further information please refer to:[email or web address] Lab Interpretation Abnormal (test code = 92772-1) [facility]MAGNESIUM2022-06-23 14:28:03 Test Item Value Reference Range Interpretation Comments MAGNESIUM (test code = 1141659451) 2.1 mg/dL 1.7-2.4 Lab Interpretation (test code = Normal 49419-3) [facility] CampusTHYROID STIMULATING [id number] 11:24:55 Test Item Value Reference Range Interpretation Comments TSH (test code = See_Comment Biotin has been 5163695954) reported to cau se a negative bias, interpret resul ts relative to pat ient's use of biotin. [Automated mess age] The system [employer] generated this result transmitted ref erence range: 0.45 - 4 .70 mIU/L. The refe rence range was not u sed to interpret this result as normal/abnor mal. Lab Interpretation (test Normal code = 28426-2) [facility] CampusFERRITIN [id number] 11:24:45 Test Item Value Reference Range Interpretation Comments FERRITIN (test code = 47.6 ng/mL 18.0-464.0 7154540141) LULÚ (test code = LULÚ) Biotin has been reported to cause a negative bias, interpret results relative to patient's use of biotin. Lab Interpretation (test Normal code = 75370-8) [facility] CampusIRON [id number] 11:24:35 Test Item Value Reference Range Interpretation Comments IRON (test code = 8455181035) 95 ug/dL 50-160 TIBC (test code = 6714879281) 182 ug/dL 250-410 L % FE SAT (test code = 1148562292) 52 % 20-50 H Lab Interpretation (test code = Abnormal 08446-1) [facility] CampusN-TERMINAL [id number] 11:24:25 Test Item Value Reference Range Interpretation Comments NT-proBNP (test code 18492 pg/mL See_Comment H [Autom ated = 7193549263) message] The system which generated this result transmitted reference range : <=125. The reference range was not used to interpret this result as normal/abnormal . LULÚ (test code = LULÚ) Biotin has been reported to cause a negative bias, interpret results relative to patient's use of biotin. Lab Interpretation Abnormal (test code = 88079-3) [facility] CampusURIC [id number] 11:24:10 Test Item Value Reference Range Interpretation Comments URIC ACID (test code = 4187240056) 6.7 mg/dL 3.6-8.0 Lab Interpretation (test code = Normal 28642-5) [facility] CampusTROPONIN [id number] 11:08:27 Test Item Value Reference Interpretation Comments Range TROPONIN I (test 0.071 ng/mL See_Comment H [Automated code = 7568519403) message] The system which generated this result [...] biotin. Lab Interpretation Abnormal (test code = 72737-5) [facility] [id number] 11:05:11 Test Item Value Reference Range Interpretation Comments FREE T3 (test code = 1962536792) 2.48 pg/mL 2.77-5.27 L Lab Interpretation (test code = Abnormal 23847-4) [facility] [id number] 11:05:11 Test Item Value Reference Range Interpretation Comments FREE T4 (test code = See_Comment [Autom ated message] 2775850142) The system [employer] generated this result transmitted ref erence range: 0.78 - 2 .20 ng/dL:. The ref erence range was not u sed to interpret this result as normal/abnor mal. Lab Interpretation (test Normal code = 89488-8) [facility] METABOLIC PANEL (NA, K, CL, CO2, GLUCOSE, BUN, CREATININE, CA)2022-05-18 10:47:04 Test Item Value Reference Range Interpretation Comments NA (test code = 136 mmol/L 135-145 5683981271) K (test code = 3.3 mmol/L 3.5-5.0 L 9598851058) CL (test code = 101 mmol/L 98-108 2533091002) CO2 TOTAL (test code = 28 mmol/L 23-31 3200305380) AGAP (test code = 2-16 7580001337) BUN (test code = 43 mg/dL 7-23 H 1123244751) GLUCOSE (test code = 101 mg/dL 70-110 3291376943) CREATININE (test code = 4.12 mg/dL 0.60-1.25 H 1836141246) CALCIUM (test code = 7.5 mg/dL 8.6-10.6 L 1077096394) eGFR (test code = mL/min/1.73m2 6375739953) LULÚ (test code = LULÚ) Association of [...] tests). Lab Interpretation Abnormal (test code = 19886-7) [facility] CampusCREATINE [id number] 10:46:48 Test Item Value Reference Range Interpretation Comments CK (test code = 8862919650) 72 U/L 33-194 Lab Interpretation (test code = Normal 14320-3) [facility] CampusLIPID PANEL (71391)(TOTAL CHOLESTEROL, TRIGLYCERIDES, HDL)2022-05-18 10:43:26 Test Item Value Reference Range Interpretation Comments CHOL (test code = 189 mg/dL 120-200 0258280788) HDL (test code = 36 mg/dL >40 L 1424019515) HDLC RATIO (test code = See_Comment H [Au tomated message] 0634653421) The system [employer] generated this result transmit nakul reference range : <=5.0. The refe rence range was not u sed to interpret th is result as normal/abnormal . TRIG (test code = 125 mg/dL 30-170 1833528130) LDL CHOL (test code = 128 mg/dL See_Comment [Auto mated message] 88719-4) The system [employer] generated this result transmit nakul reference range : <=160. The refe rence range was not u sed to interpret th is result as normal/abnormal . VLDL (test code = 25 mg/dL 5-60 9239035215) Lab Interpretation (test Abnormal code = 00123-0) [facility] CampusSEDIMENTATION [id number] 10:21:37 Test Item Value Reference Range Interpretation Comments ESR (test code = See_Comment H [Automated message] 7784078965) The system [employer] generated this result transmitted ref erence range: 0 - 10 m m/HR. The reference r jose f was not used to interpret this result as normal/abnor mal. Lab Interpretation (test Abnormal code = 60974-0) [facility] CampusProthrombin Time / [id number] 10:06:41 Test Item Value Reference Range Interpretation [...] tions. Lab Interpretation (test Normal code = 82117-4) [facility] CampusAC VBG + LACTIC [id number] 09:44:12 Test Item Value Reference Range Interpretation Comments PH (test code = 7.32-7.42 H 2746121605) PCO2 BROOKE (test code = See_Comment L [Auto mated 1663042332) message] The sy stem which generated this result transmitted reference range : 41 - 51 mmHg. The reference range was not used to interpret this result as normal/abnormal . PO2 BROOKE (test code = See_Comment HH [Autom ated 8246853728) message] The sy stem which generated this result transmitted reference range : 25 - 40 mmHg. The reference range was not used to interpret this result as normal/abnormal . HCO3 BROOKE (test code = See_Comment [Auto mated 2475124177) message] The sy stem which generated this result transmitted reference range : 24 - 28 mEq/L. The reference range was not used to interpret this result as normal/abnormal . AC VBE(BEAKER) (test mEq/L code = 1842458295) LACTIC ACID (test code 1.00 mmol/L 0.50-2.20 = 9175630466) Lab Interpretation Abnormal (test code = 33077-7) [facility] CampusGLYCOSYLATED HEMOGLOBIN (A1C)2022-05-18 09:25:50 Test Item Value Reference Range Interpretation Comments HGB A1C (test code = 5.2 % 4.0-5.7 4548-4) LULÚ (test code = LULÚ) Reference RangesNormal: <5.7%Prediabetes: 5.7 - 6.4%Diabetes: > 6.5% Lab Interpretation (test Normal code = 78174-6) [facility] CampusFLORIDALMAN [id number] 04:08:02 Test Item Value Reference Interpretation Comments Range TROPONIN I (test 0.070 ng/mL See_Comment H [Automated code = 8669901809) message] The system which generated this result [...] biotin. Lab Interpretation Abnormal (test code = 20644-8) [facility]. METABOLIC PANEL (25235)2022-05-18 03:57:02 Test Item Value Reference Range Interpretation Comments NA (test code = 136 mmol/L 135-145 0870668241) K (test code = 3.8 mmol/L 3.5-5.0 0189913420) CL (test code = 99 mmol/L 98-108 0951024638) CO2 TOTAL (test code = 28 mmol/L 23-31 0093141352) AGAP (test code = 2-16 5769231190) BUN (test code = 47 mg/dL 7-23 H 2816259067) GLUCOSE (test code = 113 mg/dL 70-110 H 9155536985) CREATININE (test code = 4.12 mg/dL 0.60-1.25 H 6876026911) TOTAL BILI (test code = 0.8 mg/dL 0.1-1.9 7378345290) CALCIUM (test code = 7.8 mg/dL 8.6-10.6 L 6016014814) T PROTEIN (test code = 7.6 g/dL 6.3-8.2 8667623737) ALBUMIN (test code = 3.1 g/dL 3.5-5.0 L 4820396243) ALK PHOS (test code = 76 U/L 34-122 3809799131) ALTv (test code = 18 U/L 5-50 1742-6) AST(SGOT) (test code = 28 U/L 13-40 8530878800) eGFR (test code = mL/min/1.73m2 5573881245) LULÚ (test code = LULÚ) Association of [...] tests). Lab Interpretation Abnormal (test code = 98451-3) [facility]57[facility] Test Item Value Reference Range Interpretation Comments MAGNESIUM (test code = 3286552613) 1.6 mg/dL 1.7-2.4 L Lab Interpretation (test code = Abnormal 83896-0) [facility] CampusLIPASE2022-06-23 03:56:42 Test Item Value Reference Range Interpretation Comments LIPASE (test code = 2450456417) 139 U/L 0-220 Lab Interpretation (test code = Normal 16384-5) [facility] CampusCB WITH [id number] 03:38:37 Test Item Value Reference Range Interpretation [...] RDW-SD (test code = 50.5 fL 38.5-51.6 01015-5) RDW-CV (test code = 14.3 % 12.1-15.4 788-0) PLT (test code = See_Comment [Automated 777-3) message] The sy stem which generated this result transmitted reference range : 150 - 328 10*3/ ?L. The reference r jose f was not used to interpret this result as normal/abnormal . MPV (test code = 12.2 fL 9.8-13.0 56827-7) NRBC/100 WBC (test See_Comment [Automat ed code = 8444108140) message] The system which generated this result transmitted reference range : 0.0 - 10.0 /100 WBCs. The refer ence range was not u sed to interpret th is result as normal/abnormal . NRBC x10^3 (test code <0.01 See_Comment [Auto mated = 1633795968) message] The s ystem which generated this result transmitted reference range : 10*3/?L. The reference range was not used to interpret this result as normal/abnormal . GRAN MAT (NEUT) % 73.7 % (test code = 770-8) IMM GRAN % (test code 0.40 % = 6260740321) LYMPH % (test code = 16.0 % 736-9) MONO % (test code = 9.8 % 5905-5) EOS % (test code = 0.0 % 713-8) BASO % (test code = 0.1 % 706-2) GRAN MAT x10^3(ANC) 7.85 10*3/uL 1.99-6.95 H (test code = 6686008253) IMM GRAN x10^3 (test 0.04 10*3/uL 0.00-0.06 code = 1617755721) LYMPH x10^3 (test code 1.71 10*3/uL 1.09-3.23 = 731-0) MONO x10^3 (test code 1.05 10*3/uL 0.36-1.02 H = 742-7) EOS x10^3 (test code = <0.03 0.06-0.53 L 711-2) BASO x10^3 (test code <0.03 0.01-0.09 = 704-7) Lab Interpretation Abnormal (test code = 20341-9) [facility] [id number] 14:36:42 Test Item Value Reference Range Interpretation Comments Case Report (test code Surgical Pathology = 104) Report Case: [id number] Authorizing Provider: Kiara Sterling MD Collected: 04/23/2022 08:33 AM Ordering Location: [address] Med/Surg Received: 04/25/2022 08:19 AM Pathologist: Eli Maria MD Specimens: A) - Stomach, Antrum, biopsy B) - Stomach, Body, biopsy C) - Distal Esophagus, biopsy ADDENDUM (test code = o9qdoQFvTLBbnYH2CnQoCM 3381) Urx4elk6RobBWjdGHyJTfg sLHfteQupi87cNM2uY14UG 9wZMYdHsS1WFPclcE8Gpr5 TUVtEEVnaTJwA494m4pwm6 wzrmZcnIH1mLuyZTOznkqc CqB5UXuuLRBxgifoWJp3VQ raAQVgkPN3VIZcfELfO5Rl RVWkDR0raki9LFX4CEdzMZ XuHsF8KHBarIQwWOMqjFue RMkpy057YLE9EmNfMWTvdm PuaUaiuE3wFzElBOPIeWix IGFkZGVuZHVtIGlzIGlzc3 HuUUK0inOdTAZrjvDasJle AFIxk6QsoFXuTqTvfE10cn 6gkJC5f1ZgET3bM5DkWBZ3 tIT5WHUkggLPPZjkS22iIN R4JGAlrKfnz3WzAN3cWARc ETSjgDBqHIVjrVUdQR5oDu GUUMDMCqDtpPYpMA1vnLHp IFRoZSBpbnRlcnByZXRhdG sktgErWyL4tKhnMBJag2Nh jJ2twVNsDKTvfAzvLQXxEE GdEkLohH80re8mxOQ3n0Oe WY8zl3TdgFVheqIuqEAycR WeGFI9TNfidb3ppGGtRJ6C WNdZX83XDFXMRXExIGyGY2 BJRJUufhZTnU41ii9mhKO3 n6NmTY5tt2XoxVL4KLLlmw vcYAhniOHgcTknZqM2ZRNc iRKyCp3skQRgBAR3HVEzgA merqVNaF3vHVVkIEm3TGSc EkQzKplauuPCPKEoM1KvVB PoeoCmduywHDN7jM6cj6f7 KQkeMu5lYARzdbsos9wsbo UfjOIig4NyIJNioaLdr1Xn ZCBhbmQgaXRzIHBlcmZvcm 7ufhOpPGNyQJTlW3Cckqid fNgrynP1JRLpYURhqIAmrD biJSFpLCh3JOgbqeHea8Zg DeWggdQthPTnxhCoRN1lGP AnuSVsdnZoUNQ5DEIoIFFS NlLtNODbs5CqPL2pEDWwlC sgCUJflS2wr0OfCBBdv11k IFRoZSBGREEgaGFzIGRldG VybWluZWQgdGhhdCBzdWNo JYSqBPIyJS7cANZsurMxwH Mec8PjxIYkpaRkz4MhcgZn DEUzJSH3TcZGeMZfcASivA DkosR6s8FxQFSlgdIjbRql fBKjqGIksBHvd7Xdfg7uED Rut4uhoDypVZ9krXSwFLXf ZWdhcmRlZCBhcyBpbnZlc3 MvN7E1yR4iKJupr4TgOf3s DWNfo3QhvlFpJbHOpIfaLT tsWe7aBSEkvfdavVQtQ0Cc dGlmaWVkIHVuZGVyIHRoZS BDbGluaWNhbCBMYWJvcmF0 h3X1TRnqzIWckbGnVE08BG BiST0iuCVdhAVzw1HkSUz5 DCUcO9qPRF91MXlrYNGmmA VhbGlmaWVkIHRvIHBlcmZv fl2blLvvsIIci10lkBQ6oA U9MKUrsG3tS4OpCAwtWe8g HKHyjadspVTutClaBw1grR GoTV0kbBXlJBNKDXMUB7IA NkH2SVT2PqviQDVwjwReiH FyfQ== DIAGNOSIS (test code = f7ygyBCrEJJnf2raCBItrN 3220) FuZzEwMzNcZnRuYmpcdWMx IHtccnRmMVxlcGljOTYwMl gttoUwDUShzLCmA3Ymhxtc KQyfHP2aOG0tdZzdwXWhlG RyGIBlXtLci9fqe858rHMs d8unGWHEamqefFh7qVpaX4 3or9J9YaikE22njWGgNIZ5 OVAuPQIqqZCsWDRkHAW5KS GwsHWuX0fkHVPqFW3mbyrj XYcoRNjqUKMnhQT3TSMajA NsO7MrMNEoTYvjKFBhnms7 AgQoXc4ikBLzrZynDMogHR BlMLNwEYylCYCzFjKxXB6q Y0QEOYPEVYngII2FSkFZFR AHNfPLT7JGYSrMBTPPN9MT WTpccGFyICAgLSBNSUxEIE JNXt3SPHDwC2UBILJZUEhE IFdJVEggQUNUSVZJVFlccG DhKSRmYYMDRtFeCG4AHKKP UE2BMWXWLTXSHBeRB8pFAS QSOZSFVEWVEFXiV5LhOXTF KCwHJV7GWLTEM9LBDFyvTT PcYBDfREhSFGMXG4eUT3QY R5eQNPoCWQcnC6GSVN4zFb 1DSRtJVJrEE2ROM4PLTyPE SqYJKEgEZwXRH69XXvGKFS NLMMLnA0eRMYOSSVVFI5IT JOLbKOCfkdUvRXUsJY8zMW IRMIRIMAEOBRYHGQ6MNYbu NNZnwQMbWNWsDBABI46XI0 mkBUKPHOczQGPKGV8BD08H SUMgQklPUFNZOlxwYXIgIC UjVI7SNY4FNEJiYHRUT0GH RNdCJXhpGt9xOLQJVM3EX7 kVTgKUMLAGIpRLWF6FTXGz ggXhSW0mZq4eZD4ZBJVUMM 8TDQAVEBDTGCqPN9bHRYIS AMCRUHKQBUVyK6KoAVBQDI zNMY2OGDEBX6AIGCodPEQm ZKwqWPJtSt2mNRkVFZXWPS LTK1SIPMeWVremJB4CE3IO J5SMHkXOHS1XH3erfAPkNM EbQUMZSOGJVg3MBoBSCE2A QVRPUlkgREVCUklTICBXSV UTFGMWM8PVKqgERJONA9aQ AydPFqaqH98TJ0rWRTMBMA ZXUDIOMJXIE4CDYWDMD72g lVJnLASyHQSHSHKYJT5KTi KTFHHHN9HoE3gQSIIVSCHG VYaJJCRZANOCT6FXUTCkbb AgLSAgVkVSWSBTTUFMTCBG UkFHTUVOVCBPRiBTVVBFUk NZM0iFLSFZF0jYLO5ZNpSL RPVHP4LtB6ZBUcskGJNyTR 0gIEdNUyBTVEFJTiBJUyBO VTwDVZoSTFUDX1VrReGDG5 SMXFBITY4VJkHDKEKtgzGt DRVzDwLRYTSXRoXcAy2EYF FJG5HBZFPDESVAJuGTOEpI I99ESxTOGAJcvh25SGA7Cq Njc9P4YIU1JEXlRQQjd0am ZGVmbGFuZzEwMzNcZnRuYm hddWNoJNPxVzBnh5jto626 bJBxh7tzQBQmQcO6oXAsRN VexMNkN030RBXnSDwys5vy w3LoNIVvlOVke8H8QOKIqy pnbXq8nJbuW90mq0Y2Jfsv V5lxPSJgHCBsL1OlXP8aPE IiYvy9WQH8UGU9XHNzCXTi D8ZzYU6yVVQorJZgVDe1d8 nopJvdKFEwZTK9z3haUCmj jwGuMJ7bzd3heNe8l0phtp XaELJbVPPnyRSGSTXwY8Ly pAiwOd1sfKe2lZsmCqsnMC O2Atw8NN9ihl00fsx6xPos VDUilvxbLuB1MZzyNNJvwh ukUUa5NIhnWAQdnWV9PDQw bLRhI3BiIAAbBM3allz4AZ K3MHykPURoWhT7UQEgkQDt ZQLxsHesNMpvl323JSA8Wc SwAT0tT3Eph0V6yX5ohTBe FTIbaFKlBfWdYNQqwt5gyN PwLWdts3ItUNP9xlL2iXAy cTYxIASrPxQ9PJxyGX2vqm 03XYKoWST1rd0ltJWzyUoc fwUnpGMcACpzH8AfNYXsi7 09DACyY3WnMCXof7D4ouSw XuVhKRJguWS3viB4UUQmWO 6jascwm5mkIJrzTIqqKDJh uqW2jgC8JRMfnNVaY7OpgF 2jKAGaRK6mlwqaz8gaYEL6 HJakZQIsPSE2TyBsIKJyx4 Rmoso6OtTow9ArhVMyGScs K69zy479QUExowNjM8zrmV FpblxwbGFpblxmMFxmczI0 XHFsXGxhbmcxMDMzXGhpY2 xqJnHkGKEnpGxaGIygb9Qi XGYxXGZzMjJcdGFiXHRhYl c4BGXtyTPdYFPvUeCrS8ju yksaIsXIUBPjk6wlB6busU KHpBZsU8QoPKfsbaSuUBmb IVazXujwEBUtEj28CTYtEK Bhcn19 CPT Code(s) (test code m4mbsXOrPGOopLP8UhJiYJ = 8480) Qiy9wdi9WcrPBzrCCnYZoa tAEjiuIiia70oGB9cV02FP 3mORTqTvB5JHKowcJ5Otp6 YVFkJCXqyGJfT503x6keh6 roweUnjKK1kGqkWOLserui CuA0EWrbCEBupzuwUWl5ED tcQKQqrOK5DSAovPZqV2Vh XOTeBP6dxda3OKW9SVcvVF KxGaV8EDWckROrFWQuzPyb BSsrn029YNP6TiYgMCVlqr DczMkhqS1kPiJrMBO9DYPs YCYXCKH5EZm3MzHsRKDvil 0= CLINICAL HISTORY (test b9xzcLSdZIYqiDX7RcThKT code = 3356) Xmw5cbl4GfkROsvOXcOEvj rWDrlgJqef37hCJ4gE62AL 8cTVOgUmN7MMLmusR9Zau6 JBIaQDDjtDYjY159p5dbb2 njixYniJS4bOncSPUjfqha QwL4COyzOOQlrrarDVs2ZK snOBJzyQR1MIRwcQSfK7Sd ZWSwDQ2jdkz4HNI3FWvmYF UyElW2IIScsMIxZLOshMaj FMooa837UIW6MqBwTIJsfh EzaPwxuI1eBzHrYXMDROho m3OqMKgjJQNtdNLheA== GROSS DESCRIPTION (test b9lzmEOwULUruDELSKNnM3 code = 8444729804) jczoLiUUZvdFVzJ7Qkesfq NUqfWP7aPO6seMhksULasL MnII3NFZArXsMyFWNciPXh hnTeOtSqGQWcmGCtcIZ1RQ OmBD8rtgssECiyQHccOSIm goL9QSWzhEHiD7WwJNBuKN 1jgxptSKW7CWiioW2dadGL RgpbYj4bgKYxfHtkKgYzFo NoYXJzZXQwXGZuaWwgQXJp MUv1hT2EBpqaU83em1V3Oz g1UHPaZOXyC4OrUR3oCHIc bVIgO04DPdhjTTZ9NEFQEw lrNIIaOL9Sg1kyLDZcoRPs QMH8BDqwvCTyHVOkJRLdJB u7PUHoOGjyfNOlKG3umZhz SilmeNxvc2GhmIOmKZldCI CfXAPqWXrqILJsMC2IDhBy RVQ3LqE3FntwSLk9VUq3VX 1YAxNiKMJjOWnrXlO4UkEm RFp5IJyzXV6HVNC0GKW8HJ P8WBB8WCQ6PPItWDQwRgFd XGYgQXJpYWwgXFxmbCBcXG 5npQsjtNQeicUFZbSGkA5n PIXrXWTcTL85ntNvSccrIF ToPRyuSAKdF27pv4URe7Ut SR5MDXp5rvRkuiwvqF7rCF DfoiJyDUdgiXCzU7duG7Iw SLNsDuCmWiIeWGu3LXKcwG 3qWp4gjNIakS2avRKbLVfw FSE4zCEkEQPzWBXwQOFiLS 82M1HkvL4xs4DlUFCbe37c TI1eZYgsDzLtIDXjKpE1u5 0xR0inCAQrkMM5pEDrFOCa VAL0woX8GS4zt2hwaPFdiK xiL3OmSX0sBAVsi7Z0RLOl OVEeyIEvskxhYS8cQXApHC IoNpCxU54jkT1eLDLrXIKz HEndnHEdXZWozAZgn1nbau fxDsVaJKAukBUbeHX7DXPm MV40kXKxmXaurH9bH6Gbw1 T4rCGybQGwHXmdWUVWBaYw jVSzCT4PRMMdHKvsanDcUM 8PIWUgIWbaVIUvkFFQWBO7 UU0xSTzqoIBwwydsADMrJ9 UsK1MfmrZjkRIlTCByzuSi c6yjBDJ6WWCrsQGxeIJbEa LkOeebGFG3ADv3DHsvCKVk X7OpS8ZvOAwrDXO7ALXvIu BcXGRiICBPVlIgIiAxNzM1 SHF3AvX8JHd8CMBLGfUsGx PlGzv1ZRS0FlVhFCk7QTe4 EOeZVyO9QzNcWQo2ZXCxXT XpPuBlOFe9NPQsUJtxSGSp cLMgIQifNavmUKwbT21qXy XdUouniNTjtsAWCzMNdS8h FLJjRUJyAv7diY8erAWhFZ 5YLDLycZKCPFP1EB5rVXXQ ClxsdHJwYXJcbGluMFxyaW 4sCV3XJHj9pmIrAWVqLYbm pdOnNIQzP0EmjsTrIMebIQ Aowc8rvSpoJMucDkKyEERq t3m0aSJ4pCDecQN8xNEljM ukBXiwLn1bzPN8aA1bIIMb MNWgAUKywPDuLUQysO5eKB JeEYHna6G8TnCoelFebRiy HEAxjt27fEa2TKIeeAUtDO Tbx7SfvHpqh3AfLBYzP6hu xGFhl7JavX1zUYWdQgZhqG BpbiBtYXhpbXVtIGRpbWVu e2zkseidIZLzEQPpeVOvcN L0EJEwG8ZeOLWrzcCqcvJp sJVobrJcRNTbKEL3FPKRKk GuyGGuUW9HHLNzCXrhukOg UT0DFGJvVUozYPXhxJAOVZ O9TX3mGGasvJBlsjjyTIZt P8JjP3RifaQfrWFuMGXuah Wyn4klGDU6SFFlcZAbdUPk WuUkQoafOBH1WCk4FPxaLJ LyX8VqW6YkMZxvBUB9IBHs MiBcXGRiICBPVlIgIiAxNz S5SXB9DrZ8XSk4ZTDDUlRm YpBuWde7ILH1TiZfHBl7AZ u1LZgFCsO2KlIeJXp0WVUz DFPvXaErABg1VTVgGEjzME PugUVnNOptPcrfMQffJ00l ZnMxNlxwbGFpbiBDLiBEaX B2QUwlUVYfdLijU3NrQknz RABrTFvgTMLvX85tc8AJi0 SiSU8OOAj4roNmbiebkM6l VHJtslGqWEuruBSpR1acG7 IgAHFxBlWfAbUzFCk7AVEq eT3hFf5eaQVctS4dbCHpTF dpYZL5iQXtSEYgWKUrBJXh WM12L6WhiU4ul6FcLRWeh6 3eTB1vTDbfNxWxJMNiYyMx u8FaiJExW4PnENOph5KgLK u2a8vdRzHuNaUisaOlDUUm QVMmgRd3vVLwBEdbVfFyWC Llof12qZu9EXXacuZwlNXu kVSwb9NixMhte5SxXQEiB0 ikaAHpp8JgiO9mNLMrANVu eRzyQOFbZISwzQFngGN9EA McU1LuTDLqcjBujvYnmFGr lpVmUBZrWCW6DBGZYE4lFE NAP1OqXXLkpoRYXfzoEhYi ZnMyMiANClxwbGFpblxlcG hwRfOtgBOoDjYodEpflL05 NXRzmUWkHFN2MJ6rCKTscx azGGZoPYJjBER5SVkinY49 jRLyMVSpXFUgePZqmZ9PNQ TiVJJ1OBgmkE47rUNyNV5Z EZLuBPY8TZZeiJIkNBD1WZ 1xpS2VmB== MICROSCOPIC DESCRIPTION j0lrkKRpFJZieKD8AoIiPH (test code = 3371) Agb0qoc5QlzTUeuLDcBUnp fRFfzsShht53cNQ1mR02WS 2cKHDfRlP2VHLgxrW6Zna6 TFDoUMJvzAVrU053e3gwu3 pvrnCbbCG5tIcmIVTywmsa BqL8FWlcQCJavqbcZFx8QS pwNKTtiPS0CIRblFQkV0Ed UUDcJP1qasq4YCX7FVcwCR HwKpO5EEWfnNFcJRRdnQih BMitv074GOI1HeNyEWBlsj VtbJoktM8lIlVrOVUBNNNN O5DJSYBmuWCzfT== SPECIAL STUDIES (test w1ewwRPoKSPiyOP4XdLtUF code = 3376) Oot1xjp2HsbUGuzZKuEHov eDZkkbLaga21dVR9aU62BB 2iZFJgUkT0JOStsgN8Abz6 CSPzZWIomUNtY786DIXwQW ZkhYvfyfj1eQ76NONoeW4t dGJsIDtccmVkMFxncmVlbj VfObl8JHD3mOceASHmvnez VdF3QQghYFWtwykpYHc5HW orRFSalVK4MHZjiOUzM9Km JQBbTI9zytk3ISQ4ORquLU AhBcN8CZWgrEZjHTNlnItq LIydo997XTB7PvQiHKSogq IfrMtpkG0rSlOtAnLlTjla ZjEgVGhlIGludGVycHJldG T4oZ6iNR8sTURipXNbL1Hi CPDkvzZrbTVmEIW5jSZkxU MiFP0mSJkklIBpr0vej0Nx E0gdfQwgiHD9LD1gRHOaAP LwGYbmn0EomI8jGmimCEIl N70ZXXLkttHPy822os4dBV WoyFHjgqKLaNQarQ0pLJwx ZUosFKtazSPoWJvpx3eqCH Eea4y9wAOdXWBpxbEjt2vk IHdlcmUgZXZhbHVhdGVkIG Ykm50ePZiebOyufEewDBYa j6VeyDsxy8WtQzTrWXnxp4 UnL40zfVJchGIjtDjjAIZn vqSjHECoz31zx4gtWUOpGh M5sVLgaOM7tYWrtVGkz4Mr sBacAYZwa3vhTXCnrg5jdi avzIQlg4JuhS4sgomhQJhf hCEnvzJyVJKoh8h5lBRrQR AkCHKpDXtnwYy3BRItn504 so5owbP1xIAzQGB0FPqyHV JsZSBhcmUgZXZhbHVhdGVk RRUcxmTdGMHfofZPqB36cc 5zbRJ3o9FsPW1ma4PmzLY8 ZWNobmljYWwgdGVzdGluZy B9GHDyeBYqPq6onZFrKSK7 YCNymJfmthNDvH0lVBTnEO x5PNJwXwVhIvpwfjCGVSYo W3PzCXQajzNgopbgEEA3fH 3us7k0BHwbEq4oNHQhutsq w1tuvrDynHHko8HhPCOzwz Eul9DjSTYwfxCqhEFoSMSf yfKdzs9xwgBlBDQuPTXlM0 LedpozlFodgdM7HYMlWGDm mDQaqNzdTCLiEPv2OFhcwl Cug4BfOoTgygYpfZQtaiWt LN6jOSKeeZWeygFePEI2CE GcWTXQIlIyXVGlv0QnTU6o WDEgiUqjLTGudV0jk0EiIJ Xaz16iZUEmIPICEGOxqESd IGRldGVybWluZWQgdGhhdC ZpcNUiGTAkVDDePT9lRYQa xbYuhVDsy5BzqRMqtkZgc1 YyawGnAYFzTTO2CzILjFPz bDYuzPXgoiV7b3RxYSKqfs WkkWkakLXqwPVxvPGoe0Op fq6gRUZob0nwvKvgRF4bvI BiZSByZWdhcmRlZCBhcyBp wcFoh4PmU3F3fD7zESflb2 OtDs1xDQKtb0ZzewWaBeEI zXoiBNzaUb1nLGWtiezwbK HcU3JwkErczRJmMYFqAQDc IHRoZSBDbGluaWNhbCBMYW YiqhH3h1X5EJfliVTrsgAn TS14JBTbUS9fqZJhkNNvz4 QnLPh2ZVGyV6zMKP14RRfy YXMgcXVhbGlmaWVkIHRvIH PwzmMsol0iaUmfjJXsd25l xXA3cCC4EZJfpE2nB8UmNH izOa4zNRPiujpquKRsbUho Pb6yzFBbwC== [facility] [id number] 14:36:42Surgical Pathology Report Case: [id number] Authorizing Provider: Kiara Sterling MD Collected: 04/23/2022 08:33 AM Ordering Location: [address] Med/Surg Received: 04/25/2022 08:19 AM Pathologist: Eli Maria MD Specimens: A) - Stomach, Antrum, biopsy B) - Stomach, Body, biopsy C) - Distal Esophagus, biopsy This addendum is issued to report the result of immunohistochemical study for H elicobacter pylori on specimen A- NEGATIVE The interpretation of this case included the use of immunohistochemistry or special stains. HELICOBACTER PYLORIImmunohistochemistry technical testing was performed at [facility], Pathology Laboratory where it was developed [...] Laboratory Improvement Amendments of 1988 (CLIA-88) as qualifiedto perform high complexity clinical laboratory testing. CPT CODE: 60608 Addendum electronically signed by Eli Maria MD on 04/28/2022 at 2:36 PMA. STOMACH, ANTRUM, ENDOSCOPIC BIOPSY: - MILD CHRONIC GASTRITIS WITH ACTIVITY - NO INTESTINAL METAPLASIA, DYSPLASIA OR MALIGNANCY NOTED - IMMUNOHI STOCHEMICAL STAIN FOR HELICOBACTER IS BEING DONE; RESULT WILL BE ISSUED IN ADDENDUM REPORTB. STOMACH, BODY, ENDOSCOPIC BIOPSY: - OXYNTIC MUCOSA WITH NO PATHOLOGIC ALTERATION - NO INTESTINAL METAPLASIA,DYSPLASIA OR MALIGNANCY NOTED C. DISTAL ESOPHAGUS, ENDOSCOPIC BIOPSY - NECRO-INFLAMMATORY DEBRIS WITH BACTERIAL COLONIES, CONSISTENT WITH ULCERATION - SQUAMOUS MUCOSA WITH REACTIVE CHANGES - VERY SMALLFRAGMENT OF SUPERFICIAL COLUMNAR MUCOSA SEEN - GMS STAIN IS NEGATIVE FOR FUNGAL ELEMENTS - NEGATIVE FOR DYSPLASIA OR MALIGNANCY Signing Pathologist Direct Phone Line: [phone] signed by Eli Maria MD on 04/28/2022 at 10:25 [id number]; [id number] A. Stomach, Antrum.Received in formalin labeled with the patient's information and labeled "stomach, antrum" are two prescott-white pieces of tissue measuring 0.2 and 0.4 cm in maximum dimension, submitted entirely in cassette labeled A. B. Stomach, Body.Received in formalin labeled with the patient's information and labeled"stomach, body" are two prescott-white pieces of tissue each measuring 0.2 cm in maximum dimension, submitted entirely in cassette B. C. Distal Esophagus.Received in formalin labeled with the patient's information and labeled "distal esophagus" are multiple prescott-white fragments of tissue each measuring 0.1 cm, submitted entirely in cassette C1. BH/plPERFORMEDThe interpretation of this case included the useof immunohistochemistry or special stains.GMSControl Slides Examined: In-house known positive controls were evaluated along with the test tissue. These control slides run alongside of the patients sample show appropriate staining. Internal positive and negative controls when available are evaluated Immunohistochemistry technical testing was performed at [facility], Pathology Laboratory where it was developed and its performance characteristics were determined. It has not been cleared or approved by the U.S. Food and Drug Administration. The FDA has determined that such clearance or approval is not necessary. The test is used for clinical purposes. It should not be regarded asinvestigational or for research. This laboratory is certified under the Clinical Laboratory Improvement Amendments of 1988 (CLIA-88) as qualified to perform high complexity clinical laboratory testing.VITAMIN D, [id number] 14:26:40 Test Item Value Reference Range Interpretation Comments VITAMIN D 25-OH (BEAKER) (test 14.1 ng/mL 6.6-49.9 code = 2764) Effective 09/05/2017: Reference Range ChangeNew: 6.6-49.9 ng/mL Previous: 13.0- 47.8 ng/mLRecommendedVitamin D Target Range: 30.0-40.0 ng/mLOperator ID - RM [id number] 07:17:45 Test Item Value Reference Range Interpretation Comments FERRITIN (BEAKER) (test code = 54.20 ng/mL 22.00-322.00 361) Health Physics Technician ID - LITOPTH, [id number] 07:02:32 Test Item Value Reference Range Interpretation Comments PARATHYROID HORMONE INTACT 298.3 pg/mL 15.0-90.0 H (BEAKER) (test code = 577) Health Physics Technician ID - LITOHEPATIC FUNCTION [id number] 07:00:33 Test Item Value Reference Range Interpretation [...] (test code = 12 U/L 5-50 347) Health Physics Technician ID - LITOOperator ID - LITOOperator ID - LITOOperator ID - LITOOperator ID - LITOOperator ID - LITOOperator ID - LITOBASIC METABOLIC [id number] 06:59:39 Test Item Value Reference Range Interpretation [...] S NOT APPLICABLE FOR DIALYSIS PATIEN TS. Health Physics Technician ID - LITOOperator ID - LITOOperator ID [...] 36 % 20-55 (test code = 2590) Health Physics Technician ID - LITOOperator ID - [id number] 06:56:14 Test Item Value Reference Range Interpretation Comments PHOSPHORUS (BEAKER) (test code = 3.3 mg/dL 2.5-4.5 604) Health Physics Technician ID - LITOOperator ID - LITOOperator ID - LITOOperator ID - LITOCBC W/PLT COUNT & AUTO [id number] 06:46:06 Test Item Value Reference Range Interpretation [...] 0-0 PERCENT (BEAKER) (test code = 2801) Urinalysis Microscopic [id number] 13:47:25 Test Item Value Reference Range Interpretation Comments RBC, UA (test code = <5 See_Comment [Autom ated message] 799-7) The system [employer] generated this result transmitted ref erence range: /HPF. Th e reference range was not used to int erpret this result as normal/abnormal . WBC, UA (test code = None Seen See_Comment [Autom ated message] 90886-2) The system [employer] h generated this result transmitted ref erence range: /HPF. Th e reference range was not used to int erpret this result as normal/abnormal . Bacteria, UA (test None Seen code = 58894-7) SQUAMOUS EPITHELIAL <5 See_Comment [Automa nakul message] (test code = 91248-7) The sy stem which generated this result transmitted ref erence range: /HPF. Th e reference range was not used to int erpret this result as normal/abnormal . [facility] [id number] 13:47:25 Test Item Value Reference Range Interpretation Comments RBC UA-MANUAL (BEAKER) (test <5 /HPF code = 1659) WBC UA-MANUAL (BEAKER) (test None Seen /HPF code = 1661) BACTERIA (BEAKER) (test code = None Seen 517) SQUAMOUS EPITHELIAL MANUAL <5 /HPF (BEAKER) (test code = 1663) Urinalysis with Microscopic If [id number] 13:43:44 Test Item Value Reference Range Interpretation Comments Color, UA (test code = 5778-6) Yellow Clarity, UA (test code = 5767-9) Clear Specific [place], UA (test code = 1.020 1.001-1.035 5811-5) pH, UA (test code = 5803-2) 7.5 5.0-8.0 Protein, UA (test code = 17759-7) >=300 mg/dL Negative A Glucose, UA (test code = 365) Negative Negative Ketones, UA (test code = 2514-8) Negative Negative Bilirubin, UA (test code = Negative Negative 47036-1) Blood, UA (test code = 53135-3) Trace Negative A Nitrite, UA (test code = 5802-4) Negative Negative Leukocytes, UA (test code = Negative Negative 5799-2) Urobilinogen, UA (test code = 0.2 mg/dL 0.2-1.0 64939-2) Specimen Source (test code = 2795) Lab Interpretation (test code = Abnormal 26758-1) [facility] MICROSCOPIC IF [id number] 13:43:44 Test Item Value Reference Range Interpretation [...] = 2795) CBC W/PLT COUNT & AUTO [id number] 02:41:13 Test Item Value Reference Range Interpretation [...] PERCENT (BEAKER) (test code = 2801) PROTHROMBIN [id number] 02:29:02 Test Item Value Reference Range Interpretation Comments PROTIME (BEAKER) 11.4 seconds 9.3-12.0 Final Infor mation (test code = 759) (Auto Outp ut) INR (BEAKER) (test 1.04 See_Comment Final Inf ormation code = 370) (Auto Output) [Automated mess age] The system [employer] generated this result transmitted ref erence range: <=5.90. The reference range was not used to int erpret this result as normal/abnormal . RECOMMENDED COUMADIN/WARFARIN INR THERAPY RANGESSTANDARD DOSE: 2.0 - 3.0 Includes: PROPHYLAXIS for venous thrombosis, systemic embolization; TREATMENT for venous thrombosis and/or pulmonary embolus.HIGH RISK: Target INR is 2.5-3.5 for patients with mechanical heart valves.[id number] 02:05:45 Test Item Value Reference Range Interpretation Comments MAGNESIUM (BEAKER) (test code = 1.7 mg/dL 1.5-3.0 627) Health Physics Technician ID - [id number] ID - [id number] ID - [id number] ID - [id number] FUNCTION [id number] 02:05:39 Test Item Value Reference Range Interpretation [...] (test code = 14 U/L 5-50 347) Health Physics Technician ID - [id number] ID - [id number] ID - [id number] ID - [id number] ID - [id number] ID - [id number] ID - [id number] METABOLIC [id number] 02:05:19 Test Item Value Reference Range Interpretation Comments SODIUM (BEAKER) 139 meq/L 135-148 (test code = 381) POTASSIUM (BEAKER) 4.0 meq/L 3.6-5.5 (test code = 379) CHLORIDE (BEAKER) 105 meq/L 98-106 (test code = 382) CO2 (BEAKER) (test 23 meq/L 20-29 code = 355) BLOOD UREA NITROGEN 41 [...] S NOT APPLICABLE FOR DIALYSIS PATIEN TS. Health Physics Technician ID - [id number] ID - [id number] ID - [id number] ID - [id number] ID - [id number] ID - [id number] ID - [id number] ID - [id number] ID - [id number] ID - [id number] 02:01:59 Test Item Value Reference Range Interpretation Comments PHOSPHORUS (BEAKER) (test code = 3.0 mg/dL 2.5-4.5 604) Health Physics Technician ID - [id number] (ID NOW RAPID TESTING)2021-08-05 20:02:26 Test Item Value Reference Range Interpretation Comments SARS-CoV-2 Rapid ID NOW Not Detected Not Detected (test code = 75155-7) LULÚ (test code = LULÚ) ID NOW COVID-19 Assay is an isothermal nucleic acid amplification test intended for the qualitative detection of nucleic acid from SARS-CoV-2 viral RNA in nasopharyngeal ([employer]ICE [employer]) specimens. It is used under Emergency Use [...] indicated. Lab Interpretation Normal (test code = 43354-8) [facility]
--- NOTE | 2022-07-27 17:56 | RAD REPORT ---
EXAM DESCRIPTION: CT - Abdomen Pelvis Wo Contrast - 07/27/2022 5:25 pm CLINICAL HISTORY: Abdominal pain. Nausea/vomiting COMPARISON: Abdomen Pelvis Wo Contrast dated 06/30/2022 TECHNIQUE: CT imaging of the abdomen and pelvis was performed without contrast. Solid organ, bowel a nd vascular assessment is limited due to lack of IV and oral contrast. All CT scans are performed using dose optimization technique as appropriate and may include automated exposure control or mA/KV adjustment according to patient size. FINDINGS: The lower lung walters are clear. Small amount of free fluid is seen along the hepatic edge.No gross liver lesion or biliary dilatation . The spleen, pancreas, adrenal glands and right kidney are within normal limits. 17 mm cyst is seen along the cortex of the left kidney. No hydronephrosis. Mildly thickened small bowel loops are seen in the central mid abdomen. This may represent an enterit is or inflammatory bowel disease. The appendix is normal. No bowel obstruction, free fluid, free air or abscess. No significant adenopathy seen in the abdomen or pelvis. Moderate aortoiliac atherosclerosis. Small bilateral fat containing inguinal hernias.Moderate lumbosa cral degenerative changes. IMPRESSION: Thickened small bowel loops are seen in the central mid abdomen likely representing ente ritis or inflammatory bowel disease. Small amount of free fluid along the right liver edge. A limited non-contrast examination was performed as detailed.
[2022-07-27 19:11] LABS: Absolute Lymphocytes (CBC) 1.1 K/uL (0.7-4.9); Hematocrit 27.4 % (39.6-49.0); Lymphocytes % 10.6 % (15.3-44.8); MCV 89.2 fL (80-100); MPV 8.5 fL (7.6-11.3); RBC Red Blood Cell Count 3.08 M/uL (4.33-5.43)
[2022-07-27] MEDS ORDERED: ONDANSETRON 4 MG/2 ML VIAL ONE ×2 (19:18→21:12)
[2022-07-27] MEDS ORDERED: cloNIDine HCL 0.1 MG TAB ONE (19:33)
[2022-07-27 19:51] LABS: Urine Blood 2+ (Negative); Urine Glucose Trace (Negative); Urine Protein 3+ (Negative); Urine pH 6.5 (5.0-7.0)
[2022-07-27 20:06] LABS: Urine Bacteria <20 /HPF (<20); Urine Crystals Unidentified Few /HPF (None Seen); Urine Mucus Slight /HPF (None Seen); Urine RBC <5 /HPF (None Seen)
[2022-07-27 20:16] LABS: Bilirubin Total 0.7 mg/dL (0.2-1.0); Protein, Total 8.3 g/dL (6.4-8.2)
--- NOTE | 2022-07-27 20:55 | EDPHYS ---
Physician Documentation [facility] Name: Brendan Steinberg Age: 71 yrs Sex: Male : 1950 Arrival Date: 07/27/2022 Time: 15:57 Bed 18 Private MD: Hilda Tam H ED Physician Jhonny García HPI: 07/27 20:40 This 71 yrs old Black Male presents to ER via EMS with complaints of Abdominal Pain, miriam Nausea/Vomiting. 20:40 The patient presents to the emergency department with nausea, vomiting, abdominal pain, miriam of the right upper quadrant, left upper quadrant, right lower quadrant and left lower quadrant. Onset: The symptoms/episode began/occurred 4 day(s) ago. Possible causes: unknown. The symptoms are aggravated by movement, The symptoms are alleviated by remaining still. Associated signs and symptoms: Pertinent positives: abdominal pain, nausea, vomiting. Severity of symptoms: At their worst the symptoms were mild moderate in the emergency department the symptoms are unchanged. The patient has not experienced similar symptoms in the past. Historical: - Home Meds: 16:08 amlodipine oral [Active]; calcitriol Oral [Active]; Furosemide Oral [Active]; ph gabapentin Oral [Active]; lisinopril Oral [Active]; Metoprolol Tartrate Oral [Active]; Zolpidem Tartrate Oral [Active]; - PMHx: 16:08 Hypertension; insomnia; ph - Immunization history:: Adult Immunizations unknown. - Social history:: Smoking status: Patient reports the use of cigarette tobacco products, denies chronic smoking, but will smoke occasionally. ROS: 20:49 Constitutional: Negative for fever, chills, and weight loss, Eyes: Negative for injury, miriam pain, redness, and discharge, ENT: Negative for injury, pain, and discharge, Neck: Negative for injury, pain, and swelling, Cardiovascular: Negative for chest pain, palpitations, and edema, Respiratory: Negative for shortness of breath, cough, wheezing, and pleuritic chest pain, Back: Negative for injury and pain, : Negative for injury, bleeding, discharge, and swelling, MS/Extremity: Negative for injury and deformity, Skin: Negative for injury, rash, and discoloration, Neuro: Negative for headache, weakness, numbness, tingling, and seizure, Psych: Negative for depression, anxiety, suicide ideation, homicidal ideation, and hallucinations, Allergy/Immunology: Negative for hives, rash, and allergies, Endocrine: Negative for neck swelling, polydipsia, polyuria, polyphagia, and marked weight changes, Hematologic/Lymphatic: Negative for swollen nodes, abnormal bleeding, and unusual bruising. 20:49 Abdomen/GI: Positive for abdominal pain, nausea and vomiting, of the umbilical area, right upper quadrant, left upper quadrant, right lower quadrant and left lower quadrant. Exam: 20:49 Constitutional: This is a well developed, well nourished patient who is awake, alert, miriam and in no acute distress. Head/Face: Normocephalic, atraumatic. Eyes: Pupils equal round and reactive to light, extra-ocular motions intact. Lids and lashes normal. Conjunctiva and sclera are non-icteric and not injected. Cornea within normal limits. Periorbital areas with no swelling, redness, or edema. ENT: Nares patent. No nasal discharge, no septal abnormalities noted. Tympanic membranes are normal and external auditory canals are clear. Oropharynx with no redness, swelling, or masses, exudates, or evidence of obstruction, uvula midline. Mucous membranes moist. Neck: Trachea midline, no thyromegaly or masses palpated, and no cervical lymphadenopathy. Supple, full range of motion without nuchal rigidity, or vertebral point tenderness. No Meningismus. Chest/axilla: Normal chest wall appearance and motion. Nontender with no deformity. No lesions are appreciated. Cardiovascular: Regular rate and rhythm with a normal S1 and S2. No gallops, murmurs, or rubs. Normal PMI, no JVD. No pulse deficits. Respiratory: Lungs have equal breath sounds bilaterally, clear to auscultation and percussion. No rales, rhonchi or wheezes noted. No increased work of breathing, no retractions or nasal flaring. Back: No spinal tenderness. No costovertebral tenderness. Full range of motion. Male : Normal genitalia with no discharge or lesions. Skin: Warm, dry with normal turgor. Normal color with no rashes, no lesions, and no evidence of cellulitis. MS/ Extremity: Pulses equal, no cyanosis. Neurovascular intact. Full, normal range of motion. Neuro: Awake and alert, GCS 15, oriented to person, place, time, and situation. Cranial nerves II-XII grossly intact. Motor strength 5/5 in all extremities. Sensory grossly intact. Cerebellar exam normal. Normal gait. Psych: Awake, alert, with orientation to person, place and time. Behavior, mood, and affect are within normal limits. 20:49 Abdomen/GI: Inspection: distension, Bowel sounds: normal, Palpation: mild abdominal tenderness, moderate abdominal tenderness, in the umbilical area, right upper quadrant, left upper quadrant, right lower quadrant and left lower quadrant, Liver: no appreciated palpable abnormalities, Hernia: not appreciated. 22:38 Cardiovascular: [facility] 22:38 ECG was reviewed by the Attending Physician. Vital Signs: 16:04 BP 187 / 114; Pulse 89; Resp 16; Temp 97.7; Pulse Ox 100% ; Weight 86.18 kg; Height 5 ph ft. 7 in. (170.18 cm); Pain 10/10; 19:15 BP 200 / 104; Pulse 75; Resp 17 S; Pulse Ox 100% on R/A; lg3 20:38 BP 145 / 80; Pulse 72; Resp 17 S; Pulse Ox 100% on R/A; lg3 16:04 Body Mass Index 29.76 (86.18 kg, 170.18 cm) ph MDM: 16:20 Patient medically screened. ms3 20:52 Differential diagnosis: Nonspecific abd pain, pancreatitis, diverticulitis, viral miriam gastroenteritis, gastroenteritis. Data reviewed: vital signs, nurses notes, lab test result(s), EKG, radiologic studies, CT scan, plain films. Data interpreted: classroom monitor: rate is 72 beats/min, rhythm is regular, Pulse oximetry: on room air is 100 %. Test interpretation: by ED physician or midlevel provider: ECG, plain radiologic studies. Counseling: I had a detailed discussion with the patient and/or guardian regarding: the historical points, exam findings, and any diagnostic results supporting the discharge/admit diagnosis, lab results, radiology results, the need for further work-up and treatment in the hospital. 07/27 16:34 Order name: CBC with Diff; Complete Time: 19:22 ms3 07/27 16:34 Order name: CMP; Complete Time: 20:35 ms3 07/27 16:34 Order name: Lipase; Complete Time: 20:35 ms3 07/27 16:34 Order name: Urine Microscopic Only; Complete Time: 20:35 ms3 07/27 19:51 Order name: Urine Dipstick-Ancillary; Complete Time: 20:35 EDAR 07/27 20:49 Order name: SARS RAPID; Complete Time: 21:48 [facility] 07/27 20:51 Order name: Basic Metabolic Panel [facility] 07/27 20:51 Order name: Magnesium [facility] 07/27 20:51 Order name: NT PRO-BNP [facility] 07/27 20:51 Order name: PT-INR; Complete Time: 21:48 [facility] 07/27 20:51 Order name: Troponin HS [facility] 07/28 03:31 Order name: CBC with Automated Diff EDAR 07/28 03:48 Order name: Troponin High Sensitivity [facility] 07/28 03:58 Order name: Comprehensive Metabolic Panel [facility] 07/27 16:34 Order name: CT Abd/Pelvis - Without Contrast; Complete Time: 18:06 ms3 07/27 16:34 Order name: IV Saline Lock; Complete Time: 18:59 ms3 07/27 16:34 Order name: Labs collected and sent; Complete Time: 18:59 [facility] 07/27 16:34 Order name: Urine Dipstick-Ancillary (obtain specimen); Complete Time: 19:50 [facility] 07/27 20:51 Order name: XRAY Chest (1 view); Complete Time: 21:48 [facility] 07/27 20:51 Order name: EKG; Complete Time: 20:52 [facility] 07/27 20:51 Order name: Cardiac monitoring; Complete Time: 21:16 [facility] 07/27 20:51 Order name: EKG - Nurse/Tech; Complete Time: 22:18 [facility] 07/27 20:51 Order name: O2 Per Protocol; Complete Time: 21:16 [facility] 07/27 20:51 Order name: O2 Sat Monitoring; Complete Time: 21:17 [facility] EC:38 Rate is 77 beats/min. Rhythm is regular. QRS [place] is Normal. [place] interval is normal. QRS miriam interval is normal. QT interval is normal. No Q waves. T waves are Normal. No ST changes noted. Clinical impression: NSR w/ Non-specific ST/T Changes, LVH, and No evidence of ischemia. Interpreted by me. Reviewed by me. Administered Medications: 19:13 Drug: Zofran (Ondansetron) 4 mg Route: IVP; Site: left antecubital; lg3 19:25 Follow up: Response: No adverse reaction; Marked relief of symptoms lg3 19:25 Drug: cloNIDine 0.1 mg Route: PO; lg3 20:39 Follow up: Response: No adverse reaction; Marked relief of symptoms; Blood pressure is lg3 lowered 21:17 Drug: morphine 4 mg Route: IVP; Infused Over: 4 mins; Site: left antecubital; lg3 21:24 Follow up: Response: No adverse reaction; Pain is decreased lg3 21:17 Drug: Zofran (Ondansetron) 4 mg Route: IVP; Site: left antecubital; lg3 21:24 Follow up: Response: No adverse reaction; Marked relief of symptoms lg3 21:17 Drug: NS 0.9% 1000 ml Route: IV; Rate: 75 ml/hr; Site: left antecubital; lg3 21:18 Drug: Pepcid (famotidine) 20 mg Route: IVP; Site: left antecubital; lg3 21:25 Follow up: Response: No adverse reaction lg3 21:18 Drug: Flagyl (metroNIDAZOLE) 500 mg Volume: 100 ml; Route: IVPB; Rate: 200 ml/hr; lg3 Infused Over: 30 mins; Site: left antecubital; 21:25 Follow up: Response: No adverse reaction; IV Status: Completed infusion; IV Intake: lg3 100ml 21:18 Drug: levofloxacin 500 mg Volume: 100 ml; Route: IVPB; Infused Over: 60 mins; Site: lg3 left antecubital; 21:24 Follow up: Response: No adverse reaction; IV Status: Completed infusion; IV Intake: lg3 100ml Disposition Summary: 07/27/22 20:55 Hospitalization Ordered Hospitalization Status: Inpatient Admission miriam Provider: Amrit Matt miriam Condition: Stable miriam Problem: new miriam Symptoms: have improved miriam Bed/Room Type: Standard miriam Location: Telemetry/MedSurg (Inpatient)(07/28/22 08:46) eb Room Assignment: 406(07/28/22 08:46) eb Diagnosis - Abdominal pain, Generalized - enteritis miriam - Vomiting miriam - Unspecified kidney failure - chronic miriam - Anemia in chronic kidney disease miriam - Essential (primary) hypertension miriam Forms: - Medication Reconciliation Form miriam - SBAR form miriam Signatures: Dispatcher [employer] Jhonny Berrios MD MD miriam Attema, Sudarshan, INTERVENTIONAL TECH-C INTERVENTIONAL TECH-Cla1 Chani Brooke, RN RN ph Shilpi Connell, RN RN Kizzy Ballesteros Lacie, RN RN lg3 Thomas French, DO ELISE ms3 Corrections: (The following items were deleted from the chart) 16:09 16:08 Allergies: Codeine; ph ph 22:17 20:55 Telemetry/MedSurg (Inpatient) [facility] 22:17 20:55 [facility] 22:18 22:17 [facility] 07/28 08:46 07/27 22:17 [facility] ER HOLD eb 07/28 08:46 07/27 22:18 ERHOLD- eb
--- NOTE | 2022-07-27 20:55 | ER ---
Nurse's Notes [facility] Name: Brendan Steinberg Age: 71 yrs Sex: Male : 1950 Arrival Date: 07/27/2022 Time: 15:57 Bed 18 Private MD: Hilda Tam H Diagnosis: Abdominal pain, Generalized-enteritis;Vomiting;Unspecified kidney failure-chronic;Anemia in chronic kidney disease;Essential (primary) hypertension Presentation: 07/27 16:04 Chief complaint: Patient states: Stomach pain in the middle, vomiting. Has been here ph before recently with abd pain and "something with my kidneys". This has been going on since Sunday. Coronavirus screen: Client denies travel out of the [place] in the last 14 days. At this time, the client does not indicate any symptoms associated with coronavirus-19. Ebola Screen: No symptoms or risks identified at this time. Initial Sepsis Screen: Does the patient meet any 2 criteria? No. Patient's initial sepsis screen is negative. Does the patient have a suspected source of infection? No. Patient's initial sepsis screen is negative. Risk Assessment: Do you want to hurt yourself or someone else? Patient reports no desire to harm self or others. Onset of symptoms was July 23, 2022. 16:04 Method Of Arrival: EMS: [facility] 16:04 Acuity: ROSALIE 3 ph Triage Assessment: 16:08 General: Appears in no apparent distress. Behavior is calm, cooperative, appropriate ph for age. Pain: Complains of pain in right upper quadrant, left upper quadrant, right lower quadrant and left lower quadrant. GI: Reports lower abdominal pain, nausea, vomiting. Historical: - Home Meds: 16:08 amlodipine oral [Active]; calcitriol Oral [Active]; Furosemide Oral [Active]; ph gabapentin Oral [Active]; lisinopril Oral [Active]; Metoprolol Tartrate Oral [Active]; Zolpidem Tartrate Oral [Active]; - PMHx: 16:08 Hypertension; insomnia; ph - Immunization history:: Adult Immunizations unknown. - Social history:: Smoking status: Patient reports the use of cigarette tobacco products, denies chronic smoking, but will smoke occasionally. Screenin:08 Abuse screen: Denies threats or abuse. Denies injuries from another. Nutritional ph screening: No deficits noted. Tuberculosis screening: No symptoms or risk factors identified. Fall Risk None identified. Assessment: 18:30 General: Appears in no apparent distress. Behavior is calm, cooperative, PT PLACED IN 6 ROOM FROM LOBBY AT THIS TIME. . 18:30 Pain: Complains of pain in epigastric area, right upper quadrant and left upper jh6 quadrant Pain currently is 9 out of 10 on a pain scale. Quality of pain is described as aching, Pain began 4 DAYS AGO Is continuous, Aggravated by eating, drinking. GI: Bowel sounds present X 4 quads. hyperactive in suprapubic area, right upper quadrant, left upper quadrant, right lower quadrant, left lower quadrant and abdomen diffusely Abd is soft X 4 quads Abdomen is tender to palpation in right upper quadrant and left upper quadrant Reports lower abdominal pain, upper abdominal pain, diarrhea, nausea, vomiting, since X 4 DAYS. 18:43 Reassessment: ATTEMPTED TO START IV TWICE BUT WAS UNSUCCESSFUL ADVISED CHARGE TO HAVE [facility] HER ATTEMPT. 19:14 General: Appears in no apparent distress. comfortable, Behavior is calm, cooperative. lg3 Pain: Complains of pain in epigastric area and right upper quadrant Pain currently is 5 out of 10 on a pain scale. Noted to be guarding, resistant to movement. Neuro: No deficits noted. Level of Consciousness is awake, alert, obeys commands, Oriented to person, place, time, situation. Cardiovascular: No deficits noted. Denies chest pain, shortness of breath, Capillary refill < 3 seconds Clubbing of nail beds is absent JVD is absent Patient's skin is warm and dry. Respiratory: No deficits noted. Airway is patent Trachea midline Respiratory effort is even, unlabored, Respiratory pattern is regular, symmetrical, Breath sounds are clear bilaterally. GI: Abdomen is round non-distended, Bowel sounds present X 4 quads. Abd is soft X 4 quads Abdomen is tender to palpation in right upper quadrant and left upper quadrant Reports upper abdominal pain, nausea. : No deficits noted. No signs and/or symptoms were reported regarding the genitourinary system. EENT: No deficits noted. No signs and/or symptoms were reported regarding the EENT system. Derm: No deficits noted. No signs and/or symptoms reported regarding the dermatologic system. Skin is intact, is healthy with good turgor, Skin is dry, Skin temperature is warm. Musculoskeletal: No deficits noted. No signs and/or symptoms reported regarding the musculoskeletal system. Circulation, motion, and sensation intact. Range of motion: intact in all extremities. 21:26 Reassessment: Patient appears in no apparent distress at this time. No changes from lg3 previously documented assessment. Patient and/or family updated on plan of care and expected duration. Pain level reassessed. Patient is alert, oriented x 3, equal unlabored respirations, skin warm/dry/pink. Patient states symptoms have improved. Vital Signs: 16:04 BP 187 / 114; Pulse 89; Resp 16; Temp 97.7; Pulse Ox 100% ; Weight 86.18 kg; Height 5 ph ft. 7 in. (170.18 cm); Pain 10/10; 19:15 BP 200 / 104; Pulse 75; Resp 17 S; Pulse Ox 100% on R/A; lg3 20:38 BP 145 / 80; Pulse 72; Resp 17 S; Pulse Ox 100% on R/A; lg3 16:04 Body Mass Index 29.76 (86.18 kg, 170.18 cm) ph ED Course: 15:57 Patient arrived in ED. mr 15:57 Hilda Tam DO is Private Physician. mr 15:58 Thomas French DO is Attending Physician. ms3 16:08 Triage completed. ph 16:08 Arm band placed on right wrist. Patient placed in waiting room, Patient notified of ph wait time. 17:08 Missed attempt(s): 22 gauge in right Bleeding controlled, band aid applied, catheter ph tip intact. Missed attempt(s): 22 gauge in right forearm. Bleeding controlled, band aid applied, catheter tip intact. 17:27 CT Abd/Pelvis - Without Contrast In Process Unspecified. EDMS 18:26 Quyen Vaughan, RN is Primary Nurse. jh6 18:44 Bed in low position. Call light in reach. Side rails up X 1. jh6 18:50 Missed attempt(s): 22 gauge in right upper arm. Bleeding controlled, band aid applied, dh3 catheter tip intact. 18:56 Initial lab(s) drawn, by nd, sent to lab. Inserted saline lock: 20 gauge in left dh3 antecubital area, using aseptic technique. Blood collected. 19:26 Attending Physician role handed off by Thomas French DO miriam 19:26 Jhonny García MD is Attending Physician. miriam 19:50 Urine Microscopic Only Sent. lg3 20:53 Amrit Matt MD is Hospitalizing Provider. miriam 21:17 Basic Metabolic Panel Sent. lg3 21:17 Magnesium Sent. lg3 21:17 NT PRO-BNP Sent. lg3 21:17 Troponin HS Sent. lg3 21:18 SARS RAPID Sent. lg3 21:30 XRAY Chest (1 view) In Process Unspecified. EDMS 07/28 02:15 No provider procedures requiring assistance completed. Patient admitted, IV remains in lg3 place. intact, No redness/swelling at site. Administered Medications: 07/27 19:13 Drug: Zofran (Ondansetron) 4 mg Route: IVP; Site: left antecubital; lg3 19:25 Follow up: Response: No adverse reaction; Marked relief of symptoms lg3 19:25 Drug: cloNIDine 0.1 mg Route: PO; lg3 20:39 Follow up: Response: No adverse reaction; Marked relief of symptoms; Blood pressure is lg3 lowered 21:17 Drug: morphine 4 mg Route: IVP; Infused Over: 4 mins; Site: left antecubital; lg3 21:24 Follow up: Response: No adverse reaction; Pain is decreased lg3 21:17 Drug: Zofran (Ondansetron) 4 mg Route: IVP; Site: left antecubital; lg3 21:24 Follow up: Response: No adverse reaction; Marked relief of symptoms lg3 21:17 Drug: NS 0.9% 1000 ml Route: IV; Rate: 75 ml/hr; Site: left antecubital; lg3 21:18 Drug: Pepcid (famotidine) 20 mg Route: IVP; Site: left antecubital; lg3 21:25 Follow up: Response: No adverse reaction lg3 21:18 Drug: Flagyl (metroNIDAZOLE) 500 mg Volume: 100 ml; Route: IVPB; Rate: 200 ml/hr; lg3 Infused Over: 30 mins; Site: left antecubital; 21:25 Follow up: Response: No adverse reaction; IV Status: Completed infusion; IV Intake: lg3 100ml 21:18 Drug: levofloxacin 500 mg Volume: 100 ml; Route: IVPB; Infused Over: 60 mins; Site: lg3 left antecubital; 21:24 Follow up: Response: No adverse reaction; IV Status: Completed infusion; IV Intake: lg3 100ml Medication: 17:09 VIS not applicable for this client. ph Intake: 21:24 IV: 100ml; Total: 100ml. lg3 21:25 IV: 100ml; Total: 200ml. lg3 Outcome: 20:55 Decision to Hospitalize by Provider. miriam 07/28 02:15 Admitted to ER Hold. Please see [facility] for further documentation. lg3 Condition: stable Instructed on the need for admit, Demonstrated understanding of instructions. 10:01 Patient left the ED. mb8 Signatures: Dispatcher [employer] EDMS Jhonny García MD MD cha Rivera, Lyndsay mr Chani Brooke, RN RN Lucio, Carol 3 Cassandra Chavarria RN RN 3 Thomas French, DO ELISE ms3 Quyen Vaughan RN RN 6 Jayme Miller, RN RN mb8 Corrections: (The following items were deleted from the chart) 07/27 16:09 16:08 Allergies: Codeine; ph ph
[2022-07-27] MEDS ORDERED: MORPHINE 4 MG/ML SYR ONE (21:11)
[2022-07-27] MEDS ORDERED: Levofloxacin500mg IV 500 MG/100 ML BAG IV ONE (21:12)
[2022-07-27] MEDS ORDERED: NA CHLORIDE 0.9% 1,000 ML ONE (21:12)
[2022-07-27] MEDS ORDERED: FAMOTIDINE 20 MG/2 ML VIAL IV ONE (21:12)
[2022-07-27] MEDS ORDERED: METRONIDAZOLE 500mg IVPB 500 MG/100 ML BAG IV ONE (21:12)
[2022-07-27 21:14] LABS: Protime INR 1.11
[2022-07-27 21:29] LABS: SARS-CoV-2 Antigen Rapid Res Negative (Negative)
--- NOTE | 2022-07-27 21:34 | RAD REPORT ---
EXAM DESCRIPTION: RAD - Chest Single View - 07/27/2022 9:28 pm CLINICAL HISTORY: ABDOMINAL DISTENTION Chest pain. COMPARISON: Chest Single View dated 04/18/2022; Chest Single View dated 12/07/2021; Abdomen 1 View (K[facility] B) dated 02/21/2021; CHEST SINGLE VIEW dated 12/07/2014 FINDINGS: Portable technique limits examination quality. The lungs are grossly clear. The heart is mildly enlarged in size. No displaced fractures.Aortic athe rosclerosis. IMPRESSION: No acute intrathoracic process suspected.
[2022-07-27 21:56] LABS: Magnesium 1.8 mg/dL (1.8-2.4); Potassium 3.2 mmol/L (3.5-5.1)
[2022-07-27 21:58] LABS: Troponin High Sensitivity 59.3 pg/mL (<58.9)
--- NOTE | 2022-07-27 22:03 | P.HP ---
Certification for Inpatient Patient admitted to: Inpatient With expected LOS: >2 Midnights Patient will require the following post-hospital care: None Practitioner: I am a practitioner with admitting privileges, knowledge of patient current condition, hospital course, and medical plan of care. Services: Services provided to patient in accordance with Admission requirements found in Title 42 Section 412.3 of the Code of Federal Regulations Patient History Date of Service: 07/27/22 Reason for admission: Enteritis, ESRD History of Present Illness: 71-year-old male history of ESRD not on dialysis, hypertension, anemia of chronic disease presents the emergency department for generalized abdominal pain, nausea/vomiting since Sunday the . Patient was evaluated in the emergency department his labs were significant for white blood cell count of 10.6 normocytic anemia worsening of his ESRD creatinine trending up from 5.291- month ago to 6.96 today potassium is 4.0 no indications for urgent/emergent dialysis present. CT abdomen pelvis without contrast was performed which revealed thickened small bowel loops are seen in the central mid abdomen likely representing enteritis or inflammatory bowel disease, small amount of free fluid along the right liver edge. Patient was treated with IV antibiotics LevaquinFlagyl in the ED, ED provider was to admit for further evaluation and management of worsening ESRD, enteritis, abdominal pain, nausea vomiting. Allergies codeine Allergy (Mild, Verified 04/18/22 12:42) Nausea/Vomiting Home Medications: Aspirin [Aspirin EC 81 MG] 81 mg PO DAILY #30 tablet. 12/09/21 Atorvastatin Calcium [Lipitor] 40 mg PO BEDTIME #30 tab 12/09/21 Metoprolol Tartrate [Lopressor*] 100 mg PO BID #60 tab 12/09/21 Pantoprazole [Protonix Tab] 40 mg PO BID #60 tab 12/09/21 - Past Medical/Surgical History Diabetic: No -: HTN -: prostate cancer s/p radiation 04/2020 -: Hemorrhoids -: ESRD -: Hemorrhoidectomy Psychosocial/ Personal History: Patient is retired, lives alone - Family History Sister -: Diabetes Mother -: Heart disease, Lung disease, Stroke - Social History Smoking Status: Current every day smoker Alcohol use: No CD- Drugs: No Caffeine use: Yes Place of Residence: Home Review of Systems 10-point ROS is otherwise unremarkable Gastrointestinal: Nausea, Vomiting, Abdominal Pain, Diarrhea Physical Examination - Physical Exam General: Alert, In no apparent distress, Oriented x3 HEENT: Atraumatic, PERRLA, Mucous membr. moist/pink, EOMI, Sclerae nonicteric Neck: Supple, 2+ carotid pulse no bruit, No LAD, Without JVD or thyroid abnormality Respiratory: Clear to auscultation bilaterally, Normal air movement Cardiovascular: Regular rate/rhythm, Normal S1 S2 Capillary refill: <2 Seconds Gastrointestinal: Normal bowel sounds, Tenderness (mild generalized abdominal tenderness) Musculoskeletal: No tenderness Integumentary: No rashes Neurological: Normal gait, Normal speech, Normal strength at 5/5 x4 extr, Normal tone, Normal affect - Studies Laboratory Data (last 24 hrs) 07/27/22 20:57: PT 12.2, INR 1.11 07/27/22 18:56: Sodium 134 L, Potassium 4.0, BUN 51 H, Creatinine 6.96 H*, Glucose 110 H, Total Bilirubin 0.7, AST 28, ALT 16, Alkaline Phosphatase 71, Lipase 138 07/27/22 18:56: WBC 10.60, Hgb 9.1 L, Hct 27.4 L, Plt Count 195 Assessment and Plan - Plan Assessment: N/v/d/abdominal pain secondary to enteritis Acute worsening of ESRD HTN Anemia of chronic disease Plan: N/v/d/abdominal pain secondary to enteritis: NPO, gently IVF, abd with levaquin/flagyl, does not meet sepsis criteria at this time. Advance diet as tolerated. Acute worsening of ESRD: Creatinine slowly trending up, no urgent/emergent indications for dialysis, pt in discussion with nephrology about dialysis, will consult nephrology. HTN: Continue home meds. Anemia of chronic disease: stable, monitory daily H/H DVT PPX: Heparin Code status: Full Discharge Plan: Home Plan to discharge in: 48 Hours - Advance Directives Does patient have a Living Will: No Does patient have a Durable POA for Healthcare: No - Code Status/Comfort Care Code Status Assessed: Yes (Full code) Critical Care: No Time Spent Managing Pts Care (In Minutes): 70
[2022-07-28] MEDS ORDERED: Levofloxacin500mg IV 500 MG/100 ML BAG IV SCH (00:41)
[2022-07-28] MEDS ORDERED: NA CHLORIDE 0.9% 1,000 ML IV SCH (00:41)
[2022-07-28] MEDS: METRONIDAZOLE 500mg IVPB 500 MG/100 ML BAG IV SCH ×4 (00:45→21:24)
[2022-07-28 00:56] VITALS: BMI 29.7
[2022-07-28] MEDS: MORPHINE 2 MG/ML SYR IV PRN ×5 (02:11→22:00)
[2022-07-28] MEDS ORDERED: MORPHINE 2 MG/ML SYR ONE ×2 (02:16→08:50)
[2022-07-28 03:25] LABS: Absolute Lymphocytes (CBC) 1.6 K/uL (0.7-4.9); Hematocrit 23.3 % (39.6-49.0); Lymphocytes % 19.1 % (15.3-44.8); MCV 89.7 fL (80-100); MPV 8.3 fL (7.6-11.3)
[2022-07-28 03:57] LABS: Albumin 1.7 g/dL (3.4-5.0); Bilirubin Total 0.4 mg/dL (0.2-1.0); Potassium 3.3 mmol/L (3.5-5.1); Protein, Total 6.3 g/dL (6.4-8.2)
[2022-07-28] MEDS ORDERED: METRONIDAZOLE 500mg IVPB 500 MG/100 ML BAG IV ONE (04:51)
--- NOTE | 2022-07-28 07:19 | EKG ---
Test Date: 2022-07-27 Test Time: 22:19:24 Audiometrist: MEASUREMENT RESULTS: Intervals: Rate: 77 RI: 182 QRSD: 78 QT: 420 QTc: 475 [place]: P: 50 RI: 182 QRS: -3 T: 63 INTERPRETIVE STATEMENTS: Normal sinus rhythm Possible Left atrial enlargement Left ventricular hypertrophy Abnormal ECG Compared to ECG 04/18/2022 05:08:51 No significant changes Electronically Signed On 07-28-22 07:18:16 CDT by Ruben Mathew
[2022-07-28] MEDS: HEPARIN 5000 UNIT/ML 1 ML VIAL SQ SCH ×2 (07:36→21:23)
[2022-07-28] MEDS ORDERED: HEPARIN 5000 UNIT/ML 1 ML VIAL ONE (07:39)
[2022-07-28] MEDS ORDERED: ONDANSETRON 4 MG/2 ML VIAL ONE (08:50)
[2022-07-28] MEDS: ONDANSETRON 4 MG/2 ML VIAL IV PRN ×2 (08:51→17:19)
[2022-07-28] MEDS ORDERED: PNEUMOCOCCAL VACCINE 0.5 ML IMVAC ONE (09:00)
--- NOTE | 2022-07-28 12:15 | P.CNS ---
Date of Consult: 07/28/22 Reason for Consult: Renal failure Primary Care Provider: jenni Chief Complaint: Enteritis, ESRD History of Present Illness: Pt is a 71-year-old AAM with a hx of chronic sub-optimally controlled hypertension, GERD/PUD, a hx of anemia, a hx of advanced CKD which was noted and reviewed with pt when I first met him earlier this summer at [facility] during an admission there for N/V. 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 Pt has seen me twice in clinic since and pre dialysis planning and home therapy with PD was discussed but no steps taken yet. Pt's anemia had worsened and I had to refer him for transfusion of 2 units PRBC but it appears he never started SONY therapy as ordered. Pt has come in to the hospital with N/V. He cites increased fatigue. His labs show worsened renal function tests. Allergies codeine Allergy (Mild, Verified 04/18/22 12:42) Nausea/Vomiting Home Medications: Aspirin [Aspirin EC 81 MG] 81 mg PO DAILY #30 tablet. 12/09/21 Atorvastatin Calcium [Lipitor] 40 mg PO BEDTIME #30 tab 12/09/21 Metoprolol Tartrate [Lopressor*] 100 mg PO BID #60 tab 12/09/21 Pantoprazole [Protonix Tab] 40 mg PO BID #60 tab 12/09/21 - Past Medical/Surgical History Diabetic: No -: HTN -: prostate cancer s/p radiation 04/2020 -: Hemorrhoids -: ESRD -: Hemorrhoidectomy Psychosocial/ Personal History: Patient is retired, lives alone - Family History Sister Medical History: Diabetes Mother Medical History: Heart disease, Lung disease, Stroke - Social History Smoking Status: Current some day smoker Alcohol use: No CD- Drugs: No Caffeine use: Yes Place of Residence: Home Review of Systems General: Other (Fatigue) Eyes: Unremarkable ENT: Unremarkable Respiratory: Shortness of Breath Cardiovascular: Edema (Edema had worsened prev but appears better presumably as he was taking Lasix at home) Gastrointestinal: Nausea, Vomiting Genitourinary: Other Musculoskeletal: Unremarkable Integumentary: Unremarkable Neurological: Unremarkable Physical Examination Temp Pulse Resp BP Pulse Ox 97.9 F 72 17 145/80 H 98 07/28/22 10:30 07/28/22 10:32 07/28/22 10:32 07/28/22 10:32 07/28/22 10:30 General: Alert, In no apparent distress, Oriented x3 HEENT: Atraumatic, Normocephalic, EOMI Neck: Supple Respiratory: Clear to auscultation bilaterally, Normal air movement Cardiovascular: Normal pulses, Regular rate/rhythm, Normal S1 S2 Gastrointestinal: Soft and benign, Non-distended, No tenderness Musculoskeletal: No swelling, No contractures, No erythema Integumentary: No rashes, No breakdown Neurological: Normal speech, Normal affect Laboratory Data (last 24 hrs) 07/27/22 20:57: PT 12.2, INR 1.11 07/27/22 20:57: Sodium 136, Potassium 3.2 L, BUN 51 H, Creatinine 6.88 H*, Glucose 105, Magnesium 1.8 07/27/22 18:56: Sodium 134 L, Potassium 4.0, BUN 51 H, Creatinine 6.96 H*, Glucose 110 H, Total Bilirubin 0.7, AST 28, ALT 16, Alkaline Phosphatase 71, Lipase 138 07/27/22 18:56: WBC 10.60, Hgb 9.1 L, Hct 27.4 L, Plt Count 195 Conclusions/Impression: 1. CKD V 2. Azotemia with early uremic symptoms 3. Hypertensive CKD, Stage V 4. Nausea, vomiting 5. Anemia 2nd to CKD +/- other 6. Abnormality of albumin 7. Hypocalcemia 2nd to CKD 8. Labile HTN, accelerated HTN -Pt's eGFR has further declined from levels this month and I do believe pt is experiencing some early uremic symptoms in the form of fatigue and recurrent N/V. Since eGFR now is < 10 ml/min and BP have remained labile as OP and here and pt recently had worsening of edema, it is reasonable to proceed with initiation of dialysis. Had discussed home therapy/PD as an OP but currently discussed starting HD via a TDC. Pt is agreeable to plan and provides verbal consent but is concerned about timing as he reports rent is due Tues and he is wanting to go home to address that and come back next week as OP for TDC placement. I did explain to him that given his transportation and f/u hurdles as an OP, I am a bit weary of this as there may be other delays faced as an OP since he will require a VA authorization for OP HD and seperately a referral to one of the [facility] clinics ([facility]) for a chair time. -Will stop IVF at this time as pt is not having any further N/V and BP was elevated earlier. -Will restart CCB therapy, pt may have experienced edema on this prev but will employ diuretics and perform UF on HD when initiated. -Will check phos, iPTH and Vit D levels as part of BMD assessment. -Will check iron stores, recent OP transfusions, will dose SONY when BP is not accelerated. Will check for hemeoccult stool Thank you for this referral, Jasson Hernandez MD, [facility]
[2022-07-28] MEDS: PANTOPRAZOLE 40MG TABLET PO SCH (12:40)
[2022-07-28] MEDS: HYDRALAZINE HCL 20 MG/ML VIAL IV PRN (17:37)
[2022-07-28] MEDS: AMLODIPINE 5 MG TAB PO SCH (21:22)
[2022-07-28] MEDS ORDERED: ACETAMINOPHEN 325 MG TABLET PO PRN (21:38)
--- NOTE | 2022-07-28 23:30 | P.PN ---
Date of Service: 07/28/22 Subjective: abdominal pain improved nausea/vomiting improved no new symptoms ROS: 10 point ROS as noted above, otherwise negative Physical Exam: Gen: NAD, AOx3 HEENT: normal conjunctiva, sclera anicteric CV: regular rate & rhythm, trace b/l pedal edema Pulm: non-labored respirations, clear bilaterally Abd: soft, mild tenderness, no distention Neuro: normal speech, normal affect, moves all extremities vitals reviewed Problem List N/v/d/abdominal pain secondary to enteritis CKDV, acute worsening; with azotemia HTN, secondary to CKD Anemia of chronic disease hypoalbuminemia hypocalcemia secondary to CKD enteritis tolerating CLD, IVF dc'd continue levaquin/flagyl, renally dosed improving CKDV, worsening nephrology consulted progression of CKD likely will need dialysis to be initiated patient concerned regarding timing, has some financial /bills due in a few days, would miss if in hospital agreeable to start dialysis if needed during hospitalization HTN resume home meds adjust as needed anemia of chronic disease anemia workup sent, has needed prior blood transfusions Code: full Dispo: home, ~3-4 days Time Spent Managing Pts Care (In Minutes): 35
[2022-07-29] MEDS: PANTOPRAZOLE 40MG TABLET PO SCH (05:46)
[2022-07-29] MEDS: METRONIDAZOLE 500mg IVPB 500 MG/100 ML BAG IV SCH ×3 (05:46→21:02)
[2022-07-29] MEDS: MORPHINE 2 MG/ML SYR IV PRN ×4 (05:50→21:02)
[2022-07-29 06:34] LABS: AST/SGOT 10 U/L (15-37); Albumin 1.6 g/dL (3.4-5.0); Alkaline Phosphatase 56 U/L (45-117); BUN Blood Urea Nitrogen 49 mg/dL (7-18); Bicarbonate 26 mmol/L (21-32); Bilirubin Total 0.3 mg/dL (0.2-1.0); Glomerular Filtration Rate 8 ml/min (=/>90); Glucose Level 94 mg/dL (74-106); Magnesium 1.7 mg/dL (1.8-2.4); Phosphorus 5.1 mg/dL (2.5-4.9); Potassium 3.1 mmol/L (3.5-5.1); Sodium Level 137 mmol/L (136-145); Transferrin 103 mg/dL (200-360)
[2022-07-29 06:35] LABS: ALT/SGPT < 10 U/L (12-78)
--- NOTE | 2022-07-29 06:55 | P.PN ---
Date of Service: 07/29/22 Subjective: mild nausea, no vomiting mild abd pain advanced to soft foods ROS: 10 point ROS as noted above, otherwise negative Physical Exam: Gen: NAD, AOx3 HEENT: normal conjunctiva, sclera anicteric CV: regular rate & rhythm, trace b/l pedal edema Pulm: non-labored respirations, clear bilaterally Abd: soft, mild tenderness, no distention Neuro: normal speech, normal affect, moves all extremities vitals reviewed Problem List N/v/d/abdominal pain secondary to enteritis CKDV, acute worsening; with azotemia HTN, secondary to CKD Anemia of chronic disease hypoalbuminemia hypocalcemia secondary to CKD enteritis tolerating soft food continue levaquin/flagyl, renally dosed improving CKDV, worsening nephrology consulted progression of CKD needs dialysis surgery consulted - for dialysis catheter patient concerned regarding timing, has some financial /bills due in a few days, would miss if in hospital HTN resume home meds adjust as needed anemia of chronic disease anemia workup sent, has needed prior blood transfusions no bleed Code: full Dispo: home, ~3-4 days Time Spent Managing Pts Care (In Minutes): 35
[2022-07-29 07:06] LABS: Absolute Lymphocytes (CBC) 1.6 K/uL (0.7-4.9); Hematocrit 21.5 % (39.6-49.0); Lymphocytes % 26.4 % (15.3-44.8); MCV 88.9 fL (80-100); MPV 7.4 fL (7.6-11.3); RBC Red Blood Cell Count 2.41 M/uL (4.33-5.43)
[2022-07-29] MEDS: ONDANSETRON 4 MG/2 ML VIAL IV PRN (09:30)
[2022-07-29] MEDS: AMLODIPINE 5 MG TAB PO SCH ×2 (09:30→21:03)
[2022-07-29] MEDS: HEPARIN 5000 UNIT/ML 1 ML VIAL SQ SCH ×2 (09:30→21:03)
--- NOTE | 2022-07-29 14:28 | PN ---
Date of Progress Note: 07/29/2022 Subjective: The patient was seen and examined at bedside. He is very upset about being in the [facility]. He wants to go home, so he can pay his rent. Physical Examination: Vital Signs: Showing temperature of 98.5, pulse rate of 94, respiratory rate of 18, and blood pressu re 155/87. General: He appears in no acute distress. HEENT: Atraumatic head. Lungs: Clear to auscultation. Abdomen: Soft and nontender. Extremities: Showed no evidence of edema. Laboratory Data: Showing a creatinine of 6.94, potassium of 3.1, and sodium of 137. CBC showing hem oglobin of 7.3, hematocrit 21.5, and platelet count of 141. Current Medications: Include Tylenol p.r.n. for pain, amlodipine 5 mg b.i.d., heparin every 12 hours for DVT prophylaxis, hydralazine p.r.n., morphine p.r.n., and pantoprazole 40 mg daily oral. Impression: 1.Chronic renal insufficiency, stage 5. The patient with uremic symptoms and needing to start hemod ialysis, but awaiting Surgery consult for tunneled dialysis catheter placement. We have requested Dr Stephanie Rangel to evaluate the patient. 2.Enteritis. The patient is tolerating clear liquid diet. IV fluids have been discontinued. Kirsten nue antibiotics and monitor. 3.Hypertension. Home medications to be resumed. 4.Hypokalemia. We will gently replace potassium chloride p.o. 5.Anemia secondary to chronic disease. We will request iron panel and start him on Epogen as tolerated to maintain his hemoglobin level and to avoid further transfusio ns. VV/MODL Voice ID: [id number] Report ID: [id number]
[2022-07-29] MEDS ORDERED: EPOETIN ALFA 10,000 UNIT/ML VIAL IV ONE (14:30)
[2022-07-29] MEDS ORDERED: POTASSIUM 25 MEQ EFFERV TAB PO ONE (15:00)
--- NOTE | 2022-07-29 15:04 | P.CNS ---
Date of Consult: 07/29/22 PC: I was asked to see this 71-year-old male regards to placement of a temporary dialysis catheter. HPC: Patient has been having progressive failure of his kidneys over the last few months. 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 He presented to the ER with nausea vomiting and not feeling well. It is felt that a dialysis catheter placement at this time would be pertinent. PMHx: Per the H&P Social Hx: States he is allergic to codeine Sys R: No cough, wheeze, shortness of breath. Has just not felt well over the last few months and has been getting progressively tired. Has had episodes of abdominal pain but nothing at the moment. O/E: Awake alert vital signs are stable HEENT: Negative Chest: Air entry equal bilaterally Abd: Soft [place]: No evidence of any clavicular fractures Impression: This patient requires a temporary dialysis catheter. I have discussed this with him. He says he would rather wait until tomorrow to get it done. I will take him to the operating. Do this as I will not be able to place it or feel comfortable doing so at the bedside. Plan: N.p.o. at midnight, catheter placement in a.m.
[2022-07-29] MEDS: Levofloxacin500mg IV 500 MG/100 ML BAG IV SCH (21:02)
[2022-07-30] MEDS: MORPHINE 2 MG/ML SYR IV PRN ×4 (04:35→22:14)
[2022-07-30 04:57] LABS: Absolute Lymphocytes (CBC) 1.6 K/uL (0.7-4.9); Hematocrit 24.2 % (39.6-49.0); Lymphocytes % 22.5 % (15.3-44.8); MCV 91.7 fL (80-100); MPV 8.5 fL (7.6-11.3); RBC Red Blood Cell Count 2.64 M/uL (4.33-5.43)
[2022-07-30] MEDS: METRONIDAZOLE 500mg IVPB 500 MG/100 ML BAG IV SCH ×3 (05:00→22:15)
[2022-07-30 05:15] LABS: AST/SGOT 10 U/L (15-37); Albumin 1.6 g/dL (3.4-5.0); Alkaline Phosphatase 58 U/L (45-117); BUN Blood Urea Nitrogen 46 mg/dL (7-18); Bicarbonate 26 mmol/L (21-32); Bilirubin Total 0.3 mg/dL (0.2-1.0); Glomerular Filtration Rate 8 ml/min (=/>90); Glucose Level 99 mg/dL (74-106); Magnesium 1.8 mg/dL (1.8-2.4); Potassium 3.4 mmol/L (3.5-5.1); Protein, Total 6.4 g/dL (6.4-8.2); Sodium Level 140 mmol/L (136-145)
[2022-07-30 05:16] LABS: ALT/SGPT < 10 U/L (12-78)
[2022-07-30] MEDS: PANTOPRAZOLE 40MG TABLET PO SCH (06:30)
--- NOTE | 2022-07-30 06:30 | P.PN ---
Date of Service: 07/30/22 Subjective: no acute events overnight NPO for dialysis cath placement today mild nausea, mild abdominal pain ROS: 10 point ROS as noted above, otherwise negative Physical Exam: Gen: NAD, AOx3 HEENT: normal conjunctiva, sclera anicteric CV: regular rate & rhythm, trace b/l pedal edema Pulm: non-labored respirations, clear bilaterally Abd: soft, mild tenderness, no distention Neuro: normal speech, normal affect, moves all extremities vitals reviewed Problem List N/v/d/abdominal pain secondary to enteritis CKDV, acute worsening; with azotemia HTN, secondary to CKD Anemia of chronic disease hypoalbuminemia hypocalcemia secondary to CKD enteritis tolerating soft food continue levaquin/flagyl, renally dosed improving mild nausea/pain CKDV, worsened, now ESRD requiring HD nephrology consulted progression of CKD needs dialysis surgery consulted - for dialysis catheter placement today patient concerned regarding timing, has some financial /bills due in a few days, would miss if in hospital HTN resume home meds adjust as needed anemia of chronic disease Hgb stable no bleed Code: full Dispo: home, ~2 days PT report unsafe to go home discussed with patient on 07/30, does not want to go to residential; unable to elaborate what happened after last discharge that lead to his readmission Time Spent Managing Pts Care (In Minutes): 35
[2022-07-30] MEDS: HEPARIN 5000 UNIT/ML 1 ML VIAL SQ SCH ×2 (07:48→20:18)
[2022-07-30] MEDS: AMLODIPINE 5 MG TAB PO SCH ×2 (07:49→20:16)
[2022-07-30] MEDS: ONDANSETRON 4 MG/2 ML VIAL IV PRN (07:51)
[2022-07-30] MEDS: HYDRALAZINE HCL 20 MG/ML VIAL IV PRN (08:30)
--- NOTE | 2022-07-30 15:10 | PN ---
Date of Progress Note: 07/30/2022 Subjective: The patient was seen and examined at bedside. He is very upset because of being n.p.o. and awaiting tunneled dialysis catheter placement by Dr. Rangel. Objective: Vital Signs: Have been reviewed and are stable. General: He appears in no acute distress. Lungs: Clear. Abdomen: Soft. Extremities: Showed no evidence of edema. Laboratory Data: Showing creatinine of 7, BUN of 46, sodium of 140, and potassium of 3.4. CBC showi ng stable hemoglobin of 8.1, hematocrit of 24.2, and platelet count of 168. Current Medications: Have been reviewed in detail. Impression: 1.Stage 5 chronic kidney disease progressing to end-stage renal disease. Plan to start hemodialysis . Plan for tunneled dialysis catheter placement and plan for dialysis after catheter placement and p lacement at outpatient dialysis unit. Hepatitis serologies have been sent off. His hepatitis B core antigen is positive; however, surface antigen is negative. At this time, it holds no significance. 2.Anemia secondary to chronic kidney disease, currently on Retacrit, 1 time dose was given. 3.Hypertension, currently stable. 4.Gastroenteritis, improving. 5.Hypokalemia, slightly better. We will continue to monitor with p.o. intake. Plan: Overall the patient is doing okay. We will plan for dialysis tomorrow after tunneled dialysis catheter is placed. We will initiate a Social Work consult to place at dialysis unit and we will follow up on labs closely. VV/MODL Voice ID: [id number] Report ID: [id number]
[2022-07-30] MEDS ORDERED: NS 0.9% VIAL 20 ML ONE (15:53)
[2022-07-30] MEDS ORDERED: HEPARIN 5000 UNIT/ML 1 ML VIAL ONE (15:54)
[2022-07-30] MEDS ORDERED: LIDOCAINE 1% MPF 30 ML VIAL ONE (15:54)
[2022-07-30] MEDS ORDERED: propofoL 200 MG/20 ML VIAL IV ONE (15:59)
[2022-07-30] MEDS ORDERED: LIDOCAINE 1% MPF 5 ML VIAL ONE (15:59)
[2022-07-30] MEDS ORDERED: FENTANYL CITR 100 MCG/2 ML ONE (16:00)
[2022-07-30] MEDS ORDERED: NA CHLORIDE 0.9% 500 ML ONE (16:20)
[2022-07-30] MEDS ORDERED: dexAMETHasone 10 MG/ML VIAL ONE (16:46)
[2022-07-30] MEDS ORDERED: ONDANSETRON 4 MG/2 ML VIAL ONE (16:46)
[2022-07-30] MEDS ORDERED: Phenylephrine HCl 10 MG/ML 1 ML VIAL ONE (16:50)
--- NOTE | 2022-07-30 17:09 | P.OP ---
Preoperative diagnosis: Renal insufficiency Postoperative diagnosis: The same Primary procedure: Insertion of left subclavian temporary dialysis catheter Secondary procedure: Fluoroscopy Anesthesia: General Estimated blood loss: Less than 10 cc Operative Technique: The patient brought the operating room placed supine on the table. After the induction of adequate general anesthesia, a roll was placed between the patient's shoulders. The area of the left chest was now prepped with a chlorhexidine solution, he was draped in usual aseptic manner. After injecting the subclavicular area with 0.25% Marcaine, a finder needle was used to cannulate the left subclavian vein. Having obtained good blood return, guidewire was passed down through our needle. Under fluoroscopy we could see his position was in the left subclavian, and we were able to guide it down towards the right atrium. The finder needle was now removed. Progressive dilators were now used to widen our tract to allow for the catheter to be placed without kinks. The tear-away catheter was then passed over the guidewire and using a modified Seldinger technique the catheter was guided to lay in good position at the right atrium. At this point the catheter was flushed in the usual manner with heparinized saline solution. It was then anchored in place with nylon sutures. A sterile dressing was then applied. At the end of the procedure the patient was stable and sent to the recovery room. We will get a confirmatory chest x-ray. Complications: None Transferred to: Recovery Room Condition: Good
[2022-07-30] MEDS: HYDROMORPHONE HCL 1 MG/ML INJ ONE ×2 (17:21→17:29)
--- NOTE | 2022-07-30 17:46 | RAD REPORT ---
EXAM DESCRIPTION: RADChest Single View07/30/2022 5:30 pm CLINICAL HISTORY: Device placement/central venous catheter placement IMPRESSION: Central venous catheter has been placed into the superior vena cava. No pneumothorax
--- NOTE | 2022-07-30 17:57 | P.PN ---
Date of Service: 07/30/22 The catheter is in good position, no pneumothorax, lies in the superior vena cava. Catheter may be used for dialysis.
[2022-07-30] MEDS: METOPROLOL TAR 50 MG TAB PO SCH (20:15)
[2022-07-30] MEDS: ATORVASTATIN 40 MG TAB PO SCH (20:16)
--- NOTE | 2022-07-30 22:09 | RAD REPORT ---
EXAM DESCRIPTION: RAD - Fluoroscopy <1 Hour - 07/30/2022 9:57 pm CLINICAL HISTORY: Device placement central venous catheter placement FINDINGS: A central venous catheter was placed into the superior vena cava. 3 fluoroscopic spot félix ges are submitted. Fluoroscopy time 0.1 minutes The examination was performed by Dr. Harrison
[2022-07-31] MEDS: MORPHINE 2 MG/ML SYR IV PRN ×6 (03:27→22:46)
[2022-07-31] MEDS: METRONIDAZOLE 500mg IVPB 500 MG/100 ML BAG IV SCH ×3 (05:27→21:03)
[2022-07-31] MEDS: PANTOPRAZOLE 40MG TABLET PO SCH (05:32)
[2022-07-31 06:15] LABS: Hematocrit 24.2 % (39.6-49.0); MCV 91.3 fL (80-100); RBC Red Blood Cell Count 2.66 M/uL (4.33-5.43)
[2022-07-31 06:36] LABS: Magnesium 1.8 mg/dL (1.8-2.4); Phosphorus 5.6 mg/dL (2.5-4.9)
--- NOTE | 2022-07-31 07:00 | P.PN ---
Date of Service: 07/31/22 Subjective: temp HD cath placed in subclavian yesterday no acute events overnight slight abd discomfort, no nausea ROS: 10 point ROS as noted above, otherwise negative Physical Exam: Gen: NAD, AOx3 HEENT: normal conjunctiva, sclera anicteric CV: regular rate & rhythm, trace b/l pedal edema Pulm: non-labored respirations, clear bilaterally Abd: soft, mild tenderness, no distention Neuro: normal speech, normal affect, moves all extremities vitals reviewed Problem List N/v/d/abdominal pain secondary to enteritis CKDV, acute worsening; with azotemia HTN, secondary to CKD Anemia of chronic disease hypoalbuminemia hypocalcemia secondary to CKD enteritis tolerating soft food continue levaquin/flagyl, renally dosed improving mild pain; nausea improved CKDV, worsened, now ESRD requiring HD nephrology consulted progression of CKD needs dialysis surgery consulted - s/p temporary HD cath by Dr. Harrison in L subclavian; not functioning Dr. Mccann consulted for tunneled cath placement - tentatively planned for early AM tomorrow patient concerned regarding timing, has some financial /bills due in a few days, would miss if in hospital resume home meds, adjust as needed anemia of chronic disease Hgb stable no bleed Code: full Dispo: home, ~2-3 days pending tunneled cath placement, needs 1st HD, and will need chair time Time Spent Managing Pts Care (In Minutes): 35
[2022-07-31] MEDS: HEPARIN 5000 UNIT/ML 1 ML VIAL SQ SCH ×2 (08:53→21:00)
[2022-07-31] MEDS: METOPROLOL TAR 50 MG TAB PO SCH ×2 (08:54→20:59)
[2022-07-31] MEDS: AMLODIPINE 5 MG TAB PO SCH ×2 (08:54→20:59)
[2022-07-31] MEDS: HYDRALAZINE HCL 20 MG/ML VIAL IV PRN (16:04)
[2022-07-31] MEDS: ATORVASTATIN 40 MG TAB PO SCH (20:58)
[2022-07-31] MEDS: ONDANSETRON 4 MG/2 ML VIAL IV PRN (21:02)
[2022-07-31] MEDS: Levofloxacin500mg IV 500 MG/100 ML BAG IV SCH (21:03)
[2022-08-01] MEDS: MORPHINE 2 MG/ML SYR IV PRN ×3 (04:10→18:45)
[2022-08-01 04:20] LABS: Hematocrit 21.6 % (39.6-49.0); MCV 92.3 fL (80-100); MPV 8.4 fL (7.6-11.3); RBC Red Blood Cell Count 2.34 M/uL (4.33-5.43)
[2022-08-01 04:53] LABS: Potassium 3.4 mmol/L (3.5-5.1)
[2022-08-01] MEDS: METRONIDAZOLE 500mg IVPB 500 MG/100 ML BAG IV SCH ×3 (05:19→20:11)
[2022-08-01] MEDS: PANTOPRAZOLE 40MG TABLET PO SCH (06:30)
[2022-08-01] MEDS ORDERED: EPOETIN ALFA 10,000 UNIT/ML VIAL IV SCH (09:00)
[2022-08-01] MEDS: LOSARTAN POTASSIUM 50 MG TABLET PO SCH (09:00)
[2022-08-01] MEDS: METOPROLOL TAR 50 MG TAB PO SCH ×2 (09:00→20:09)
[2022-08-01] MEDS: AMLODIPINE 5 MG TAB PO SCH ×2 (09:00→20:10)
[2022-08-01] MEDS: HEPARIN 5000 UNIT/ML 1 ML VIAL SQ SCH ×2 (09:00→20:11)
[2022-08-01] MEDS ORDERED: NA CHLORIDE 0.9% 500 ML ONE (09:17)
[2022-08-01] MEDS ORDERED: NS 0.9% VIAL 10 ML ONE (09:25)
[2022-08-01] MEDS ORDERED: NA CHLORIDE 0.9% 100 ML ONE (09:26)
[2022-08-01] MEDS ORDERED: HEPARIN 5000 UNIT/ML 1 ML VIAL ONE (09:26)
[2022-08-01] MEDS ORDERED: propofoL 200 MG/20 ML VIAL IV ONE ×2 (10:12→10:14)
[2022-08-01] MEDS ORDERED: LIDOCAINE 2% MPF 5 ML VIAL ONE (10:12)
[2022-08-01] MEDS ORDERED: MIDAZOLAM HCL 2 MG/2 ML INJ ONE (10:12)
[2022-08-01] MEDS ORDERED: FENTANYL CITR 100 MCG/2 ML ONE (10:12)
--- NOTE | 2022-08-01 10:34 | P.BOP ---
Preoperative diagnosis: ESRD Postoperative diagnosis: same Primary procedure: 1. Placement of cuffed right hemosplit HD catheter Secondary procedure: 2. interpretation of Fluoroscopy, 3. rigth neck ultrasound Other procedure(s): 4. Removal of nonfunctional left subclavian HD catheter Estimated blood loss: <10cc Specimen: old HD cath Findings: as above Anesthesia: MAC Complications: None Transferred to: Recovery Room Condition: Good
[2022-08-01] MEDS: FENTANYL CITR 100 MCG/2 ML ONE ×3 (11:05→11:28)
--- NOTE | 2022-08-01 11:15 | RAD REPORT ---
EXAM DESCRIPTION: RAD - Chest Single View - 08/01/2022 11:04 am CLINICAL HISTORY: placement right HD cath, removal of left HD cath COMPARISON: Portable July 30 TECHNIQUE: AP portable chest image was obtained 08/01/2022 11:04 am . FINDINGS: Right-sided dialysis catheter has been placed. Short arm is in the mid SVC. Long arm is in the distal SVC. No pneumothorax or acute pleural or parenchymal process. Heart size is normal range and stable. IMPRESSION: Dialysis catheter right side in good position. No pneumothorax.
--- NOTE | 2022-08-01 11:32 | RAD REPORT ---
EXAM DESCRIPTION: RAD - Fluoroscopy <1 Hour - 08/01/2022 10:36 am FINDINGS: There were 9 portable C-arm views obtained during fluoroscopic assisted placement of a rig ht-sided hemodialysis catheter. No suspicious or unexpected finding. Fluoro time was 0.4 minutes. Cumulative dose was 9.45 mGy.
[2022-08-01] MEDS: HYDROMORPHONE HCL 1 MG/ML INJ ONE ×2 (11:37→11:47)
[2022-08-01 11:41] VITALS: O2SAT 100
[2022-08-01] MEDS ORDERED: LANO/MINERAL OIL/PETRO 3.5 GM ONE (11:49)
--- NOTE | 2022-08-01 12:22 | OP ---
Date of Procedure: 08/01/2022 Surgeon: Oscar Mccann MD Preoperative Diagnosis: End-stage renal disease. Postoperative Diagnosis: End-stage renal disease. Procedures: 1.Placement of a cuffed right hemodialysis catheter, right jugular vein. 2.Interpretation of fluoroscopy. 3.Right neck ultrasound. 4.Removal of nonfunctional left subclavian hemodialysis catheter. Anesthesia: MAC plus local. Estimated Blood Loss: Less than 10 mL. Specimen: Old hemodialysis catheter. Indication: This is the case of a male, who comes to us with renal insufficiency. Left-sided cathet er was not working. They asked me to see if I can put a cuffed right HemoSplit hemodialysis catheter on the right side and remove the left side. The benefits, alternatives, and risks of that fully exp lained to the patient, which include, but not limited to infection, bleeding, damage to adjacent stru ctures, anesthesia complication, DVTs, cardiac tamponade, PE, pneumothorax, hemothorax, [place], and even . He also understands this may not relieve any symptoms. He might need more than one surgical intervention. He also understands this is the temporary catheter. Explained to him in my consult. Procedure In Detail: The patient was brought to the operating room, placed in supine position. Anes thesia was done without complication. Bilateral chest areas were prepped and draped in the usual hanna rile fashion. A time-out was called. The patient was placed in Trendelenburg position. The neck ar ea was prepped and draped in the usual sterile fashion. The right neck ultrasound showed incompressi ble a right jugular vein. Using that as a guidance, we put an 18-gauge needle in the right jugular v ein at the first attempt. Guidewire was passed through, guided with fluoroscopy into the superior ve na cava. A small incision was made in the right upper chest and a tunnel was created right through t hat area to meet the incision in the right upper neck. The serial dilators were placed under fluoros copy guidance through the guidewire until we put the introducer sheath. Then, the guidewire was kaitlin yesy. The catheter was placed through the introducer sheath and the introducer sheath was peeled off. The catheter was checked once again on fluoroscopy and looks in good placement, excellent backflow and inflow. The line was flushed with heparin solution and secured in place with 3-0 nylon. The pat ient tolerated the procedure well. The patient continued in Trendelenburg position since we will rem ove the left subclavian catheter. We removed the stitches and after that, we pulled the catheter and applied pressure for 15 minutes. The patient tolerated the procedure well. No bleeding. The patie nt was brought back to normal position and the patient in his way to recovery in stable condition and chest x-ray still pending. JOANNE/PORTIA Voice ID: [id number] Report ID: [id number]
--- NOTE | 2022-08-01 12:31 | CON ---
Date of Consultation: 08/01/2022 Diagnosis: Renal failure, in need of hemodialysis catheter. History Of Present Illness: This is the case of a 71-year-old patient, admitted to the hospital for hypertension, anemia, weakness, found to have renal insufficiency, need for hemodialysis catheter. T he temporizing catheter was placed by Dr. Rangel over the weekend and then the renal doctor padmini clark led me that he needs a cuffed hemodialysis catheter and also a catheter that was placed over the week end was not functional. Allergies: CODEINE. Medications: Aspirin, Lopressor, Protonix. Past Medical History: Hemorrhoids, renal failure, prostate cancer, hypertension. Past Surgical History: Surgeries include hemorrhoidectomy. Family History: Includes diabetes, renal failure, heart disease. Social History: The patient is smoker. He was counseled about smoking cessation. He does not drink alcohol. Review of Systems: He feels better now. The nausea and vomiting subsided and the diarrhea too. No dysuria, hematuria, hematochezia or melena. Physical Examination: General: The patient is awake, alert. No distress. Oriented x3. HEENT: Pupils equal, reactive. Anicteric. Neck: Supple. Chest: Clear. There is a left subclavian catheter. Abdomen: Soft and depressible. Extremities: Good capillary refill. Laboratory Data: Blood work shows a WBC count of 8 with hemoglobin of 7.3 and platelets of 177. BUN is 5.91 and glucose is 112, potassium 3.4. Chest x-ray showing central venous catheter placed in th e superior vena cava coming from the left subclavian, it was over the weekend. Assessment: This is a 71-year-old patient in need of a cuffed hemodialysis catheter. The benefits, alternatives, and risks of placement were fully explained to the patient, which include, but not limi geovanni to infection, bleeding, damage to adjacent structures, anesthesia complication, hemothorax, DVT, pneumothorax, pericardiac tamponade, PE, [place], and even . He also understands this may not reliev e any symptoms. He might need more than one surgical intervention. He understands the importance of maintenance of this catheter and the importance of keeping it clean to avoid contamination. He also understands this is a temporary catheter. If he continues dialysis, he has to look his peripheral a ccess surgeon who can put and access him with the wiener packer's recommendations. HM/MODL Voice ID: [id number] Report ID: [id number]
--- NOTE | 2022-08-01 15:04 | P.PN ---
Subjective Date of Service: 08/01/22 Primary Care Provider: jenni Chief Complaint: Enteritis, ESRD Patient has no new complaint. Dialysis catheter replaced today. Physical Examination - Vital Signs Temperature: 97.5 F Blood Pressure: 164/83 Pulse: 69 Respirations: 18 Pulse Ox (%): 100 Assessment And Plan - Plan Physical Exam: Gen: NAD, AOx3 HEENT: normal conjunctiva, sclera anicteric CV: regular rate & rhythm, trace b/l pedal edema Pulm: non-labored respirations, clear bilaterally Abd: soft, mild tenderness, no distention Neuro: normal speech, normal affect, moves all extremities vitals reviewed Problem List N/v/d/abdominal pain secondary to enteritis CKDV, acute worsening; with azotemia HTN, secondary to CKD Anemia of chronic disease hypoalbuminemia hypocalcemia secondary to CKD enteritis tolerating soft food continue levaquin/flagyl, renally dosed Clinically improving mild pain; nausea improved CKDV, worsened, now ESRD requiring HD nephrology is following progression of CKD needs dialysis surgery consulted - s/p temporary HD cath by Dr. Harrison in L subclavian; not functioning Tunneled cath placed today by Dr. Mccann. Hemodialysis per nephrology Continue home meds. anemia of chronic disease Hgb stable no bleed Code: full Dispo: home.
--- NOTE | 2022-08-01 15:46 | P.PN ---
Date of Service: 08/01/22 Nephrology note (S) Pt seen s/p Rt IJ TDC placement, has some soreness at insertion site. Pt's Lt SC temp dialysis catheter removed. Explained to pt the plan regarding HD today and working on OP placement, pt does have transportation concerns as he lacks transportation at the time. (O) Vitals reviewed in the EMR General: Alert, In no apparent distress, Oriented x3 HEENT: Atraumatic, Normocephalic, EOMI Neck: Supple, Rt IJ TDC, some mild swelling over tunneled tract Respiratory: Clear to auscultation bilaterally, Normal air movement Cardiovascular: Normal pulses, Regular rate/rhythm, Normal S1 S2 Gastrointestinal: Soft and benign, Non-distended, No tenderness Musculoskeletal: No swelling, No contractures, No erythema Integumentary: No rashes, No breakdown Neurological: Normal speech, Normal affect Laboratory Data (last 24 hrs) Reviewed Conclusions/Impression: 1. CKD V 2. Azotemia with early uremic symptoms 3. Hypertensive CKD, Stage V 4. Anemia 2nd to CKD +/- other 5. Abnormality of albumin 6. Hypocalcemia 2nd to CKD, secondary hyperparathyroidism and Vit D deficiency. Hyperphosphatemia 2nd to CKD 7. Labile HTN, accelerated HTN -Pt's eGFR had further declined from levels earlier this summer and I did believe pt was experiencing some early uremic symptoms in the form of fatigue and recurrent N/V. Since eGFR on admission was < 10 ml/min, it was felt reasonable to proceed with initiation of dialysis. Had discussed home therapy/PD as an OP but currently discussed starting HD via a TDC. Initial HD session performed yesterday which pt tolerated. Will repeat HD today via Rt IJ TDC -Will add ARB for BP in addition to CCB as pt is now on dialysis. -Will add active and nutritional Vit D and will place on a phos binder if levels remain > 5.5 on HD. -Iron stores ok, will dose Retacrit 20,000 units on HD today, H/H has trended lo wer again but will hold off on transfusion just yet. Jasson Hernandez MD, [facility]
[2022-08-01] MEDS: ATORVASTATIN 40 MG TAB PO SCH (20:10)
[2022-08-01] MEDS: MORPHINE 4 MG/ML SYR IV PRN (22:39)
[2022-08-02 03:41] LABS: Absolute Lymphocytes (CBC) 1.7 K/uL (0.7-4.9); Hematocrit 21.1 % (39.6-49.0); Lymphocytes % 23.1 % (15.3-44.8); MCV 92.5 fL (80-100); MPV 8.2 fL (7.6-11.3); RBC Red Blood Cell Count 2.28 M/uL (4.33-5.43)
[2022-08-02 03:54] LABS: Phosphorus 3.6 mg/dL (2.5-4.9); Potassium 4.4 mmol/L (3.5-5.1)
[2022-08-02] MEDS: PANTOPRAZOLE 40MG TABLET PO SCH (06:00)
[2022-08-02] MEDS: METRONIDAZOLE 500mg IVPB 500 MG/100 ML BAG IV SCH ×3 (06:01→21:00)
[2022-08-02] MEDS: MORPHINE 4 MG/ML SYR IV PRN ×4 (06:06→20:32)
[2022-08-02] MEDS: LOSARTAN POTASSIUM 50 MG TABLET PO SCH (08:58)
[2022-08-02] MEDS: HEPARIN 5000 UNIT/ML 1 ML VIAL SQ SCH ×2 (08:59→21:00)
[2022-08-02] MEDS: METOPROLOL TAR 50 MG TAB PO SCH ×2 (08:59→20:42)
[2022-08-02] MEDS ORDERED: CALCITROL 0.25 MCG CAP PO SCH (09:00)
[2022-08-02] MEDS ORDERED: NEPRO SHAKE 237 ML CAN PO SCH (09:00)
[2022-08-02] MEDS: AMLODIPINE 5 MG TAB PO SCH ×2 (09:00→20:42)
[2022-08-02] MEDS ORDERED: VITAMIN D 1000 UNIT TAB PO SCH (09:00)
[2022-08-02] MEDS: ONDANSETRON 4 MG/2 ML VIAL IV PRN (09:13)
--- NOTE | 2022-08-02 10:48 | P.DS ---
Admission Date: 07/27/22 Discharge Date: 08/02/22 Primary Care Provider: jenni Disposition: ROUTINE DISCHARGE Discharge Condition: FAIR Reason for Admission: Enteritis, ESRD Brief History of Present Illness: 71-year-old male history of ESRD not on dialysis, hypertension, anemia of chronic disease presents the emergency department for generalized abdominal pain, nausea/vomiting since Sunday the . Patient was evaluated in the emergency department his labs were significant for white blood cell count of 10.6 normocytic anemia worsening of his ESRD creatinine trending up from 5.291- month ago to 6.96 today potassium is 4.0 no indications for urgent/emergent dialysis present. CT abdomen pelvis without contrast was performed which revealed thickened small bowel loops are seen in the central mid abdomen likely representing enteritis or inflammatory bowel disease, small amount of free fluid along the right liver edge. Patient was treated with IV antibiotics LevaquinFlagyl in the ED, ED provider was to admit for further evaluation and management of worsening ESRD, enteritis, abdominal pain, nausea vomiting. Hospital Course: Diagnosis: N/v/d/abdominal pain secondary to enteritis CKDV, acute worsening; with azotemia HTN, secondary to CKD Anemia of chronic disease hypoalbuminemia hypocalcemia secondary to CKD Enteritis tolerating soft food continue levaquin/flagyl, renally dosed Clinically improving mild pain; nausea improved CKDV, worsened, now ESRD requiring HD nephrology is following progression of CKD needs dialysis surgery consulted - s/p temporary HD cath by Dr. Harrison in L subclavian; not functioning Tunneled cath placed today by Dr. Mccann. Hemodialysis per nephrology Continue home meds. Anemia of chronic disease Hgb stable no bleed Vital Signs/Physical Exam: Temp Pulse Resp BP Pulse Ox 98.5 F 82 16 149/72 H 100 08/02/22 08:00 08/02/22 09:00 08/02/22 08:00 08/02/22 09:00 08/02/22 08:00 Laboratory Data at Discharge: WBC 7.20 K/uL (4.3-10.9) 08/02/22 03:23 Hgb 7.1 g/dL (13.6-17.9) L 08/02/22 03:23 Hct 21.1 % (39.6-49.0) L 08/02/22 03:23 Plt Count 170 K/uL (152-406) 08/02/22 03:23 PT 12.2 SECONDS (9.5-12.5) 07/27/22 20:57 INR 1.11 07/27/22 20:57 Sodium 140 mmol/L (136-145) 08/02/22 03:23 Potassium 4.4 mmol/L (3.5-5.1) 08/02/22 03:23 BUN 26 mg/dL (7-18) H 08/02/22 03:23 Creatinine 4.86 mg/dL (0.55-1.3) H D 08/02/22 03:23 Glucose 101 mg/dL (74-106) 08/02/22 03:23 Phosphorus 3.6 mg/dL (2.5-4.9) 08/02/22 03:23 Magnesium 2.0 mg/dL (1.8-2.4) 08/01/22 03:36 Total Bilirubin 0.3 mg/dL (0.2-1.0) 07/30/22 04:23 AST 10 U/L (15-37) L 07/30/22 04:23 ALT < 10 U/L (12-78) L 07/30/22 04:23 Alkaline Phosphatase 58 U/L (45-117) 07/30/22 04:23 Lipase 138 U/L (73-393) 07/27/22 18:56 Home Medications: Aspirin [Aspirin EC 81 MG] 81 mg PO DAILY #30 tablet. 12/09/21 Atorvastatin Calcium [Lipitor] 40 mg PO BEDTIME #30 tab 12/09/21 Metoprolol Tartrate [Lopressor*] 100 mg PO BID #60 tab 12/09/21 Pantoprazole [Protonix Tab*] 40 mg PO BID #60 tab 12/09/21 Amlodipine [Norvasc*] 5 mg PO BID #60 tab 08/02/22 Cholecalciferol (Vitamin D3) [Vitamin D 1000 Iu Tab*] 2,000 unit PO DAILY #60 tab 08/02/22 Heparin [Heparin 1,000 units/mL *] 4,000 unit IV EVERY HD PRN vial 08/02/22 Losartan Potassium [Cozaar*] 50 mg PO DAILY #30 tab 08/02/22 Nepro Shake [Nepro*] 240 ml PO DAILY #30 can 08/02/22 calcitrioL [Calcitriol] 0.5 mcg PO DAILY #30 cap 08/02/22 New Medications: calcitrioL [Calcitriol] 0.5 mcg PO DAILY #30 cap Losartan Potassium [Cozaar*] 50 mg PO DAILY #30 tab Nepro Shake [Nepro*] 240 ml PO DAILY #30 can Amlodipine [Norvasc*] 5 mg PO BID #60 tab Cholecalciferol (Vitamin D3) [Vitamin D 1000 Iu Tab*] 2,000 unit PO DAILY #60 tab Diet: Renal Activity: Ad nicole Followup: Dustin Camacho DO [ACTIVE - CAN ADMIT] - Yonatan ELISE,Hilda Carpenter DO [Primary Care Provider] - 1-2 Weeks Oscar Mccann MD [ACTIVE - CAN ADMIT] - 2-3 Days
--- NOTE | 2022-08-02 12:15 | P.PN ---
Nephrology note (S) S/p HD x 2 and Rt IJ TDC placement yesterday AM, tolerated both HD sessions well. Does report some leg pain today, has some overall fatigue. Appetite fair and no current nausea. Discussed plans for transfusion as H/H low. Pt concerned about transportation to dialysis (O) Vitals reviewed in the EMR General: Alert, In no apparent distress, Oriented x3 HEENT: Atraumatic, Normocephalic, EOMI Neck: Supple, Rt IJ TDC, some mild swelling over tunneled tract Respiratory: Clear to auscultation bilaterally, Normal air movement Cardiovascular: Normal pulses, Regular rate/rhythm, Normal S1 S2 Gastrointestinal: Soft and benign, Non-distended, No tenderness Musculoskeletal: No swelling, No contractures, No erythema Integumentary: No rashes, No breakdown Neurological: Normal speech, Normal affect Laboratory Data (last 24 hrs) Reviewed Conclusions/Impression: 1. CKD V, now declared ESRD 2. Azotemia with early uremic symptoms improved post HD 3. Hypertensive CKD, Stage V 4. Anemia 2nd to CKD +/- other 5. Abnormality of albumin 6. Hypocalcemia 2nd to CKD, secondary hyperparathyroidism and Vit D deficiency. Hyperphosphatemia 2nd to CKD 7. Labile HTN, accelerated HTN improved post HD -Pt's eGFR had further declined from levels earlier this summer and I did believe pt was experiencing some early uremic symptoms in the form of fatigue and recurrent N/V. Since eGFR on admission was < 10 ml/min, it was felt reasonable to proceed with initiation of dialysis. Had discussed home therapy/PD as an OP but currently discussed starting HD via a TDC. Initial HD sessions completed, which pt tolerated. OP HD TTS at [place] set up but pt needs transportation resources. -Did add ARB for BP in addition to CCB as pt is now on dialysis. -Did add active and nutritional Vit D and will place on a phos binder if levels remain > 5.5 on HD. -Iron stores ok, did dose Retacrit 20,000 units on HD yesterday but Hb post procedures low at 7.1, so will transfuse 1 unit PRBC as pt symptomatic due to the anemia. Jasson Hernandez MD, [facility]
--- NOTE | 2022-08-02 13:34 | PN ---
Ms. Steinberg had come in with chest pain. Initial troponins were negative x2. There was initially plan to send her home so she can follow up with Dr. Malagon. Has not had any further chest pain. Has a hist ory of CABG, dialysis patient, but her troponin went up into the 2000 range and we decided to keep he r. We will perform a left heart catheterization tomorrow to define her coronary anatomy. She unders tands the risk and the benefits of the procedure and she agrees to proceed. We will see what that ows before making further decisions. Continue present regimen for now, which include aspirin, hepari n, Lipitor, Lasix, and metoprolol. KASIA/PORTIA Voice ID: [id number] Report ID: [id number]
[2022-08-02] MEDS ORDERED: NA CHLORIDE 0.9% 250 ML ONE (17:41)
[2022-08-02] MEDS: ATORVASTATIN 40 MG TAB PO SCH (20:42)
[2022-08-02 20:43] VITALS: BP 154/74
[2022-08-02] MEDS: Levofloxacin500mg IV 500 MG/100 ML BAG IV SCH (21:00)
[2022-08-02 21:55] VITALS: TEMP 98
== END 2022-08-02 22:05 | disposition home or self-care (01) | DRG 673 ==
LOC: ER 15:52 → ERHOLD 21:47 → 4TH 07-28 09:49
PROVIDERS: ADMIT Hospitalist; ATTEND Internal Medicine
PROC: 02HV33Z Insertion of Infusion Device into Superior Vena Cava, Percutaneous Approach (ICD-10-PCS; 2022-07-30)
PROC: 5A1D70Z Performance of Urinary Filtration, Intermittent, Less than 6 Hours Per Day (ICD-10-PCS; principal; 2022-07-31)
PROC: 0JH63XZ Insertion of Tunneled Vascular Access Device into Chest Subcutaneous Tissue and Fascia, Percutaneous Approach (ICD-10-PCS; 2022-08-01)
PROC: 02HV33Z Insertion of Infusion Device into Superior Vena Cava, Percutaneous Approach (ICD-10-PCS; 2022-08-01)
PROC: 05PY33Z Removal of Infusion Device from Upper Vein, Percutaneous Approach (ICD-10-PCS; 2022-08-01)
DX: I12.0 Hypertensive chronic kidney disease with stage 5 chronic kidney disease or end stage renal disease (principal); N18.6 End stage renal disease; B19.10 Unspecified viral hepatitis B without hepatic coma; K52.9 Noninfective gastroenteritis and colitis, unspecified; K21.9 Gastro-esophageal reflux disease without esophagitis; D63.1 Anemia in chronic kidney disease; E21.1 Secondary hyperparathyroidism, not elsewhere classified; D63.8 Anemia in other chronic diseases classified elsewhere; D50.9 Iron deficiency anemia, unspecified; E87.6 Hypokalemia; E88.09 Other disorders of plasma-protein metabolism, not elsewhere classified; F17.210 Nicotine dependence, cigarettes, uncomplicated; R79.89 Other specified abnormal findings of blood chemistry; Z60.2 Problems related to living alone; Z88.5 Allergy status to narcotic agent; Z85.46 Personal history of malignant neoplasm of prostate; Z79.82 Long term (current) use of aspirin; Z79.899 Other long term (current) drug therapy; Z20.822 Contact with and (suspected) exposure to COVID-19
CPT/HCPCS: 36415; 36430; 71045; 74176; 76000; 80048; 80053; 81003; 81015; 82306; 83540; 83690; 83735; 83880; 83970; 84100; 84466; 84484; 85025; 85027; 85610; 86706; 86850; 86900; 86901; 87340; 87811; 88300; 90935; 93005; 96374; 96375; 99285; A4216; C1752; J0360; J1100; J1170; J1644; J2001; J2250; J2270; J2370; J2405; J2704; J3010; J7030; J7040; J7050; P9016

== ENCOUNTER 2022-08-11 16:23 | Emergency (ER) | payer OTHER ==
--- OUTSIDE RECORDS SUMMARY | 2022-08-11 16:31 | XMS REPORT | Continuity of Care Document ---
:1950 Author Organization [facility] t Address [address] [place] [address] Care Team Providers Name Role Phone ASTER FARMER Primary Care Physician Unavailable TREVOR CURRYHStephanie Attending Clinician Unavailable Antoinette WICK, Trevor CastañedaHStephanie Attending Clinician Zenaida Moreno RN Attending Clinician Unavailable CARLEEN THOMAS Attending Clinician Unavailable Wendy Evans DO Attending Clinician Carleen Thomas MD Attending Clinician FEDERICO ECHEVARRIA Attending Clinician Unavailable Melissa WICK, Jayme Medellin Attending Clinician [phone] Jh Garcia MD Attending Clinician Federico Echevarria MD Attending Clinician Eliezer Mortensen MD Attending Clinician Eliezer Cuevas CRNA Attending Clinician [phone] Kiara Sterling MD Attending Clinician JYOTI JACKSON Attending Clinician Unavailable JYOTI JACKSON Attending Clinician Unavailable , [facility] Sleep Lab Bed Attending Clinician Unavailable Jyoti Jackson MD Attending Clinician Doctor Unassigned, [place] Attending Clinician Unavailable Only, Adc Test Attending Clinician Unavailable Jayme Arizmendi MD Attending Clinician CARLEEN THOMAS Admitting Clinician Unavailable Carleen Thomas MD Admitting Clinician JH GARCIA Admitting Clinician Unavailable Payers Payer Name Policy Type Policy Number Effective Date Expiration Date S ira BCBS TRADITIONAL [id number] 2017 00:00:00 [facility] [id number] 2014 00:00:00 [facility] [id number] 2017 00:00:00 Problems Condition Condition Condition Status Onset Resolution Last Treating Co mments Source Name Details Category Date Date Treatment Clinician Date Non-intrac Non-intrac Disease Active U nivers table table 05-18 ity of vomiting vomiting 00:00: [place] with with 00 Medical nausea, nausea, Branch unspecifie unspecifie d vomiting d vomiting type type Elevated Elevated Disease Active Unive rs troponin I troponin I - it y of level level 00:00: [place] 00 Medical Branch Elevated Elevated Disease Active Unive rs brain brain -23 ity of natriureti nat[place]ureti [place] c peptide c peptide 00 Medi amber (BNP) (BNP) Branch level level Essential Essential Disease Active Uni vers hypertensi hypertensi -23 it y of on on 00:00: [place] 00 Medical Branch Acute Acute Disease Active Univers renal renal - ity of failure failure 00:00: [place] superimpos superimpos 00 Me dical ed on ed on Branch 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 Dyslipidem Dyslipidem Disease Active U nivers ia ia - ity of 00:00: [place] 00 Medical Branch Esophageal Esophageal Disease Active [facility] dysmotilit dysmotilit - [facility] k[facility] y y 00:00: [facility] 00 Center No known No known Disease Unive rs active active ity of problems problems [facility] Allergies, Adverse Reactions, Alerts Allergy Allergy Status Severity Reaction(s) Onset Inactive Treating Comm ents Source Name Type Date Date Clinician Codeine Drug Active Nausea And 2022[facility] CODEINE Allergy Active Low N\\T\\V [facility] NO KNOWN Allergy Active [facility] ALLERGIE S NO KNOWN Drug Active Univers ALLERGIE Class ity of S [facility] Family History Family Member Diagnosis Comments Start Date Stop Date Source Natural brother Diabetes [facility] Natural father Parkinsonism [facility] Center Natural mother Parkinsonism [facility] Center Natural sister Diabetes [facility] Social History Social Habit Start Date Stop Date Quantity Comments Source History of tobacco Smokes tobacco Un iversity of use daily [facility] Branch History SDOH [facility] Alcohol Std Drinks Medica l Center History SDOH [facility] Alcohol Binge Medical Jorge ter History SDOH [facility] Alcohol Comment Medical C enter Exposure to 2022-05-16 2022-05-26 Not sure [facility] SARS-CoV-2 (event) 00:00:00 15:59:00 [facility] Education 2022-05-18 2022-05-18 21 University of 00:00:00 00:00:00 [facility] Alcohol intake 2022-04-25 2022-04-[address] [facility] 00:00:00 00:00:00 non-drinker Medical Zoie soria (finding) Tobacco use and 2022-04-22 2022-04-[address] [facility] exposure 00:00:00 00:00:00 Medical Center History SDOH 2022-04-22 2022-04-[address] [facility] Alcohol Frequency 00:00:00 00:00:00 Medical Center Tobacco Comment 2022-04-22 2022-04-[address] [facility] 00:00:00 00:00:00 patch on Medical Center Cigarettes smoked 2022-04-22 2022-04-[address] [facility] current (pack per 00:00:00 00:00:00 Medical Center day) - Reported Cigarette 2022-04-22 2022-04-[address] [facility] pack-years 00:00:00 00:00:00 Medical Center Sex Assigned At [address] [facility] 00:00:00 00:00:00 Medical Center Smoking Status Start Date Stop Date Source Unknown if ever smoked Universit y [facility] Smokes tobacco daily 2022-05-18 00:00:00 [facility] Medications Ordered Filled Start Stop Current Ordering Indication Dosage Frequency Signature Comments Components Source Medication Medication Date Date Medication? Clinician (SIG) Name Name calcitrioL Yes .25ug Take 0.25 U nivers 0.25 mcg 6-25 mcg by ity of capsule 14:45: mouth [place] 18 daily. Medical Branch aspirin 81 Yes Take by Univ ers mg Cap 6-25 mouth. ity of 14:45: [place] [address] Medical Branch atorvastati Yes 40mg Take 40 [...] mg Cap 6-25 mouth. ity of 14:45: [place] [address] Medical [place] atorvastati Yes 40mg Take 40 mg Univers [...] of delayed-rel 14:45: daily. [place] 18 Medical suspension Branch calcitrioL [...] by mouth ity of tablet 14:45: at [place] 18 bedtime. Medical Branch HYDROcodone Yes 1{tbl} [...] mouth ity of tablet 09:08: 00:00 daily. [place] 01 :00 Medical Branch gabapentin 2021- Yes [id number] 100mg Take 1 Univers 100 mg -19 06- capsule by ity of capsule 00:00: 04:59 mouth 3 [place] 00 :00 (three) Medical times Branch daily for 30 days. metoprolol 2021- Yes [id number] 50mg Take 1 Univers tartrate 50 -19 06- tablet by it y of mg tablet 00:00: 04:59 mouth [place] 00 [place] (two) Medical times Branch daily for 30 days. doxazosin 2 2021- Yes [id number] 2mg Take 1 Univers mg tablet -19 06- tablet by ity of 00:00: 04:59 mouth 2 [place] 00 :00 (two) Medical times Branch daily for 30 days. sucralfate 2021- Yes [id number] 1000mg Take 10 mL Univers 100 mg/mL -19 06- by mouth ity o f suspension 00:00: 04:59 [place] 00 :00 meals and Medical at bedtime Branch for 30 days. gabapentin 2021- Yes [id number] 100mg Take 1 Univers 100 mg 6-25 - capsule by ity of capsule 00:00: 04:59 mouth 3 [place] 00 :00 (three) Medical times Branch daily for 30 days. metoprolol 2021- Yes [id number] 50mg Take 1 Univers tartrate 50 -19 06-26 tablet by it y of mg tablet 00:00: 04:59 mouth [place] 00 :[place] (two) Medical times Branch daily for 30 days. doxazosin 2 2021- Yes [id number] 2mg Take 1 Univers mg tablet 05-20- tablet by ity of 00:00: 04:59 mouth 2 [place] 00 :00 (two) Medical times Branch daily for 30 days. sucralfate 2021- Yes [id number] 1000mg Take 10 mL Univers 100 mg/mL 05-20- by mouth ity o f suspension 00:00: 04:59 [place] 00 :00 meals and Medical at bedtime Branch for 30 days. gabapentin 2021- Yes [id number] 100mg Take 1 Univers 100 mg 05-20- capsule by ity of capsule 00:00: 04:59 mouth 3 [place] 00 :00 (three) Medical times Branch daily for 30 days. metoprolol 2021- Yes [id number] 50mg Take 1 Univers tartrate 50 05-20-26 tablet by it y of mg tablet 00:00: 04:59 mouth [place] 00 :[place] (two) Medical times Branch daily for 30 days. doxazosin 2 2021- Yes [id number] 2mg Take 1 Univers mg tablet 05-20- tablet by ity of 00:00: 04:59 mouth 2 [place] 00 : (two) Medical times Branch daily for 30 days. sucralfate 2021- Yes [id number] 1000mg Take 10 mL Univers 100 mg/mL 05-20- by mouth ity o f suspension 00:00: 04:59 [place] 00 :00 meals and Medical at bedtime Branch for 30 days. lactulose 2021- No 30mL 30 mL, Unive rs (CEPHULAC) 05-19- Oral, ity of solution 30 16:15: 15:32 ONCE, 1 [place] mL 00 :00 dose, On Medical Fri Branch 05/19/22 at 1115, Routine atorvastati 2022-0 Yes 40mg 40 mg, Univ ers n (LIPITOR) 6-24 Oral, QHS, it y of tablet 40 02:00: First dose [place] mg 00 on [facility] 05/18/22 at Branch 2100, Until Discontinu ed, Routine metoprolol 0 Yes 50mg 50 mg, Unive rs tartrate 24 Oral, BID, ity o f (LOPRESSOR) 01:00: First dose [place] tablet 50 00 (after Medical mg last Branch modificati on) on [facility] 05/18/22 at 2000, Until Discontinu ed, Routine doxazosin 2021-0 Yes 2mg 2 mg, Univers (CARDURA) 05-18 Oral, BID, ity of tablet 2 mg 15:45: First dose [place] 00 on [facility] 05/18/22 at Branch 1045, Until Discontinu ed, Routine KCL 2021-0 2021- No 40meq 40 mEq, Univers (KLOR-CON 05-18 Oral, ity of M20) tablet 14:15: 13:33 ONCE, 1 [place] 40 mEq 00 :00 dose, On [facility] 05/18/22 at 0915, Routine calcitrioL 0 Yes .25ug 0.25 mcg, U nivers (ROCALTROL) 05-18 Oral, ity of capsule 14:00: DAILY, [place] 0.25 mcg 00 First dose Medic al on [facility] 05/18/22 at 0900, Until Discontinu ed, Routine gabapentin 0 Yes 100mg 100 mg, Uni vers (NEURONTIN) 05-18 Oral, TID, it y of capsule 100 13:00: First dose [place] mg 00 on [facility] 05/18/22 at Branch 0800, Until Discontinu ed, Routine magnesium 2021-0 2021- No 400mg 400 mg, Uni vers oxide 05-18 Oral, BID, ity of (MAG-OX 13:00: 15:41 First dose [place] 400) tablet 00 :34 on [facility] Medica l 400 mg 05/18/22 at Branch 0800, Until Discontinu ed, Routine metoprolol 2021-0 2021- No 50mg 50 mg, Univ ers tartrate 05-18 Oral, BID, ity of (LOPRESSOR) 13:00: 15:39 First dose [place] tablet 50 00 :27 on [facility] Medical mg 05/18/22 at Branch 0800, Until Discontinu ed, Routine metoclopram No 5mg 5 mg, Slow Univers bessy HCl 05-18 IV Push, ity of (REGLAN) 11:00: 02:03 Q8H, 3 [place] injection 5 00 :00 doses, Medica l mg First dose Branch (after last reorder) on [facility] 05/18/22 at 0600, Last dose on [place] 05/18/22 at 2200, JOSE pantoprazol Yes 40mg 40 mg, Univ ers e 05-18 Slow IV ity of (PROTONIX) 10:00: Push, [place] injection 00 Q12HA3, Medical 40 mg First dose Branch (after last modificati on) on [facility] 05/18/22 at 0500, Until Discontinu ed sucralfate 0 Yes 1g 1,000 mg Uni vers (CARAFATE) 05-18 (1 g), ity of 100 mg/mL 09:30: Oral, [place] suspension 00 AC+HS, Medical 1,000 mg First dose Branc h on [facility] 05/18/22 at 0430, Until Discontinu ed, Routine HYDROcodone 0 Yes 1{tbl} 1 tablet, Univers -acetaminop 05-18 Oral, ity of hen (NORCO 09:23: Q8HPRN, [place] 5) 5-325 mg 02 Starting Medi amber tablet 1 on [facility] Branch tablet 05/18/22 at 0423, Until Discontinu ed, Routine, Pain (scale 4-6) morpHINE (2 Yes 2mg 2 mg, Slow Univers mg/mL) 05-18 IV Push, ity of injection 2 09:22: Q4HPRN, [place] mg 49 Starting Medical on [facility] Branch 05/18/22 at 0422, Until Discontinu ed, Routine, Pain (scale 7-10) aspirin 0 2021- No 81mg 81 mg, Univers chewable 05-18 Oral, QAM ity o f tablet 81 08:30: 14:54 WITH [place] mg 00 :09 BREAKFAST, Medical First dose Branch on [facility] 05/18/22 at 0330, Until Discontinu ed, Routine [...] 00 :00 dose, On Medi amber mg [facility] Branch 05/17/22 at 2315, JOSE NaCl 0.9% 2021- No 1000mL at 999 Uni vers (NS) bolus 05-18 mL/hr, ity of infusion 04:15: 05:39 1,000 mL, [place] 1,000 mL 00 :00 IV Medical Infusion, Branch ONCE, 1 dose, On [facility] 05/17/22 at 2315, JOSE calcitrioL 0 2022- No .25ug QD Take [address] (ROCALTROL) 04-25 capsule Luke s 0.25 MCG 00:00: 23:59 (0.25 mcg Med ical capsule 00 :00 total) by Center mouth daily. calcitrioL 2022- No .25ug QD Take [address] (ROCALTROL) 5-31 05-31 capsule Luke s 0.25 MCG 00:00: 23:59 (0.25 mcg Med ical capsule 00 :00 total) by Center mouth daily. amLODIPine Yes 10mg QD Take [address] (NORVASC) 5-30 by mouth [facility] 10 MG 16:56: daily. Medical tablet [address] [place] [address] aspirin 81 0 Yes 81mg QD Take [address] MG EC 5-30 by mouth Lukes tablet 16:56: daily. [address] atorvastati Yes 40mg QD Take [address] n (LIPITOR) 5-30 by mouth Luke s 40 MG 16:56: nightly. Medical tablet [address] [place] [address] HYDROcodone Yes 1{tbl} Take [address] -acetaminop 5-30 tablet by Margaret es hen (NORCO 16:56: mouth Medica l 5-325) 32 every 6 Center 5-325 mg (six) per tablet hours as needed for Pain. amLODIPine Yes 10mg QD Take [address] (NORVASC) 5-30 by mouth [facility]ukes 10 MG 16:56: daily. Medical tablet [address] [place] [address] aspirin 81 0 Yes 81mg QD Take [address] MG EC 5-30 by mouth [facility]ukes tablet 16:56: daily. [address] atorvastati Yes 40mg QD Take [address] n (LIPITOR) 5-30 by mouth Luke s 40 MG 16:56: nightly. Medical tablet [address] [place] [address] HYDROcodone Yes 1{tbl} Take [address] -acetaminop 5-30 tablet by Margaret es hen (NORCO 16:56: mouth Medica l 5-325) 32 every 6 Center 5-325 mg (six) per tablet hours as needed for Pain. pantoprazol 0 2021- No 40mg Q.5D Take [address] e 5-30 05-30 by mouth 2 [facility] (PROTONIX) 14:06: 00:00 (two) Medic al 40 MG 26 :00 times Center tablet daily. lisinopriL 2021- No 20mg QD Take [address] (PRINIVIL,Z 5-30 05-30 by mouth Margaret es ESTRIL) 20 14:06: 00:00 daily. Medi amber MG tablet 26 :00 Center pantoprazol 2021- No 40mg Q.5D Take 40 [...] mouth 2 Center tablet (two) times daily. pantoprazol Yes 40mg Q.5D Take 1 CHI [...] every 6 (six) hours for 30 days. sucralfate 2021- No 1g Take 10 CHI [...] 100 mg 2 U nivers tartrate 8-10 06-25 (two) ity of 100 mg 00:00: 00:00 times [place] tablet 00 :00 daily. Medical Branch lisinopriL- 2021- No 1{tbl} Take 1 U nivers hydrochloro 8-10 06-22 tablet by it y of thiazide 00:00: 00:00 mouth [place] 20-12.5 mg 00 :00 daily. Medical per tablet Branch QUEtiapine 2021-0 Yes 200mg Take 200 Un ladarius 100 mg 7-26 mg by ity of tablet 00:00: mouth at [place] [address] bedtime. Medical Branch gabapentin 2020-0 Yes TAKE 1 Unive rs 300 mg 7-26 CAPSULE BY ity of capsule 00:00: MOUTH 3 [place] TIMES Medical DAILY Branch QUEtiapine 2020-0 Yes 200mg Take 200 Un ladarius 100 mg 7-26 mg by ity of tablet 00:00: mouth at [place] [address] bedtime. Medical Branch QUEtiapine 2020-0 Yes 200mg Take 200 Un ladarius 100 mg 7-26 mg by ity of tablet 00:00: mouth at [place] [address] bedtime. Medical Branch QUEtiapine 2020-0 Yes 200mg Take 200 Un ladarius 100 mg 7-26 mg by ity of tablet 00:00: mouth at [place] [address] bedtime. Medical Branch gabapentin 2020-0 Yes TAKE 1 Unive rs 300 mg 7-26 CAPSULE BY ity of capsule 00:00: MOUTH 3 [place] TIMES Medical DAILY Branch QUEtiapine 2020-0 Yes 200mg Take 200 Un ladarius 100 mg 7-26 mg by ity of tablet 00:00: mouth at [place] [address] bedtime. Medical Branch gabapentin 2020-0 Yes TAKE 1 Unive rs 300 mg 7-26 CAPSULE BY ity of capsule 00:00: MOUTH 3 [place] TIMES Medical DAILY Branch QUEtiapine 2020-0 Yes 200mg Take 200 Un ladarius 100 mg 7-26 mg by ity of tablet 00:00: mouth at [place] [address] bedtime. Medical Branch gabapentin 2020-0 Yes TAKE 1 Unive rs 300 mg 7-26 CAPSULE BY ity of capsule 00:00: MOUTH 3 [place] TIMES Medical DAILY Branch QUEtiapine 2020-0 Yes 200mg Take 200 Un ladarius 100 mg 7-26 mg by ity of tablet 00:00: mouth at [place] [address] bedtime. Medical Branch gabapentin 2020-0 Yes TAKE 1 Unive rs 300 mg 7-26 CAPSULE BY ity of capsule 00:00: MOUTH 3 [place] TIMES Medical DAILY Branch QUEtiapine 2020-0 Yes 200mg Take 200 Un ladarius 100 mg 7-26 mg by ity of tablet 00:00: mouth at [place] [address] bedtime. Medical Branch gabapentin 1-0 2022- No TAKE 1 Univ ers 300 mg 7-26 06-25 CAPSULE BY ity of capsule 00:00: 00:00 MOUTH 3 [place] 00 :00 TIMES Medical DAILY Branch tadalafiL 5 1-0 Yes 5mg Take 5 mg U nivers mg tablet 7-20 by mouth ity of 00:00: daily. [place] Medical Branch tadalafiL 5 1-0 Yes 5mg Take 5 mg U nivers mg tablet 7-20 by mouth ity of 00:00: daily. [place] Medical Branch tadalafiL 5 1-0 Yes 5mg Take 5 mg U nivers mg tablet 7-20 by mouth ity of 00:00: daily. Medical Branch tadalafiL 5 1-0 Yes 5mg Take 5 mg U nivers mg tablet 7-20 by mouth ity of 00:00: daily. [place] Medical Branch tadalafiL 5 1-0 Yes 5mg Take 5 mg U nivers mg tablet 7-20 by mouth ity of 00:00: daily. [place] Medical Branch tadalafiL 5 1-0 Yes 5mg Take 5 mg U nivers mg tablet 7-20 by mouth ity of 00:00: daily. Medical Branch tadalafiL 5 1-0 Yes 5mg Take 5 mg U nivers mg tablet 7-20 by mouth ity of 00:00: daily. [place] Medical Branch tadalafiL 5 1-0 Yes 5mg Take 5 mg U nivers mg tablet 7-20 by mouth ity of 00:00: daily. [place] Medical Branch acetaminoph 2020-0 Yes 1{tbl} Take 1 Un ladarius en-codeine 6-11 tablet by ity of 300-60 mg 00:00: mouth 2 [place] tablet 00 (two) Medical times Branch daily as needed. acetaminoph 2020-0 Yes 1{tbl} Take 1 Un ladarius en-codeine 6-11 tablet by ity of 300-60 mg 00:00: mouth 2 [place] tablet 00 (two) Medical times Branch daily as needed. acetaminoph 1-0 Yes 1{tbl} Take 1 Un ladarius en-codeine [...] 0.[address] [facility] tartrate 5-27 tablets by [facility] (LOPRESSOR) 00:00: mouth 2 Med ical 100 MG 00 (two) Center tablet times daily. metoprolol Yes .5{tbl} Q.5D Take 0.[address] tartrate 5-27 tablets by [facility] (LOPRESSOR) 00:00: mouth 2 Med ical 100 MG 00 (two) Center tablet times daily. lisinopril- 2021- No 1{tbl} QD Take [address] hydroCHLORO 5-27 05-28 tablet by Nerissa kes thiazide 00:00: 00:00 mouth Medical (PRINZIDE,Z 00 :00 daily. Center ESTORETIC) 20-12.5 mg per tablet lisinopril- 2021- No 1{tbl} QD Take [address] hydroCHLORO 5-27 05-28 tablet by Nerissa kes thiazide 00:00: 00:00 mouth Medical (PRINZIDE,Z 00 :00 daily. Center ESTORETIC) 20-12.5 mg per tablet Immunizations Ordered Filled Immunization Date Status Comments [facility] e Immunization Name Name SARS-COV-2 COVID-19 2022-02-13 Completed Unive rsity of PFIZER VACCINE 00:00:00 [facility] SARS-COV-2 COVID-19 2022-02-13 Completed Unive rsity of PFIZER VACCINE 00:00:00 [facility] SARS-COV-2 COVID-19 2022-02-13 Completed Unive rsity of PFIZER VACCINE 00:00:00 [facility] Influenza Virus 2021-10-16 Completed Universit y of Vaccine 00:00:00 [facility] Pneumococcal 2021-10-16 Completed University o f Polysaccharide, 00:00:00 [facility] ical PPSV23 (PNEUMOVAX) Branch Influenza Virus 2021-10-16 Completed Universit y of Vaccine 00:00:00 [facility] Pneumococcal 2021-10-16 Completed University o f Polysaccharide, 00:00:00 [facility] ical PPSV23 (PNEUMOVAX) Branch Influenza Virus 2021-10-16 Completed Universit y of Vaccine 00:00:00 [facility] Pneumococcal 2021-10-16 Completed University o f Polys[facility], 00:[facility] Branch SARS-COV-2 COVID-19 2021-05-01 Completed Unive rsity of PFIZER VACCINE 00:00:00 [facility] SARS-COV-2 COVID-19 2021-05-01 Completed Unive rsity of PFIZER VACCINE 00:00:00 [facility] SARS-COV-2 COVID-19 2021-05-01 Completed Unive rsity of PFIZER VACCINE 00:00:00 [facility] SARS-COV-2 COVID-19 2021-03-31 Completed Unive rsity of PFIZER VACCINE 00:00:00 [facility] SARS-COV-2 COVID-19 2021-03-31 Completed Unive rsity of PFIZER VACCINE 00:00:00 [facility] SARS-COV-2 COVID-19 2021-03-31 Completed Unive rsity of PFIZER VACCINE 00:00:00 [facility] Vital Signs Vital Name Observation Time Observation Value Comments Source Systolic blood 2022-05-20 16:25:00 108 mm[Hg] Univer sity of pressure [facility] Diastolic blood 2022-05-20 16:25:00 60 mm[Hg] Unive rsity of pressure [facility] Heart rate 2022-05-20 16:25:00 83 /min [facility] Body temperature 2022-05-20 16:25:00 36.5 [facility] 2022-05-20 16:25:00 16 /min [facility] O[facility] saturation in 2022-05-20 16:25:00 93 /min [facility] Arterial blood by [facility] Pulse oximetry [place] Body weight 2022-05-20 09:42:00 90.493 kg [facility] BMI 2022-05-20 09:42:00 31.25 kg/m2 [facility] Body height 2022-05-18 07:56:00 170.2 cm [facility] HEIGHT 2022-04-22 22:22:00 170.2 cm WEIGHT 2022-04-22 22:22:00 87.363 kg HEIGHT 2022-04-22 22:22:00 170.2 cm WEIGHT 2022-04-22 22:22:00 87.363 kg HEIGHT 2022-04-22 22:22:00 170.2 cm WEIGHT 2022-04-22 22:22:00 87.363 kg Systolic blood 2022-04-24 15:00:00 142 mm[Hg] [facility] Diastolic blood 2022-04-24 15:00:00 71 mm[Hg] [facility] Heart rate 2022-04-24 15:00:00 72 /min [facility] Respiratory rate 2022-04-24 15:00:00 18 /min [facility] Body temperature 2022-04-24 13:00:00 36.44 Ngoc [facility] Oxygen saturation in 2022-04-24 13:00:00 99 /min [facility] Arterial blood by Medical Ce nter Pulse oximetry Body height 2022-04-22 22:22:00 170.2 cm [facility] Body weight 2022-04-22 22:22:00 87.363 kg [facility] BMI 2022-04-22 22:22:00 30.17 kg/m2 [facility] Procedures Procedure Date / Time Performing Source Performed Clinician HEPATITIS B SURFACE ANTIGEN 2022-07-28 [facility] 13:44:00 [facility] HEPATITIS B SURFACE ANTIBODY 2022-07-28 [facility] 13:44:00 [facility] HEPATITIS B CORE ANTIBODY, TOTAL 2022-07-28 [facility] 13:44:00 [facility] BASIC METABOLIC PANEL (NA, K, CL, 2022-05-20 Dany [place] [id number], GLUCOSE, BUN, CREATININE, CA) 08:52:00 [facility] US RETROPERITONEAL COMPLETE 2022-05-20 Dustin Camacho Uni versity of 00:21:51 [facility] OCCULT (GUAIAC) BLOOD 2022-05-19 Carleen Thomas Hollister of 19:46:00 [facility] URINALYSIS 2022-05-19 Dustin Camacho [facility] of 09:15:00 [facility] PROTEIN CREAT RATIO URINE RANDOM 2022-05-19 Dustin Camacho [facility] 09:15:00 [facility] PHOSPHORUS 2022-05-19 Dustin Camacho [facility] 09:12:00 [facility] URIC ACID 2022-05-19 Dustin Camacho [facility] 09:12:00 [facility] MAGNESIUM 2022-05-19 Carleen Thomas [facility] 09:12:00 [facility] TROPONIN I 2022-05-19 Carleen Thomas [facility] 09:12:00 [facility] COMP. METABOLIC PANEL ([id number]) 2022-05-19 Carleen Thomas Un iversity of 09:12:00 [facility] N-TERMINAL PRO-BNP 2022-05-19 Carleen Thomas [facility] of 09:12:00 [facility] C4 COMPLEMENT 2022-05-19 Dustin Camacho [facility] 09:11:00 [facility] CBC WITH DIFF 2022-05-19 Carleen Thomas [facility] of 09:11:00 [facility] HEPATITIS B SURFACE ANTIBODY 2022-05-19 Dustin Camacho Un iversity of 09:11:00 [facility] HEPATITIS B SURFACE ANTIGEN 2022-05-19 Dustin Camacho Uni versity of 09:11:00 [facility] HCV ANTIBODY 2022-05-19 Dustin Camacho [facility] 09:11:00 [facility] HBC ANTIBODY (IGM & IGG) 2022-05-19 Dustin Camacho Univer sity of 09:11:00 [facility] TROPONIN I 2022-05-18 Carleen Thomas [facility] of 20:19:[address] [facility] [address] ABDOMEN PELVIS WO CONTRAST 2022-05-18 Felipa Saenz Un iversity of 19:24:35 Serena [facility] TRANSTHORACIC ECHO (TTE) COMPLETE 2022-05-18 [facility] of 19:15:00 [facility] [facility] UREA NITROGEN, URINE RANDOM 2022-05-18 [facility], [facility] of 18:16:00 [facility] SODIUM, URINE RANDOM 2022-05-18 [facility], [facility] of 18:16:00 [facility] PROTEIN CREAT RATIO URINE RANDOM 2022-05-18 [facility], [facility] of 18:16:00 [facility] CREATINE KINASE 2022-05-18 [facility], [facility] of 09:24:00 [facility] MAGNESIUM 2022-05-18 [facility] of 09:24:00 [facility] VITAMIN B12, LEVEL 2022-05-18 [facility] of 09:24:00 [facility] TROPONIN I 2022-05-18 [facility] of 09:24:00 [facility] BASIC METABOLIC PANEL (NA, K, CL, 2022-05-18 [facility], [facility] of CO2, GLUCOSE, BUN, CREATININE, CA) 09:24:00 [facility] SEDIMENTATION RATE 2022-05-18 [facility] of 09:24:00 [facility] PROTHROMBIN TIME / INR 2022-05-18 [facility] y of 09:24:00 [facility] VITAMIN D, 25-OH 2022-05-18 [facility] of 09:24:00 [facility] PROCALCITONIN 2022-05-18 [facility] of 09:24:00 [facility] AC VBG + LACTIC ACID 2022-05-18 [facility] of 09:23:00 [facility] XR CHEST 1 VW 2022-05-18 Wendy Evans Hollister of 05:43:13 J [facility] URINALYSIS 2022-05-18 Wendy Evans of 04:44:00 J [facility] HB ECG ROUTINE & RHYTHM STRIP 2022-05-18 Wendy [facility] of 04:26:55 J [facility] URIC ACID 2022-05-18 [facility] of 03:11:00 [facility] LIPASE 2022-05-18 Wendy Evans [facility] of 03:11:00 J [facility] MAGNESIUM 2022-05-18 Wendy Evans of 03:11:00 J [facility] FERRITIN SERUM 2022-05-18 Carleen Thomas [facility] of 03:11:00 [facility] TROPONIN I 2022-05-18 Wendy Evans of 03:11:00 J [facility] FREE T4 2022-05-18 Carleen Thomas [facility] of 03:11:00 [facility] THYROID STIMULATING HORMONE 2022-05-18 [facility] of 03:11:00 [facility] COMP. METABOLIC PANEL (32920) 2022-05-18 Wendy Evans [facility] of 03:11:00 [facility] LIPID PANEL (85839)(TOTAL 2022-05-18 KeatonCarleen [facility] sity of CHOLESTEROL, TRIGLYCERIDES, HDL) 03:11:00 [facility] IRON PANEL 2022-05-18 Carleen Thomas [facility] 03:11:00 [facility] CBC WITH DIFF 2022-05-18 Wendy Evans [facility] of 03:11:00 [facility] GLYCOSYLATED HEMOGLOBIN (A1C) 2022-05-18 Carleen Thomas iversity of 03:11:00 [facility] N-TERMINAL PRO-BNP 2022-05-18 [facility] 03:11:00 [facility] FREE T3 2022-05-18 [facility] 03:11:00 [facility] NOTICE OF PRIVACY PRACTICES 2022-05-18 [facility] ersity of 02:34:09 Unassigned, No [facility] CONSENT/REFUSAL FOR DIAGNOSIS AND 2022-05-18 [facility] of TREATMENT 02:33:31 Unassigned, No [facility] BASIC METABOLIC PANEL (7) 2022-04-24 [facility] 05:39:00 [facility] HEPATIC FUNCTION PANEL 2022-04-[address] [facility] 05:39:00 [facility] CBC W/PLT COUNT & AUTO 2022-04-[address] [facility] DIFFERENTIAL 05:39:00 [facility] PTH, INTACT 2022-04-24 Liseth, Ahmed [facility] 05:39:00 [facility] PHOSPHORUS 2022-04-24 Liseth, Ahmed [facility] 05:39:00 [facility] VITAMIN D, 25-HYDROXY 2022-04-24 Liseth[facility] 05:39:00 [facility] IRON, TIBC, % SAT. (WITHOUT 2022-04-24 Liseth, Ahmed [facility] FERRITIN) 05:39:00 [facility] FERRITIN 2022-04-24 Liseth, Ahmed [facility] 05:39:00 [facility] CBC W/PLT COUNT & AUTO 2022-04-24 Jose, Jh [facility] DIFFERENTIAL 05:39:00 [facility] URINALYSIS WITH MICROSCOPIC IF 2022-04-[address] [facility] INDICATED 13:23:00 [facility] URINALYSIS MICROSCOPIC 2022-04-[address] [facility] [facility] 13:23:00 [facility] TISSUE EXAM 2022-04-[address] [facility] 08:33:00 [facility] ESOPHAGOGASTRODUODENOSCOPY 2022-04-23 Asher, Nasrullah [facility] 08:21:00 [facility] BASIC METABOLIC PANEL (7) 2022-04-23 Ema [facility]mark [facility] 01:34:00 [facility] HEPATIC FUNCTION PANEL 2022-04-[address] [facility] 01:34:00 [facility] MAGNESIUM 2022-04-23 Jose, Jh [facility] 01:34:00 [facility] PHOSPHORUS 2022-04-23 Jose, Jh [facility] 01:34:00 [facility] PROTHROMBIN TIME/INR 2022-04-23 Jose[facility] 01:34:00 [facility] CBC W/PLT COUNT & AUTO 2022-04-[address] [facility] DIFFERENTIAL 01:34:00 [facility] CBC W/PLT COUNT & AUTO 2022-04-23 Jose, Jh [facility] DIFFERENTIAL 01:34:00 [facility] SLEEP STUDY DATA REPORT 2021-09-05 Doctor Itz ty of 05:01:00 Unassigned, No [facility] COVID-19 (ID NOW RAPID TESTING) 2021-08-05 Violetta Jackson [facility] of 19:05:00 T [facility] ASSIGNMENT OF BENEFITS 2021-08-05 [facility] of 18:57:19 Unassigned, No [facility] Plan of Care Planned Activity Planned Date Details Comments Source Future Scheduled 2022-07-27 INFLUENZA VACCINE (#1) [facility] 00:00:00 [code = INFLUENZA Medical Ce nter VACCINE (#1)] Future Scheduled 2022-07-27 INFLUENZA VACCINE (#1) [facility] 00:00:00 [code = INFLUENZA Medical Ce nter VACCINE (#1)] Future Scheduled [address] [facility] 00:00:00 aneurysm screening Medical C enter (procedure) [code = 615683940] Future Scheduled [address] [facility] Test 00:00:00 aneurysm screening Medical C enter (procedure) [code = 548974206] Future Scheduled 2000 SHINGLES VACCINES ([address] [facility] 00:00:00 2) [code = SHINGLES Medical Center VACCINES (1 of 2)] Future Scheduled 2000 SHINGLES VACCINES ([address] [facility] 00:00:00 2) [code = SHINGLES Medical Center VACCINES (1 of 2)] Future Scheduled 1969 DTAP/TDAP/TD [facility]ACCINES [facility] 00:00:00 (1 - Tdap) [code = Medical C enter DTAP/TDAP/TD VACCINES (1 - Tdap)] Future Scheduled 1969 DTAP/TDAP/TD [facility]ACCINES [facility] 00:00:00 (1 - Tdap) [code = Medical C enter DTAP/TDAP/TD VACCINES (1 - Tdap)] Future Scheduled 1968 HEPATITIS C [facility]CRE[facility]ING [facility] 00:00:00 [code = HEPATITIS C Medical Center SCREENING] Future Scheduled 1968 HEPATITIS C [facility]CRE[facility]ING [facility] 00:00:00 [code = HEPATITIS C Medical Center SCREENING] Future Scheduled 1956 PNEUMOCOCCAL 65+ YRS ([address] [facility] 00:00:00 - PCV) [code = Medical Cente r PNEUMOCOCCAL 65+ YRS (1 - PCV)] Future Scheduled 1956 PNEUMOCOCCAL 65+ YRS ([address] [facility] 00:00:00 - PCV) [code = Medical Cente r PNEUMOCOCCAL 65+ YRS (1 - PCV)] Future Scheduled 1951-02[birth year]16 COVID-19 VACCINE (#1) [facility] 00:00:00 [code = COVID-[address] VACCINE (#1)] Future Scheduled 1951-02-16 COVID-19 VACCINE (#1) [facility] 00:00:00 [code = COVID-[address] VACCINE (#1)] Future Scheduled 1950 CT Colonography (combo) [facility] 00:00:00 [code = CT Colonography [facility] (combo)] Future Scheduled 1950 Screening for malignant [facility] 00:00:00 neoplasm of colon Medical Ce nter (procedure) [code = 062591059] Future Scheduled 1950 Screening for malignant [facility] 00:00:00 neoplasm of colon Medical Ce nter (procedure) [code = 419566645] Future Scheduled 1950 Screening for malignant [facility] 00:00:00 neoplasm of colon Medical Ce nter (procedure) [code = 052219363] Future Scheduled 1950 Screening for malignant [facility] 00:00:00 neoplasm of colon Medical Ce nter (procedure) [code = 356014257] Future Scheduled 1950 Sigmoidoscopy [code = [facility] Sigmoidoscopy] Medical Cente r Future Scheduled 1950 CT Colonography (combo) [facility] 00:00:00 [code = CT Colonography [facility] (combo)] Future Scheduled 1950 Screening for malignant [facility] Test 00:00:00 neoplasm of colon Medical Ce nter (procedure) [code = 219380501] Future Scheduled 1950 Screening for malignant [facility] Test 00:00:00 neoplasm of colon Medical Ce nter (procedure) [code = 591832456] Future Scheduled 1950 Screening for malignant [facility] Test 00:00:00 neoplasm of colon Medical Ce nter (procedure) [code = 060301215] Future Scheduled 1950 Screening for malignant [facility] 00:00:00 neoplasm of colon Medical Ce nter (procedure) [code = 000098794] Future Scheduled 1950 Sigmoidoscopy [code = [facility] Sigmoidoscopy] Medical Cente r Encounters Start End Encounter Admission Attending Care Care Encounter Source Date/Time Date/Time Type Type Clinicians Facility Department ID 2022-07-28 2022-07-28 [facility] [id number] 00:00:00 00:00:00 Requisitio [facility] 2022-07-28 2022-07-28 [facility] [id number] 00:00:00 00:00:00 Requisitio [facility] 2022-06-27 2022-06-27 [id number] Univers 00:00[facility]00 00:00[facility]-08 2022-06-08 [facility] [id number] Univers 00:00:00 00:00:00 SENDIL [facility] 2022-06-08 2022-06-08 [facility] [id number] Univers 00:00:00 00:00:00 Management Trevor SANCHEZ [id number] [place]y [place] [id number] [place] dical NAL 0[address] Branch [facility] 2022-05-22 2022-05-22 Transition CORBY Moreno [id number] Univers 00:00:00 00:00:00 of Care Zenaida CHIN [id number] it y [place] [id number] [facility] [address] Branch 2022-05-17 2022-05-20 Outpatient X KEATON [facility] [id number] Univers 21:41:00 14:00:00 CARLEEN ity of [facility] 2022-05-17 2022-05-20 Emergency Wendy Evans [facility] 1.2.8 [id number] [facility] 21:41:00 14:00:00 Carleen Thomas 350.1.13.10 ity [facility] [id number] [facility] [id number] [place] [id number] Branch 2022-04-22 2022-04-24 Inpatient UR [facility]RIA[facility] [id number] SLSL 21:58:00 16:27:00 BENTLEY 2022-04-22 2022-04-24 [facility] Jayme [facility] [id number] 21:58:00 16:27:00 [facility] 2022-04-24 [facility] [id number] 21:58:00 16:27:00 Encounter Jh [facility]ico [facility] 2022-04-23 2022-04-23 [facility]est[facility] [id number] 08:21:00 08:40:00 Event [facility] 2022-04-23 2022-04-23 Anesthesia [facility] [id number] 08:21:00 08:40:00 Event [facility] 2022-04-23 2022-04-23 Surgery Asher [facility] [id number] 08:00:00 08:30:00 [facility] 2022-04-23 2022-04-23 Surgery Asher [facility] [id number] 08:00:00 08:30:00 [facility] 2021-11-30 2021-11-30 Outpatient JYOTI PRIDE [facility] [id number] Univers 13:20:00 13:20:00 YARIELEMIARETHA JYOTI [id number] ity [facility] 2021-11-30 2021-11-30 Outpatient R YARIELVIOLETTA ROWELLBlake [facility] [id number] Univers 13:20:00 13:20:00 YARIELVIOLETTA ROWELLBlake ity [facility] 2021-10-12 2021-10-12 Outpatient R YARIELSHANE ROWELLCABlake [facility] [id number] Univers 13:20:00 13:20:00 YARIELEMIARETHA JYOTI [id number] ity [facility] 2021-10-12 2021-10-12 Outpatient R YARIELSHANE ROWELLCABlake [facility] [id number] Univers 13:20:00 13:20:00 YARIELVIOLETTA ROWELLBlake [facility] 2021-09-05 2021-09-05 Outpatient R [facility] [id number] Univers 19:30:00 19:30:00 [id number] ity [facility] 2021-09-05 2021-09-05 Outpatient R YARIELSHANE ROWELLCABlake [facility] [id number] Univers 19:30:00 19:30:00 YARIELVIOLETTA ROWELLBlake [facility] 2021-09-05 2021-09-05 Inspector Salvage 1, [facility] 1. 2.840.114 [id number] Univers 14:11:15 16:41:15 Visit Jyoti Jackson 350.1.13. 10 ity of [place] 4.2.7.2.686 [facility] [id number] [facility] 193 Branch 2021-09-05 2021-09-05 Orders Doctor KEMAL 1.2.840.114 [id number] Univers 00:00:00 00:00:00 Only Unassigned, VIRA 350.1.13.10 ity of [place] [facility] 4.2.7.2.686 [facility] [id number] [facility] 009 Branch 2021-09-02 2021-09-02 Laboratory Only, Adc Test [facility] 1.2.840. 114 [id number] Univers 10:46:06 11:01:06 Only ZhanebobyJayme mccarty Lionel 350.1.13.10 ity of [place] 4.2.7.2.686 [facility] [id number] [address] 2021-09-02 2021-09-02 Outpatient R [facility] [id number] Univers 11:00:00 11:00:00 [id number] ity [facility] 2021-09-02 2021-09-02 Outpatient R [facility] [id number] Univers 11:00:00 11:00:00 ity of [facility] 2021-08-08 2021-08-08 Outpatient R JYOTI JACKSON [facility] [id number] Univers 19:30:00 19:30:00 JYOTI JACKSON ity [facility] 2021-08-08 2021-08-08 Outpatient R [facility] [id number] Univers 19:30:00 19:30:00 [id number] ity [facility] 2021-08-05 2021-08-05 Laboratory Only, Adc Test [facility] 1.2.840. 114 [id number] Univers 13:57:41 14:12:41 Only Jyoti Jackson 350.1.13. 10 ity [facility] 4.2.7.2.686 [facility] [id number] [address] 2021-08-05 2021-08-05 Outpatient R [facility] [id number] Univers 13:15:00 13:15:00 ity of [facility] 2021-08-05 2021-08-05 Outpatient R [facility] [id number] Univers 10:15:00 10:15:00 ity of [facility] 2021-08-05 2021-08-05 Outpatient R [facility] [id number] Univers 10:15:00 10:15:00 [id number] ity [facility] 2021-08-05 2021-08-05 Orders Doctor SOMMER 1.2.840.114 [id number] Univers 00:00:00 00:00:00 Only Unassigned, VIRA 350.1.13.[address] [facility] 4.2.7.2.686 [place] [id number] [place] [id number] Branch 2021-07-13 2021-07-13 Outpatient R YARIELVIOLETTA ROWELLBlake [facility] [id number] [facility] 11:40:00 11:40:00 JYOTI JACKSON [facility] Results Test Description Test Time Test Comments Results Result Comments Source Hepatitis B core antibody, total 2022-07-28 22:40:32 Test Item Value Reference Range Interpretation Comme nts Hep B Core Total Ab (test code = Reactive Nonreactive A 54015-1) LULÚ (test code = LULÚ) Classroom Instructional Aide ID - BSOperator ID - BSOperator ID - BS Lab Interpretation (test code = Abnormal 06569-6) [facility], [id number] 22:40:32 Test Item Value Reference Range Interpretation Comments Hep B Core Total Ab (test Reactive Nonreactive A code = 28670-6) LULÚ (test code = LULÚ) Classroom Instructional Aide ID - BSOperator ID - BSOperator ID - BS Lab Interpretation (test Abnormal code = 81362-9) [facility]TIBODY, [id number] 22:40:32 Test Item Value Reference Range Interpretation Comments HEPATITIS B CORE TOTAL ANTIBODY Reactive Nonreactive A (BEAKER) (test code = 497) Classroom Instructional Aide ID - BSOperator ID - BSOperator ID - BSHepatitis B surface antibody 2022-07-28 21:56:15 Test Item Value Reference Range Interpretation Comments Hep B S Ab (test code <8.0 See_Comment [Auto mated = 40232-2) message] The system which generated this result transmit geovanni reference range : <8.0 mIU/mL. Th e reference range was not used to interpret this result as normal/abnormal . LULÚ (test code = LULÚ) Classroom Instructional Aide ID - BS Lab Interpretation Normal (test code = 13092-0) [facility] surface [id number] 21:56:15 Test Item Value Reference Range Interpretation Comments Hep B S Ab (test code <8.0 See_Comment [Auto mated = 41657-8) message] The system which generated this result transmit geovanni reference range : <8.0 mIU/mL. Th e reference range was not used to interpret this result as normal/abnormal . LULÚ (test code = LULÚ) Classroom Instructional Aide ID - BS Lab Interpretation Normal (test code = 99210-5) [facility] SURFACE [id number] 21:56:15 Test Item Value Reference Range Interpretation Comments HEPATITIS B SURFACE ANTIBODY < mIU/mL <8.0 (BEAKER) (test code = 647) Classroom Instructional Aide ID - BSHepatitis B surface [id number] 21:54:35 Test Item Value Reference Range Interpretation Comments Hepatitis B surface Nonreactive Nonreactive antigen (test code = 5195-3) LULÚ (test code = LULÚ) Specimen is considered negative for HBsAg. Lab Interpretation (test Normal code = 64874-7) [facility] B surface [id number] 21:54:35 Test Item Value Reference Range Interpretation Comments Hepatitis B surface Nonreactive Nonreactive antigen (test code = 5195-3) LULÚ (test code = LULÚ) Specimen is considered negative for HBsAg. Lab Interpretation (test Normal code = 25306-9) [facility] [id number] 21:54:35 Test Item Value Reference Range Interpretation Comments HEPATITIS B SURFACE ANTIGEN (2) Nonreactive Nonreactive (BEAKER) (test code = 2585) Specimen is considered negative for HBsAg.BASIC METABOLIC PANEL (NA, K, CL, CO2, GLUCOSE, BUN, CREATININE, CA)2022-05-20 10:47:39 Test Item Value Reference Range Interpretation Comments NA (test code = 136 mmol/L 135-145 3743559489) K (test code = 3.6 mmol/L 3.5-5.0 4104658938) CL (test code = 103 mmol/L 98-108 1925226139) CO2 TOTAL (test code = 28 mmol/L 23-31 8156461077) AGAP (test code = 2-16 7448779439) BUN (test code = 43 mg/dL 7-23 H 9220745144) GLUCOSE (test code = 99 mg/dL 70-110 7447408794) CREATININE (test code = 4.28 mg/dL 0.60-1.25 H 4119678116) CALCIUM (test code = 7.2 mg/dL 8.6-10.6 L 4363708649) eGFR (test code = mL/min/1.73m2 7486038817) LULÚ (test code = LULÚ) Association of [...] tests). Lab Interpretation Abnormal (test code = 38028-0) [facility] [id number] 19:49:00 Test Item Value Reference Range Interpretation Comments HCV Ab (test code = Positive 51263-3) HCV Semi-Quantitative (test code = 83602-1) APRI (test code = 5367485469) LULÚ (test code = Positive for HCV antibody. LULÚ) This specimen has been reflexed to qualitative PCR test and submitted to [facility]. ?A report will be issued by that laboratory. ?If any questions, contact the Clinical Chemistry Director educational technologist at [phone].APRI score < 0.5: Suggestive of little to no fibrosisAPRI score > 1.5: Suggestive of moderate to severe fibrosisAPRI score > 2.0: Highly suggestive of cirrhosis. [facility]wood[facility] ANTIBODY (IGM & IGG)2022-05-19 18:22:56 Test Item Value Reference Range Interpretation Comments HBC (test code = 2587858291) Reactive HBC Semi-Quantitative (test code = 8475854319) [facility]woodC3 [id number] 17:08:52 Test Item Value Reference Range Interpretation Comments C3 (test code = 1404715132) 102 mg/dL 86-184 Lab Interpretation (test code = Normal 26080-9) [facility]woodC4 [id number] 17:08:52 Test Item Value Reference Range Interpretation Comments C4 (test code = 8727153600) 17 mg/dL 20-59 L Lab Interpretation (test code = Abnormal 75241-6) [facility]wood[facility] SURFACE [id number] 16:27:33 Test Item Value Reference Range Interpretation Comments HBsAB (test code = Negative 5795913319) HBsAb mIU/mL Semi-Quantitative (test code = 2323300852) LULÚ (test code = Interpretation: LULÚ) ?Hepatitis B Surface Antibody ? Negative - Patient is considered to be not immune to infection with HBV. ? ? Positive - Anti-HBs detected at greater than or equal to 12 mIU/mL. ?Patient is considered to be immune to infection with HBV. ? [facility]wood[facility] SURFACE [id number] 16:08:51 Test Item Value Reference Range Interpretation Comments HBsAg Semi-Quantitative (test code = Negative Negative 5195-3) [facility]woodTROPONIN [id number] 12:12:33 Test Item Value Reference Interpretation Comments Range TROPONIN I (test 0.044 ng/mL See_Comment H [Automated code = 5041909783) message] The system which generated this result [...] biotin. Lab Interpretation Abnormal (test code = 47464-1) [facility]. METABOLIC PANEL (49755)2022-05-19 12:09:12 Test Item Value Reference Range Interpretation Comments NA (test code = 135 mmol/L 135-145 9708793310) K (test code = 3.8 mmol/L 3.5-5.0 0122806557) CL (test code = 101 mmol/L 98-108 0259519898) CO2 TOTAL (test code = 28 mmol/L 23-31 1826811174) AGAP (test code = 2-16 6801687770) BUN (test code = 41 mg/dL 7-23 H 1124118881) GLUCOSE (test code = 97 mg/dL 70-110 5380207905) CREATININE (test code = 4.30 mg/dL 0.60-1.25 H 7610404847) TOTAL BILI (test code = 0.6 mg/dL 0.1-1.3 1834749608) CALCIUM (test code = 7.6 mg/dL 8.6-10.6 L 2794257711) T PROTEIN (test code = 6.5 g/dL 6.3-8.2 4273896751) ALBUMIN (test code = 2.6 g/dL 3.5-5.0 L 4765706005) ALK PHOS (test code = 68 U/L 34-122 4933723395) ALTv (test code = 16 U/L 5-50 1742-6) AST(SGOT) (test code = 32 U/L 13-40 8703973545) eGFR (test code = mL/min/1.73m2 7133949715) LULÚ (test code = LULÚ) Association of [...] tests). Lab Interpretation Abnormal (test code = 69688-3) [facility]woodN-TERMINAL [id number] 12:09:12 Test Item Value Reference Range Interpretation Comments NT-proBNP (test code 6750 pg/mL See_Comment H [Autom ated = 4694386060) message] The system which generated this result transmitted reference range : <=125. The reference range was not used to interpret this result as normal/abnormal . LULÚ (test code = LULÚ) Biotin has been reported to cause a negative bias, interpret results relative to patient's use of biotin. Lab Interpretation Abnormal (test code = 17417-4) [facility]2022-06-24 12:09:12 Test Item Value Reference Range Interpretation Comments MAGNESIUM (test code = 5042720388) 2.1 mg/dL 1.7-2.4 Lab Interpretation (test code = Normal 63248-3) [facility] 12:08:52 Test Item Value Reference Range Interpretation Comments PHOSPHORUS (test code = 3000077829) 3.9 mg/dL 2.5-5.0 Lab Interpretation (test code = Normal 70553-0) [facility]woodUR[facility] [id number] 12:08:51 Test Item Value Reference Range Interpretation Comments URIC ACID (test code = 3097514609) 7.4 mg/dL 3.6-8.0 Lab Interpretation (test code = Normal 61634-6) [facility] WITH [id number] 10:13:06 Test Item Value Reference Range Interpretation [...] RDW-SD (test code = 49.9 fL 38.5-51.6 98535-0) RDW-CV (test code = 13.8 % 12.1-15.4 788-0) PLT (test code = See_Comment [Automated 777-3) message] The sy stem which generated this result transmitted reference range : 150 - 328 10*3/ ?L. The reference r jose f was not used to interpret this result as normal/abnormal . MPV (test code = 12.3 fL 9.8-13.0 76596-2) NRBC/100 WBC (test See_Comment [Automat ed code = 2934480368) message] The system which generated this result transmitted reference range : 0.0 - 10.0 /100 WBCs. The refer ence range was not u sed to interpret th is result as normal/abnormal . NRBC x10^3 (test code <0.01 See_Comment [Auto mated = 4083143927) message] The s [employer] which generated this result transmitted reference range : 10*3/?L. The reference range was not used to interpret this result as normal/abnormal . GRAN MAT (NEUT) % 47.4 % (test code = 770-8) IMM GRAN % (test code 0.20 % = 5690949271) LYMPH % (test code = 41.6 % 736-9) MONO % (test code = 10.0 % 5905-5) EOS % (test code = 0.3 % 713-8) BASO % (test code = 0.5 % 706-2) GRAN MAT x10^3(ANC) 2.94 10*3/uL 1.99-6.95 (test code = 1338273325) IMM GRAN x10^3 (test <0.03 0.00-0.06 code = 8859803900) LYMPH x10^3 (test code 2.58 10*3/uL 1.09-3.23 = 731-0) MONO x10^3 (test code 0.62 10*3/uL 0.36-1.02 = 742-7) EOS x10^3 (test code = <0.03 0.06-0.53 L 711-2) BASO x10^3 (test code 0.03 10*3/uL 0.01-0.09 = 704-7) Lab Interpretation Abnormal (test code = 52600-2) [facility]IT[facility] B12, [id number] 22:37:51 Test Item Value Reference Range Interpretation Comments VIT B12 (test code = 828 pg/mL 240-930 0560797405) LULÚ (test code = LULÚ) Biotin has been reported to cause a positive bias, interpret results relative to patient's use of biotin. Lab Interpretation (test Normal code = 26056-8) [facility]woodTransthoracic echo (TTE)2022-05-18 22:07:44 Test Item Value Reference Range Interpretation Comments Height (test code = in 0525045992) Weight (test code = lbs 3539594843) Systolic BP (test code = mmHg 9615819819) Diastolic BP (test code = mmHg 4942954978) Heart Rate (test code = bpm 9514205653) BSA (test code = 2.00 m2 6992796773) LVIDD (test code = 4.90 cm 6084310348) IVS (test code = 1.46 cm 2331108446) Interventricular Septum 1.46 cm Diastolic Thickness by 2D (test code = 9069212) LVPWD (test code = 1.48 cm 3652930014) PW (test code = 1.48 cm 0.6-1.0 4284648935) EF(Teich) (test code = 51.00 % 1003225651) LVIDS (test code = 3.60 cm 5716336143) FS (test code = 26 % 8241121111) EF - 2D (test code = 51.00 % 18690151) LVOT diameter (test code 2.11 cm = 0415193769) ACS (test code = 2.11 cm 5860992345) Ao root annulus (test 4.0 cm code = 6391735498) Ao root diam (test code = 4.00 cm 6064167081) Aortic root (test code = 4.0 cm 6163237165) LA size (test code = 3.8 cm 2858605709) TR Peak Tom (test code = 262.2 cm/s 2355557743) Triscuspid Valve mmHg Regurgitation Peak Gradient (test code = 2984081748) E wave decelartion time 0.23 s (test code = 4988491108) MV Peak E Tom (test code 54.7 cm/s = 5858988261) MV Peak A Tom (test code 80.8 cm/s = 9451041444) E/A ratio (test code = ratio 2044593613) MV Prop V (test code = 36.00 cm/s 8286614385) Tapse (test code = 2.00 cm 8913871755) LVOT stroke volume (test 84.00 cm3 code = 1636655172) LVOT peak tom (test code 100.6 cm/s = 7475192190) LVOT mn grad (test code = mmHg 4021382695) AV LVOT peak gradient mmHg (test code = 3900159611) LVOT peak VTI (test code 24.0 cm = 4073422600) LV V1 mean (test code = 57.60 cm/s 1342267182) Aortic valve mean 90.5 cm/s velocity (test code = 1098202518) Ao peak tom (test code = 151.5 cm/s 3924564559) Ao VTI (test code = 31.4 cm 0322855561) AV area by cont VTI (test 2.7 cm2 code = 3572425232) AV area peak tom (test 2.3 cm2 code = 5116729578) Ao max PG (test code = 9.20 mm[Hg] 6529831775) AV peak gradient (test mmHg code = 8840117928) AV valve area (test code 2.70 cm2 = 2684718263) AV mean gradient (test mmHg code = 6354733275) Radiology Study observation (narrative) (test code = 47006-4) LULÚ (test code = LULÚ) ?Left?Ventricle: Left ventricle size is normal. Mildly increased wall thickness. Normal wall motion. Low normal systolic function with a visually estimated EF of 50 - 55%. There is impaired relaxation. ?Tricuspid?Valve: Insufficient regurgant jet to estimate RVSP. ?RA pressure is 0-5 mmHg. ?Left?Atrium: Left atrium is moderately dilated. [facility]woodTROPONI [id number] 21:25:17 Test Item Value Reference Interpretation Comments Range TROPONIN I (test 0.049 ng/mL See_Comment H [Automated code = 6422497570) message] The system which generated this result [...] biotin. Lab Interpretation Abnormal (test code = 22978-2) [facility] D, [id number] 18:08:45 Test Item Value Reference Range Interpretation Comments VIT D 25OH (test code = <13 25-80 L 33854-5) LULÚ (test code = LULÚ) Deficiency: <20 ng/mLInsufficiency: 20-24 ng/mLOptimal: 25-80 ng/mL Lab Interpretation (test Abnormal code = 27412-0) [facility]woodPROCALCITONIN2022-06-23 16:34:18 Test Item Value Reference Range Interpretation Comments Procalcitonin (test 0.19 ng/mL <0.07 H code = 2470027307) LULÚ (test code = LULÚ) INTERPRETATION OF [...] biotics/default.asp Lab Interpretation Abnormal (test code = 39584-9) [facility]woodMAGNESIUM2022-06-23 14:28:03 Test Item Value Reference Range Interpretation Comments MAGNESIUM (test code = 8286774886) 2.1 mg/dL 1.7-2.4 Lab Interpretation (test code = Normal 28925-5) [facility]woodTHYROID STIMULATING [id number] 11:24:55 Test Item Value Reference Range Interpretation Comments TSH (test code = See_Comment Biotin has been 9862212529) reported to cau se a negative bias, interpret resul ts relative to pat frederick's use of biotin. [Automated mess age] The system [employer] generated this result transmitted ref erence range: 0.45 - 4 .70 mIU/L. The refe rence range was not u sed to interpret this result as normal/abnor mal. Lab Interpretation (test Normal code = 94357-3) [facility]woodFERRITIN [id number] 11:24:45 Test Item Value Reference Range Interpretation Comments FERRITIN (test code = 47.6 ng/mL 18.0-464.0 5947667263) LULÚ (test code = LULÚ) Biotin has been reported to cause a negative bias, interpret results relative to patient's use of biotin. Lab Interpretation (test Normal code = 43583-1) [facility]woodIRON [id number] 11:24:35 Test Item Value Reference Range Interpretation Comments IRON (test code = 2989296653) 95 ug/dL 50-160 TIBC (test code = 2435703474) 182 ug/dL 250-410 L % FE SAT (test code = 8499906392) 52 % 20-50 H Lab Interpretation (test code = Abnormal 70960-7) [facility]woodN-TERMINAL [id number] 11:24:25 Test Item Value Reference Range Interpretation Comments NT-proBNP (test code 51003 pg/mL See_Comment H [Autom ated = 9933760512) message] The system which generated this result transmitted reference range : <=125. The reference range was not used to interpret this result as normal/abnormal . LULÚ (test code = LULÚ) Biotin has been reported to cause a negative bias, interpret results relative to patient's use of biotin. Lab Interpretation Abnormal (test code = 74969-7) [facility]wood[facility] [id number] 11:24:10 Test Item Value Reference Range Interpretation Comments URIC ACID (test code = 9754066223) 6.7 mg/dL 3.6-8.0 Lab Interpretation (test code = Normal 32606-4) [facility]woodTROPONIN [id number] 11:08:27 Test Item Value Reference Interpretation Comments Range TROPONIN I (test 0.071 ng/mL See_Comment H [Automated code = 8405980196) message] The system which generated this result [...] biotin. Lab Interpretation Abnormal (test code = 16111-2) [facility] [id number] 11:05:11 Test Item Value Reference Range Interpretation Comments FREE T3 (test code = 0669028990) 2.48 pg/mL 2.77-5.27 L Lab Interpretation (test code = Abnormal 27013-2) [facility] [id number] 11:05:11 Test Item Value Reference Range Interpretation Comments FREE T4 (test code = See_Comment [Autom ated message] 3643991498) The system [employer] generated this result transmitted ref erence range: 0.78 - 2 .20 ng/dL:. The ref erence range was not u sed to interpret this result as normal/abnor mal. Lab Interpretation (test Normal code = 38203-0) [facility] METABOLIC PANEL (NA, K, CL, CO2, GLUCOSE, BUN, CREATININE, CA)2022-05-18 10:47:04 Test Item Value Reference Range Interpretation Comments NA (test code = 136 mmol/L 135-145 9766929049) K (test code = 3.3 mmol/L 3.5-5.0 L 7811520780) CL (test code = 101 mmol/L 98-108 1949878887) CO2 TOTAL (test code = 28 mmol/L 23-31 3305636764) AGAP (test code = 2-16 6105760134) BUN (test code = 43 mg/dL 7-23 H 5300925343) GLUCOSE (test code = 101 mg/dL 70-110 8288632922) CREATININE (test code = 4.12 mg/dL 0.60-1.25 H 4107042070) CALCIUM (test code = 7.5 mg/dL 8.6-10.6 L 1941692355) eGFR (test code = mL/min/1.73m2 7680238182) LULÚ (test code = LULÚ) Association of [...] tests). Lab Interpretation Abnormal (test code = 30818-2) [facility]woodCREATINE [id number] 10:46:48 Test Item Value Reference Range Interpretation Comments CK (test code = 9791309723) 72 U/L 33-194 Lab Interpretation (test code = Normal 71691-5) [facility] KingwoodLIPID PANEL (43102)(TOTAL CHOLESTEROL, TRIGLYCERIDES, HDL)2022-05-18 10:43:26 Test Item Value Reference Range Interpretation Comments CHOL (test code = 189 mg/dL 120-200 0558407964) HDL (test code = 36 mg/dL >40 L 5130537194) HDLC RATIO (test code = See_Comment H [Au tomated message] 5497886341) The system [employer] generated this result transmit geovanni reference range : <=5.0. The refe rence range was not u sed to interpret th is result as normal/abnormal . TRIG (test code = 125 mg/dL 30-170 0144692873) LDL CHOL (test code = 128 mg/dL See_Comment [Auto mated message] 22636-8) The system whic h generated this result transmit geovanni reference range : <=160. The refe rence range was not u sed to interpret th is result as normal/abnormal . VLDL (test code = 25 mg/dL 5-60 5031667648) Lab Interpretation (test Abnormal code = 85295-8) [facility]woodSEDIMENTATION [id number] 10:21:37 Test Item Value Reference Range Interpretation Comments ESR (test code = See_Comment H [Automated message] 8328684225) The system [facility] h generated this result transmitted ref erence range: 0 - 10 m m/HR. The reference r jose f was not used to interpret this result as normal/abnor mal. Lab Interpretation (test Abnormal code = 07448-4) [facility]woodProthrombin Time / [id number] 10:06:41 Test Item Value Reference Range Interpretation Comments PROTIME PATIENT (test See_Comment [Auto mated message] code = 5964-2) The system [facility] generated this result transmitted ref erence range: 12.0 - 1 4.7 Seconds. The re ference range was not u sed to interpret this result as normal/abnor mal. INR (test code = 6301-6) Nor mal INR <1.1; Warfarin Therap eutic range 2.0 to 3. 0 or 2.5 to 3.5, dep ending upon the indica tions. Lab Interpretation (test Normal code = 89999-1) [facility]woodAC VBG + LACTIC [id number] 09:44:12 Test Item Value Reference Range Interpretation Comments PH (test code = 7.32-7.42 H 3948195504) PCO2 BROOKE (test code = See_Comment L [Auto mated 3943239624) message] The sy stem which generated this result transmitted reference range : 41 - 51 mmHg. The reference range was not used to interpret this result as normal/abnormal . PO2 BROOKE (test code = See_Comment HH [Autom ated 2347030050) message] The sy stem which generated this result transmitted reference range : 25 - 40 mmHg. The reference range was not used to interpret this result as normal/abnormal . HCO3 BROOKE (test code = See_Comment [Auto mated 6850740227) message] The sy stem which generated this result transmitted reference range : 24 - 28 mEq/L. The reference range was not used to interpret this result as normal/abnormal . AC VBE(BEAKER) (test mEq/L code = 1346830545) LACTIC ACID (test code 1.00 mmol/L 0.50-2.20 = 1272210984) Lab Interpretation Abnormal (test code = 62880-3) [facility]woodGLYCOSYLATED HEMOGLOBIN (A1C)2022-05-18 09:25:50 Test Item Value Reference Range Interpretation Comments HGB A1C (test code = 5.2 % 4.0-5.7 4548-4) LULÚ (test code = LULÚ) Reference RangesNormal: <5.7%Prediabetes: 5.7 - 6.4%Diabetes: > 6.5% Lab Interpretation (test Normal code = 68772-6) [facility]woodTROPONIN [id number] 04:08:02 Test Item Value Reference Interpretation Comments Range TROPONIN I (test 0.070 ng/mL See_Comment H [Automated code = 6773985106) message] The system which generated this result [...] biotin. Lab Interpretation Abnormal (test code = 39692-0) [facility]woodCOMP. METABOLIC PANEL (01836)2022-05-18 03:57:02 Test Item Value Reference Range Interpretation Comments NA (test code = 136 mmol/L 135-145 5595845678) K (test code = 3.8 mmol/L 3.5-5.0 5083985906) CL (test code = 99 mmol/L 98-108 2550798494) CO2 TOTAL (test code = 28 mmol/L 23-31 3529766788) AGAP (test code = 2-16 2434851835) BUN (test code = 47 mg/dL 7-23 H 4402347409) GLUCOSE (test code = 113 mg/dL 70-110 H 5816211103) CREATININE (test code = 4.12 mg/dL 0.60-1.25 H 8258116237) TOTAL BILI (test code = 0.8 mg/dL 0.1-1.8 0598332112) CALCIUM (test code = 7.8 mg/dL 8.6-10.6 L 7931190587) T PROTEIN (test code = 7.6 g/dL 6.3-8.2 2105234804) ALBUMIN (test code = 3.1 g/dL 3.5-5.0 L 2776197964) ALK PHOS (test code = 76 U/L 34-122 7484053946) ALTv (test code = 18 U/L 5-50 1742-6) AST(SGOT) (test code = 28 U/L 13-40 6281291395) eGFR (test code = mL/min/1.73m2 6499554995) LULÚ (test code = LULÚ) Association of [...] tests). Lab Interpretation Abnormal (test code = 93292-6) [facility]woodMAGNESIUM2022-06-23 03:57:02 Test Item Value Reference Range Interpretation Comments MAGNESIUM (test code = 9956114306) 1.6 mg/dL 1.7-2.4 L Lab Interpretation (test code = Abnormal 43954-4) [facility]woodLIPASE2022-06-23 03:56:42 Test Item Value Reference Range Interpretation Comments LIPASE (test code = 2135939265) 139 U/L 0-220 Lab Interpretation (test code = Normal 05046-3) [facility]woodCB WITH [id number] 03:38:37 Test Item Value Reference Range Interpretation [...] RDW-SD (test code = 50.5 fL 38.5-51.6 06448-7) RDW-CV (test code = 14.3 % 12.1-15.4 788-0) PLT (test code = See_Comment [Automated 777-3) message] The sy stem which generated this result transmitted reference range : 150 - 328 10*3/ ?L. The reference r jose f was not used to interpret this result as normal/abnormal . MPV (test code = 12.2 fL 9.8-13.0 28926-7) NRBC/100 WBC (test See_Comment [Automat ed code = 4266469241) message] The system which generated this result transmitted reference range : 0.0 - 10.0 /100 WBCs. The refer ence range was not u sed to interpret th is result as normal/abnormal . NRBC x10^3 (test code <0.01 See_Comment [Auto mated = 2515649304) message] The s ystem which generated this result transmitted reference range : 10*3/?L. The reference range was not used to interpret this result as normal/abnormal . GRAN MAT (NEUT) % 73.7 % (test code = 770-8) IMM GRAN % (test code 0.40 % = 5305862794) LYMPH % (test code = 16.0 % 736-9) MONO % (test code = 9.8 % 5905-5) EOS % (test code = 0.0 % 713-8) BASO % (test code = 0.1 % 706-2) GRAN MAT x10^3(ANC) 7.85 10*3/uL 1.99-6.95 H (test code = 7582270533) IMM GRAN x10^3 (test 0.04 10*3/uL 0.00-0.06 code = 0844864079) LYMPH x10^3 (test code 1.71 10*3/uL 1.09-3.23 = 731-0) MONO x10^3 (test code 1.05 10*3/uL 0.36-1.02 H = 742-7) EOS x10^3 (test code = <0.03 0.06-0.53 L 711-2) BASO x10^3 (test code <0.03 0.01-0.09 = 704-7) Lab Interpretation Abnormal (test code = 08393-3) [facility] [id number] 14:36:42 Test Item Value Reference Range Interpretation Comments Case Report (test code Surgical Pathology = 104) Report Case: [id number] Authorizing Provider: Kiara Sterling MD Collected: 04/23/2022 08:33 AM Ordering Location: [address] Med/Surg Received: 04/25/2022 08:19 AM Pathologist: Eli Maria MD Specimens: A) - Stomach, Antrum, biopsy B) - Stomach, Body, biopsy C) - Distal Esophagus, biopsy ADDENDUM (test code = d2jnyGUyWBSfaXL0CdXuOE 3381) Bmi4csw9QfjCYgqRZqZNix cGRtjbVfxb72jHH0eM18SB 7cSDVuQkD3QEKykrW8Idf0 WSJvSHOhwQCeZ908b3jws0 eleaLhlPB3kEraWFLmlfvg MxV3SVwhEMIduuatLDi6HQ rpAUQgaCZ0DLSdmRXaC9Ak HTMdDK5khuv8JFY7WCudRS PtHkS1IAQmhBZeYQKggUof MXurl058REB3ImCvYCQhxk UycJskjS7zXxQaFVIEhFyw IGFkZGVuZHVtIGlzIGlzc3 TnDWQ2cmOvTAEqxlIiuLxt KLBwn5XwoVTqMjDsqG37ol 5ruAN6v0CjQV9oL7HpQPH9 jCR1KLNgvgKKBYtvQ34jLJ N8XDNafSlfr2VtGD8fHIXe SNHogUNkVFPyaVNjYI6tZk RDPFNYUcKlvUVhUN6znQBo IFRoZSBpbnRlcnByZXRhdG unhzKbNcC7oBynIKWnm3Tv kS5ixUAzCUQxdNvxDLPmSV FgVtFzuI91el0eeDU7z0Vw LO6hu8FfsQSsrxFglNAboD IyDZI5BSsmmn5qqIWeBH5K TZaZS99LNACKFVSjXJnWX1 ZDCOXlnrRDeE48eh2qfSI0 v9SyGX8vg7CrhQA7SMRckm bfKTsffRDscVojGcW2OPWi xWPkWx5wbUQjZRG1RJNlhB opjaYAuS0wXHRhWRi2IJOu LhXqDogsavAIHIEzO8LfTK KtzaBdpnkuSRH4fO8mb8o6 GOgqRw8gUQXcrhoww3cayv MnvUOdl6WxNOVhwaQrg1Ka ZCBhbmQgaXRzIHBlcmZvcm 6szgAtJZRuWXMbE3Sndtds iXpuudA8UOZvXZRsmYOviC foKNOgSWn5UYnvakSaz6Ca DrQhauAsiTGprkEdSK6qDR AvsPLcvwXzGTG6CDYnYFYR ThQeUNYvr3LfED3wKRPxeC wfKFNqdP5kh0HfJCXtv02u IFRoZSBGREEgaGFzIGRldG VybWluZWQgdGhhdCBzdWNo JJWvZDYhNQ6zPABlghWurD Roj6NkgFAntuYov9VaelPv DLHzUYM3FyOCtAGpxGKyyR TpycP2t0TrXYZgutAppUax gFCkbNMudTSlp6Cuas9gMX Ulw2tdnZisVB6riBFoEJFn ZWdhcmRlZCBhcyBpbnZlc3 MtO0G3jN2sNQefv0NlJh8k JGBsq3XphrTqCyPAxJjfVX srFc0rYQZiwoibnBIiF4Gv dGlmaWVkIHVuZGVyIHRoZS BDbGluaWNhbCBMYWJvcmF0 b1C9CJardYRidrMtPK47YC PtIJ0kaXIsmCEwa0SiKFf6 DKOvS8fCPQ17KCzvWCOdiK VhbGlmaWVkIHRvIHBlcmZv qt9gvRnjsMKdc39lqPD7dQ T3RQEbmA1aT2JeBBnmNj5q TRSmqdqwpUOlkQtnVh0doV TwSR0aiJRzKPYNYUHOE2IZ MsW6WFG0OjeyFMFfeaPnzE FyfQ== DIAGNOSIS (test code = v0ydqLGoHRMfl0vfUMYxnX 3220) FuZzEwMzNcZnRuYmpcdWMx IHtccnRmMVxlcGljOTYwMl rdefBsYIMxrPEdS9Zxdmrn MEwmTS1wKH9xlNaevDXymW UjEGHgCwCsb5ixk614zSNu z5scKQKWpyvsfPp5pTxbQ5 6bc8F7BqnnN44ouKZwDXD1 UVJjNWFmjFBsLOAqSXF0QD VttLLnS9yxKYSwRH0oattr SZqyJFqvJXAhvUZ9VEBcbM MhB2JuNWFwMYhhFBHrpvb3 CzOeHu3crXNrhJhcKSqdZU QlGPOcQKcjSQUoNcTaSG1u G0NREJNPEYvnQO2NBpGBPP BRZhHUL7ZXGYzMHYWIC1YZ WTpccGFyICAgLSBNSUxEIE BZZy8TMCQmO0UHSPCAPQmR IFdJVEggQUNUSVZJVFlccG BmYEGoJFXPEeNpPD3PUJXC GS0ATTRLVXNAYSsWG8hSOM ZVSVGEWOUCWPAeL2AuEUWP PUzDTS7EGDGOO4YPEWkeGE AnFIJuNAvPHVVRY1mHA0KF K3gAXPrEBXvyW1MWRF2eOk 6KPOwUJZdLI1VYA2XKQjWG YgREDBzEWmXBC74XUoYCGG LAVZZzK3yIZXOALVUDH1KJ VTSnAZJfudTfQIPgZF7aRK IRSHTSKUDFCWMCCS6VBCae RTZeeGTjWHZmOHLKP54NW6 zzMFCPBSsnKZQQSE8FG81K SUMgQklPUFNZOlxwYXIgIC FgCA7VGT3DIHEoOKNTC4ND LEtYVLlkJd4oJQBORX8CF2 tGKzNSOGIQWpYEBE2XQZRy lhDaCP2uBp1pKK3NLYIZOT 4UADRPXTBKWAuNI2eMAFZG VJRJHUOKQDVpR2PeKZQDBS aSTS8MJFNWN6SFUVwlALTc HZcfYWRoZy3uXJpENXOVZJ XBG8KGYDdYIorbOV8KX8OH J0RWPqZYQY8LG9vqpUPmFI GyWFLKDURTGr8XVcRCJZ3E QVRPUlkgREVCUklTICBXSV YRGAKXG9LYWmvNQNKLG1rK ZlmWBgnuH90VO6zFRLOIWO HCIIPXSQQDT0GIOZATT73c xTUqFYAuOIRSMPQRFM4VBr OZREBOH8UvU1wKROXKIGLM JAmNOILTFDRTZ6TJLMNjrj AgLSAgVkVSWSBTTUFMTCBG UkFHTUVOVCBPRiBTVVBFUk WRV6fZEJCKE0wLCC5OFcSH VWSXX6VvJ3NKZgkcIBSjUL 0gIEdNUyBTVEFJTiBJUyBO LTzMLLaYQOTKB5ZaArMVA2 YVEFLWQG4LEyZOYLEhleBc MVWgEvOOQYJZFoXvDx9XKF APQ1NDVFSQGRRXWrVFMDfC T11DRtDMXEAhgd05WOX5Et Twl9T1HKT6FUAzRJOmh9vt ZGVmbGFuZzEwMzNcZnRuYm lfiKHxUCAsSyNnz5jws807 gRDec9xkNUOnIiB9bGSlJI ZslGDoB497CUPbJBnpt2cs b6ObNBUcsHKoh3Z0OZNUbv ujwYw1hZjaJ40xb1J3Tgju U9onPMKeAQCuD6PyCQ9xWO SmYda8RCL1JOQ8VNVyOHIz L0NdLT8xVHBwzZIqPPp9l2 ucaHzfMSEwODA4m4seQVea drNsGR6zac3vaOa1q1ovks SaYRTlPDQtdMMZBITqN1Kz aYgsXq5uqTc6uPovNoihGE Z5Zio6NY4jpw15rrx5gQtr VRJrfjvlWeU3TAzuMBKhxn laKZy9TTvgCIOphGR7YJZr nRQgX2AyHRKbGT0txad4VE K2AMboUDMxSvZ9FIHfwVAe SOShfAcdRVfte202FVO3Mw RxWZ4qN8Kvm4X0wB9pcFAu ASGtoXYhIpZrJDVtcl3mhT MlTHqol7LdNXA4gcY1tVEs kMPhEFYrLlD1DAvoKU5kmx 42BWKkCIG5ji9fbSKdbWpi keEtbGIuBEqjF0AsHNHsf0 47TUXaN7IuZMQyi1M2dzCx CaHbNLXwaPV5zeB1ASNsQD 4afokxj8wbFZfnZWvgMPVo trP2ohZ5UXNkcDHrO8BfwY 2cRLOyTU8ghxhkt5iiTBX7 SBlxQXBsPJF1GoBcWXByl5 Tsujz2EnWwz2ZjjYSwGJgz R77yt059QGCjttHsK3amoH FpblxwbGFpblxmMFxmczI0 XHFsXGxhbmcxMDMzXGhpY2 gsBzLzCALqvUjqXSogb2In XGYxXGZzMjJcdGFiXHRhYl a1BDHwuTGsKHXiHfVlU5bo wtizLqOMRCExc6umZ5vdtJ IInGReX3HcIQbbisNaFGlh ZBodSdieAGSmSc06GVVqSI Bhcn19 CPT Code(s) (test code y4vanKXyPUDjtQO5GqZhYM = 3357) Nvw5vaw9AfeMRnrYAlYQyu lXNiycNaus20wDT1iY66NS 0jQFKaHkY2MRNjdkB9Hqi6 INHiCJCzcKLqC349t2piq4 ivifKntQJ7xRzyVLWbnmkv MqM1HWdaXKAnosqbAMt9HE tfWSKyiJI6JFSlsNDoH0Wa RLRkEF7cytf3NSC9HXvvZG ZkTdI8IZDhyLWnUURvmMsn IYboq894ZIN6CaNfHFHwty WnxUodrG4tZbLgHME7EPCr SOHPMOY5LSt8RgThHTLuom 0= CLINICAL HISTORY (test a5wbiQStQVGdjMB8IgSjYG code = 3356) Miv7bfg5ByxLDolUPcEKqa yKUfcmLyna14gWR6hF70PO 9sTNAeHrN3QCPergF9Pbj5 QKPcINLdzXEgS930j5irl3 zsxoKsbXV6iNaiKDWjuidp VkL6WVvqQQQzsshyYOk7PP xcMUDuoXG8DDGpyQWyS5Wk JRJiUZ8bvtg6HCW9XAaiHV WxOrE7SNJkqKNfQAYsaJsh XUknn083BBQ8MfSoESUnax BvyKwtvG7lVuToHTXKLMro r4YzVQttIBTngLKrcQ== GROSS DESCRIPTION (test n9eyrGAqYELuzRKWZZBzE8 code = [id number]) pzleUzYLCpvPKrQ6Hfnggu ZGebXE1nDG3naAikfQAubW DpFL4QMHWfFgPcYXGoaVHa gaMyBpKiYPDjaPJciBW8LK OuBI1khxlnHBssFLtjSUEz rmU0HYXlqCZcO9HjHYGdWW 7evwdqAPU4FOavdI6lreHF YelfFi3qyNHhzDyyJzLcRk NoYXJzZXQwXGZuaWwgQXJp NIu1iR8FVzquQ32vm4U1Na m7HWXuNNEdO6KgBR8qVLWh dNSyQ17WAovhWHA8JISVDr ciNVGrRO1Bp4cdRELpaQNg EZZ3AWqabKOoKOHgZJWcSH r4EUKrSVglnJJrJC9nkMon XdvjaThhm1RehCYdZPimZN LdVWNtEYyfRECaRB8YUqYp SZV2CrH6UqhcGDf8TSh7CR 9GCiBjLKUrGLyuVkH9AtDa GHs3EDquGW8IHAS6FIQ4GT P9JUJ3NOL8VQAyRPClMqMh XGYgQXJpYWwgXFxmbCBcXG 1jbYswhOVeoqOHFqDLgU5v IRQlLGSbNN01tuPhDawbJQ KfVSaoOHKrG28vq6FXh2Sh SX7KMTa1rgPzipzxvJ6nOV RmlpBzJKvvyFVyI4kkM2Kl ZHQiFpUgEdFxXLz4LIJdoX 4zTt6arZRscZ6jpRMtWKbo PPA5dPVjIKVgFFWsSEUuVG 41Y3LwsL7fc3ErOCNgj64q PK8iSDljCpMxRMVqBmD6e1 0kH9gpOSHbiWT7kBLiRBIy UCC7jqT1AP1nx6ywrSTdzE voK7PpAD6aOXEfn5X0WMAp MWGnmQVksaeeIY7yXVPwSS QlZkDiZ36vgK0cMTJmWDEl UAisrMJzEHSwrAPvz8nxwb syImEfTOYpaNLorSK7DUOr IZ96jSOrgSksvE6fG3Rbp7 Y8iXCqnSXmJFgiCLDNAfKs vJVaBV2ZHHQpYBvijpSfQA 9HFNDpIPvkRQKvwFODXQW0 SQ4xLOxqfIVqshxyWKImE9 PtS1OglrYiuEDcHZSnuwSk l3clWWH7ZWWvsVKikITpPh VmJutwPJS9ZKr2UJouXEJb J2KaE8SxLNcrDVI7NHFiYp BcXGRiICBPVlIgIiAxNzM1 HGL8ClK1JZu4IXHFUlSeTe ChAcg1COO9SrKlHEw2JKr8 MZeCJrC8HrEwBOa8MBDmTW ZaXfMuOJl7VGIoDItzOKLf aRRzBYrfPguaSRhhA54mCu JsCetogZYhihEROmPHpE5q DVPeCBUhRg0poA3wdLKjED 7BHDMklJWIYNG0PP6eAGXP ClxsdHJwYXJcbGluMFxyaW 9nLP6ZRLa8rrNlSMViXBlv mqQyQERpX5GonkOpJIekOO Rgao0afNvzEMsbIqStNXPg o3c7uTR8nAWdyCU0vCTytJ taTBoxWq3rtMY2zK9sIUPi IHEhPPUxkUAySVNwnE3zCE GuYNZhp2Y6MzDhngPllKhe SRIoch72jXb2VLQanIAmGK Ygx4NifGotm9MsQNSuJ0mj hILni6UxeX2wSOPgSbHznT BpbiBtYXhpbXVtIGRpbWVu x8lfheqoKPKmCAGobLJkgA B3XZMmI9EpXJUkjiQjbyCh sMZyuyIfMZAeQYH8ASVWHy WjbVLcHX3YGYIpLFajjwEi ZP1CGOUkLLrmMEJzzTDUBD H6VQ2dSTnrbZIiutsrBYZp F0LrT4CpxbGyiVPcZWYihw Eui8nqTXV6CDXizAHdtORz HjKnTnvmCXE7ZTf2YSerDN NeK5AmH6DaLEpaNAC3UWLk MiBcXGRiICBPVlIgIiAxNz L0COV3SiN6QGy0RPBCNeTd ZxVlFzr9OIR5NwZpITu8OJ j4PQdVIkG0XgAqKUo1GGUs WZLnZbJqBIe1HOIxFYdyPS NpzFQrXPvfCpsqKOthD72w ZnMxNlxwbGFpbiBDLiBEaX L0ETiaUTBiuKmmJ9UzGjud IGUvZJjhSIQsQ89nk7PDt7 BqDR1NJBg9ciYnxquagU3j BPHzawNgTOspcKJhV5hyU1 DnAORtQfZeBmDiPTr1HJNe kY5yIg5zlTYfdX9xsIJsOR meMZG4jFYeVSMvQHXfXOXb VR32H3EizW6zx4WqRXXit8 5eRJ8gRSemCwItCIOyDpEm l6WboGWwV8ObUTYua4QbRH k8a8kfBxIjLmFxvjHsPZUv HENvhDd4cSGcQXogPrRqXS Iyol38uKj8ZFPxhsWcnJBl aIRgu6RspFnvp9WgOVKqD2 rmqVWmn4NygP5tUCWfGXPa nZioZMObIENxhWSabNL0WF SdZ4UbBLXyvfEybxFdfSCx ewPxUJMjAFD1UVSQUC1qFU LKD0RiWUUlxhVRQxyfUzDq ZnMyMiANClxwbGFpblxlcG rhUzDcsPWsKnBkoQnljM58 LLOtzFNjXJN6TW5mISKafn wiHUMjVXBeNTL8XRsjbA92 nAUaGMFjSJXscNZepW9WOT VbSIA0IOrqoZ39aUDyXO4G QJYlYUM4OJMpxABvHZD9UM 2goG3NrV== MICROSCOPIC DESCRIPTION k5lnsLQtWEJsuFL5JmIeYC (test code = 3371) Ucp2gzl5JurFFbdRMlFBjs wNJswmBajf82nCB0xX88YB 2qWKNkItT8XXEbqsR6Tsb6 MYGxPKHiaCLiM833a5pwi1 rgqcMivIC6vJbyIXXnoqdc KvW1DTmfAXDkgwwxFBl0KL doXUValBX1AJMfePIjJ0Sm GDGqFR8aizt7TTW6ZPcxTX QvAcX7XXPbxBBlFSIqbRnh PJeuc737FWK4CwKoPVBdjw OhsEeagY2cZkHvXUFJNWXO P7KOYUUzaXQgzN== SPECIAL STUDIES (test t3uxbYRoPFYemDP1ThWnTG code = 3376) Ihc5xkr5DowZAzxUZeEYjp fBQoevKijm09oZJ5oR11GA 5pUSYtHaP1RMHnmvP1Ifw8 IFArBRZveFRdQ208RYRtYK BqlBderki8cZ98ECTsdT4x dGJsIDtccmVkMFxncmVlbj EoTwe4EFV7hJwhZQJeeydg JoQ8PQifWRJrdvfcXDd7FS pkBUYxxZB2DAZugDIiR1Xp TPYoLC5ynjm1VGJ9MEanZI SuVdI5RGUdqWLeBEGdoUqm OAwtk004UAP0PmSxAEJwyw BbsFfoiY5uSmTiSrNfMzkc ZjEgVGhlIGludGVycHJldG N0iU5iWG8nNWJskTJuJ3Zd UTStwfOscEHpGPL2pYCeoT AjGL4jFEtffCMwu1wfm7Bv C0mthJunoSM0AA3bUBHfCO CnEGzir6EjfO6pBdlsLZAf F98AXXTeawTIc879oy0aJK RqkWQnfkODpIEaqO4yBZry AHopBYrauHJuMJrwn5ouWR Bcc7f4kYOtIXGqcdMxn2nz IHdlcmUgZXZhbHVhdGVkIG Jsg35cHPjuoXdtpDygUMHb z4MwtGrmr7VpTfNcJKexn9 VyB08fkQBuoYNvuZwqHKLi jrTbPITtq64lp8gqSHMrCl Z7sWNroCM6kDXqyCVjc8Qv bEpiXWIha0faIFIimb3rjm jrwFTqz1DjdH0mpabsUIpc lHXfqyEeNRJsj4d4gSIlCJ TxODGhLOzwnOc6XIUgj764 kn9jidA5lOOiUUO3LQdnRL JsZSBhcmUgZXZhbHVhdGVk KZGmcbOvUFAkqcJJrQ15kx 5vfJO7r1PqFB5ua6QpgFB3 ZWNobmljYWwgdGVzdGluZy H9WEXlsHRmVp0hsCJsXOL0 TMYbuQvlrdRGqS6nPSQsLO x0RPDgAvQrTzwoojVQHTOj O3LlLLAnydSztuhdGHQ9rQ 0zi1f8QQduAz1nDOEnpwgn p0nulmImpLMzs1XjDUSptc Ibw6YzBVIpfpNdxMEvNOSk bdOmwp6idhLxAJUrJFFkT4 VkykdjwCawbvF2OXCgONYg mVDzhAcvASChJBg8ETbrwp Dxp1RaWeAwizQanIXbdgKy GC4bUSWnkSVdmuCvDAY6SC AfJCQZDpKyEOHdt9AeJO1n AXKyzDtgPPUcjY1jk1BnUT Sng19iQSRnDPGMYTIazYAh IGRldGVybWluZWQgdGhhdC FzgBIsLMDyHYMwNT9lFJEw nfUkwBKyv9UspZWrzuIgb8 UoacViFZMkTSY5IqDEkOGb wJZngLIisxB5f4NbCMBial HfvFskfHNtaNEenRVxe2Mg ra3cSWEwy6zerUbvZW8muX BiZSByZWdhcmRlZCBhcyBp gkCbt7WnA1R9xS0jMHzvt3 EbQp1vAIMhe4KhkbJpXiVD eUtyHDiuKm1cLIOyijbcwZ VsA4AkzPypgNSbXGLfSMCx IHRoZSBDbGluaWNhbCBMYW YpjvD4v2Y2SAifmHGfjgEr XY09VVJuXN8irIPvkYSva1 GsPHo3FZAxL3jJXF45IDjn YXMgcXVhbGlmaWVkIHRvIH GfddSduh6ssCkdtEEwr50b zUS3tMN3WBRtcM3bD9EwSG peFr1sFNLojaphqGYfjSzg Lm7avGYhiC== [facility] [id number] 14:36:42 Test Item Value Reference Range Interpretation Comments Case Report (test code Surgical Pathology = 104) Report Case: [id number] Authorizing Provider: Kiara Sterling MD Collected: 04/23/2022 08:33 AM Ordering Location: [address] Med/Surg Received: 04/25/2022 08:19 AM Pathologist: Eli Maria MD Specimens: A) - Stomach, Antrum, biopsy B) - Stomach, Body, biopsy C) - Distal Esophagus, biopsy ADDENDUM (test code = [id number] 3381) Nkp5efu2CmfVYrdGWpBTak oBPcrlSvqv69gKS3cB67CL 1uWCAuPoP2WAVeslT6Bhj6 DOPzKLErrXVaP902p2jdb6 zyorGtfRY4aRkgABItzcyv PzT2YHlnNLFalztoSPa3HZ saLJWtmER3RDVeaHVbW9Pz KNZoOP2qsch6AZE3UFqdLB MvGqR9JXXwiYTwAJKrwXex XIqfq329NJS6FhYiFRJffx TtkHohvX9cZmZeDIWGgZea IGFkZGVuZHVtIGlzIGlzc3 CgAYN8waRbXFJcahNvbTqs UBSat7UugZCtVnOnjH24ry 2zjPP6w8DrWV5qS2IqHMP2 uYJ6JMXbjuPDAZwlA29eWB W5BJNicNpcb3VuQG7wOJMk ORGljUYdWVMtiQAdGW8nTw YTBHAHYaFklVDfBA8naKQp IFRoZSBpbnRlcnByZXRhdG obioNdCbG5gIatACCyd4Rx rU7vuVKoJMUplKbqJHAaUI RwTbLqeB04ee9efTF5v4Ye JJ8na7DpqMCtqwVafAUopM QtUDY2PLywhh9rdSZjHD3I FEiNO99EIWTMERZyUFuQV7 LKHGYnnnUZoS23td3qaOS9 m9KhRI6gr7VfqPV3ODMntz ivGVmsaNIqgFhkSgG2LCWx uEGfCf8mzKCkMEN6UVKdzS aurzUVzY7uEYTiOIv0SXWd PtZdUitvmaAAALRwP3JxMF IqxtWfuqfbTLX7bU7lk1l4 NFdzIc0oWXDxdcjgp1kemz QaeUMdd9EgPFWxlgUpo4Mq ZCBhbmQgaXRzIHBlcmZvcm 2qjmAbWGUoXBIvQ0Nhzcgb tLtaraO2HBLrTKFdsXMrbV smDSAkJMc2MOeheuAvs2Qs JiBmwkPatXWrfxLaSS5hWZ PsmLOohiYuSHF6HLOlDYWP IhPvUAPhk3KhRM1uNMEclL urFNEukD9gp6OdMNSbs81w IFRoZSBGREEgaGFzIGRldG VybWluZWQgdGhhdCBzdWNo YUUfJZZeMN1bMFPrszSwtE Djt5HezKKxlfQvw3UefnCe DYPaXMC0HvKRpRUvgEIycQ JvfnB8j7FfSYNgsySmhUus uJHtvQAcyBHvu1Koow1zLD Rbh1zydZjmIR1xtHOlOQJl ZWdhcmRlZCBhcyBpbnZlc3 WyE0H7aK4cMEkmn6QnNl6e ZIWzv4FflkFcBmBJvMslPN cwOx9cACTcajpqsUEdF8Dy dGlmaWVkIHVuZGVyIHRoZS BDbGluaWNhbCBMYWJvcmF0 b1I7ZOwlvZBkgsIqLQ43QU HpTF2scMRgqHTzv9NkULf8 TDMzV7yKAM89UDiwPDOrdM VhbGlmaWVkIHRvIHBlcmZv yh7xfBnulJOvg38jzHP8gZ G5NRFhwL0rW3VtKLqePq8k SMUnwsffqCCsiHlyId4vhB QkAY9wbGJkEQNPKPMGE8PA PlM6BNN3TnkeCBDxwvCukH FyfQ== DIAGNOSIS (test code = x3demGXwIEHal1oyWFNynX 3220) FuZzEwMzNcZnRuYmpcdWMx IHtccnRmMVxlcGljOTYwMl jnzgHpCNCiyAByE5Lbaehj EBnfBD8sTT4yxJvryVYteF MsTYHkExGrv8pzk922xIZh w5uaTBFKxyeicLh6uRobB5 4qr9G7WivpB03qmPSyZAS9 MSDqJUPexQItKBJeROD2DL BdhRCvJ8ywULHfHE4losvc QIufRBqoMQAywOX3IQIntU XaZ6YiACXtPHhrKIEhewk1 AsPhXb9tpLBtiPwzBYrqXW XtJUCbNFroIAAvJrFrJZ7h Y0UDZLEGNUnfFI4MLxFILC UJTqBPN0TDZOdSHOJZY9MQ WTpccGFyICAgLSBNSUxEIE LEDn7JQVVzY3YQNWRLHVoB IFdJVEggQUNUSVZJVFlccG RmGYCoNYDTHxOkTK7LGKNA CB2CTONLYGGYWQlCD3bUGH LWWDABHCBZJWFoA4AwILFJ FQqZOX6NCNZIN6ZWYPdhHB VeOZNfAXzMLFQEH8qNA2IY N9qUTIdITOxxA9FYMN5sTq 9LPFoPPJtIB4GIK1IPUkZE CgYEVJpOBkLLU33LKnIIBO UYUNTfV9zYHEVGDMOAT5FG FUHkORGbdeAyNLKnVJ8iON TOMHJLPNGFJVRJDY8UENqy GKOttSQsMYCuMRBYT16QM5 odQIMQHCnrKAXIGR3GS99B SUMgQklPUFNZOlxwYXIgIC JnBY6PPD7NIZLgMUGMK6AA VKdFWDfhTy2ePAIOTS0EK0 yGNmVFIQXABcMVVL6QMKRq uwGyNV8oKg7gBM7VGMKLUE 8AVFHTJNLIVOzEV0jVZMKO LTDHNRFPJRGvS8KsJISVZU eUQJ3MQRFTG9SONDjrYQEe DDasZYYmWw7pGRvAFTTTBL CRY2XMXKnEYcqkCW0LU6KK N3FSTyHWSJ1HI4ngwZSsIX AfCJEWKFKXYm2NPzJFMU6T QVRPUlkgREVCUklTICBXSV IAHZOGJ2VNHawLBWJTF2uH XisUDrwyB66TB4nUKACPSY UVJTXSWYSML2CIMKRJD42r oXFnRXGmNMQPSSDCJH4BFy YWATMDT9GfA8rJWSCHWAGG UHsATFTHXUFEB6TSMPFljd AgLSAgVkVSWSBTTUFMTCBG UkFHTUVOVCBPRiBTVVBFUk IFS8iZIFDPU4iOCR5XAbAZ IYBUQ9RbH2HYKydkPGVsDA 0gIEdNUyBTVEFJTiBJUyBO GMxLAJdOPELNA5InFaECL6 HDZNMHUN5UVfUQROBrvzRr QEPrNsWORIWQQtVgHt2EFK CWI7CTBDWGMCZZVcKVJDqF Y21FPfMEKYJaht22YZP7Nv Wtq8H4USV5BMYvHAMcf1vz ZGVmbGFuZzEwMzNcZnRuYm azrUVdJCIkCsPvd3aqz505 rOUdb5gbRVXdAtG3iXPzHL PqkDVjJ113IJWnWRbtr8je j4UaMOAacATeu0I8XEKPcx yphZs1kGgaW81op3B6Llfz G7vkZIFqDCJtL3ViGI9zTH TeWvd3XVZ6XZE7AEZhYXPj O2PiTA6oJNAvlGWeUQb6a5 henAynBMMfJDE6w9rpGMlw gtJaNY1vrz9gjGd9m3epai SkHQDfJBIsmAELUWKmH8Dx vLcxZv9ttXy8kIfzQmwoBZ C2Hje9DX3zad09jvc1hOmg FKLwirgbVlK9CJvjFEUdhc ekJPv5QEieQGFkbMD8UFTr rZQkC4OgREUtPG2tiep8WN O2RDwbAUXtTjJ4IGMceGYx BLGmyKdzVLhvy717NGD9Ob SbGO8kS1Hwj5T1qM5zpSWh NMFfdXAeZqJbWGUhst2efY IfARjgf6UoREL8eqK5rHMl fGFhSQRtRxQ7PDotZD4pyc 52FZUwZRT8yi1mlERdwBpg ztKgeXBnHLleI7AlOGEqp0 33CCBcR9MmZGChw7S4gzPt DsGdDBNffTM0nwQ9EVTbKR 5dibrnc4feUVmnIKgpQBNm jzR4nsV4SCLfgCMxZ1ZrfZ 1pUFXzVB1plueka8zvANC8 IDerTHTnVHD9KpDnGAZok7 Zyjjc1XeXhr9OghUUeVWes K31jn842OZWoplIwD0fmtM FpblxwbGFpblxmMFxmczI0 XHFsXGxhbmcxMDMzXGhpY2 cbRnDuCJMujXfsGJyom3Xm XGYxXGZzMjJcdGFiXHRhYl n3YGKsbSIcZBSgMuNeV3kv eznpUkRCLPVbh2qvH0fwpK OEjWGqC2UlRFqrabAcHSve SQwhUfwfOWOlBw39PAVhAP Bhcn19 CPT Code(s) (test code g7upkDQyARYsvVG8SxKxUY = 1160) Fsp1oks5ScxYOfaCVhWUxr zQLihgUvdf07gPN3sN27MM 6mWKNjGcZ8SCDefpL9Pua4 HZUuFOUiwUZeO068j0zmv2 ktawEarXM8rWcaMVCtdouo ZdP3PMwkNNLxbumiZBg1ZN lfNXYefUF5WSNdaLDnJ0Pl XMEfWM0eiph3QCA6MUqlUQ GtWeC0MFZkgGFyDYAfuUym GVjtg565DIE7XeQhSUAvis TawYpaxU0zLfXkBMQ8ERYq QCURZHS0PYa4InDrHQIjxh 0= CLINICAL HISTORY (test x9hmjRFgSKFatVQ5NgPwUD code = 3356) Zjx8hfw1ZfwTHhpPRrYSxa iKIkbyGlsg44qVK1kA51VT 3lATFjGaT1VWFgdnW9Bfd7 ARDqJWBsrVDaF220e9cqu6 nxccHetYJ9uGkpVZAwdgjs YvQ1FEwnWMLhqapcCIs3OP ynDGRlhGW9IOBbuDBiC4Pp GFMeYH0cgqh4KLE5UElaYN GiDrA2LGOlfMKoGCXyyUpt IYoxp071VRW7BqCmWALsoh FmgHsyrM9sDuDbSVTVXTmc l5NvELhdKQJxrYOngL== GROSS DESCRIPTION (test v2vqzVPvLBEodLGRPDQgR9 code = [id number]) afzkNoHNGmwNBvR3Hmwzeo NSmfQW8vYY2ieGgqyNWvlR FxBF1JJTFhTgVwXKWudSWf uuUpJtQgVQHgtHEhjQO1YD LvFT1srxmmDFzgDObqBLFm jkK2KRJdtUIeG1QzOJZlHG 7sarmzFLD6CCoktS0dndXJ NaitGh7djPYsrOjbDdShTa NoYXJzZXQwXGZuaWwgQXJp YGw5kI3WZaltN87lu3C0Dr m4VXMrQSXgI5RxSY2qTOOo lYOrH80PCeutJBB6IFORWg qbXJWgHD1Ay2btGYVsrTUg SVR5VZuaiCAjITEtVLNcLS e8EYXdQJibfCIhWV2ghMxp YphonStgp3MteDRfCYctCM KuJQUfEHulVQRtCT0XAaGe XGV0AnM9VswzXZr0VTj6UI 5KWjOiKDSvYAonSaI3CjRs RDm4ZJnrOR5UFOX6LZI3DJ P3VWO2EAA6RGMjLYPkHqYn XGYgQXJpYWwgXFxmbCBcXG 2rzPzmzYBmvmGXSzSOoA0l OCQeCOYvKH13fbLaQhxlMG HwWQatBMZtC19lh4VVv5Vz HS7EPZu8duJjnukydC6xGB QcdsDvVYwzoCWdO5drP4Sj CJHiGwBqRbCaCAv6GAJieD 5kSm4roXOfuF1fwUHuFYmb FQA7lJUzMQIkYQNwRLZrVT 73F7TyaZ7ga5HiNCLpo61m NA6mYTofJuJjUDAkXgN7v6 2cE8igJWOeoCO0xQOfIEYe VZD8hnM2BO0rs1fyrLQiyN dwG9LaSH9iRSPks6B2LFRc UEVhvPMharnnTT4yFCYnMT ViAuZsV05syI9vCIVyFDQk IYivuCGhKWSyhMMni9nida kqVtPySYIiuTIddQH2KYSv HW91aJUcgLuzgH7vE0Mdx9 O4zYMvzSSiGJmpMKBDOyWh yEPiRW9GEHTpPPrhgyAaPA 5GECUqJWqfEFGlqNXYXTD7 DY9iQPrnkTLkkfclZEIpV7 AgF6MropYkjYLbBUYhwfIf b3jdJWZ3ZBXduHGyrMBaBr WeMwwfUJB1JZo3VIllCPJd I3TkA2RvHUqiOWC3XZGvGe BcXGRiICBPVlIgIiAxNzM1 NLY6PpU1ZRt9JQYMPaNeYa VdUvn6HOV2SqIbHIk6STs0 AArBVvA3YlKhNCq5BBBgID HiLzFhCVh4NETgNOkqFXHc sNLcXOipEnmsSUxkD44pTc EoLhatzWSswgFUJvDSeU7z GQUiQCTfQz6yaS9mlISkDH 2DXEFkiGXOZIR5SY6xEWNM ClxsdHJwYXJcbGluMFxyaW 1xLP2FVRf9hhBfMEGhFJub juKvQLVmY8KsjfPtRNrhMD Brdc3wrNrxSEniXfHwTXAk c5q8nRL1xJLvxBE0sCXjaC zuVMkbCz7ihIC5hX6zHROt EIYvCHFmiXLeNZHlrN5fLA FqVGGuv1N2IjVngxIxjJxp SFTmti10lUj1ZQXtvHDhXL Chy7BpcRmmb7BbPYJiO2tv dEWyb5KyiA5sGUVhNfZdgO BpbiBtYXhpbXVtIGRpbWVu w2ibylckVSUeAFVfoZPctM G4XFCyT5SwZURgzwWkmxPl eLLouaGeCFLyEVV2UBIOPb DtsKTcDO3AJEUaYNctyoVz XI2TBTAgBTxiPCXctYYIBS H7QN4iEYoqaEHmiiwbMBDb S1XoT3DadmDzlAEqWELnur Tcl9wjRNI0JTBbdBQzdKOm YpXeBmjoEWW7MXn7LOhfSC AtP7DgO9ScTCplJPI8VORd MiBcXGRiICBPVlIgIiAxNz D2NUL5VuG7FWt6DKCBMeYw ZvVaIlt1ICO6XoNcWOv8OH v7PXxTFiQ8VrTeZAf4UCSt VSOkZvCeASh6JCFxNYavDD MmbUKzVWgoPnymOQxiP73v ZnMxNlxwbGFpbiBDLiBEaX Y1VSevLKBvvPjbX9CtAkru XKHpQVjzRIDpP27et9OWt1 GdSY5SREx5amEhdcgkqF4r TBTtohSsMBfumGSyH1ipE0 UpOOIoGdRoPnFxVXr3SGXr mB8wQa9axROazN8eqNJxBN txHGS3wZKuUUFxLQSaTVCl OR88N4KnvD6jo2LkVDGdp7 5sYK9eRDyhLrKnKDWiVoZc f7EzqVYcR5VxMQScw2DlQZ b4d7ngPwPhXsCmoeKdDZWe TVGkuIw0yYGfWPbmDoWxOB Lfob44pRf3AXZbviFfbHZm cCSzj8KwnUnbm3NjXJFwJ8 txbHMfc5TzmC8zRUErQZRi qSvjOUHqBGVyrXLizTR9KA LgD0ZxEIRsokAhvaAsqHMn fuOaQGWhLMZ7FROPTI4bNK BDN8SuKDMdfmETOiqkGiGn ZnMyMiANClxwbGFpblxlcG pxOrYcmKIeDqDohLxezU11 CADqaZPqVEJ0BB0vITJsbq heBQEaGVJgWKY4ZRzvwG64 dJQjLRFkVDIhxYYjvR7XIY IiVCV7ERzxcQ13sLPlMK8F NGFzWAW4LRNmiHTlFOX7QK 9aoQ5RdW== MICROSCOPIC DESCRIPTION t9kjlCXjQZHztGH3QcYxOR (test code = 3371) Anr5dbu5WqgBYzaGRtLNvl mUXgvoHsqn09vHQ1zZ58IR 1eHCClHnD6WEEwbwM6Akl2 BGTiZFTsrZBgU472w9dzw0 jiokXjdTQ5lLntNKTsfyzt MwP3YHolTBKaiqguYRo0ZP dnUHTheTM1GEMcuEPtJ5Ot EGEsGM7rurv6KGL9NLajHA AvTrG9PUBsjPFqFQFciNay BOleh784ZJS6LaDpWKMxsw GtmQwvyN0qPjCzKDFYVNAV L9THSGYahSTddT== SPECIAL STUDIES (test q7klcRNbDTSecUD4IuPdKG code = 3376) Siz8mgq9SyjGVfwMVrKPyf yTDgfuInjd91vBJ3xW81UO 5kYWPqXmH5NTDmhuP3Cew1 BVQlHVTyfHOlN337ITLyMK BfnJtbeqc6yW50SONncU4w dGJsIDtccmVkMFxncmVlbj XcYqh4KVL5fGjoJQHlvksh MvL9KQvmNIBznyewUVc5NK hsURBldMB4KHTymCQwO9Ww SWHiUC5sfvc6ZVJ4UGnbTD OoWiZ1GFMhnBGaVPKhdZwq AXhdy232VGQ6VcWbFWHzan YduPvfsJ0cXyNnDnEcRpbu ZjEgVGhlIGludGVycHJldG U6kX8xET6aWSRboEWuH8Gd BOZhyiXaeFAuDSH3oUMrwC ZmPB3yBKtioBIxd1ffh7Hs W0carIevqOF8MF6tFPZaFC YzNJefy8PjcG2lVnebTMHy E86RGKIkjpLFy838ew6mVL EcyVMuutPZqDIfbK8zYXiu CBaaYTkvwEViVGmbj0jyEO Dez3w1rTPaEMCnmzRej1su IHdlcmUgZXZhbHVhdGVkIG Rcg17iKNejiQofzLpeIRId z4AmyPdml3KeHgNvTXaue5 IzT55cxEXtvGZeeUuvWMHp srYrKQDly28rh9vaKKJrKi S0nXMhdBB0bTGffUMnf1By zXdcRHNjr4kqPKZxsk5igp pdeEDxb3OnaV7egeoqOPdz mMIznjOjPUHhx6d3yXHmVB OzLRQwMPidmOc1QSJds537 rp6yjxT4hSCbRUH0TEpiER JsZSBhcmUgZXZhbHVhdGVk HRQsbiPlYZKnprVIdU76qw 9gjQP1d3DbJX9nw6OorDF5 ZWNobmljYWwgdGVzdGluZy U8HZRyrPBzBi7miWXvPRO9 XJTnsNxsakBAeS7wXQFjDY q9GXYjQwUeGfryroKHEAZm J0ImMGYmokTcruafYMI6zV 6en1o8LQfkAs2gHURecawq s1egmrPdaMVqd4NyACWwqa Zkf3HdPSTdqaLblZQiVELz qqEftu7ibzCkKTJnZOPeP7 KwffuyrIpgdrS7LYStHTYf pQRzbKmmEGOsFFp2EWkoah Png2YqUoAmtfBdvXBlckLs AG9eFXHgyXZalaPcASU4ER AoUENBXqUvKZKbt0YwJO8c YEDjpLkySTKlaT7po1WmXS Apt94iZXEiIWDGTGIplOAl IGRldGVybWluZWQgdGhhdC NluFUoUCTwUVAkIM7oMLDc gaBrsHGbn5ImmJPzacWry5 NxcyJpMFLbHXU1LoNFxLRb oVCoePDbaxY3o4EtPGJpuf WdrPvagQPthZQmtMBmg5Hq ig0gRADvi2kmfEuzFD9msE BiZSByZWdhcmRlZCBhcyBp uwQtw7ZgU8S9lE2iHXsbb0 YrNs0qGYHxz3PdstIzCgWK nHwkZWxmOd4gZIUbfxkhcX KhL4GotSwduGYkWHGtUWTe IHRoZSBDbGluaWNhbCBMYW HeldJ4i7V1RAlrhTLrsaKz GY30WDTdNM0dmICcuJHly1 UtHNk2HGFqZ2gBDW66SUnw YXMgcXVhbGlmaWVkIHRvIH BfhzExit5fsGzhiPFtr82z fIP2sVV0VVIyuQ8uU7UzIG swUd4yZEObqckrcKPtvBel Kw2qzOImxD== [facility]xmn0410-[facility]-44 14:36:42 Test Item Value Reference Range Interpretation Comments Case Report (test code Surgical Pathology = 104) Report Case: [id number] Authorizing Provider: Kiara Sterling MD Collected: 04/23/2022 08:33 AM Ordering Location: [address] Med/Surg Received: 04/25/2022 08:19 AM Pathologist: Eli Maria MD Specimens: A) - Stomach, Antrum, biopsy B) - Stomach, Body, biopsy C) - Distal Esophagus, biopsy ADDENDUM (test code = [id number] 3381) Xpz5crq3YiwYLvfNAcJKlu eUGbeaLugy80gFE3qJ28JH 7oEWVfJfX7QRItttP6Vbu5 BWBhZHRhcEUgA637u2czr6 izyqFclQZ4rYflHFMlnsnz NpV0RJqcKFJzrzaoERk7ME lbVXMksHO2GIUfeDVnB7Qv JCOkLX6udtf1ULK0HZztWC MjImE7TLUzoLKlVGTwkEqk LIxbh048KEH4WhFgWTAjvr MdkKinyU4mRgDfJLCVtRdd IGFkZGVuZHVtIGlzIGlzc3 NzVJJ4pkLuLKZrdmAbmJcg JZNmy6KziHYrElDeqA24sa 6dcRU7j2JaSA4sN3RmVIC2 mEF7BVBsjyBFTXkmC82bQD S3CJAxeCjux3MbHI9tEYGz AEPpnPLiRQYttXWqPJ4iHp TMBMJOSbBypJAjIB6mxUWc IFRoZSBpbnRlcnByZXRhdG vvweFiSfX0fTufIPHct6Jn rK7jrWOtDJZgwPhvCNTtWP ZvWzXszV60ck4abSL6q1Gp AF5sf7IkuKGroiFjpMHmaF BjJUJ8JCuyal5icKGrOM6I CAyFG43ZKDPBSEYgAZoWW3 XBHVSsekVIqT53go4dfVM6 o3HmPD3yr4SqcDD1ZHUqvl zgBJticTXbdTtzIlS0AJOb qTAiRa3zhOSrTOP8IRWhvM wtyhQHqT2hUFWnLSz0JRWc LuLuJgitxgTBSMVyK3GtAL ImjkDjgduvCKT7zG1oh2n7 BJvoBa5rIGIyvejnc3mubz AreHVxv3JvVWSheuRsf8My ZCBhbmQgaXRzIHBlcmZvcm 5ogkJvTBQgZWJfV3Phykwi tLadhiJ5EMFrEEPcqJQfsC ioMJYbJSb4HOqyzfGvd7Ak TqKbquRapQGfauSlZN1xTY OizKMojpUyQDV7PGFdPZIN UrGoHFCah4NgEB9dLVVvwY npTGRhgH2kn7LaEMQsi60t IFRoZSBGREEgaGFzIGRldG VybWluZWQgdGhhdCBzdWNo RPRcHOWtOC2zOUBjeyTefW Ail4LgoVZyrcFrd1YaxeEv BMOsFTT2FoIZyMGqgJXdpV HhhkF4x1DlVTXasvZmbTch zDNgnVChfOPts9Qihe2iMS Vol4guaEgmYX2mgEHnRURh ZWdhcmRlZCBhcyBpbnZlc3 HkB0Y8vZ0bLVyxk4FuNt3l TDZvp3McbgXfPfIPfGwkXH xqXd7iOSCaltgcdQGsO6Rk dGlmaWVkIHVuZGVyIHRoZS BDbGluaWNhbCBMYWJvcmF0 q8T5GCuvbZPswiKvWR98RR KoRP2wfKSldYLpv4MfHJc0 NUWqX8hRAW38UUykIKUsqO VhbGlmaWVkIHRvIHBlcmZv ex7lvDlbxZNin18snPE0uC T6QPZraI8aD2YpBGvsAb7f QQLqjfknpPCqyXytAd5xdQ StTQ5ywRXkLQOLKDSRE8BK DgY8OQK7XyagOKYvkaGmpD FyfQ== DIAGNOSIS (test code = p6acgIZmTVAmc1tzHUHcaB 3220) FuZzEwMzNcZnRuYmpcdWMx IHtccnRmMVxlcGljOTYwMl kvwrQrPXPniOUkW2Gfybix SOdbFU7tDY2okIyivZPsmL UjNKDvJpMgn8ycl433hOXe r7jiDBHHqggcvOj8mQpmA4 9ru0B4IthtE62giGKaUGB4 CGTxVNGduIBkBMKiPHO3RU CxvYPvX3tlAFWzIT4nfgnb URkmAQzdGGEnvOA1FSBreM BeP2IzPGYlYKdkAIBsfoh7 PqVpVi6lmQZpcKkkNMxqYD XnLZOrTPttZSQaXxGmTN6k X8HNWYBREXzpXG0PTmKXOL CTPzGUJ0LDGJkMFWELO2YI WTpccGFyICAgLSBNSUxEIE UYNe9YJGKjM0AEGRKOIGaS IFdJVEggQUNUSVZJVFlccG OmRTIkGBKBGhHvKC2VOOUD MG6AVSDZEJOZRMoMN9lUHV HRFEMXLJFUTODyF2OiLMPI YNoSDT0PUJUGN9HUIZndNF PiVNGxICfDJROWX1vFR5YG L3gRJLyXBUgpQ8JYHE2oMx 3EIBsOVNbLK3XWB5MWJaWE JjPSRYcQBtMKL87LBrAMYH RCGGRbY3kHDOCBTIVHW0PR LNHoIATtxvRyFDMeCB0rXT NNNZLEVLTZXLVPXZ7ECXnv JAHhvAWgMHElRIRXX13DN0 yaXSEVJVjlGRXSCV9IQ77G SUMgQklPUFNZOlxwYXIgIC KnWY8ZXD4PQAMiLVVRB8VP CFeJRGkzFh0hLXAEUF6GM8 bXQuRIGLOISaNVKG5QLEPh kyCsGM1zEd7rXU9KUSEJHQ 6AZYYAEXVEDOmFO6uMAFPR LVOSPHQDSEUxH2DyLIQQYZ iLHZ5QMTJMJ6NWVDafGENn CPflTWLwLa7rFHxLXBHFXR CMU6SUGVuZPlrkKJ1EG9CI C5DMIeNUWD7FK9aadZGuJI WeCUXBGEHEHs4ZOrSIQW7Y QVRPUlkgREVCUklTICBXSV LUILTLU3PGZwuCSSOYH7tS HbyYCfjtE50KL9rOYVTSXO OHUJYYTIWZT1AUBKKGM39a mKWtOXUkIKJJRITZUC3PSx QBZJXYW3GaX9wSRCIKTWQK SDgVAQGUSAROP4CGNSLyye AgLSAgVkVSWSBTTUFMTCBG UkFHTUVOVCBPRiBTVVBFUk ZCI4yKPIPPX5rCRF7OYkCM OHFGL4IkY4HWSdgsOPJaUP 0gIEdNUyBTVEFJTiBJUyBO DXrYENbCXUAKJ4HmMiPAV1 KRNDMVLM0IQwWDELWjraFy OVTlTdJTXSFHLbCvMk1KCN UGG4QGWEDVQCZWSlBSQSoZ L15NXkBPMJDxeh13XFF2El Ono6G1OFU9XHQvOSAyk7qx ZGVmbGFuZzEwMzNcZnRuYm hlyNVtZELwMxTbk3smv595 oCScx3utZZVmJtR6sIAmLU LksUJsL916SFChUQupz8xs j3OnCGKwkGNvc1U0JWQGlx ffmPo6tMnjP17os0V1Iixf H3lbZMHaFPGiW1XuKK8wBT ShZhw2FRM2AUS3GBDeJAEn P9JyQE3pRHAjwCGjJYt8z7 echBzzCVMfBUQ8q3ovIAcb ryLtRP0cpw0izCc0y3yeqj UsIOTpEJLftNCWNBUdD3Ih yHkmIo1tsZl3aCdtVbrsTL P2Pdp3HA3zcs25qhv3oYfb UQHpqvvwSeV5HWolPPYsjh elGTk1FCfdSYYyxOV6OCOh oFYmA2GeZDLjLJ9kybc1MM C9SYlxVHMyTxC1MNHcnUDp MXMdlIvyJZolg467BBF9Xa FfAB6pJ5Qhr0C5vZ6pcREb NGIueSSqXsQuIPCdzj5ycJ HhQYzbx3ExGUE2zqY6yDTg mRDeKZEaGmJ9OIdbXZ5poa 19QYUyVZR7dd5jvGHbaFss pfZbmHErXLbxX3PaVYSrv1 90PXStT6KsDFKxi2E4idEq SfRfXIWboQD1zdG5JQOfYH 4clmulu7saTLveIQmfHVVo yjQ8xmO4IBQsjPNzJ6EqcB 3eLPFqNG1nmdysz7kfVPH1 NLfnTTSlYLH9ZiXkBBHlm0 Neton0BgZeb9BybTVmLQck Y39se711UKOqlwZfB6twiO FpblxwbGFpblxmMFxmczI0 XHFsXGxhbmcxMDMzXGhpY2 xgLqWcRVFmoCipYRwzi4Aj XGYxXGZzMjJcdGFiXHRhYl x0ZCKkuIIoAXNhOnDrD6jy erceJzRQBTTah5qjL8wyuS NYxMMfW4HsLBburdDtLYpm GTitKebwKJNfKt53NTVsYC Bhcn19 CPT Code(s) (test code v8cvjTMiFBJqbNA1LwIgTR = 3357) Chz3lax6XllZOueBUwJQlq tMNdqzYvpv23pZH6lT18VU 7wTDCqLvA0UHYbueH5Jsa5 CNQgCEEodKWcH174x2qrj9 ryrnJcoEG2pZlvCQDjxpug WrS2HCjcVQLelwaqWCq2PN cqEKRkmJM4XORtqTYoX4Jl YJQfXS3rpfm8YOS9TAlbNT KiJcG5FGIqkAHcNSDqtQeq ZNmkz175TME1ZkDmAWRltm XilNkvzK1eZkNeVHR1LPZp ANSZVZG5UNn0UvRxYDSduk 0= CLINICAL HISTORY (test o3rffDHeBPVsuBF1IoTcLB code = 3356) Wzf0sgb0OpzKHiaSYpVLyc xIJurqJxhb05dFR3nM79KE 5oOTThDzD3PENoodD6Ywa6 PCQwHCPdkUWoJ478a9cka5 jsrrLsrHE2mSctPHYczhku HnP1NJatEWBogqxwFHo7NS ahYGRdxOK1OSYnaRAeF9Bs USBtDZ8gpls5XZT7UFnaIC WjJcM6UHMonOWbGSDzwCgg EPvdb916MVS2VcLpWENycn RedZiykC8tTyEoVVSNBYqw t0VmWZbdQDRqyUGceZ== GROSS DESCRIPTION (test e7vdhYAsKVNgbGAMMTRjG3 code = [id number]) gubvLtIGYrjDZfO9Wpmepq SIlaQO2qOA7ooGypjCKrxR JnHD0RKPExAlFmVIUawGYo bcRmMaStCHEvpJBcrAY4ZR CrQS5kczrmVFgkGYuuCABl xeZ4CFBekVSdQ9WtROEvAV 1jhhnxXJD9HErvsE9itaMC NlrzCu8ouLJfxWbpFxZbOy NoYXJzZXQwXGZuaWwgQXJp JCf3mX2GYrzfE05io0O0Ti l3SWXvYQOwH9NuMN6zSMZb qQCyB89ISdcfFON6AQIMTe qbJIQpRI3Ui8iwQXHigYPw CKA8FAvccJSqLVBjQXPrAS s4WVXkPBaqiBLtEO3tbGvv KdeikJkqw5FvtUYlGPpaEE RhKIXdLGyrDATbDJ2QZsKu MVQ8MgW2EzgbDIb7NHw5XV 0FAcQdYCXpQEdxRuC4OjJi LMy6SZqkSZ1SPCA6QJR2ND K4JZT0QIT0OUKoFRVfZlLf XGYgQXJpYWwgXFxmbCBcXG 9swXxxhCJqupNZLoTJuX2j XQByBUWlHH94qeDuXxqqRC EjTTkbGVDsR37fh4FJb8Mf UE0FBZl5gwYkccsknX4nLX AcwuZiDBqnqZNdO8soV7Fc VDJzYnVyEnAsHEz0JZQtpJ 1gTp9cqCWwlD6wjQYhVZcv DSX9mSQzRGXgUBXcZVOkON 81K1ApnN9on3PoAJSez41o XX7wGSseFpIyTHClQaR1e3 2cG7shFBJiaUH0oJQlHCGz ZDT2xmJ9EC3od1eptCEukP tfM0UzFS2cFGMjp6G5SZMb ORJobFYnbentWN8vLZOyMC LoQoGfG71zaM7iXTMqKTBu XTisnTOdQBKfhBTbg2krkj kpUgUhZUQxkCPpmBI7TKIi QL21zBRewBndpT2uX1Dnk5 B8sPRjbFVrYAxlYBVKWzZv qHVlIV6LCBQcCWjybjJbLI 2FANDkJWgrZMRdyPTLVQB5 DL5pELhevYZzczzxVUHxO4 BfL2IinnOhzSSoRHVrauPz n0yaKSZ8BCKzgELyaMEvOv SqIwccSAP9NNt1LWijPBVp S0BkQ0DgWUauUIR4GGQcLx BcXGRiICBPVlIgIiAxNzM1 IWX1QpA0GCt4ZRTGMfKsXf NoZnp3NOX1VaVgCRp8ZZd6 EWnEJbU5VxVvPTx8SMOjXE BvMcIiRUc5YBXaVFqqHNEc bGNySLjiGezqHYbmD90zLn WuAarciXKzrmAYHuRGnB7y PPNsOHZrNa6aeT4ykXHkAM 1ILTKjpPXDDAZ3AJ1tUFVM ClxsdHJwYXJcbGluMFxyaW 1cMN3KGVt6wbWcOOKxZUfc afShFKQjT8LzwmJwNMhqUP Qypo3idDlzTVilUuNnFCGl s1y5jET4vVWlrCJ7fUHxyK wqKNqvKy0dfGX4iJ2aUVZz UIIrHICvxUSeAQZjyY5gZP AkPJOyv0Z0YqGlzgZnvUsn WVMkmn84bWx2AGQxmRTgPM Ccn6OhfGmhp4FpWZLzV3qa eHDbg7StoO1yRSXoMuUfiV BpbiBtYXhpbXVtIGRpbWVu v6bbsdehCNMaEIZtpUGcuF M7QWTxA3EcMQGetiQikmKf ySNjytDqMWKjBXY3LKNOWw EieTYvAW2RDFFxKUyapeEi ET1MVQAbSTwhXTDjqAFVLW D1VU9oBMfxvGPyzgiwVSOz T0XpW4JejrFfsXMbGNPoei Klx0qdZII3GJTlvHFpkXLs OsDiVjwbJES9IPy8BTbfSP KzW2PkU2AgFWxzQAG7ZYVm MiBcXGRiICBPVlIgIiAxNz Q0QVV3YfN6YHr1GKEYXsBz TlGhCwo7OTB1SyZoOBm8RL s0HPlFGuT6IiHwWRk0FQZh CDPhSlFwBMe8MKYlFUheFQ CzjIHqIXzhReamLBfjX98m ZnMxNlxwbGFpbiBDLiBEaX W5WQznZWBfwBvcL3VgTbfe HTKqRVttNSZjJ09cu2KYx7 MiLR6CONk8zcLygprhcV6r EGFuzsFxKSkbyCTvB9pwW0 ZoIKCoLqFdVnBaNKc5LUMk hY9aAl2zdHHzvL6icDLjQR nhDRO5eITlZKDzHSXpUGIl FV26U1JxuP3lx7QlBZAic8 4qXA9iJHxvOfWuRWLtTvMt p2ShrVGnX8WcYOEbn8YtLC s9d4kyCsZnVkEcdvJcCVBl WNNwtYd1fJIeJMszZkNfNA Prii59mKy7VZPwvwOpbUSo vHFgc5PebCxgu0XpFWQuV0 bshADsw3KwbI1xASJjWKFo zFkrYSThUSJizHHmdHW6FX YlA4LwDVAfvlQiphMjbKOn ltGqGMVbKAK7AQCQVD2gFL OBY7OyGRAuzsGTDijuQeLw ZnMyMiANClxwbGFpblxlcG ugYdBmdWGpBlTetCnjxD68 CXAsqEUwXWH4WN9vIYEmjm cfZPBuQGEpWDF1UKhouB61 aGYeSMDjTIAtvPKlwJ7QHE SeLEE3AYjscY70rUXeDD2Z NKIbTJL4XQTpsIZhMKC1UT 0etY5UdE== MICROSCOPIC DESCRIPTION e2odwCPqSAWwjJA1EvLcEP (test code = 3371) Krb3vto5QkxFPjxHTjMEdp uMLvcwIfmq32xJZ3rB93PH 5mNZQkSvJ4PUIawwU4Ktj8 JTYjRGYhjLDvW458u1ajn0 vyrrYdmDZ4yFdbYRTnmkxa QlX1TUyjYCViockzASz4FX jzXMZjqRB0DMBheILaQ9Fy QADcXJ6zvtt2FLO1SHifPY NyLdV6BUVjfIZsNYMsbYvo WWccw006ESO3FzKbBHJtem GcpVhqoR5zHzCqVKWLYPQS N7IBTZZytVKnuO== SPECIAL STUDIES (test d4ptuJRpITVdeHY9BeKkSL code = 3376) Bbv1vmx0FdwHWdfFUuPAqn lLIufeNfri53mZS9nP90SS 5qTWDnAmL5UYVxbbO1Jwf6 VOAbKPCyrOWkO671PUIrMP QwiEfmyrm2uG03JXOkaN9x dGJsIDtccmVkMFxncmVlbj RnBlg6APW3sLlcURBmjwbn OdQ9NVeqOSKxjvlxLWq8BK ihWEUhoCV3OFGnoLAgE3Bh TXCeFF2odlm0YOO9NQsyKJ ZfHsG8VZQizXZqGKDmcQwr UUcvg086AIB4PrEdTSUryc PxqXfgcB7cPiYsSmDqDubq ZjEgVGhlIGludGVycHJldG N9hI9rGP4cFWDbbNJbJ0Ki RPEaqyMckCBzNRV2tBLwhV JpBV4nTIchfCCyd4vlr3Ls Y9spfHyczNV4VU3iUBZfQJ VqPXmmr1CkuZ1wUsoqNKQa H20YUCVwdiXRl417ld7yBC MtzLBxnwBQcTGbmK8dSSbf FVjbGFmvzLYsSZkwk1mnYV Hhy3r7hNExHTJygaYun8iw IHdlcmUgZXZhbHVhdGVkIG Urd88uWHilzYmucJodYTMx h4AgrMoqs1JzKcCfTQjtr4 NtR53ubXMgwEGekGhrUCHo qfRgWTDot53gn7xcOGTcXs L6iOTxyIH8gUDkoCBmh3Ea dGhdQOLvy7miYYAlio1pgl vjzINuc5TrhG4llfosMJjj bOXbsoHkRWKdw3v8sBThVT CxWPJoJJonzRo7BDCmx703 mx8igkX0zPIrPTI8UXvaIF JsZSBhcmUgZXZhbHVhdGVk QUFsbaBxAWOscsWQwG99ga 0plVR7z4GaII0za5RlxQJ9 ZWNobmljYWwgdGVzdGluZy I0NLMljQInNb4fxXHyVHI8 MXHatBwlboKFsG5iDPVzRA y5MTMgYaFxMroglvFDUNRs S1QqXBPoceGwgflcPFS0qQ 0ow7p5GIqqQg9xQVFqufym e3vzltMupWPgf5ViUBAtwq Gsj1QmRQAjsiOijZSoCGCc diUwbe1pafFfIQCqCCEeG8 BggevhsDoahaO2VIWsJRQu iGDrvNipGUNtJAd7TFtvie Gup0LvIoQkwcMkxFNlkbHg NK5uTXLmaGSydjMjECP0AC ZdGHKAMfNeUMIco3OvTL0m ETEviHlvAVQgfX2ct1IdFU Bym35xCAGtYOVXOARzoIBq IGRldGVybWluZWQgdGhhdC AweYIjRJGaFVAbDD6jHMRc teGojGVgr2QueGIqnfSph3 MxaeOvVRYiAIS0ZnYOqALb wNAswKNisjC5r4ElJVGhwe HzzYtrdUMjmTDuzFBeo3Co jc1cLEXuw2ptyZjwQC8fnG BiZSByZWdhcmRlZCBhcyBp epAbf3DgZ1N7jF1bEDaaq8 IbDp2iPOFeh3SippEhFbCX yQgoJGqrAo7eVKZvhsyedV YrM0RloJvwbQMlXAGlAVWj IHRoZSBDbGluaWNhbCBMYW UcquF2u7J7YZwsvBIvmiQx DL33KHQaGZ4oxFKfoSZjz2 ZrDAf2NXVoY4tMPJ20YRjo YXMgcXVhbGlmaWVkIHRvIH FzaiBkay5hcBfmqZQkh95c sJP2mCY7QEBijI2mH4OqNY xsFe7vGFVxfizemAZrgVvj Aw8tqYCtaW== [facility] [id number] 14:36:42Surgical Pathology Report Case: [id number] Authorizing Provider: Kiara Sterling MD Collected: 04/23/2022 08:33 AM Ordering Location: [address] Med/Surg Received: 04/25/2022 08:19 AM Pathologist: Eli Mraia MD Specimens: A) - Stomach, Antrum, biopsy B) - Stomach, Body, biopsy C) - Distal Esophagus, biopsy This addendum is issued to report the result of immunohistochemical study for H elicobacter pylori on specimen A- NEGATIVE The interpretation of this case included the use of immunohistochemistry or special stains. HELICOBACTER PYLORIImmunohistochemistry technical testing was performed at [facility], Pathology Laboratory where it was developed and [...] high complexity clinical laboratory testing. CPT CODE: 03137 Addendum electronically signed by Eli Maria MD [...] OR MALIGNANCY Signing Pathologist Direct Phone Line: [phone] signed by Eli Maria MD on 04/28/2022 at 10:25 [id number] X 3; [id number] A. Stomach, Antrum.Received in formalin labeled with [...] evaluated Immunohistochemistry technical testing was performed at [facility], Pathology Laboratory where it was developed and [...] perform high complexity clinical laboratory testing.VITAMIN D, [id number] 14:26:40 Test Item Value Reference Range Interpretation Comments VITAMIN D 25-OH (BEAKER) (test 14.1 ng/mL 6.6-49.9 code = 2764) Effective 09/05/2017: Reference Range ChangeNew: 6.6-49.9 ng/mL Previous: 13.0- 47.8 ng/mLRecommendedVitamin D Target Range: 30.0-40.0 ng/mLOperator ID - RM [id number] 07:17:45 Test Item Value Reference Range Interpretation Comments FERRITIN (BEAKER) (test code = 54.20 ng/mL 22.00-322.00 361) Classroom Instructional Aide ID - LITOPTH, [id number] 07:02:32 Test Item Value Reference Range Interpretation Comments PARATHYROID HORMONE INTACT 298.3 pg/mL 15.0-90.0 H (BEAKER) (test code = 577) Classroom Instructional Aide ID - LITOHEPATIC FUNCTION [id number] 07:00:33 Test Item Value Reference Range Interpretation [...] (test code = 12 U/L 5-50 347) Classroom Instructional Aide ID - LITOOperator ID - LITOOperator ID - LITOOperator ID - LITOOperator ID - LITOOperator ID - LITOOperator ID - LITOBASIC METABOLIC [id number] 06:59:39 Test Item Value Reference Range Interpretation [...] 697) EGFR (BEAKER) (test 14 mL/min/1.73 ESTIMA GEOVANNI GFR IS code = 1092) sq m NOT ACCURATE CREATININE CLEARANCE IN PREDICTING GLOMERULAR FILTRATION RATE . ESTIMATED GFR I S NOT APPLICABLE FOR DIALYSIS PATIEN TS. Classroom Instructional Aide ID - LITOOperator ID - LITOOperator ID [...] 36 % 20-55 (test code = 2590) Classroom Instructional Aide ID - LITOOperator ID - [id number] 06:56:14 Test Item Value Reference Range Interpretation Comments PHOSPHORUS (BEAKER) (test code = 3.3 mg/dL 2.5-4.5 604) Classroom Instructional Aide ID - LITOOperator ID - LITOOperator ID - LITOOperator ID - LITOCBC W/PLT COUNT & AUTO [id number] 06:46:06 Test Item Value Reference Range Interpretation [...] (BEAKER) (test code = 2801) Urinalysis Microscopic [id number] 13:47:25 Test Item Value Reference Range Interpretation Comments RBC, UA (test code = <5 See_Comment [Autom ated message] 799-7) The system [employer] generated this result transmitted ref erence range: /HPF. Th e reference range was not used to int erpret this result as normal/abnormal . WBC, UA (test code = None Seen See_Comment [Autom ated message] 93413-2) The system [employer] generated this result transmitted ref erence range: /HPF. Th e reference range was not used to int erpret this result as normal/abnormal . Bacteria, UA (test None Seen code = 50913-6) SQUAMOUS EPITHELIAL <5 See_Comment [Automa geovanni message] (test code = 41552-8) The sy stem which generated this result transmitted ref erence range: /HPF. Th e reference range was not used to int erpret this result as normal/abnormal . [facility] [id number] 13:47:25 Test Item Value Reference Range Interpretation Comments RBC, UA (test code = <5 See_Comment [Autom ated message] 799-7) The system [employer] generated this result transmitted ref erence range: /HPF. Th e reference range was not used to int erpret this result as normal/abnormal . WBC, UA (test code = None Seen See_Comment [Autom ated message] 52970-8) The system [employer] generated this result transmitted ref erence range: /HPF. Th e reference range was not used to int erpret this result as normal/abnormal . Bacteria, UA (test None Seen code = 24674-4) SQUAMOUS EPITHELIAL <5 See_Comment [Automa geovanni message] (test code = 05763-8) The sy stem which generated this result transmitted ref erence range: /HPF. Th e reference range was not used to int erpret this result as normal/abnormal . [facility] [id number] 13:47:25 Test Item Value Reference Range Interpretation Comments RBC, UA (test code = <5 See_Comment [Autom ated message] 799-7) The system [employer] generated this result transmitted ref erence range: /HPF. Th e reference range was not used to int erpret this result as normal/abnormal . WBC, UA (test code = None Seen See_Comment [Autom ated message] 61054-5) The system [employer] generated this result transmitted ref erence range: /HPF. Th e reference range was not used to int erpret this result as normal/abnormal . Bacteria, UA (test None Seen code = 58342-4) SQUAMOUS EPITHELIAL <5 See_Comment [Automa geovanni message] (test code = 47157-6) The sy stem which generated this result transmitted ref erence range: /HPF. Th e reference range was not used to int erpret this result as normal/abnormal . [facility] [id number] 13:47:25 Test Item Value Reference Range Interpretation Comments RBC UA-MANUAL (BEAKER) (test <5 /HPF code = 1659) WBC UA-MANUAL (BEAKER) (test None Seen /HPF code = 1661) BACTERIA (BEAKER) (test code = None Seen 517) SQUAMOUS EPITHELIAL MANUAL <5 /HPF (BEAKER) (test code = 1663) Urinalysis with Microscopic If [id number] 13:43:44 Test Item Value Reference Range Interpretation Comments Color, UA (test code = 5778-6) Yellow Clarity, UA (test code = 5767-9) Clear Specific [place], UA (test code = 1.020 1.001-1.035 5811-5) pH, UA (test code = 5803-2) 7.5 5.0-8.0 Protein, UA (test code = 77006-0) >=300 mg/dL Negative A Glucose, UA (test code = 365) Negative Negative Ketones, UA (test code = 2514-8) Negative Negative Bilirubin, UA (test code = Negative Negative 00779-7) Blood, UA (test code = 31145-7) Trace Negative A Nitrite, UA (test code = 5802-4) Negative Negative Leukocytes, UA (test code = Negative Negative 5799-2) Urobilinogen, UA (test code = 0.2 mg/dL 0.2-1.0 64164-0) Specimen Source (test code = 2795) Lab Interpretation (test code = Abnormal 45851-5) [facility] If [id number] 13:43:44 Test Item Value Reference Range Interpretation Comments Color, UA (test code = 5778-6) Yellow Clarity, UA (test code = 5767-9) Clear Specific [place], UA (test code = 1.020 1.001-1.035 5811-5) pH, UA (test code = 5803-2) 7.5 5.0-8.0 Protein, UA (test code = 09532-9) >=300 mg/dL Negative A Glucose, UA (test code = 365) Negative Negative Ketones, UA (test code = 2514-8) Negative Negative Bilirubin, UA (test code = Negative Negative 73929-0) Blood, UA (test code = 09595-5) Trace Negative A Nitrite, UA (test code = 5802-4) Negative Negative Leukocytes, UA (test code = Negative Negative 5799-2) Urobilinogen, UA (test code = 0.2 mg/dL 0.2-1.0 31084-5) Specimen Source (test code = 2795) Lab Interpretation (test code = Abnormal 37059-3) [facility] If [id number] 13:43:44 Test Item Value Reference Range Interpretation Comments Color, UA (test code = 5778-6) Yellow Clarity, UA (test code = 5767-9) Clear Specific [place], UA (test code = 1.020 1.001-1.035 5811-5) pH, UA (test code = 5803-2) 7.5 5.0-8.0 Protein, UA (test code = 70303-3) >=300 mg/dL Negative A Glucose, UA (test code = 365) Negative Negative Ketones, UA (test code = 2514-8) Negative Negative Bilirubin, UA (test code = Negative Negative 40410-9) Blood, UA (test code = 48866-7) Trace Negative A Nitrite, UA (test code = 5802-4) Negative Negative Leukocytes, UA (test code = Negative Negative 5799-2) Urobilinogen, UA (test code = 0.2 mg/dL 0.2-1.0 96178-3) Specimen Source (test code = 2795) Lab Interpretation (test code = Abnormal 54239-2) [facility]CROSCOPIC IF [id number] 13:43:44 Test Item Value Reference Range Interpretation [...] = 2795) CBC W/PLT COUNT & AUTO [id number] 02:41:13 Test Item Value Reference Range Interpretation [...] PERCENT (BEAKER) (test code = 2801) PROTHROMBIN TIME/[id number] 02:29:02 Test Item Value Reference Range Interpretation Comments PROTIME (BEAKER) 11.4 seconds 9.3-12.0 Final Infor mation (test code = 759) (Auto Outp ut) INR (BEAKER) (test 1.04 See_Comment Final Inf ormation code = 370) (Auto Output) [Automated mess age] The system [employer] generated this result transmitted ref erence range: <=5.90. The reference range was not used to int erpret this result as normal/abnormal . RECOMMENDED COUMADIN/WARFARIN INR THERAPY RANGESSTANDARD DOSE: 2.0 - 3.0 Includes: PROPHYLAXIS for venous thrombosis, systemic embolization; TREATMENT for venous thrombosis and/or pulmonary embolus.HIGH RISK: Target INR is 2.5-3.5 for patients with mechanical heart valves.[id number] 02:05:45 Test Item Value Reference Range Interpretation Comments MAGNESIUM (BEAKER) (test code = 1.7 mg/dL 1.5-3.0 627) Classroom Instructional Aide ID - [id number] ID - [id number] ID - [id number] ID - [id number] FUNCTION [id number] 02:05:39 Test Item Value Reference Range Interpretation [...] (test code = 14 U/L 5-50 347) Classroom Instructional Aide ID - [id number] ID - [id number] ID - [id number] ID - [id number] ID - [id number] ID - [id number] ID - [id number] METABOLIC [id number] 02:05:19 Test Item Value Reference Range Interpretation [...] 697) EGFR (BEAKER) (test 14 mL/min/1.73 ESTIMA GEOVANNI GFR IS code = 1092) sq m NOT ACCURATE CREATININE CLEARANCE IN PREDICTING GLOMERULAR FILTRATION RATE . ESTIMATED GFR I S NOT APPLICABLE FOR DIALYSIS PATIEN TS. Classroom Instructional Aide ID - [id number] ID - [id number] ID - [id number] ID - [id number] ID - [id number] ID - ONAROIOKZ777Jzagfjey ID - BWOJWZTDV130Rrhulrkr ID - [id number] ID - [id number] ID - [id number] 02:01:59 Test Item Value Reference Range Interpretation Comments PHOSPHORUS (BEAKER) (test code = 3.0 mg/dL 2.5-4.5 604) Classroom Instructional Aide ID - [id number] (ID NOW RAPID TESTING)2021-08-05 20:02:26 Test Item Value Reference Range Interpretation Comments SARS-CoV-2 Rapid ID NOW Not Detected Not Detected (test code = 43385-1) LULÚ (test code = LULÚ) ID NOW COVID-19 Assay is an isothermal nucleic acid amplification test intended for the qualitative detection of nucleic acid from SARS-CoV-2 viral RNA in nasopharyngeal (NEWSPAPER EDITOR) specimens. It is used under Emergency Use [...] indicated. Lab Interpretation Normal (test code = 86252-2) [facility]
[2022-08-11] MEDS ORDERED: ONDANSETRON 4 MG/2 ML VIAL ONE (17:16)
[2022-08-11 17:47] LABS: Absolute Lymphocytes (CBC) 1.8 K/uL (0.7-4.9); Hematocrit 27.4 % (39.6-49.0); Lymphocytes % 19.3 % (15.3-44.8); RBC Red Blood Cell Count 3.01 M/uL (4.33-5.43)
[2022-08-11 17:50] LABS: Protime INR 1.08
[2022-08-11] MEDS ORDERED: MORPHINE 4 MG/ML SYR ONE (17:50)
--- NOTE | 2022-08-11 17:54 | RAD REPORT ---
EXAM DESCRIPTION: RAD - Chest Single View - 08/11/2022 5:28 pm CLINICAL HISTORY: CHEST PAIN COMPARISON: Chest Single View dated 08/01/2022; Chest Single View dated 07/30/2022; Chest Single View da geovanni 07/27/2022; Chest Single View dated 04/18/2022 FINDINGS: Lines: Right IJ approach is dialysis catheter with tip overlying SVC. Lungs: No evidence of edema or pneumonia. Pulmonary vascular congestion. Pleural: No significant pleural effusions or pneumothorax. Cardiac: Cardiomegaly. Mediastinum: Within normal limits. Bones: No acute fractures. Other: None IMPRESSION: Pulmonary vascular congestion but no alveolar edema or consolidative airspace disease.
[2022-08-11 18:15] LABS: ALT/SGPT 16 U/L (12-78); AST/SGOT 16 U/L (15-37); Albumin 1.8 g/dL (3.4-5.0); Alkaline Phosphatase 64 U/L (45-117); BUN Blood Urea Nitrogen 19 mg/dL (7-18); Bicarbonate 25 mmol/L (21-32); Bilirubin Direct < 0.1 mg/dL (0-0.2); Bilirubin Total 0.2 mg/dL (0.2-1.0); Glomerular Filtration Rate 12 ml/min (=/>90); Glucose Level 87 mg/dL (74-106); Lipase 157 U/L (73-393); Magnesium 1.8 mg/dL (1.8-2.4); NT PRO-BNP 15894 pg/mL (<125); Potassium 4.1 mmol/L (3.5-5.1); Sodium Level 141 mmol/L (136-145); Troponin High Sensitivity 28.3 pg/mL (<58.9)
--- NOTE | 2022-08-11 19:01 | RAD REPORT ---
EXAM DESCRIPTION: CTAbdomen Pelvis Wo Contrast - 08/11/2022 6:47 pm CLINICAL HISTORY: abdominal pain COMPARISON: Abdomen Pelvis Wo Contrast dated 07/27/2022; Abdomen Pelvis Wo Contrast dated 06/30/2022 ; CT-RAD THERAPY FIELD PELVIS dated 02/10/2020; CTSTONE PROTOCOL dated 12/09/2012 TECHNIQUE: CT of the abdomen and pelvis was performed. All CT scans are performed using dose optimization technique as appropriate and may include automated exposure control or mA/KV adjustment according to patient size. FINDINGS: Lower chest: Artery calcifications. Liver: No acute abnormality or suspicious lesions. Biliary: No biliary ductal dilatation. Stomach: No significant focal abnormality. Duodenum: No significant focal abnormality. Pancreas: No significant abnormality. Spleen: No significant abnormality. Adrenal: No suspicious lesions. Kidney/ureter: No hydronephrosis. No renal calculi. Left lower pole renal cyst. Retroperitoneum: No retroperitoneal adenopathy. Vascular: No aneurysm. Atherosclerosis. Bowel: Nonspecific fluid within the colon and distal small bowel.. Normal appendix. Peritoneum: No ascites or free air. Small fat containing left inguinal hernia. Bladder: Grossly unremarkable. Reproductive: No adnexal masses. Bones: No acute fracture. Other: n/a IMPRESSION: Nonspecific fluid within the small bowel and colon may represent a mild enterocolitis. N o bowel obstruction.
[2022-08-11] MEDS ORDERED: DICYCLOMINE HCL 20 MG/2 ML AMP IM ONE (19:47)
--- NOTE | 2022-08-11 20:33 | ER ---
Nurse's Notes [facility] Name: Brendan Steinberg Age: 71 yrs Sex: Male : 1950 Arrival Date: 08/11/2022 Time: 16:35 Bed 17 Private MD: Diagnosis: Abdominal pain, unspecified;Chest pain, unspecified;Nausea with vomiting, unspecified Presentation: 08/11 16:35 Chief complaint: EMS states: Patient said he started having abdominal pain that is bm7 radiating in his chest this morning. Coronavirus screen: At this time, the client does not indicate any symptoms associated with coronavirus-19. Ebola Screen: No symptoms or risks identified at this time. Initial Sepsis Screen: Does the patient meet any 2 criteria? No. Patient's initial sepsis screen is negative. Does the patient have a suspected source of infection? No. Patient's initial sepsis screen is negative. Risk Assessment: Do you want to hurt yourself or someone else? Patient reports no desire to harm self or others. Onset of symptoms was August 11, 2022. 16:35 Method Of Arrival: EMS: [facility] 7 16:35 Acuity: ROSALIE 3 bm7 Triage Assessment: 16:39 General: Appears in no apparent distress. uncomfortable, unkempt, Behavior is anxious, bm7 restless. Pain: Complains of pain in abdomen Pain radiates to back. EENT: No deficits noted. No signs and/or symptoms were reported regarding the EENT system. Neuro: No deficits noted. Cardiovascular: Reports nausea, syncope, Denies lightheadedness, palpitations, shortness of breath, Heart tones S1 S2 present Chest pain is described as mild, Dialysis shunt: in the anterior aspect of right upper chest, with no edema, no bleeding noted. Respiratory: No deficits noted. GI: Abdomen is round non-distended, obese, Bowel sounds present X 4 quads. Abd is soft and non tender X 4 quads. Reports lower abdominal pain, upper abdominal pain, diarrhea, nausea, vomiting. : No deficits noted. No signs and/or symptoms were reported regarding the genitourinary system. Derm: No deficits noted. No signs and/or symptoms reported regarding the dermatologic system. Musculoskeletal: No deficits noted. No signs and/or symptoms reported regarding the musculoskeletal system. Historical: - Allergies: 16:39 No Known Allergies; bm7 - Home Meds: 16:39 amlodipine oral [Active]; Zolpidem Tartrate Oral [Active]; Metoprolol Tartrate Oral bm7 [Active]; lisinopril Oral [Active]; gabapentin Oral [Active]; Furosemide Oral [Active]; calcitriol Oral [Active]; - PMHx: 16:39 Hypertension; insomnia; esrd; bm7 - PSHx: 16:39 None; bm7 - Immunization history:: Adult Immunizations up to date, Client reports receiving the 2nd dose of the Covid vaccine, Client reports receiving the 1st dose of the Covid vaccine. - Social history:: Smoking status: Patient reports the use of cigarette tobacco products, smokes one-half pack cigarettes per day. Screenin:13 Abuse screen: Denies threats or abuse. Denies injuries from another. Nutritional bm7 screening: No deficits noted. Tuberculosis screening: No symptoms or risk factors identified. Fall Risk None identified. Assessment: 20:13 Reassessment: Patient appears in no apparent distress at this time. Patient and/or bm7 family updated on plan of care and expected duration. Pain level reassessed. Patient is alert, oriented x 3, equal unlabored respirations, skin warm/dry/pink. Vital Signs: 16:35 BP 154 / 88; Pulse 85; Resp 16; Temp 98.7(TE); Pulse Ox 100% on R/A; Weight 88.9 kg bm7 (R); Height 5 ft. 7 in. (170.18 cm); Pain 10/10; 19:59 BP 170 / 85; Pulse 74; Resp 16; Pulse Ox 100% on R/A; bm7 20:14 BP 171 / 80; Pulse 77; Resp 15; Pulse Ox 100% on R/A; bm7 16:35 Body Mass Index 30.70 (88.90 kg, 170.18 cm) bm7 ED Course: 16:35 Patient arrived in ED. bm7 16:36 Jhonny Medrano PA is PHCP. cp 16:36 Shahab Ortega MD is Attending Physician. cp 16:39 Triage completed. bm7 16:39 Arm band placed on right wrist. bm7 16:52 Rebeka Garcia, RN is Primary Nurse. bm7 17:30 XRAY Chest (1 view) In Process Unspecified. EDMS 17:39 Inserted saline lock: 22 gauge in right antecubital area, using aseptic technique. zm Blood collected. 17:39 Basic Metabolic Panel Sent. zm 17:39 CBC with Diff Sent. zm 17:39 LFT's Sent. zm 17:39 Magnesium Sent. zm 17:39 NT PRO-BNP Sent. zm 17:39 PT-INR Sent. zm 17:39 Troponin HS Sent. zm 17:39 Lipase Sent. zm 18:49 CT Abd/Pelvis - Without Contrast In Process Unspecified. EDMS 18:[address] Patient moved back from [address]. bm7 20:13 Patient has correct armband on for positive identification. bm7 20:32 John Rehman MD is Referral Physician. cp 20:49 Client placed on continuous cardiac and pulse oximetry monitoring. NIBP monitoring bm7 applied. monitor car operator on. Warm blanket given. 20:49 No provider procedures requiring assistance completed. Initial lab(s) drawn, by md, bm7 sent to lab. IV discontinued, intact, bleeding controlled, No redness/swelling at site. Pressure dressing applied. Patient maintains SpO2 saturation greater than 95% on room air. Administered Medications: 17:56 Drug: Zofran (Ondansetron) 4 mg Route: IVP; Site: right antecubital; bm7 20:48 Follow up: Response: No adverse reaction bm7 17:56 Drug: morphine 4 mg Route: IVP; Infused Over: 4 mins; Site: right antecubital; bm7 20:48 Follow up: Response: Pain is unchanged, physician notified bm7 19:46 Drug: Dicyclomine 20 mg Route: IM; Site: right gluteus; bm7 20:48 Follow up: Response: No adverse reaction bm7 20:44 Drug: morphine 2 mg Route: IVP; Infused Over: 4 mins; Site: right antecubital; bm7 20:48 Follow up: Response: No adverse reaction bm7 Medication: 20:14 VIS not applicable for this client. bm7 Outcome: 20:33 Discharge ordered by . cp 20:49 Discharged to home ambulatory. bm7 20:49 Condition: improved 20:49 Discharge instructions given to patient, Instructed on discharge instructions, follow up and referral plans. medication usage, Demonstrated understanding of instructions, follow-up care, medications, Prescriptions given X 1. 20:59 Patient left the ED. bm7 Signatures: Dispatcher [employer] EDMS Jhonny Medrano PA PA cp McCarthy, Brittany, RN RN bm7 Tosha Mccann
--- NOTE | 2022-08-11 20:33 | EDPHYS ---
Physician Documentation [facility] Name: Brendan Steinberg Age: 71 yrs Sex: Male : 1950 Arrival Date: 08/11/2022 Time: 16:35 Bed 17 Private MD: ED Physician Shahab Ortega HPI: 08/11 17:00 This 71 yrs old Black Male presents to ER via EMS with complaints of Abdominal Pain. cp 17:00 The patient presents with abdominal pain that is diffuse. cp 17:00 Onset: The symptoms/episode began/occurred today. cp 17:00 The symptoms radiate to chest. Associated signs and symptoms: Pertinent positives: cp nausea and vomiting. 17:00 The symptoms are described as constant. cp 17:00 Severity of pain: in the emergency department the pain is unchanged despite EMS cp interventions. Historical: - Allergies: 16:39 No Known Allergies; bm7 - Home Meds: 16:39 amlodipine oral [Active]; Zolpidem Tartrate Oral [Active]; Metoprolol Tartrate Oral bm7 [Active]; lisinopril Oral [Active]; gabapentin Oral [Active]; Furosemide Oral [Active]; calcitriol Oral [Active]; - PMHx: 16:39 Hypertension; insomnia; esrd; bm7 - PSHx: 16:39 None; bm7 - Immunization history:: Adult Immunizations up to date, Client reports receiving the 2nd dose of the Covid vaccine, Client reports receiving the 1st dose of the Covid vaccine. - Social history:: Smoking status: Patient reports the use of cigarette tobacco products, smokes one-half pack cigarettes per day. ROS: 17:05 Constitutional: Negative for body aches, chills, fever. cp 17:05 Eyes: Negative for injury, pain, redness, and discharge. cp 17:05 ENT: Negative for drainage from ear(s), ear pain, sore throat, difficulty swallowing, difficulty handling secretions. 17:05 Cardiovascular: Positive for chest pain, Negative for edema, palpitations. 17:05 Respiratory: Negative for cough, shortness of breath, wheezing. 17:05 Abdomen/GI: Positive for abdominal pain, nausea and vomiting, Negative for constipation, hematemesis, black/tarry stool, rectal bleeding. 17:05 Neuro: Negative for altered mental status, dizziness, headache, weakness. 17:05 All other systems are negative. Exam: 17:10 Constitutional: The patient appears in no acute distress, alert, awake, cp non-diaphoretic, non-toxic, well developed, well nourished. 17:10 Head/Face: Normocephalic, atraumatic. cp 17:10 Eyes: Periorbital structures: appear normal, Conjunctiva: normal, no exudate, no injection, Sclera: no appreciated abnormality, Lids and lashes: appear normal, bilaterally. 17:10 ENT: External ear(s): are unremarkable, Nose: is normal, Mouth: Lips: moist, Oral mucosa: moist, Posterior pharynx: Airway: no evidence of obstruction, patent. 17:10 Chest/axilla: Inspection: normal, Palpation: is normal, no crepitus, no tenderness. 17:10 Cardiovascular: Rate: normal, Rhythm: regular, Edema: ankle edema, that is mild, JVD: is not appreciated. 17:10 Respiratory: the patient does not display signs of respiratory distress, Respirations: normal, no use of accessory muscles, no retractions, labored breathing, is not present, Breath sounds: are clear throughout, no decreased breath sounds, no stridor, no wheezing. 17:10 Abdomen/GI: Inspection: abdomen appears normal, Bowel sounds: active, all quadrants, Palpation: soft, in all quadrants, moderate abdominal tenderness, in all quadrants, rebound tenderness, is not appreciated, involuntary guarding, is not appreciated. 17:10 Back: CVA tenderness, is absent. 17:10 Neuro: Orientation: to person, place \T\ time. Mentation: is normal, Motor: moves all fours, strength is normal, Sensation: is normal. 17:33 ECG was reviewed by the Attending Physician. cp Vital Signs: 16:35 BP 154 / 88; Pulse 85; Resp 16; Temp 98.7(TE); Pulse Ox 100% on R/A; Weight 88.9 kg bm7 (R); Height 5 ft. 7 in. (170.18 cm); Pain 10/10; 19:59 BP 170 / 85; Pulse 74; Resp 16; Pulse Ox 100% on R/A; bm7 20:14 BP 171 / 80; Pulse 77; Resp 15; Pulse Ox 100% on R/A; bm7 16:35 Body Mass Index 30.70 (88.90 kg, 170.18 cm) bm7 MDM: 16:40 Patient medically screened. cp 20:33 Data reviewed: vital signs, nurses notes, lab test result(s), EKG, radiologic studies, cp CT scan, plain films. 20:33 Test interpretation: by ED physician or midlevel provider: plain radiologic studies. 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 08/11 16:45 Order name: Basic Metabolic Panel; Complete Time: 18:18 08/11 20:23 Interpretation: Normal except: CL 111; BUN 19; CRE 4.94; GFR 12; CA 8.1. 08/11 16:45 Order name: CBC with Diff; Complete Time: 18:18 08/11 18:19 Interpretation: Normal except: RBC 3.01; HGB 8.9; HCT 27.4; RDW 18.6. 08/11 16:45 Order name: LFT's; Complete Time: 18:18 cp 08/11 16:45 Order name: Magnesium; Complete Time: 18:18 cp 08/11 16:45 Order name: NT PRO-BNP; Complete Time: 18:18 cp 08/11 18:20 Interpretation: Abnormal: NT PRO-BNP 94013. 08/11 16:45 Order name: PT-INR; Complete Time: 18:18 08/11 16:45 Order name: Troponin HS; Complete Time: 18:18 cp 08/11 16:45 Order name: XRAY Chest (1 view); Complete Time: 18:18 cp 08/11 16:45 Order name: Lipase; Complete Time: 18:18 cp 08/11 18:21 Order name: CT Abd/Pelvis - Without Contrast; Complete Time: 19:24 cp 08/11 16:42 Order name: Diet Regular; Complete Time: 16:43 bm7 08/11 16:45 Order name: EKG; Complete Time: 16:46 cp 08/11 16:45 Order name: Cardiac monitoring; Complete Time: 17:26 cp 08/11 16:45 Order name: EKG - Nurse/Tech; Complete Time: 17: cp 08/11 16:45 Order name: IV Saline Lock; Complete Time: 17: cp 08/11 16:45 Order name: Labs collected and sent; Complete Time: 17: cp 08/11 16:45 Order name: O2 Per Protocol; Complete Time: 17: cp 08/11 16:45 Order name: O2 Sat Monitoring; Complete Time: 17: cp 08/11 16:45 Order name: NPO; Complete Time: 16:53 cp 08/11 19:25 Order name: PO challenge; Complete Time: 19:52 cp EC:33 Rate is 79 beats/min. Rhythm is regular. MO interval is normal at 200 msec. QRS cp interval is normal. QT interval is normal. T waves are Inverted in lead aVR. Interpreted by me. Reviewed by me. Administered Medications: 17:56 Drug: Zofran (Ondansetron) 4 mg Route: IVP; Site: right antecubital; bm7 20:48 Follow up: Response: No adverse reaction 7 17:56 Drug: morphine 4 mg Route: IVP; Infused Over: 4 mins; Site: right antecubital; bm7 20:48 Follow up: Response: Pain is unchanged, physician notified bm7 19:46 Drug: Dicyclomine 20 mg Route: IM; Site: right gluteus; bm7 20:48 Follow up: Response: No adverse reaction bm7 20:44 Drug: morphine 2 mg Route: IVP; Infused Over: 4 mins; Site: right antecubital; bm7 20:48 Follow up: Response: No adverse reaction bm7 Disposition Summary: 08/11/22 20:33 Discharge Ordered Location: Home cp Problem: new cp Symptoms: have improved cp Condition: Stable cp Diagnosis - Abdominal pain, unspecified cp - Chest pain, unspecified cp - Nausea with vomiting, unspecified cp Followup: cp - With: John Rehman MD - When: 2 - 3 days - Reason: Recheck today's complaints Discharge Instructions: - Discharge Summary Sheet cp - Abdominal Pain, Adult cp - Nonspecific Chest Pain, Adult cp - Nausea and Vomiting, Adult cp Forms: - Medication Reconciliation Form cp - Thank You Letter cp - Antibiotic Education cp - Prescription Opioid Use cp Prescriptions: - Reglan 10 mg Oral Tablet - take 1 tablet by ORAL route every 6 hours take 30 minutes before meals and at cp bedtime; 20 tablet; Refills: 0, Product Selection Permitted - dicyclomine 20 mg Oral Tablet - take 1 tablet by ORAL route 4 times per day; 30 tablet; Refills: 0, Product cp Selection Permitted Signatures: Dispatcher [employer] EDJhonny Mcclain PA PA cp McCarthy, Brittany, RN RN bm7
[2022-08-11] MEDS ORDERED: MORPHINE 2 MG/ML SYR ONE (20:56)
[2022-08-13 04:04] VITALS: TEMP 98.7; O2SAT 100
[2022-08-13 04:11] VITALS: BP 171/80
--- NOTE | 2022-08-13 15:58 | EKG ---
Test Date: 2022-08-11 Test Time: 17:28:39 Wool Handler: ARLINE MEASUREMENT RESULTS: Intervals: Rate: 79 RI: 200 QRSD: 80 QT: 386 QTc: 442 [place]: P: 35 RI: 200 QRS: -17 T: 19 INTERPRETIVE STATEMENTS: Normal sinus rhythm Moderate voltage criteria for LVH, may be normal variant Borderline ECG Compared to ECG 07/27/2022 22:19:24 No significant changes Electronically Signed On 08-13-22 15:55:37 CDT by Ruben Mathew
== END 2022-08-11 20:59 | disposition home or self-care (01) ==
LOC: ER 16:23
DX: R10.9 Unspecified abdominal pain (principal); R11.2 Nausea with vomiting, unspecified; R07.9 Chest pain, unspecified; F17.210 Nicotine dependence, cigarettes, uncomplicated; I12.0 Hypertensive chronic kidney disease with stage 5 chronic kidney disease or end stage renal disease; N18.6 End stage renal disease
CPT/HCPCS: 93005; 85025; 80048; 36415; 83735; 85610; 80076; 84484; 83690; 83880; 74176; 71045; 96375; 96372; 96374; 99285; J0500; J2270; J2405